=== PATIENT | male | born 1940 | race American Indian/Alaskan Native ===

== ENCOUNTER 2018-01-30 10:31 | Emergency (ER) | payer MEDICARE, OTHER ==
[~2018-01-30] VITALS: Ht 170.2 cm; Wt 71.7 kg
--- OUTSIDE RECORDS SUMMARY | ~2018-01-30 | XMS | Clinical Summary ---
Demographics + + + | Address | [address] | | | [place] [address] | + + + | Home Phone | | + + + | Preferred Language | Unknown | + + + | Marital Status | | + + + | Episcopal Affiliation | NRP | + + + [...] Phone | + + +---------+ + | LITO PRITCHRAD | ECON | Unknown | | + + +---------+ + | Delmis Pritchard | ECON | Unknown | | + + +---------+ + Care Team Providers + +------+ + | Care Procurement Technician Name | Role | Phone | + +------+ + | Christa Fairbanks MD | PP | | + +------+ + Source Comments SHERITA is fully live on both EpicCare Ambulatory and EpicCare InPatient.[facility] Allergies + + + + + + | Active Allergy | Reactions | Severity | Noted | Comments | | | | | Date | | + + + + + + | Levofloxacin | Unknown | | 11/20/20 | | | | | | 15 | | + + + + + + Current Medications + + +---------+---------+------+------+-------+ | Prescription | Sig. | Disp. | Refills | Star | End | Statu | | | | | | t | Date | s | | | | | | Date | | | + + +---------+---------+------+------+-------+ | Cholecalciferol, | Take 2,000 Units by | | | | | Activ | | Vitamin D3, 2,000 | mouth once daily. | | | | | e | | unit oral tablet | | | | | | | + + +---------+---------+------+------+-------+ | simvastatin 20 mg | Take 20 mg by mouth | | | | | Activ | | oral tablet | once daily in the | | | | | e | | | evening. | | | | | | + + +---------+---------+------+------+-------+ | metoprolol | Take 25 mg by mouth | | | | | Activ | | succinate 25 mg oral | once daily. | | | | | e | | tablet extended | | | | | | | | release 24 hr | | | | | | | + + +---------+---------+------+------+-------+ | lisinopril 10 mg | Take 10 mg by mouth | | | | | Activ | | oral tablet | once daily. | | | | | e | + + +---------+---------+------+------+-------+ | ferrous sulfate | Take 325 mg by mouth | | | | | Activ | | 325 mg (65 mg iron) | two times daily. | | | | | e | | oral tablet | | | | | | | + + +---------+---------+------+------+-------+ | ascorbic acid 500 | Take 500 mg by mouth | | | | | Activ | | mg oral tablet | once daily. Take | | | | | e | | | with ferrous sulfate | | | | | | + + +---------+---------+------+------+-------+ | levothyroxine 50 | Take 50 mcg by mouth | | | | | Activ | | mcg oral tablet | once daily. | | | | | e | + + +---------+---------+------+------+-------+ | insulin glargine | Inject 20 Units [...] | | | | | + + +---------+---------+------+------+-------+ | insulin lispro 100 | Aggressive sliding | 10 mL | 0 | 11 | | Activ | | unit/mL | scale. See attached | | | 2/20 | | e | | subcutaneous | sheet. | | | 15 | | | | solution | | | | | | | + + +---------+---------+------+------+-------+ | oxyCODONE, | Take 1-2 tablets by [...] | | | | | + + +---------+---------+------+------+-------+ Active Problems + + + | Problem | Noted Date | + + + | Subdural hematoma (HCC) | 03/26/2015 | + + + Social [...] on file | | + + + Last Filed Vital Signs + + + + | Vital Sign | Reading | Time Taken | + + + + | Blood Pressure | 125/54 | 03/29/2015 12:03 PM PST | + + + + | Pulse | 68 | 03/29/2015 12:06 PM PST | + + + + | Temperature | 36.8 C (98.2 F) | 03/29/2015 12:06 PM PST | + + + + | Respiratory Rate | 18 | 03/29/2015 12:06 PM PST | + + + + | Oxygen Saturation | 97% | 03/29/2015 12:06 PM PST | + + + + | Inhaled Oxygen | - | - | | Concentration | | | + + + + | Weight | 71 kg (156 lb 8.4 | 03/28/2015 5:00 AM PST | | | oz) | | + + + + | Height | 177.8 cm (5' 10") | 03/27/2015 8:00 AM PST | + + + + | Body Mass Index | 22.46 | 03/28/2015 5:00 AM PST | + + + + Plan of Treatment + + + + + | Health Maintenance | Due Date | Last Done | Comments | + + + + + | Pneumococcal (Adult) | | | | | (1 of 2 - PCV13) | 4 | | | + + + + + | INFLUENZA VACCINE | | | | | (FLU SHOT) | 8 | | | + + + + + Implants + +------+--------+ +--------+--------+--------+ | Implanted | Type | Area | Manufacture | Device | Expira | Model | | | | | r | | tion | / | | | | | | Identi | Date | Serial | | | | | | fier | | / Lot | + +------+--------+ +--------+--------+--------+ | Cover [place] Hole .5mm 17mm | | Right: | Whotever | | | 421.52 | | Craniomaxillofacial Titanium | | Head | | | | 7 / / | | Low Profile Nonsterile - | | | | | | | | [id number]: Qty: 2 on | | | | | | | | 03/26/2015 by Dixie Sykes | | | | | | | | MD Janie | | | | | | | + +------+--------+ +--------+--------+--------+ | Screw Bone 4mm 1.55mm 2.55mm | | Right: | Contently [place] | | | 04.503 | | Matrixneuro | | Head | | | | .104.0 | | Craniomaxillofacial Titanium | | | | | | 1 / / | | Self Drill Nonsterile - | | | | | | | | [id number]: Qty: 4 on | | | | | | | | 03/26/2015 by Dixie Sykes | | | | | | | | M MD | | | | | | | + +------+--------+ +--------+--------+--------+ Results Not on filefrom Last 3 Months Insurance + +--------+ +--------+ + + | Payer | Benefi | Subscriber | Type | Phone | Address | | | t Plan | ID | | | | | | / | | | | | | | Group | | | | | + +--------+ +--------+ + + | MEDICARE | MEDICA | xxxxxxxxxx | Medica | [phone] | [address] | | | RE A & | | re | [phone] | [place] [address] | | | B | | | | | + +--------+ +--------+ + + | [facility] | [place] | xxxxxxxxx | Agency | | | | SERVICE | | | | | | | | HEALTH | | | | | | | | | | | | | | SERVIC | | | | | | | E | | | | | + +--------+ +--------+ + + + +--------+ +--------+ + + | Guarantor Name | Accoun | Relation to | Date | Phone | Billing Address | | | t Type | Patient | of | | | | | | | | | | + +--------+ +--------+ + + | SKYLER PRITCHARD | Person | Self [birth year] Home: | [address] | | | al/Fam | | 1940 | [phone] [place] | | | [place] | | | [phone] | + +--------+ +--------+ + +
[~2018-01-30 10:31] MED LIST: ASCORBIC ACID500 M3 PO; ASPIRIN EC81 MG PO; CALCIUM + VITA1 EAC1 PO; CALCIUM 600 +1 EAC3 PO; CLOPIDOGREL75 MG PO; GABAPENTIN100 MG PO; HUMALOG100 UNIT/1 SUB-Q; HYDROCODON-ACE1 EA10 PO; IRON160 MG PO; LANTUS SOL100 UNIT/1 SQ; LANTUS100 UNIT/1 SUB-Q; NORCO 5-325 TA1 EACH PO; NOVOLOG FL100 UNIT/1 SQ; OMEPRAZOLE20 MG PO; PROMETHAZINE HC25 M1 PO; PYRIDIUM200 MG PO; SEPTRA DS TABL1 EACH PO; SIMVASTATIN40 MG PO; SYNTHROID25 MCG PO; TRAMADOL HCL50 MG PO; VITAMIN D350000 UNIT PO; ZESTRIL5 MG PO
--- NOTE | 2018-01-30 16:49 | EKG ---
[facility] [address] [facility] [place] [address] Signed Sinus rhythm with occasional premature ventricular complexes Possible Anterior infarct , age undetermined Abnormal ECG When compared with ECG of 26-MAR-2016 00:16, premature ventricular complexes are now present Incomplete left bundle branch block is no longer present Borderline criteria for Anterior infarct are now present Confirmed by LISSETTE STORY MD ([id number]) on 01/30/2018 4:49:24 PM Electronically Signed By: LISSETTE STORY MD 01/30/18 1649 PATIENT NAME: SKYLER PRITCHARD Electrocardiogram DATE OF : 38 PHYSICIAN: LISSETTE STORY MD REPORT #: [id number] REPORT IS CONFIDENTIAL AND NOT TO BE RELEASED WITHOUT AUTHORIZATION
== END 2018-01-30 12:18 | disposition home or self-care (01) ==
LOC: ED 10:31
DX: R07.9 Chest pain, unspecified (principal); E11.9 Type 2 diabetes mellitus without complications; I25.2 Old myocardial infarction; I10 Essential (primary) hypertension; E78.5 Hyperlipidemia, unspecified; F17.200 Nicotine dependence, unspecified, uncomplicated; Z88.1 Allergy status to other antibiotic agents; Z79.4 Long term (current) use of insulin
CPT/HCPCS: 80053; 84484; 85025; 93005; 93010; 99285

== ENCOUNTER 2019-02-04 09:14 | Emergency (ER) | payer MEDICARE, OTHER ==
[~2019-02-04] VITALS: Ht 170.2 cm; Wt 71.7 kg
--- OUTSIDE RECORDS SUMMARY | ~2019-02-04 | XMS | Encounter Summary ---
Demographics + + + | Address | [address] | | | [place] [address] | + + + | Home Phone | | + + + | Preferred Language | Unknown | + + + | Marital Status | | + + + | Gnosticism Affiliation | NRP | + + + | Race | or | + + + | Ethnic Group | Not or | + + + Author + + + | Author | [facility] | + + + | Organization | [facility] | + + + | [...] Team Providers + +------+ + | Care Morgue Keeper Name | Role | Phone | + +------+ + | Christa Caldera MD | PCP | | + +------+ + Reason for Visit AUTH/CERT +--------+--------+ + + + + | [...] + + + + | 03/26/ | Anesthesia | 6A Intra Op [facility] | Vernon Dalton MD | | | 2015 | Event | [facility] | [address] | | | | | Admitting Desk | Anastacia Longo [facility] | | | | | Located on the | [place] [address] | | | | | floor [address] | [phone] | | | | | [address] | | | | | | [place], [place] | | | | | | [address] | | | +--------+ + + + + Anesthesia Record + + + + + | Procedure Name | Responsible | Anesthesia Start | Anesthesia Stop Time | | | Anesthesiologist | Time | | + + + + + | RIGHT LJ HOLE VS | Chandler Meehan MD | 03/26/152128 | 03/26/15 2335 | | CRANIOTOMY FOR | | | | | EVACUATION OF | | | | | SUBDURAL HEMATOMA | | | | | (Right ) | | | | + + + + + +----+---+ + + | Da | T | Event | Comment | | te | i | | | | | m | | | | | e | | | +----+---+ + + | 11 | 2 | Pt. Check | Prior to anesthesia start, pt. Identified, examined, chart | | /1 | 1 | | reviewed, PARQ held, anesthetic plan made or approved by | | 9/ | 1 | | attending anesthesiologist. NPO status confirmed as appropriate | | 20 | 8 | | for procedure Preoperative evaluation: unchanged | | 15 | | | | +----+---+ + + | | 2 | Eq Check | Anesthesia machine checked Equipment verified | | | 1 | | | | | 2 | | | | | 5 | | | +----+---+ + + | | 2 | An Start | | | | 1 | | | | | 2 | | | | | 9 | | | +----+---+ + + | | 2 | ICU to OR | signout received from ICU team, patient transported to OR with | | | 1 | | continous monitoring, intubated and ventilated | | | 3 | | | | | 2 | | | +----+---+ + + | | 2 | An Start | | | | 1 | Data | | | | 3 | | | | | 7 | | | +----+---+ + + | | 2 | Vitals | Monitors applied Vital signs checked Patient ready for anesthesia | | | 1 | Checked | | | | 3 | | | | | 9 | | | +----+---+ + + | | 2 | Std. Airway | | | | 1 | Mgt. | | | | 4 | | | | | 7 | | | +----+---+ + + | | 2 | Art Line | | | | 1 | | | | | 4 | | | | | 9 | | | +----+---+ + + | | 2 | Ready | | | | 1 | | | | | 5 | | | | | 3 | | | +----+---+ + + | | 2 | Abx | | | | 1 | Administere | | | | 5 | d | | | | 4 | | | +----+---+ + + | | 2 | Timeout | | | | 2 | | | | | 1 | | | | | 8 | | | +----+---+ + + | | 2 | Incision | | | | 2 | | | | | 1 | | | | | 9 | | | +----+---+ + + | | 2 | Surgery end | | | | 3 | | | | | 0 | | | | | 7 | | | +----+---+ + + | | 2 | OR to | patient transported to ICU with continuos monitoring, intubated | | | 3 | ICU/Handoff | and ventilated, signout given to ICU team | | | 1 | | | | | 4 | | | +----+---+ + + | | 2 | an stop | | | | 3 | data | | | | 2 | | | | | 2 | | | +----+---+ + + | | 2 | Anesthesia | | | | 3 | End | | | | 3 | | | | | 5 | | | +----+---+ + + +------+ | Meds | +------+ + + + | Name | Total | + + + | niCARdipine (CARDENE) IV infusion | 2.88 mg | | (ICU, Omnicell) | | + + + | insulin regular in NaCl 0.9% IV | 28 Units | | infusion 250 units/250 mL (1 | | | unit/mL) | | + + + | fentaNYL | 200 mcg | + + + | propofol | 120 mg | + + + | lidocaine 2% | 80 mg | + + + | rocuronium | 80 mg | + + + | PHENYLEPHrine | 300 mcg | + + + | ePHEDrine | 15 mg | + + + | ceFAZolin | 2,000 mg | + + + | insulin regular | 4 Units | + + + | ondansetron | 4 mg | + + + | propofol INF | 87,904 mcg | + + + | NS | 1,000 mL | + + + + + | Name | + + | O2 FR Avance (Total Liters) | + + | Insp Sevo | + + | Et Sevo | + + | Insp Iso | + + | Et Iso | + + | O2 Flow Rate (Total Liters) | + + + + | No blood administrations on file. | + + +--------+ + + + | Type | Details | Placement | Removal | +--------+ + + + | Periph | 03/26/15; Other hospital; Left; | 03/26/15 0000 by | 03/29/151513 by Ismael | | eral | Anterior; Forearm; 20 g; | Stephanie Faria RN | Kendy Barraza RN | | IV | Positive; 03/29/15; 1513; | | | | | Discharge | | | +--------+ + + + | Periph | 03/26/15; 2051; Right; 20 g; | 03/26/152051 by | 03/29/151514 by Ismael | | eral | Positive; 03/29/15; 1514; | Stephanie Faria RN | Kendy Barraza RN | | IV | Discharge | | | +--------+ + + + | Wound | 03/26/15; 2099; Yes; Right; | 03/26/152099 by | 03/29/151514 by Ismael | | | elbow; Abrasion; 03/29/15; 1514 | Stephanie Faria RN | Kendy Barraza RN | +--------+ + + + | Wound | 03/26/15; 2100; Yes; Left; elbow; | 03/26/15 2100 by | 03/29/15 151 by Ismael | | | Abrasion; 03/29/15; 1514 | Stephanie Faria RN | Kendy Barraza RN | +--------+ + + + | Arteri | 03/26/15; 2144; Placed in OR; | 03/26/152144 by | 03/27/15 1600 by | | al | Standard; Right; Radial; | Stephanie Faria RN | Florence Gonzalez RN | | Line | 03/27/15; 1600 | | | +--------+ + + + | Urethr | 03/26/15; 2199; Aurora Leon | 03/26/152199 by | 03/28/15 1300 by Ismael | | nikita | BROOKE; Jose; 16 Fr.; 10 mL; | Delmis Correa RN | Kendy Barraza RN | | Yarelis | 03/28/15; 1300; Per protocol | | | | er | | | | +--------+ + + + | Drain | 03/26/15; 2245; Denise Neville MD; | 03/26/152245 by | 03/28/15944 by | | | Other (Comment) (ALTAF dunn ); | Delmis Correa RN | Jenn Mejias RN | | | Right; head; 03/28/15 (by ); | | | | | 0945 | | | +--------+ + + + documented in this encounter Social History + +-------+ +--------+------+ | Tobacco [...] in this encounter Administered Medications + +--------+ + +------+------+ | Medication Order | MAR | Action | Dose | Rate | Site | | | Action | Date | | | | + +--------+ + +------+------+ | ceFAZolin (ANCEF) injection | Given | 03/26/20 | 2,000 mg | | | | intravenous, INTRAPROCEDURE PRN, | | 15 9:54 | | | | | Starting Mala 03/26/15 at 2154, | | PM PST | | | | | Until Mala 03/26/15 at 2322 | | | | | | + +--------+ + +------+------+ +---+---+ | | | +---+---+ + +-------+ +-------+---+---+ | ePHEDrine injection | Given | 03/26/20 | 10 mg | | | | intravenous, INTRAPROCEDURE PRN, | | 15 10:35 | | | | | Starting Mala 03/26/15 at 2150, | | PM PST | | | | | Until Mala 03/26/15 at 2322 | | | | | | + +-------+ +-------+---+---+ +-------+ +------+---+---+ | Given | 03/26/20 | 5 mg | | | | | 15 9:50 | | | | | | PM PST | | | | +-------+ +------+---+---+ +---+---+ | | | +---+---+ + +-------+ +--------+---+---+ | fentaNYL citrate (PF) | Given | 03/26/20 | 50 mcg | | | | (SUBLIMAZE) injection | | 15 11:14 | | | | | INTRAPROCEDURE PRN, Starting Mala | | PM PST | | | | | 03/26/15 at 2143, Until Mala | | | | | | | 03/26/15 at 2322, sedation | | | | | | + +-------+ +--------+---+---+ +-------+ +--------+---+---+ | Given | 03/26/20 | 50 mcg | | | | | 15 10:43 | | | | | | PM PST | | | | +-------+ +--------+---+---+ | Given | 03/26/20 | 50 mcg | | | | | 15 10:07 | | | | | | PM PST | | | | +-------+ +--------+---+---+ +---+---+ | | | +---+---+ + +-------+ +---------+---+---+ | insulin regular bolus from | Given | 03/26/20 | 4 Units | | | | continuous infusion | | 15 10:21 | | | | | INTRAPROCEDURE PRN, Starting Mala | | PM PST | | | | | 03/26/15 at 2221, Until Mala | | | | | | | 03/26/15 at 2322 | | | | | | + [...] | | | | | | Starting Mala 03/26/15 at 2145, | | | | [...] | | +---+---+ + +-------+ +-------+---+---+ | lidocaine PF (XYLOCAINE MPF) 20 | Given | 03/26/20 | 80 mg | | | | mg/mL (2 %) injection | | 15 9:42 | | | | | INTRAPROCEDURE PRN, Starting Mala | | PM PST | | | | | 03/26/15 at 2142, Until Mala | | | | | | | 03/26/15 at 2322 | | | | | | + +-------+ +-------+---+---+ +---+---+ | | | +---+---+ + + + +---+---+---+ | NaCl 0.9 % solution | given by | 03/26/20 | | | | | INTRAPROCEDURE CONTINUOUS PRN, | | 15 11:32 | | | | | Starting Mala 03/26/15 at 2140, | anesthes | PM PST | | | | | Until Mala 03/26/15 at 2322 | iology | | | | | + + + +---+---+---+ + + +---+---+---+ | given by anesthesiology | 03/26/20 | | | | | | 15 10:30 | | | | | | PM PST | | | | + + +---+---+---+ | given by anesthesiology | 03/26/20 | | | | | | 15 10:23 | | | | | | PM PST | | | | + + +---+---+---+ +---+---+ | | | +---+---+ + + [...] | | + + + + +---+ +---+---+ | | | +---+---+ + +-------+ +------+---+---+ | ondansetron (ZOFRAN) injection | Given | 03/26/20 | 4 mg | | | | INTRAPROCEDURE PRN, Starting Mala | | 15 10:59 | | | | | 03/26/15 at 2259, Until Mala | | PM PST | | | | | 03/26/15 at 2322 | | | | | | + +-------+ +------+---+---+ +---+---+ | | | +---+---+ + +-------+ +---------+---+---+ | PHENYLEPHrine 100 mcg/mL IV | Given | 03/26/20 | 200 mcg | | | | syringe INTRAPROCEDURE PRN, | | 15 9:50 | | | | | Starting Mala 03/26/15 at 2148, | | PM PST | | | | | Until Mala 03/26/15 at 2322 | | | | | | + +-------+ +---------+---+---+ +-------+ +---------+---+---+ | Given | 03/26/20 | 100 mcg | | | | | 15 9:48 | | | | | | PM PST | | | | +-------+ +---------+---+---+ +---+---+ | | | +---+---+ + + + + +--------+---+ | propofol (DIPRIVAN) injection | Rate/Dos | 03/26/20 | 50 | 19.68 | | | INTRAPROCEDURE CONTINUOUS PRN, | e Change | 15 11:09 | mcg/kg/m | mL/hr | | | Starting Mala 03/26/15 at 2308, | | PM PST | in | | | | Until Mala 03/26/15 at 2322 | | | | | | + + + + +--------+---+ +---------+ + +--------+---+ | New Bag | 03/26/20 | 40 | 15.74 | | | | 15 11:08 | mcg/kg/m | mL/hr | | | | PM PST | in | | | +---------+ + +--------+---+ +---+---+ | | | +---+---+ + +-------+ +-------+---+---+ | propofol INTRAPROCEDURE PRN, | Given | 03/26/20 | 20 mg | | | | Starting Mala 03/26/15 at 2143, | | 15 11:01 | | | | | Until Mala 03/26/15 at 2322 | | PM PST | | | | + +-------+ +-------+---+---+ +-------+ +--------+---+---+ | Given | 03/26/20 | 100 mg | | | | | 15 9:43 | | | | | | PM PST | | | | +-------+ +--------+---+---+ +---+---+ | | | +---+---+ + +-------+ +-------+---+---+ | rocuronium (ZEMURON) injection | Given | 03/26/20 | 80 mg | | | | INTRAPROCEDURE PRN, Starting Mala | | 15 9:43 | | | | | 03/26/15 at 2143, Until Mala | | PM PST | | | | | 03/26/15 at 2322, Neuromuscular | | | | | | | block | | | | | | + +-------+ +-------+---+---+ +---+---+ | | | +---+---+ documented in this encounter"
--- OUTSIDE RECORDS SUMMARY | ~2019-02-04 | XMS | Encounter Summary ---
Demographics + + + | Address | [address] | | | [place] [address] | + + + | Home Phone | | + + + | Preferred Language | Unknown | + + + | Marital Status | | + + + | Gnosticist Affiliation | NRP | + + + | Race | or | + + + | Ethnic Group | Not or | + + + Author + + + | Author | [facility] | + + + | Organization | [...] Team Providers + +------+ + | Care Ball Shagger Name | Role | Phone | + [...] 03/26/ | Surgery | 6A Intra Op [facility] | Dixie Sykes, | RIGHT LJ HOLE VS | | 2014 | | [facility] | [address] | CRANIOTOMY FOR | | | | Admitting Desk | [place], [place] | EVACUATION OF | | | | Located on the | [address] | SUBDURAL HEMATOMA | | | | floor [address] [facility] | [phone] | | | | | [facility] | | | | | | [place], [place] | | | | | | [address] | | | +--------+---------+ + + + [...] Sykes MD PCP: Eli Baker MD Service: [facility] Neurosurgery Diagnoses Principal Final Diagnosis: 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 Additional Diagnoses: Type 1 DM Procedures Right-sided lj holes for evacuation of subdural hematoma. Brief Hospital Course Derick Franco is a 74-year-old male who was brought in transfer to [facility] for acute on chronic panhemispheric right-sided [...] right side. He was then brought to [facility] for higher level of care an [...] 3:14 PM Discharging Attending: Dixie Sykes MD [facility] [address] [place] [address] documented in this en counter Discharge Instructions [...] your senior or day center, you r hoahaoism community, or any other community in which [...] service which conn ects the people of [place] and [facility] with the community resources they need. 2 [employer] Home Instead ([phone]) This is a [employer] which can provide in home assistance at a cost to the family. [place] Project [place] OPI is a program which helps seniors 60 and over continue to live independently and safely living in their own home. OPI provides individualized personal care, housekeeping, and case management support. http://www.[place].gov/dhs/spwpd/pages/ltc/inhome.aspx#opi [place] Independent Living Resources: [place] Statement Of Independent Living Resources: Promote the philosophy of Independent L iving by creating opportunities, encouraging choices, advancing equal access, and furthering the level of independence for all people with disabilities. [phone] Meals on Wheels (www.mealsonwheelspeople.org) Meals on Wheels are hot, nutritious lunches that are delivered Monday through Monday betwee n 11 a.m. and 1 p.m. to homebound elderly age 60 and older. Seniors must live in [facility] in [place] or [facility] in [place] to be eligible to receive meal s. Call to request meals at [phone] in [facility] and toll free in [facility] at . Most of the [facility] in [place] have a Meals on Wheels Program, and information on local [facility] tg-ts-gbnxeu services can be obtained through local Area Agency on Aging Offices. [place] Vocational Rehabilitation Service (OVRS) ( ) http://www.[place].gov/DHS /vr/Pages/index.aspx [place] Area Agency on Aging http://www.[place].gov/dhs/spwpd/pages/offices.aspx There are 17 Area Agencies on Aging across [place] that administer and support community-bas ed care services. AAAs advocate for older adults living in their area, develop community-based long-term care services to meet the needs of those adults and administer funds to implement services. Most services coordinated by AAAs are provided through community service providers at the local level. This section contains program information designed for staff members of [place]'s AAAs . Aging and Disability Resource Connection of [place] https://adrcoforegon.org/mbwbkt-uobzwnn-uhe-independent-living.php [facility] is a resource directory for [place] families, caregivers and consumers seekin g information about long-term supports and services. Here you will find quick and easy acces s to resources in your community. If you cannot find the information you are looking for or wish to talk to someone in person, please call us toll free at [phone]-[facility] ([phone]) [place] Caregiver Support Line http://www.caregiver.[place].gov/ Toll free : Also check with your private health insurance organization, as respite care may also be inc luded in the coverage. Support Groups for Families Living with Aphasia Individuals and families affected by aphasia face unique challenges. Support specifically d esigned for these people is limited. Three groups have formed in the [place], [place] area t hat provide both the individual experiencing aphasia and family members the opportunity to d evelop a sense of community with others impacted by aphasia. These groups are organized and run by participants. Faculty and students from [facility] s Department of S peech and [...] everyone. There are several groups in the [facility] area for individuals and families living wit h aphasia: [facility] Continuous Improvement Group When: Each Monday 11:00 12:00 Where: [facility] [address] [place] [address]. Contact: Aidan Alaniz Yareli Norm [email or web address] [facility] Speak EZ group When: Odd numbered Saturdays (i.e. May 12) 10:00 12:00 Where: Aris castillo [facility] [address] Contact: Mark Yanez [phone] [facility] Aphasia Group When: & Monday of each month 10:00 12:00 Where: [facility] Room varies watch for directional signs Contact: Kenya Cano [phone] [email or web address] The [employer] A community music group for stroke survivors. Stroke survivors, spouses, partners, and care givers are invited to join for an hour of playing instruments and singing. Every Monday, 11:30-12:30 at the [facility], [address] [place] [address]. Info rmation contact: Jen Banks, , Brain Injury Snook of [place] http://www.biaoregon.org/ National Stroke Association http://www.stroke.org/ .STROKES (035.1839) National Center on Caregiving/ Family Caregiver Snook www.caregiver.org Established in 2000 as a program of Family Caregiver Snook, the National Center on Careg iving (NCC) [...] their doctors about any personal medical concerns. [facility] Crisis Line Information: [facility] Access Crisis Number (24 hours) documented in [...] relationship with his PCP and his diabetic game show host whom he sees regularly. The patient and [...] relationship with his PCP and his diabetic game show host whom he sees regularl y. The patient [...] 1:38 PM PST NSICU Neuroscience ICU Attending Furniture Mechanic Note Derick Franco is a 74 y.o. [...] the rest of his medications since his pyqgombi-ff-ysv Dione is the one who manges all his medications. He was brought to [facility] in [facility], [place] by EMS. On arrival his BP was 176/107 which was treated with labetalol. CT scan reviled a large acute on chroni c RIGHT subdural hematoma with right midline shift PMHx significant for DM, HTN, CAD s/p ME (on ASA and Plavix), TIA 24 Hour Events: ding well Neuro exam: non focal, AA and Ox4 Current problems include: right SDH acute on chronic, MLS, st/p lj hole evacuation , pneumocephalus postop,received platelets transfusion preop due to chronic antiplatelet t herapy ASA and Plavix (post ME), mild leucocytosis - reactive, normocytic anemia baseline [...] of this patient Promise Valdez MD [facility] DEPARTMENT: [id number] ICU NEURO Place of Service:- Inpatient Date of Service: 03/28/15 CSN: [id number] Suggested Modifier: GC - Resident Involved Suggested CPT: TO CODER P M Ely Hernández MD - 03/28/2015 12:39 PM PST [facility] Neuroscience ICU Progress Note Team Pager: [phone] Attendin Patient name: Derick Franco Author: Ely Oquendo MD Date of Service: 03/28/2015 Intensive Care Attending: Promise Valdez MD Attending Provider: Dixie Sykes MD ICU day # 3 POD # 2 s/p right lj holes for evacuation of subdural hematoma ID: Derick Franco is a 74 y.o. male with PMHx significant for DM, HTN, CAD s/p ME (on ASA an d Plavix), TIA, presenting [...] all his medications. He was brought to [facility] in [facility], [place] by EMS. On arrival his BP was [...] PMHx significant for DM, HTN, CAD s/p ME (on ASA and Plavix), TIA, presen ting [...] transfer Cardiovascular # HTN # CAD # ME -sBP goal < 140mmHg -home metoprolol and [...] assessment and plan. Ely Oquendo MD [facility] DEPARTMENT: [id number] ICU NEURO Place of Service:- Inpatient Date of Service: 03/28/2015 CSN: [id number] Suggested Modifier: None Salty Kulkarni MD - [...] weeks of dex 2BID Contact neurosurgery resident risk reduction counselor with questions at [place]ager [phone] [place] [address] PGY-4 Neurosurgery Promise Jaime MD - 03/27/2015 9:53 AM PST NSICU Neuroscience ICU Attending Furniture Mechanic Note Derick Franco is a 74 y.o. [...] the rest of his medications since his holuqtgf-dv-uoc Dione is the one who manges all his medications. He was brought to [facility] in [place], [place] by EMS. On arrival his BP was 176/107 which was treated with labetalol. CT scan reviled a large acute on chroni c RIGHT subdural hematoma with right midline shift PMHx significant for DM, HTN, CAD s/p ME (on ASA and Plavix), TIA Notable labs: [...] antiplatelet t herapy ASA and Plavix (post ME), mild leucocytosis - reactive, normocytic anemia baseline [...] this patient who is cri tically ill Pormise Valdez MD [facility] DEPARTMENT: [id number] ICU NEURO Place of Service:- Inpatient Date of Service: 03/27/15 CSN: [id number] Suggested Modifier: GC - Resident Involved Suggested CPT: TO CODER P [facility] Luis Song MD - 03/27/2015 8:29 AM PST Date: 03/27/2015 Author: Luis Villafana MD Admitting Physician: Dixie Sykse MD HPI/Interval Update: S/p R lj holes [...] 7.43 PCO2 38 PO2 553* HCO3 25.3 [id number] 100.9* Assesment: Derick Franco is a 74 [...] total Luis Villafana MD Neurosurgery Resident Pager #[phone] Chet Alberto ACNP - 03/27/2015 5:29 AM [...] PMHx significant for DM, HTN, CAD s/p ME (on ASA an d Plavix), TIA, presenting [...] rest of his medications since his anyi pwtqr-mm-szk Dione is the one who manges all his medications. He was brought to [facility] in [place], [place] by EMS. On arrival his BP [...] PMHx significant for DM, HTN, CAD s/p ME (on ASA and Plavix), TIA, presen ting [...] transfer Cardiovascular # HTN # CAD # ME -sBP goal < 140mmHg -nicardipine gtt to [...] [place] pharmacy records [place] med rec confirmed, will restart [...] is exclusive of procedures. CHAPO Dhillon [facility] DEPARTMENT: [id number] ICU NEURO Place of Service:- Inpatient Date of Service: 03/27/2015 CSN: [id number] Suggested Modifier: None Suggested CPT: TO INTEGRATED CAMPAIGN MANAGER Recent Labs 03/26/15203203/26/15221103/27/15 0326 NA 141 143 [...] tablet 40 mg 40 mg oral QPM [facility] - 03/27/2015 12:43 AM [facility] NEUROSURGERY POST OPERATIVE CHECK Author: Luis Villafana [...] bed Luis Villafana MD Neurosurgery Resident Pager #[phone] documented in this en counter Plan of [...] | | Attending Surgeon: Dixie Sykes MD Hoistman(s): Dave Song | | MD Jamin Preoperative [...] | | was brought in transfer to [facility] for acute on chronic panhemispheric right-sided [...] right side. He was then brought to [facility] for | | higher level of [...] Bur holes were then created using a director of speech pathology drill bit on the high-speed | | [...] patient was carefully [facility] He was left intubated. | | He [...] 03/26/2015 23:51:35DT: 03/27/2015 07:45:19Job #: | | [id number] was present for the critical portions of the procedure as described in | | the note for this encounter.Oneil Layne MDOHSU [id number] [facility] | | [id number], [place] [id number] | | | |I was present for the critical portions of the procedure as described in the note for this encounter. | | | |Dixie Sykes MD | | | |Dixie Sykes MD | |[facility] | |[address] | |[id number] | |[place] [address] | |[phone] | + + CAPILLARY BLOOD GLUCOSE (NO [...] + + + | [facility] | [address] | [place], [place] | | | MATTHEW POINT OF CARE | [address] | [address] | | | TESTS | | | [...] [facility] | [address] | [place], [place] | | | MATTHEW POINT OF CARE | [address] | [address] | | | TESTS | | | [...] | Specimen | + + | Blood | + + + + + + + | Performing | Address | City/State/Zipcode | Phone Number | | Organization | | | | + + + + + | [facility] | [address] | [place] [address] | | | SERVICES, BEULAH | SHADIA SCHWARTZ | | | + + + + + MAGNESIUM, PLASMA (03/29/2015 5:53 AM PST) + +-------+ + + + | Component | Value | Ref Range | Performed | Pathologist | | | | | At | Signature | + +-------+ + + + | MAGNESIUM,P | 2.1 | 1.8 - 2.5 mg/dL | [facility] | | | [facility] | | | LABORATORY | | | | | | SERVICES, | | | | | | CORE | | + +-------+ + + + + + | Specimen | + + | Blood | + + + + + + + | Performing | Address | City/State/Zipcode | Phone Number | | Organization | | | | + + + + + | [facility] | [address] | [place] [address] | | | SERVICES, CORE | SHADIA [...] | | | LABORATORY | | | SOLOMON ISLANDER | | | SERVICES, | | | [...] | Specimen | + + | Blood | + + + + + | Narrative | Performed At | + + + | GFR is estimated using the MDRD equation recommended by the | [facility] | | National Kidney Disease Education Program. Estimated GFR | LABORATORY | | Interpretive Information: <60 mL/min/1.73 sq | SERVICES, CORE | | m Chronic Kidney Disease <15 mL/min/1.73 | | | sq m Kidney Failure Estimated GFR greater | | | that 60 mL/min/1.73 sq m is of limited clinical value. The MDRD | | | equation is not valid in the following situations: - Patients under | | | 18 years of age - Severe malnutrition or obesity - Vegetarian diet | | | - Rapidly changing kidney function | | + + + + + + + + | Performing | Address | City/State/Zipcode | Phone Number | | Organization | | | | + + + + + | [facility] | [address] | [place] [address] | | | SERVICES, CORE | SHADIA [...] (H) | 60 - 99 mg/dL | [facility] - | | | GLUCOSE, | [...] [facility] | [address] | [place], [place] | | | LORRAINE CASTRO OF CARE | [address] | [address] | | | TESTS | | | [...] [facility] | [address] | [place], [place] | | | HILL, POINT OF CARE | [address] | [address] | | | TESTS | | | [...] [facility] | [address] | [place], [place] | | | LORRAINE CASTRO OF VICTOR MANUEL | [address] | [address] | | | TESTS | | | [...] ST[facility] | [address] | [place], [place] | | | MATTHEW POINT OF CARE | [address] | [address] | | | TESTS | | | [...] [facility] | [address] | [place], [place] | | | LORRAINE CASTRO OF CARE | [address] | [address] | | | TESTS | | | [...] [facility] | [address] | [place], [place] | | | LORRAINE CASTRO OF CARE | [address] | [address] | | | TESTS | | | [...] + | [facility] | [address] | [place], [place] | | | MATTHEW POINT OF CARE | [address] | [address] | | | TESTS | | | [...] MAR[facility] | [address] | [place], [place] | | | LORRAINE CASTRO OF CARE | [facility] | [address] | | | TESTS | | | [...] + | [facility] | [address] | [place], [place] | | | MATTHEW POINT OF CARE | [address] | [address] | | | TESTS | | | [...] ST[facility] | [address] | [place], [place] | | | MATTHEW POINT OF CARE | [address] | [address] | | | TESTS | | | [...] MARQUAM | [address] | [place], [place] | | | LORRAINE CASTRO OF CARE | [address] | [address] | | | TESTS | | | [...] (H) | 60 - 99 mg/dL | [facility] - | | | GLUCOSE, | | [...] + | [facility] | [address] | [place], [place] | | | MATTHEW POINT OF CARE | [address] | [address] | | | TESTS | | | [...] ST[facility] | [address] | [place], [place] | | | MATTHEW POINT OF CARE | [address] | [address] | | | TESTS | | | [...] [facility] | [address] | [place], [place] | | | MATTHEW POINT OF CARE | [address] | [address] | | | TESTS | | | [...] (H) | 60 - 99 mg/dL | [facility] | | | GLUCOSE, | | [...] + | [facility] | [address] | [place], [place] | | | LORRAINE CASTRO OF CARE | [facility] | [address] | | | TESTS | | | [...] ST[facility] | [address] | [place], [place] | | | MATTHEW POINT OF CARE | [address] | [address] | | | TESTS | | | [...] MAR[facility] | [address] | [place], [place] | | | MATTHEW POINT OF CARE | [address] | [address] | | | TESTS | | | [...] (H) | 60 - 99 mg/dL | [facility] - | | | GLUCOSE, | | [...] + | [facility] | [address] | [place], [place] | | | LORRAINE CASTRO OF VICTOR MANUEL | [facility] | [address] | | | TESTS | | | [...] ST[facility] | [address] | [place], [place] | | | MATTHEW POINT OF CARE | [address] | [address] | | | TESTS | | | [...] | Specimen | + + | Blood | + + + + + + + | Performing | Address | City/State/Zipcode | Phone Number | | Organization | | | | + + + + + | [facility] | [address] | [place] [address] | | | CODI, BEULAH | [address] | | | + [...] | Specimen | + + | Blood | + + + + + + + | Performing | Address | City/State/Zipcode | Phone Number | | Organization | | | | + + + + + | [facility] | [address] | [place] [address] | | | SERVICES, CORE | SHADIA [...] | | | LABORATORY | | | SOLOMON ISLANDER | | | SERVICES, | | | [...] | Specimen | + + | Blood | + + + + + | Narrative | Performed At | + + + | GFR is estimated using the MDRD equation recommended by the | [facility] | | National Kidney Disease Education Program. Estimated GFR | LABORATORY | | Interpretive Information: <60 mL/min/1.73 sq | SERVICES, CORE | | m Chronic Kidney Disease <15 mL/min/1.73 | | | sq m Kidney Failure Estimated GFR greater | | | that 60 mL/min/1.73 sq m is of limited clinical value. The MDRD | | | equation is not valid in the following situations: - Patients under | | | 18 years of age - Severe malnutrition or obesity - Vegetarian diet | | | - Rapidly changing kidney function | | + + + + + + + + | Performing | Address | City/State/Zipcode | Phone Number | | Organization | | | | + + + + + | [facility] | [address] | [place] [address] | | | BEULAH KINCAID | SHADIA [...] (H) | 60 - 99 mg/dL | [facility] - | | | GLUCOSE, | [...] [facility] | [address] | [place], [place] | | | MATTHEW POINT OF CARE | [address] | [address] | | | TESTS | | | [...] [facility] | [address] | [place], [place] | | | LORRAINE CASTRO OF VICTOR MANUEL | [facility] | [address] | | | TESTS | | | | + + + + + CAPILLARY BLOOD GLUCOSE (NO CHG) POC (03/27/2015 10:02 PM PST) + +---------+ [...] + | [facility] | [address] | [place] | | | LORRAINE CASTRO OF CARE | [facility] | [address] | | | TESTS | | | [...] (H) | 60 - 99 mg/dL | [facility] - | | | GLUCOSE, | [...] [facility] | [address] | [place] | | | MATTHEW POINT OF CARE | [address] | [address] | | | TESTS | | | [...] ST[facility] | [address] | [place], [place] | | | LORRAINE CASTRO OF VICTOR MANUEL | [facility] | [address] | | | TESTS | | | [...] - [facility] | [address] | [place] | | | LORRAINE CASTRO OF CARE | [facility] | [address] | | | TESTS | | | [...] (H) | 60 - 99 mg/dL | [facility] - | | | GLUCOSE, | [...] [facility] | [address] | [place] | | | MATTHEW POINT OF CARE | [address] | [address] | | | TESTS | | | [...] [facility] | [address] | [place], [place] | | | LORRAINE CASTRO OF VICTOR MANUEL | [facility] | [address] | | | TESTS | | | [...] [place] | [address] | [place] | | | LORRAINE CASTRO OF CARE | [facility] | [address] | | | TESTS | | | [...] (H) | 60 - 99 mg/dL | [facility] - | | | GLUCOSE, | [...] [place] | [address] | [place] | | | MATTHEW POINT OF CARE | [address] | [address] | | | TESTS | | | [...] [facility] | [address] | [place], [place] | | | LORRAINE CASTRO OF VICTOR MANUEL | [facility] | [address] | | | TESTS | | | | + + + + + CAPILLARY BLOOD GLUCOSE (NO CHG)THI (03/27/2015 9:57 AM PST) + +---------+ + [...] [facility] | [address] | [place] | | | LORRAINE CASTRO OF CARE | [address] | [address] | | | TESTS | | | [...] (H) | 60 - 99 mg/dL | [facility] - | | | GLUCOSE, | [...] [place] | [address] | [place] | | | MAT[facility]W POINT [facility] | [address] | [address] | | | TESTS | | | [...] [facility] | [address] | [place], [place] | | | LORRAINE CASTRO OF VICTOR MANUEL | [facility] | [address] | | | TESTS | | | | + + + + + CAPILLARY BLOOD GLUCOSE (NO CHG) POC (03/27/2015 6:04 AM PST) + +---------+ [...] [place] | [address] | [place] | | | LORRAINE CASTRO OF CARE | [address] | [address] | | | TESTS | | | [...] (H) | 60 - 99 mg/dL | [facility] - | | | GLUCOSE, | [...] OM[facility] | [address] | [place] | | | LORRAINE CASTRO OF VICTOR MANUEL | [address] | [address] | | | TESTS | | | [...] [facility] | [address] | [place], [place] | | | LORRAINE CASTRO OF VICTOR MANUEL | [facility] | [address] | | | TESTS | | | [...] | Specimen | + + | Blood | + + + + + + + | Performing | Address | City/State/Zipcode | Phone Number | | Organization | | | | + + + + + | [facility] | [address] | [place] [address] | | | SERVICES, CORE | PARK [...] | Specimen | + + | Blood | + + + + + + + | Performing | Address | City/State/Zipcode | Phone Number | | Organization | | | | + + + + + | [facility] | [address] | [place] [address] | | | SERVICES, CORE | SHADIA [...] | | | LABORATORY | | | SOLOMON ISLANDER | | | SERVICES, | | | [...] | Specimen | + + | Blood | + + + + + | Narrative | Performed At | + + + | GFR is estimated using the MDRD equation recommended by the | [facility] | | National Kidney Disease Education Program. Estimated GFR | LABORATORY | | Interpretive Information: <60 mL/min/1.73 sq | SERVICES, CORE | | m Chronic Kidney Disease <15 mL/min/1.73 | | | sq m Kidney Failure Estimated GFR greater | | | that 60 mL/min/1.73 sq m is of limited clinical value. The MDRD | | | equation is not valid in the following situations: - Patients under | | | 18 years of age - Severe malnutrition or obesity - Vegetarian diet | | | - Rapidly changing kidney function | | + + + + + + + + | Performing | Address | City/State/Zipcode | Phone Number | | Organization | | | | + + + + + | [facility] | [address] | [place] [address] | | | BEULAH KINCAID | SHADIA [...] 74 | 60 - 99 mg/dL | [facility] - | | | GLUCOSE, | [...] ABDOULAYE | [address] | [place], [place] | | | MATTHEW POINT OF CARE | [address] | [address] | | | TESTS | | | [...] ABDOULAYE | [address] | [place] | | | LORRAINE CASTRO OF VICTOR MANUEL | [facility] | [address] | | | TESTS | | | | + + + + + CULTURE, URINE [facility] (03/27/2015 12:51 AM PST) + + + [...] | Specimen | + + | Urine | + + + + + + + | Performing | Address | City/State/Zipcode | Phone Number | | Organization | | | | + + + + + | [facility] | [address] | [place] [address] | | | SERVICES, CORE | PARK [...] | Specimen | + + | Urine | + + + + + + + | Performing | Address | City/State/Zipcode | Phone Number | | Organization | | | | + + + + + | [facility] | [address] | [place] [address] | | | SERVICES, CORE | PARK [...] | Specimen | + + | Urine | + + + + + + + | Performing | Address | City/State/Zipcode | Phone Number | | Organization | | | | + + + + + | [facility] | [address] | [place] [address] | | | SERVICES, CORE | PARK [...] | Specimen | + + | Urine | + + + + + | [...] [facility] | [address] | [place] [address] | | | BEULAH KINCAID | SHADIA [...] + + | [facility] | [address] | [place], [place] | | | [facility] | [address] | [address] | | | TESTS | | | [...] SHARRI | | | | | | BRIXEY 03/27/2015 9:09 | | | | | | AM Preliminary / | | | | | | SHARRI BRIXEY | | | | | | 03/27/2015 [...] ABDOULAYE | [address] | [place], [place] | | | [facility] VICTOR MANUEL | [facility] | [address] | | | TESTS | | | | + + + + + ABG-THI BUENROSTRO (03/26/2015 10:12 PM PST) + + + [...] ABDOULAYE | [address] | [place], [place] | | | L[facility]RA[facility] OF VICTOR MANUEL | [address] | [address] | | | TESTS | | | [...] + + + + + | [facility] | [address] | [place], [place] | | | [facility] | [facility] | [address] | | | TESTS | | | [...] + + + + + + | QTCB | 438 | ms | [facility] [...] DEPT OF | [address] | [place], [place] | | | CARDIOLOGY | [facility] | [address] | | + + + + + [...] | Specimen | + + | Blood | + + + + + + + | Performing | Address | City/State/Zipcode | Phone Number | | Organization | | | | + + + + + | [facility] | [address] | [place] [address] | | | CODI, BEULAH | SHADIA [...] [facility] | [address] | [place] [address] | | | SERVICES, | [address] [...] | + + + + + | [facility] | [address] | [place] [address] | | | SERVICES, | [address] [...] | Specimen | + + | Blood | + + + + + | Narrative | Performed At | + + + | INR Therapeutic ranges for full anticoagulation: INR for | [facility] | | Venous Thromboembolism (2.0 - 3.0) INR INR | LABORATORY | | for most patients with mech. valves (2.5 - 3.5) INR | SERVICES, CORE | + + + + + + + + | Performing | Address | City/State/Zipcode | Phone Number | | Organization | | | | + + + + + | [facility] | [address] | [place] [address] | | | SERVICES, CORE | PARK [...] | Specimen | + + | Blood | + + + + + + + | Performing | Address | City/State/Zipcode | Phone Number | | Organization | | | | + + + + + | [facility] | [address] | [place] [address] | | | SERVICES, CORE | SHADIA [...] | Specimen | + + | Blood | + + + + + | Narrative | Performed At | + + + | APTT Therapeutic | [facility] | | Range: (75 - 120) sec | LABORATORY | | Heparin levels of 0.35 - 0.7 U/mL | SERVICES, CORE | + + + + + + + + | Performing | Address | City/State/Zipcode | Phone Number | | Organization | | | | + + + + + | [facility] | [address] | [place] [address] | | | SERVICES, CORE | [address] | | | + + + + + MAGNESIUM, PLASMA (03/26/2015 8:33 PM PST) + +-------+ + + + | Component | Value | Ref Range | Performed | Pathologist | | | | | At | Signature | + +-------+ + + + | MAGNESIUM,P | 2.0 | 1.8 - 2.5 mg/dL | [facility] | | | [facility] | | | LABORATORY | | | | | | SERVICES, | | | | | | CORE | | + +-------+ + + + + + | Specimen | + + | Blood | + + + + + + + | Performing | Address | City/State/Zipcode | Phone Number | | Organization | | | | + + + + + | [facility] | [address] | [place] [address] | | | CODI, BEULAH | SH[facility]IA [...] | | | LABORATORY | | | [facility] | | | SERVICES, | | | [...] | Specimen | + + | Blood | + + + + + | Narrative | Performed At | + + + | GFR is estimated using the MDRD equation recommended by the | [facility] | | National Kidney Disease Education Program. Estimated GFR | LABORATORY | | Interpretive Information: <60 mL/min/1.73 sq | SERVICES, CORE | | m Chronic Kidney Disease <15 mL/min/1.73 | | | sq m Kidney Failure Estimated GFR greater | | | that 60 mL/min/1.73 sq m is of limited clinical value. The MDRD | | | equation is not valid in the following situations: - Patients under | | | 18 years of age - Severe malnutrition or obesity - Vegetarian diet | | | - Rapidly changing kidney function | | + + + + + + + + | Performing | Address | City/State/Zipcode | Phone Number | | Organization | | | | + + + + + | [facility] | [address] | [place] [address] | | | SERVICES, CORE | SHADIA [...] + + + + | PRODUCT | [id number] | | [facility] | | | UNIT [...] + + + + | EXPIRATION | [id number] | | [facility] | | | DATE [...] + + + + | BLOOD | [id number] | | [facility] | | | PRODUCT [...] | + + + + + | [facility] | [address] | [place] [address] | | | PATHOLOGY | [address] [...] + + + + | PRODUCT | [id number] | | [facility] | | | UNIT [...] + + + + | EXPIRATION | [id number] | | [facility] | | | DATE [...] + + + + | BLOOD | [id number] | | [facility] | | | PRODUCT [...] | + + + + + | [facility] | [address] | [place] [address] | | | PATHOLOGY | [address] [...]
--- OUTSIDE RECORDS SUMMARY | ~2019-02-04 | XMS | Encounter Summary ---
Demographics + + + | Address | [address] | | | [place] [address] | + + + | Home Phone | | + + + | Preferred Language | Unknown | + + + | Marital Status | | + + + | Orthodoxy Affiliation | NRP | + + + | Race | or | + + + | Ethnic Group | Not or | + + + Author + + + | Author | [facility] | + + + | Organization | [facility] | + + + | Address | [...] Team Providers + +------+ + | Care Track Supervisor Name | Role | Phone | + [...] | | | | | Procedures | [place], [place] | | | | | | [place] | [address] | | | | | | CONTRAST | Phone: | | | | | | | [phone] | | | | | | | Fax: | | | | | | | [phone] | | +--------+--------+ + + + + Diagnostic Testing (Routine) +--------+--------+ + + + [...] | | | | | Procedures | [place], [place] | | | | | | [place] | [address] | | | | | | CONTRAST | Phone: | | | | | | | [phone] | | | | | | | Fax: | | | | | | | [phone] | | +--------+--------+ + + + + Reason for Visit Diagnostic Testing (Routine) +--------+--------+ + + + + | Status | Reason | Specialty | Diagnoses / | Referred By | Referred To | | | | | Procedures | Contact | Contact | +--------+--------+ + + + + | Closed | | Radiology | Diagnoses | Emanuel, | | | | | | Subdural | Josselyn Case, | | | | | | hematoma | PA [address] | | | | | | (HCC) | Ricardo Rocha | | | | | | Procedures | [place], [place] | | | | | | [place] | [address] | | | | | | CONTRAST | Phone: | | | | | | | [phone] | | | | | | | Fax: | | | | | | | [phone] | | +--------+--------+ + + + + Encounter Details +--------+ + + + + | Date | Type | Department | Care Team | Description | +--------+ + + + + | 04/23/ | Hospital | Radiology/Imaging | | | | 2014 | Encounter | Lab at [facility] [address] | | | | | | Ricardo Rocha Mailcode: | | | | | | [facility] | | | | | | [facility], | | | | | | [place] [address], [facility] | | | | | | Floor [place], [place] | | | | | | [address] | | | | | | [phone] | | | +--------+ + + + [...] subdural | | | | | | khskrorc40/19/2015 | | | | | | COMPARISON: [...] | | | | | | abnormality. Noeviden | | | | | | ce of new hemorrhage, | | | | | | mass, or acute | | | | | | territorial | | | | | | infarction. Theventri | | | | | | cles are normal in size | | | | | | and morphology. There is | | | | | | | | | | | | scatteredhypoattenuation [...] Final/Electronically | | | | | | vahe / BECKA | | | | | | TROY 04/23/2015 12:54 | | | | | | PM | | | | + + [...]
--- OUTSIDE RECORDS SUMMARY | ~2019-02-04 | XMS | Encounter Summary ---
Demographics + + + | Address | [address] | | | [place] [address] | + + + | Home Phone | | + + + | Preferred Language | Unknown | + + + | Marital Status | | + + + | Congregation Affiliation | NRP | + + + | Race | or | + + + | Ethnic Group | Not or | + + + Author + + + | Author | [facility] | + + + | Organization | [facility] | + + + | [...] Team Providers + +------+ + | Care Veterinary Manager Name | Role | Phone | + [...] HOLE VS | | 2014 | | [facility] | [address] | CRANIOTOMY FOR | | | | Admitting Desk | [place], [place] | EVACUATION OF | | | | Located on the | [address] | SUBDURAL HEMATOMA | | | | floor [address] [facility] [facility] | [phone] | | | | | [facility] | | | | | | [place], [place] | | | | | | [address] | | | +--------+---------+ + + + [...] Sykes MD PCP: Eli Baker MD Service: [facility] Neurosurgery Diagnoses Principal Final Diagnosis: 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 Additional Diagnoses: Type 1 DM Procedures Right-sided lj holes for evacuation of subdural hematoma. Brief Hospital Course Derick Franco is a 74-year-old male who was brought in transfer to [facility] for acute on chronic panhemispheric right-sided [...] right side. He was then brought to [facility] for higher level of care an [...] 3:14 PM Discharging Attending: Dixie Sykes MD [facility] [address] [place] [address] documented in this en counter Discharge Instructions [...] your senior or day center, you r christian community, or any other community in which [...] service which conn ects the people of [place] and [facility] with the community resources they need. [employer] Home Instead ([phone]) This is a [employer] which can provide in home assistance at a cost to the family. [place] Project [place]or[place] OPI is a program which helps seniors 60 and over continue to live independently and safely living in their own home. OPI provides individualized personal care, housekeeping, and case management support. http://www.[place].gov/dhs/spwpd/pages/ltc/inhome.aspx#opi [place] Independent Living Resources: [place] Statement Of Independent Living Resources: Promote the philosophy of Independent L iving by creating opportunities, encouraging choices, advancing equal access, and furthering the level of independence for all people with disabilities. [phone] Meals on Wheels (www.mealsonwheelspeople.org) Meals on Wheels are hot, nutritious lunches that are delivered Monday through Monday betwee n 11 a.m. and 1 p.m. to homebound elderly age 60 and older. Seniors must live in [facility] in [place] or [facility] in [place] to be eligible to receive meal s. Call to request meals at [phone] in [facility] and toll free in [facility] at . Most of the nationwide children's hospital in [place] have a Meals on Wheels Program, and information on local [facility] eh-lz-dtetnk services can be obtained through local Area Agency on Aging Offices. [place] Vocational Rehabilitation Service (OVRS) ( ) http://www.[place].gov/DHS /vr/Pages/index.aspx [place] Area Agency on Aging http://www.[place].gov/dhs/spwpd/pages/offices.aspx There are 17 Area Agencies on Aging across [place] that administer and support community-bas ed care services. AAAs advocate for older adults living in their area, develop community-based long-term care services to meet the needs of those adults and administer funds to implement services. Most services coordinated by AAAs are provided through community service providers at the local level. This section contains program information designed for staff members of [place]'s AAAs . Aging and Disability Resource Connection of [place] https://adrcoforegon.org/ijbjem-otkopba-adq-independent-living.php [facility] is a resource directory for [place] families, caregivers and consumers seekin g information about long-term supports and services. Here you will find quick and easy acces s to resources in your community. If you cannot find the information you are looking for or wish to talk to someone in person, please call us toll free at [facility] ([phone]) [place] Caregiver Support Line http://www.caregiver.[place].gov/ Toll free : Also check with your private health insurance organization, as respite care may also be inc luded in the coverage. Support Groups for Families Living with Aphasia Individuals and families affected by aphasia face unique challenges. Support specifically d esigned for these people is limited. Three groups have formed in the [place], [place] area t hat provide both the individual experiencing aphasia and family members the opportunity to d evelop a sense of community with others impacted by aphasia. These groups are organized and run by participants. Faculty and students from [facility] s Department of S peech and [...] everyone. There are several groups in the [facility] area for individuals and families living wit h aphasia: [facility] Continuous Improvement Group When: Each Monday 11:00 12:00 Where: [facility] [address] [place] [address]. Contact: Aidan Alaniz Yareli Norm [email or web address] [facility] Speak EZ group When: Odd numbered Saturdays (i.e. May 12) 10:00 12:00 Where: Aris castillo [facility] [address] Contact: Mark Yanez [phone] [facility] Aphasia Group When: & Monday of each month 10:00 12:00 Where: [facility] Room varies watch for directional signs Contact: Kenya Cano [phone] [email or web address] [employer] A community music group for stroke survivors. Stroke survivors, spouses, partners, and care givers are invited to join for an hour of playing instruments and singing. Every Monday, 11:30-12:30 at the [facility], [address] [place] [address]. Info rmation contact: Jen Banks, , [email or web address] Brain Injury [place] of [place] http://www.biaoregon.org/ National Stroke Association http://www.stroke.org/ .STROKES (430.4885) National Center on Caregiving/ Family Caregiver [place] www.caregiver.org Established in 2000 as a program of Family Caregiver [place], the National Center on Careg iving (NCC) [...] their doctors about any personal medical concerns. [facility] Crisis Line Information: [facility] Access Crisis Number (24 hours) documented in [...] relationship with his PCP and his diabetic roofing technician whom he sees regularly. The patient and [...] relationship with his PCP and his diabetic roofing technician whom he sees regularl y. The patient [...] 1:38 PM PST NSICU Neuroscience ICU Attending Laborer Adjustable Steel Joist Note Derick Franco is a 74 y.o. [...] the rest of his medications since his dnafqtmo-py-pao Dione is the one who manges all his medications. He was brought to [facility] in [facility], [place] by EMS. On arrival his BP was 176/107 which was treated with labetalol. CT scan reviled a large acute on chroni c RIGHT subdural hematoma with right midline shift PMHx significant for DM, HTN, CAD s/p SD (on ASA and Plavix), TIA 24 Hour Events: ding well Neuro exam: non focal, AA and Ox4 Current problems include: right SDH acute on chronic, MLS, st/p lj hole evacuation , pneumocephalus postop,received platelets transfusion preop due to chronic antiplatelet t herapy ASA and Plavix (post SD), mild leucocytosis - reactive, normocytic anemia baseline an d periop BL, hyperchloremia Plan: hadley status, bronchial hygiene, SBP<160 mmHg, adat., OOB ambulate. Relevant Risks: This patient is currently at risk for the following: cerebral edema, sei zure and subdural hematoma; arrhythmia; edema, ICU delirium and UTI. I spent 22 minutes actively involved in the care and management of this patient Promise Valdez MD [facility] DEPARTMENT: [id number] ICU NEURO Place of Service:- Inpatient Date of Service: 03/28/15 CSN: [id number] Suggested Modifier: GC - Resident Involved Suggested CPT: TO CODER P M Ely Hernández MD - 03/28/2015 12:39 PM PST [facility] Neuroscience ICU Progress Note Team Pager: [phone] Attendin Patient name: Derick Franco Author: Ely Oquendo MD Date of Service: 03/28/2015 Intensive Care Attending: Promise Valdez MD Attending Provider: Dixie Sykes MD ICU day # 3 POD # 2 s/p right lj holes for evacuation of subdural hematoma ID: Derick Franco is a 74 y.o. male with PMHx significant for DM, HTN, CAD s/p SD (on ASA an d Plavix), TIA, presenting [...] all his medications. He was brought to [facility] in [facility], [place] by EMS. On arrival his BP was [...] PMHx significant for DM, HTN, CAD s/p SD (on ASA and Plavix), TIA, presen ting [...] transfer Cardiovascular # HTN # CAD # SD -sBP goal < 140mmHg -home metoprolol and [...] above assessment and plan. Ely Oquendo MD [facility] DEPARTMENT: [id number] ICU NEURO Place of Service:- Inpatient Date of Service: 03/28/2015 CSN: [id number] Suggested Modifier: None Salty Kulkarni MD - [...] weeks of dex 2BID Contact neurosurgery resident wall covering contractor with questions at pager [phone] [place] [address] PGY-4 Neurosurgery Promise Jaime MD - 03/27/2015 9:53 AM PST NSICU Neuroscience ICU Attending Laborer Adjustable Steel Joist Note Derick Franco is a 74 y.o. [...] the rest of his medications since his hyrxeejc-jm-vej Dione is the one who manges all his medications. He was brought to [facility] in [place], [place] by EMS. On arrival his BP was 176/107 which was treated with labetalol. CT scan reviled a large acute on chroni c RIGHT subdural hematoma with right midline shift PMHx significant for DM, HTN, CAD s/p SD (on ASA and Plavix), TIA Notable labs: [...] antiplatelet t herapy ASA and Plavix (post SD), mild leucocytosis - reactive, normocytic anemia baseline [...] is cri tically ill Promise Valdez MD [facility] DEPARTMENT: [id number] ICU NEURO Place of Service:- Inpatient Date of Service: 03/27/15 CSN: [id number] Suggested Modifier: GC - Resident Involved Suggested CPT: TO CODER P M [facility] Luis Song MD - 03/27/2015 8:29 [...] 7.43 PCO2 38 PO2 553* HCO3 25.3 [id number] 100.9* Assesment: Derick Franco is a 74 [...] total Luis Villafana MD Neurosurgery Resident Pager #[phone] Chet Alberto ACNP - 03/27/2015 5:29 AM [...] PMHx significant for DM, HTN, CAD s/p SD (on ASA an d Plavix), TIA, presenting [...] rest of his medications since his anyi pomda-tt-qrm Dione is the one who manges all his medications. He was brought to [facility] in [place], [place] by EMS. On arrival his BP [...] PMHx significant for DM, HTN, CAD s/p SD (on ASA and Plavix), TIA, presen ting [...] transfer Cardiovascular # HTN # CAD # SD -sBP goal < 140mmHg -nicardipine gtt to [...] up pharmacy records and PCP records [place] - med rec confirmed, will restart [...] time is exclusive of procedures. CHAPO Dhillon [facility] DEPARTMENT: [id number] ICU NEURO Place of Service:- Inpatient Date of Service: 03/27/2015 CSN: [id number] Suggested Modifier: None Suggested CPT: TO PROCESSING ARCHIVIST Recent Labs 03/26/15203203/26/15221103/27/15 0326 NA 141 143 [...] tablet 40 mg 40 mg oral QPM [facility] MD - 03/27/2015 12:43 AM [facility] NEUROSURGERY POST OPERATIVE CHECK Author: Luis Villafana [...] bed Luis Villafana MD Neurosurgery Resident Pager #[phone] documented in this en counter Plan of [...] | | Attending Surgeon: Dixie Sykes MD Fruit Packer(s): Dave Song | | MD Jamin Preoperative [...] | | was brought in transfer to [facility] for acute on chronic panhemispheric right-sided [...] right side. He was then brought to [facility] for | | higher level of [...] Bur holes were then created using a control integration engineer drill bit on the high-speed | | [...] patient was carefully transferred [facility]. He was left intubated. | | He [...] 03/26/2015 23:51:35DT: 03/27/2015 07:45:19Job #: | | [id number] was present for the critical portions of the procedure as described in | | the note for this encounter.Oneil Layne MDOHSU [id number] [facility] | | [id number], [place] [id number] | | | |I was present for the critical portions of the procedure as described in the note for this encounter. | | | |Dixie Sykes MD | | | |Dixie Sykes MD | |[facility] | |[address] | |[id number] | |[place] [address] | |[phone] | + + CAPILLARY BLOOD GLUCOSE (NO [...] + + + | [facility] | [address] | [place], [place] | | | MATTHEW POINT OF CARE | [address] | [address] | | | TESTS | | | [...] [facility] | [address] | [place], [place] | | | MATTHEW POINT OF CARE | [address] | [address] | | | TESTS | | | [...] | + + + + + | [facility] | [address] | [place] [address] | | | SERVICES, BEULAH | SHADIA [...] [facility] | [address] | [place] [address] | | | SERVICES, CORE | SHADIA [...] | | | LABORATORY | | | [place] | | | SERVICES, | | | [...] | + + + + + | [facility] | [address] | [place] [address] | | | SERVICES, CORE | SHADIA [...] (H) | 60 - 99 mg/dL | [facility] - | | | GLUCOSE, | [...] [facility] | [address] | [place], [place] | | | LORRAINE CASTRO OF CARE | [address] | [address] | | | TESTS | | | [...] [facility] | [address] | [place], [place] | | | HILL, POINT OF CARE | [address] | [address] | | | TESTS | | | [...] [facility] | [address] | [place], [place] | | | LORRAINE CASTRO OF VICTOR MANUEL | [address] | [address] | | | TESTS | | | [...] [facility] | [address] | [place], [place] | | | MATTHEW POINT OF CARE | [address] | [address] | | | TESTS | | | [...] MARQU[facility] | [address] | [place], [place] | | | LORRAINE CASTRO OF CARE | [address] | [address] | | | TESTS | | | [...] MARQUAM | [address] | [place], [place] | | | LORRAINE CASTRO OF CARE | [address] | [address] | | | TESTS | | | [...] ST[place] | [address] | [place], [place] | | | MATTHEW POINT OF CARE | [address] | [address] | | | TESTS | | | [...] MARQUAM | [address] | [place], [place] | | | LORRAINE CASTRO OF CARE | [facility] | [address] | | | TESTS | | | [...] MARQUAM | [address] | [place], [place] | | | MATTHEW POINT OF CARE | [address] | [address] | | | TESTS | | | [...] ST[place] | [address] | [place], [place] | | | MATTHEW POINT OF CARE | [address] | [address] | | | TESTS | | | [...] MARQUAM | [address] | [place], [place] | | | LORRAINE CASTRO OF CARE | [address] | [address] | | | TESTS | | | [...] (H) | 60 - 99 mg/dL | [facility] - | | | GLUCOSE, | | [...] MARQUAM | [address] | [place], [place] | | | MATTHEW POINT OF CARE | [address] | [address] | | | TESTS | | | [...] ST[place] | [address] | [place], [place] | | | MATTHEW POINT OF CARE | [address] | [address] | | | TESTS | | | [...] MARQUAM | [address] | [place], [place] | | | MATTHEW POINT OF CARE | [address] | [address] | | | TESTS | | | [...] (H) | 60 - 99 mg/dL | [facility] | | | GLUCOSE, | | [...] MAR[facility] | [address] | [place], [place] | | | LORRAINE CASTRO OF CARE | [facility] | [address] | | | TESTS | | | [...] [facility] | [address] | [place], [place] | | | MATTHEW POINT OF CARE | [address] | [address] | | | TESTS | | | [...] MARQUAM | [address] | [place], [place] | | | MATTHEW POINT OF CARE | [address] | [address] | | | TESTS | | | [...] (H) | 60 - 99 mg/dL | [facility] - | | | GLUCOSE, | | [...] - [facility] | [address] | [place], [place] | | | LORRAINE CASTRO OF VICTOR MANUEL | [facility] | [address] | | | TESTS | | | [...] [facility] | [address] | [place], [place] | | | MATTHEW POINT OF CARE | [address] | [address] | | | TESTS | | | [...] [facility] | [address] | [place] [address] | | | CODI, BEULAH | [address]ARK [...] | + + + + + | [facility] | [address] | [place] [address] | | | SERVICES, CORE | SHADIA [...] | | | LABORATORY | | | [place] | | | SERVICES, | | | [...] the MDRD equation recommended by the | [facility] | | National Kidney Disease Education Program. [...] | + + + + + | [facility] | [address] | [place] [address] | | | BEULAH KINCAID | SHADIA [...] (H) | 60 - 99 mg/dL | [facility] - | | | GLUCOSE, | [...] [facility] | [address] | [place], [place] | | | MATTHEW POINT OF CARE | [address] | [address] | | | TESTS | | | [...] ST[facility] | [address] | [place], [place] | | | LORRAINE CASTRO OF VICTOR MANUEL | [facility] | [address] | | | TESTS | | | [...] - [facility] | [address] | [place], [place] | | | LORRAINE CASTRO OF CARE | [facility] | [address] | | | TESTS | | | [...] (H) | 60 - 99 mg/dL | [facility] - | | | GLUCOSE, | [...] [facility] | [address] | [place], [place] | | | MATTHEW POINT OF CARE | [address] | [address] | | | TESTS | | | [...] [facility] | [address] | [place], [place] | | | LORRAINE CASTRO OF VICTOR MANUEL | [facility] | [address] | | | TESTS | | | [...] - [facility] | [address] | [place], [place] | | | LORRAINE CASTRO OF CARE | [facility] | [address] | | | TESTS | | | [...] (H) | 60 - 99 mg/dL | [facility] - | | | GLUCOSE, | [...] [facility] | [address] | [place], [place] | | | MATTHEW POINT OF CARE | [address] | [address] | | | TESTS | | | [...] | | POC | | | LORRAINE ACSTRO | | | | | | OF [...] ST[facility] | [address] | [place], [place] | | | LORRAINE CASTRO OF VICTOR MANUEL | [facility] | [address] | | | TESTS | | | [...] MARQUAM | [address] | [place], [place] | | | LORRAINE CASTRO OF CARE | [facility] | [address] | | | TESTS | | | [...] (H) | 60 - 99 mg/dL | [facility] - | | | GLUCOSE, | [...] [facility] | [address] | [place], [place] | | | MATTHEW POINT OF CARE | [address] | [address] | | | TESTS | | | [...] [facility] | [address] | [place], [place] | | | LORRAINE CASTRO OF VICTOR MANUEL | [facility] | [address] | | | TESTS | | | [...] MARQUAM | [address] | [place], [place] | | | LORRAINE CASTRO OF CARE | [address] | [address] | | | TESTS | | | [...] (H) | 60 - 99 mg/dL | [facility] - | | | GLUCOSE, | [...] [facility] | [address] | [place], [place] | | | MATTHEW POINT OF [facility] | [address] | [address] | | | TESTS | | | [...] [facility] | [address] | [place], [place] | | | LORRAINE CASTRO OF VICTOR MANUEL | [facility] | [address] | | | TESTS | | | [...] MARQUAM | [address] | [place], [place] | | | LORRAINE CASTRO OF CARE | [address] | [address] | | | TESTS | | | [...] (H) | 60 - 99 mg/dL | [facility] - | | | GLUCOSE, | [...] OM[facility] | [address] | [place], [place] | | | LORRAINE CASTRO OF VICTOR MANUEL | [address] | [address] | | | TESTS | | | [...] [facility] | [address] | [place], [place] | | | LORRAINE CASTRO OF VICTOR MANUEL | [facility] | [address] | | | TESTS | | | [...] | + + + + + | [facility] | [address] | [place] [address] | | | SERVICES, CORE | PARK [...] | + + + + + | [facility] | [address] | [place] [address] | | | SERVICES, CORE | SHADIA [...] | | | LABORATORY | | | [place]ER | | | SERVICES, | | | [...] | + + + + + | [facility] | [address] | [place] [address] | | | BEULAH KINCAID | SHADIA [...] 74 | 60 - 99 mg/dL | [facility] - | | | GLUCOSE, | [...] ABDOULAYE | [address] | [place], [place] | | | MATTHEW POINT OF CARE | [address] | [address] | | | TESTS | | | [...] ABDOULAYE | [address] | [place], [place] | | | LORRAINE CASTRO OF VICTOR MANUEL | [facility] | [address] | | | TESTS | | | | + + + + + CULTURE, URINE [facility] (03/27/2015 12:51 AM PST) + + [...] [facility] | [address] | [place] [address] | | | SERVICES, CORE | PARK [...] [facility] | [address] | [place] [address] | | | SERVICES, CORE | PARK [...] [facility] | [address] | [place] [address] | | | SERVICES, CORE | PARK [...] [facility] | [address] | [place] [address] | | | BEULAH KINCAID | SHADIA [...] [facility] | [address] | [place], [place] | | | MATTHEW POINT OF [facility] | [address] | [address] | | | TESTS | | | [...] ABDOULAYE | [address] | [place], [place] | | | LORRAINE CASTRO OF VICTOR MANUEL | [facility] | [address] | | | TESTS | | | [...] ABDOULAYE | [address] | [place], [place] | | | LORRAINE CASTRO OF VICTOR MANUEL | [address] | [address] | | | TESTS | | | [...] [facility] | [address] | [place], [place] | | | LORRAINE CASTRO OF [facility] | [facility] | [address] | | | TESTS | | | [...] DEPT OF | [address] | [place], [place] | | | CARDIOLOGY | [facility] | [address] | | + + + + + [...] [facility] | [address] | [place] [address] | | | CODI, BEULAH | SHADIA [...] [facility] | [address] | [place] [address] | | | SERVICES, | [address] [...] | + + + + + | [facility] | [address] | [place] [address] | | | SERVICES, | [address] [...] [facility] | [address] | [place] [address] | | | SERVICES, CORE | PARK [...] | + + + + + | [facility] | [address] | [place] [address] | | | SERVICES, CORE | SHADIA [...] | + + + + + | [facility] | [address] | [place] [address] | | | SERVICES, CORE | SHADIA [...] [facility] | [address] | [place] [address] | | | CODI, BEULAH | SHADIA [...] | | | LABORATORY | | | [place]ER | | | SERVICES, | | | [...] | + + + + + | [facility]ON | [address] | [place] [address] | | | SERVICES, CORE | SHADIA [...] + + + + | PRODUCT | [id number] | | [facility] | | | UNIT [...] + + + + | EXPIRATION | [id number] | | [facility] | | | DATE [...] + + + + | BLOOD | [id number] | | [facility] | | | PRODUCT [...] | + + + + + | [facility] | [address] | [place] [address] | | | PATHOLOGY | [address] [...] + + + + | PRODUCT | [id number] | | [facility] | | | UNIT [...] + + + + | EXPIRATION | [id number] | | [facility] | | | DATE [...] + + + + | BLOOD | [id number] | | [facility] | | | PRODUCT [...] | + + + + + | [facility] | [address] | [place] [address] | | | PATHOLOGY | [address] [...]
--- OUTSIDE RECORDS SUMMARY | ~2019-02-04 | XMS | Encounter Summary ---
Demographics + + + | Address | [address] | | | [place] [address] | + + + | Home Phone | | + + + | Preferred Language | Unknown | + + + | Marital Status | | + + + | Jewish Affiliation | NRP | + + + | Race | or | + + + | Ethnic Group | Not or | + + + Author + + + | Author | [facility] [employer] [facility] | + + + | Organization | [facility] | + + + | [...] Team Providers + +------+ + | Care Mortgage Advisor Name | Role | Phone | + [...] | | | | | Procedures | [place], [place] | | | | | | [place] | [address] | | | | | | CONTRAST | Phone: | | | | | | | [phone] | | | | | | | Fax: | | | | | | | [phone] | | +--------+--------+ + + + + [...] | | | | | Procedures | [place], [place] | | | | | | [place] | [address] | | | | | | CONTRAST | Phone: | | | | | | | [phone] | | | | | | | Fax: | | | | | | | [phone] | | +--------+--------+ + + + + [...] | | | | | Procedures | [place], [place] | | | | | | [place] | [address] | | | | | | CONTRAST | Phone: | | | | | | | [phone] | | | | | | | Fax: | | | | | | | [phone] | | +--------+--------+ + + + + Encounter Details +--------+ + + + + | Date | Type | Department | Care Team | Description | +--------+ + + + + | 04/23/ | Hospital | Radiology/Imaging | | | | 2014 | Encounter | Lab at [facility] [address] | | | | | | Ricardo Rocha Mailcode: | | | | | | [facility] | | | | | | [facility], | | | | | | [place] [address], [facility] | | | | | | Floor [place], [place] | | | | | | [address] | | | | | | [phone] | | | +--------+ + + + [...] subdural | | | | | | /19/2015 | | | | | | COMPARISON: [...]
--- OUTSIDE RECORDS SUMMARY | ~2019-02-04 | XMS | Clinical Summary ---
Demographics + + + | Address | [address] | | | [place] [address] | + + + | Home Phone | | + + + | Preferred Language | Unknown | + + + | Marital Status | | + + + | Mandaeism Affiliation | NRP | + + + [...] Team Providers + +------+ + | Care Purifying Plant Operator Name | Role | Phone | + +------+ + | Christa Caldera MD | PCP | | + +------+ + Source Comments SHERITA is fully live on both EpicCare Ambulatory and EpicCare InPatient.[facility] Allergies + + + + + + [...] Hole .5mm 17mm | | Right: | MovieSet | | | 421.52 | | Craniomaxillofacial Titanium | | Head | | | | 7 / / | | Low Profile Nonsterile - | | | | | | | | [id number]: Qty: 2 on | | | | | | | | 03/26/2015 by Dixie Sykes | | | | | | | | MD Janie at [facility] | | | | | | | | LOC | | | | | | | + +------+--------+ +--------+--------+--------+ | Screw Bone 4mm 1.55mm 2.55mm | | Right: | [employer] [place] | | | 04.503 | | Matrixneuro | | Head | | | | .104.0 | | Craniomaxillofacial Titanium | | | | | | 1 / / | | Self Drill Nonsterile - | | | | | | | | [id number]: Qty: 4 on | | | | | | | | 03/26/2015 by Dixie Sykes | | | | | | | | MD Janie at [facility] | | | | | [...] | [employer] | xxxxxxxxxx | 11/06/19 | [phone] | [address] | [employer] | | | RE A & | | 14-Pre | 1 | [phone] | [address] | | | [address] | | sent | | [place] | | | | | | | | [address] | | + +--------+ +--------+ + +--------+ | [facility] | | [phone] | 03/26/ | [...] | | al/Fam | | 1940 | [phone] | [address]OP [place] | | | nikole | | | 8 (Home) | [address] | + +--------+ +--------+ + + Advance [...]
--- OUTSIDE RECORDS SUMMARY | ~2019-02-04 | XMS | Encounter Summary ---
Demographics + + + | Address | [address] | | | [place] [address] | + + + | Home Phone [...] + + + | Author | [facility] [employer] [facility] | + + + | Organization [...] Team Providers + +------+ + | Care Coil Repair Technician Name | Role | Phone | [...] | Castellanos, | Test Results | | 2014 | | [facility] [address] | [place] | | | | | Josefina Mailcode: CH8N | [address] | | | | | [facility] | [place], [place] | | | | | and Natali, | [address] | | | | | [facility] | [phone] | | | | | [place], [place] | | | | | | [address] | | | | | | [phone] | | | +--------+ + + + [...]
--- OUTSIDE RECORDS SUMMARY | ~2019-02-04 | XMS | Encounter Summary ---
Demographics + + + | Address | [address] | | | [place] [address] | + + + | Home Phone [...] + + | Author | [facility] [employer] [facility] | + + + | Organization | [facility] | + + + | [...] Team Providers + +------+ + | Care Advanced Practice Nurse Psychotherapist Name | Role | Phone | + [...] Request (s/p | | 2014 | | [facility] [address] | [address] | admission 03/26/15 - | | | | Ave Mailcode: CH8N | [facility] [place] | 03/29/15: | | | | [place] for [facility] | [address] | Right-sided anurag | | | | and Healing, | [phone] | holes for evacuation | | | | | | of subdural | | | | Floor [place], [place] | | hematoma. (03/26/15) | | | | [address] | | ) | | | | [phone] | | | +--------+ + + + [...]
--- OUTSIDE RECORDS SUMMARY | ~2019-02-04 | XMS | Encounter Summary ---
Demographics + + + | Address | [address] | | | [place] [address] | + + + | Home Phone [...] [facility] [employer] [facility] | + + + | Organization | [facility] | + + + | Address | [...] Team Providers + +------+ + | Care Esthetician Spa Name | Role | Phone | + [...] | | | 2015 | Event | [facility] | [address] | | | | | Admitting Desk | [facility] | | | | | Located on the | [place] [address] | | | | | floor [address] | [phone] | | | | | [address] | | | | | | [place], [place] | | | | | | [address] | | | +--------+ + + + [...]
--- OUTSIDE RECORDS SUMMARY | ~2019-02-04 | XMS | Encounter Summary ---
Demographics + + + | Address | [address] | | | [place] [address] | + + + | Home Phone [...] + + | Author | [facility] [employer] [facility] | + + + [...] Team Providers + +------+ + | Care Hearing Healthcare Practitioner Name | Role | Phone | + [...] | | | | | hematoma | [address] | | | | | | ([facility]) | [address] | | | | | | Procedures | [place], [place] | | | | | | [place] | [address] | | | | | | CONTRAST | Phone: | | | | | | | [phone] | | | | | | | Fax: | | | | | | | [phone] | | +--------+--------+ + + + + Encounter Details +--------+ + + + + | Date | Type | Department | Care Team | Description | +--------+ + + + + | 03/30/ | Picker Tender Helper | Neurosurgery at | [place], | Subdural hematoma | | 2014 | | [facility] [address] | [place] | ([place]) (Primary Dx) | | | | Ave Mailcode: CH8N | [address] | | | | | [facility] | [place], [place] | | | | | and Healing, | [address] | | | | | | [phone] | | | | | Floor [place], [place] | | | | | | [address] | | | | | | [phone] | | | +--------+ + + + [...] subdural | | | | | | [id number]/2015 | | | | | | COMPARISON: [...] | | | | signed / BECKA | | | | | [...]
--- OUTSIDE RECORDS SUMMARY | ~2019-02-04 | XMS | Encounter Summary ---
Demographics + + + | Address | [address] | | | [place] [address] | + + + | Home Phone | | + + + | Preferred Language | Unknown | + + + | Marital Status | | + + + | Zoroastrianism Affiliation | NRP | + + + | Race | or | + + + | Ethnic Group | Not or | + + + Author + + + | Author | [facility] | + + + | Organization | [facility] | + + + | Address [...] Team Providers + +------+ + | Care Beveller Operator Name | Role | Phone | [...] Request (s/p | | 2014 | | [facility] [address] | [address] | admission 03/26/15 - | | | | Ave Mailcode: CH8N | [facility] [place] | 03/29/15: | | | | [place] for [facility] | [address] | Right-sided anurag | | | | and Healing, | [phone] | holes for evacuation | | | | | | of subdural | | | | Floor [place], [place] | | hematoma. (03/26/15) | | | | [address] | | ) | | | | [phone] | | | +--------+ + + + [...]
--- OUTSIDE RECORDS SUMMARY | ~2019-02-04 | XMS | Encounter Summary ---
Demographics + + + | Address | [address] | | | [place] [address] | + + + | Home Phone | | + + + | Preferred Language | Unknown | + + + | Marital Status | | + + + | Alevism Affiliation | NRP | + + + | Race | or | + + + | Ethnic Group | Not or | + + + Author + + + | Author | [facility] | + + + | Organization | [facility] | + + + | Address | [...] Team Providers + +------+ + | Care Flame Gouger Name | Role | Phone | + [...] + + | 03/26/ | Hospital | [facility] [address] [address] | Dixie Sykes, | | | 2014 - | Encounter | CAMPUS | [address] | | | | | [id number] MONISHA | [place], [place] | | | 03/29/ | | [place], | [address] | | | 2015 | | [place] [address] | [phone] | | | | | [phone] | | | +--------+ + + + [...] Sykes MD PCP: Eli Baker MD Service: [facility] Neurosurgery Diagnoses Principal Final Diagnosis: 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 Additional Diagnoses: Type 1 DM Procedures Right-sided lj holes for evacuation of subdural hematoma. Brief Hospital Course Derick Franco is a 74-year-old male who was brought in transfer to [facility] for acute on chronic [...] right side. He was then brought to [facility] for higher level of [...] 3:14 PM Discharging Attending: Dixie Sykes MD [address] [place] [address] documented in this en counter Discharge Instructions Instructions Desean Jayce - 03/27/2015Formatting of this note might be [...] your senior or day center, you r restorationist community, or any other community in which [...] service which conn ects the people of [place] and [facility][Note 2] with the community resources they need. 2 [employer] Home Instead ([phone]) This is a [employer] which can provide in home assistance at a cost to the family. [place] Project [place] OPI is a program which helps seniors 60 and over continue to live independently and safely living in their own home. OPI provides individualized personal care, housekeeping, and case management support. http://www.[place].gov/dhs/spwpd/pages/ltc/inhome.aspx#opi [place] Independent Living Resources: [place] Statement Of Independent Living Resources: Promote the philosophy of Independent L iving by creating opportunities, encouraging choices, advancing equal access, and furthering the level of independence for all people with disabilities. [phone] Meals on Wheels (www.mealsonwheelspeople.org) Meals on Wheels are hot, nutritious lunches that are delivered Monday through Monday betwee n 11 a.m. and 1 p.m. to homebound elderly age 60 and older. Seniors must live in [facility] in [place] or [facility] in [place] to be eligible to receive meal s. Call to request meals at [phone] in [facility] and [facility] and toll free in [facility] at . Most of the [facility] in [place] have a Meals on Wheels Program, and information on local [facility] nb-oi-mfpbwl services can be obtained through local Area Agency on Aging Offices. [place] Vocational Rehabilitation Service (OVRS) ( ) http://www.[place].gov/DHS /vr/Pages/index.aspx [place] Area Agency on Aging http://www.[place].gov/dhs/spwpd/pages/offices.aspx There are 17 Area Agencies on Aging across [place] that administer and support community-bas ed care services. AAAs advocate for older adults living in their area, develop community-based long-term care services to meet the needs of those adults and administer funds to implement services. Most services coordinated by AAAs are provided through community service providers at the local level. This section contains program information designed for staff members of [place]'s AAAs . Aging and Disability Resource Connection of [place] https://adrcoforegon.org/eqtsns-dslciut-ezo-independent-living.php [facility] is a resource directory for [place] families, caregivers and consumers seekin g information about long-term supports and services. Here you will find quick and easy acces s to resources in your community. If you cannot find the information you are looking for or wish to talk to someone in person, please call us toll free at 3-052[facility] ([phone]) [place] Caregiver Support Line http://www.caregiver.va.gov/ Toll free : Also check with your private health insurance organization, as respite care may also be inc luded in the coverage. Support Groups for Families Living with Aphasia Individuals and families affected by aphasia face unique challenges. Support specifically d esigned for these people is limited. Three groups have formed in the [place], [place] area t hat provide both the individual experiencing aphasia and family members the opportunity to d evelop a sense of community with others impacted by aphasia. These groups are organized and run by participants. Faculty and students from [facility] s Department of S peech and Hearing [...] everyone. There are several groups in the [facility] for individuals and families living wit h aphasia: [facility] [place] Continuous Improvement Group When: Each Monday 11:00 12:00 Where: [facility] [address] [place] [address]. Contact: Aidan Alaniz Yareli [facility] Speak EZ group When: Odd numbered Saturdays (i.e. May 12) 10:00 12:00 Where: Aris castillo [place] [facility] [address] Contact: Mark Yanez [phone] [facility] Aphasia Group When: & Monday of each month 10:00 12:00 Where: [facility] Room varies watch for directional signs Contact: Kenya Cano [phone] [email or web address] [employer] A community music group for stroke survivors. Stroke survivors, spouses, partners, and care givers are invited to join for an hour of playing instruments and singing. Every Monday, 11:30-12:30 at the [facility], [address] [place] [address]. Info rmation contact: Jen Banks, , [email or web address] Brain Injury North Hero of [place] http://www.biaoregon.org/ National Stroke Association http://www.stroke.org/ .800.STROKES (787.6537) National Center on Caregiving/ Family Caregiver North Hero www.caregiver.org Established in 2000 as a program of Family Caregiver North Hero, the National Center on Careg iving (NCC) works to advance the development of high-quality, cost-effective policies and pr ograms for caregivers in every state in the country. Uniting research, public policy and ser vices, the [facility] serves as a central source of information [...] their doctors about any personal medical concerns. [facility] Crisis Line Information: [facility] Health Access Crisis Number (24 hours) [...] relationship with his PCP and his diabetic monitor car operator whom he sees regularly. The patient and [...] relationship with his PCP and his diabetic monitor car operator whom he sees regularl y. The patient [...] Promise Jaime MD - 1:38 PM PST ICU Neuroscience ICU Attending Senior Software Engineering Manager Note Derick Franco is a 74 [...] the rest of his medications since his ltjfkmcw-kr-fdh Dione is the one who manges all his medications. He was brought to [facility] in [facility], [place] by EMS. On arrival his BP was [...] Promise Valdez MD [facility] DEPARTMENT: [id number] ICU NEURO Place of Service:- Inpatient Date of Service: 03/28/15 CSN: [id number] Suggested Modifier: GC - Resident Involved Suggested CPT: TO CODER P Ely Madsen MD - 03/28/2015 12:39 PM PST [facility] Neuroscience ICU Progress Note Team Pager: [phone] Attendin Patient name: Derick Franco Author: Ely [...] medications. He was brought to [facility] in [facility], [place] by EMS. On arrival his BP was 176/107 which was treated with labe talol. CT scan revealed a large acute on chronic RIGHT subdural hematoma with right midline shift' - note adapted from Dr. Sahu H&P note dated 03/26/15. 24 HOUR EVENTS: -low [...] Ely Oquendo MD [facility] DEPARTMENT: [id number] ICU NEURO Place of Service:- Inpatient Date of Service: 03/28/2015 CSN: [id number] Suggested Modifier: None tSalty sunshine MD - 03/28/2015 9:14 AM PST NEUROSURGERY [...] weeks of dex 2BID Contact neurosurgery resident manager mission with questions at [place]ager [phone] [place] [id number] PGY-4 Neurosurgery Promise Jaime MD - 03/27/2015 9:53 AM PST NSICU Neuroscience ICU Attending Senior Software Engineering Manager Note Derick Franco is a 74 [...] the rest of his medications since his axkebyom-iz-rag Dione is the one who manges all his medications. He was brought to [facility] in [place], [place] by EMS. On arrival his BP [...] Promise Valdez MD [facility] DEPARTMENT: [id number] ICU NEURO Place of Service:- Inpatient Date of Service: 03/27/15 CSN: [id number] Suggested Modifier: GC - Resident Involved Suggested CPT: TO CODER P [facility], Luis Song MD - 03/27/2015 8:29 [...] 7.43 PCO2 38 PO2 553* HCO3 25.3 [id number] 100.9* Assesment: Derick Franco is a 74 [...] total Luis Villafana MD Neurosurgery Resident Pager #[phone] Chet Alberto ACNP - 03/27/2015 5:29 AM [...] rest of his medications since his anyi vanbl-qa-kfc Dione is the one who manges all his medications. He was brought to [facility] in [place], [place] by EMS. On arrival his BP [...] [place], will restart [...] procedures. CHAPO Dhillon [facility] DEPARTMENT: [id number] ICU NEURO Place of Service:- Inpatient Date of Service: 03/27/2015 CSN: [id number] Suggested Modifier: None Suggested CPT: TO PIPE RACKER Recent Labs 03/26/15203203/26/15221103/27/15 0326 NA 141 143 [...] tablet 40 mg 40 mg oral QPM [facility] - 03/27/2015 12:43 AM [facility] NEUROSURGERY POST OPERATIVE CHECK Author: [...] bed Luis Villafana MD Neurosurgery Resident Pager #[phone] documented in this en counter Plan of [...] | | Attending Surgeon: Dixie Sykes MD Plate Stacker Hand(s): Dave Song | | MD Jamin Preoperative [...] | | was brought in transfer to [facility] for acute on chronic [...] right side. He was then brought to [facility] for | | higher [...] Bur holes were then created using a plastic design applier drill bit on the high-speed | | [...] patient was carefully transferred [facility]. He was left intubated. | | [...] 03/26/2015 23:51:35DT: 03/27/2015 07:45:19Job #: | | [id number] was present for the critical portions of the procedure as described in | | the note for this encounter.Oneil Layne [facility] [id number] [facility] | | [id number], [place] [id number] | | | |I was present for the critical portions of the procedure as described in the note for this encounter. | | | |Dixie Sykes MD | | | |Dixie Sykes MD | |[facility] | |[address] | |[id number] | |[place] [address] | |[phone] | + + CAPILLARY BLOOD GLUCOSE (NO [...] ST[facility] | [address] | [place], [place] | | | LORRAINE CASTRO OF CARE | [address] | [address] | | | TESTS | | | [...] MARRHONDAAM | [address] | [place] | | | LORRAINE CASTRO OF CARE | [address] | [address] | | | TESTS | | | [...] | + + + + + | [facility] | [address] | [place] [address] | | | SERVICES, CORE | SHADIA [...] [facility] | [address] | [place] [address] | | | SERVICES, CORE | PARK [...] | | | LABORATORY | | | LIBYAN | | | SERVICES, | | | [...] | + + + + + | [facility] | [address] | [place] [address] | | | SERVICES, CORE | SHADIA [...] (H) | 60 - 99 mg/dL | [facility] - | | | [...] ST[facility]FORD | [address] | [place], [place] | | | LORRAINE CASTRO OF VICTOR MANUEL | [address] | [address] | | | TESTS | | | [...] MARQUAM | [address] | [place], [place] | | | LORRAINE CASTRO OF CARE | [address] | [address] | | | TESTS | | | [...] OMIDAM | [address] | [place], [place] | | | MATTHEW POINT OF CARE | [address] | [address] | | | TESTS | | | [...] STANFORD | [address] | [place], [place] | | | LORRAINE CASTRO OF VICTOR MANUEL | [address] | [address] | | | TESTS | | | [...] MARQUAM | [address] | [place], [place] | | | LORRAINE CASTRO OF CARE | [address] | [address] | | | TESTS | | | [...] ABDOULAYE | [address] | [place], [place] | | | LORRAINE CASTRO OF CARE | [address] | [address] | | | TESTS | | | [...] STANFORD | [address] | [place], [place] | | | LORRAINE CASTRO OF VICTOR MANUEL | [address] | [address] | | | TESTS | | | [...] MARQUAM | [address] | [place], [place] | | | LORRAINE CASTRO OF CARE | [address] | [address] | | | TESTS | | | [...] - ABDOULAYE | [address] | [place], [place] | | | LORRAINE CASTRO OF CARE | [address] | [address] | | | TESTS | | | [...] (H) | 60 - 99 mg/dL | [facility] - | | | GLUCOSE, | | [...] STANFORD | [address] | [place], [place] | | | LORRAINE CASTRO OF VICTOR MANUEL | [address] | [address] | | | TESTS | | | [...] MARQUAM | [address] | [place], [place] | | | MATTHEW POINT OF CARE | [address] | [address] | | | TESTS | | | [...] ABDOULAYE | [address] | [place], [place] | | | LORRAINE CASTRO OF CARE | [address] | [address] | | | TESTS | | | [...] (H) | 60 - 99 mg/dL | [facility] - | | | [...] STANFORD | [address] | [place], [place] | | | LORRAINE CASTRO OF VICTOR MANUEL | [address] | [address] | | | TESTS | | | [...] MARQUAM | [address] | [place], [place] | | | MATTHEW POINT OF CARE | [address] | [address] | | | TESTS | | | [...] OMIDAM | [address] | [place], [place] | | | LORRAINE CASTRO OF CARE | [address] | [address] | | | TESTS | | | [...] STANFORD | [address] | [place], [place] | | | LORRAINE CASTRO OF VICTOR MANUEL | [address] | [address] | | | TESTS | | | [...] MARQUAM | [address] | [place], [place] | | | MATTHEW POINT OF CARE | [address] | [address] | | | TESTS | | | [...] ABDOULAYE | [address] | [place], [place] | | | LORRAINE CASTRO OF CARE | [address] | [address] | | | TESTS | | | [...] (H) | 60 - 99 mg/dL | [facility] - | | | [...] STANFORD | [address] | [place], [place] | | | LORRAINE CASTRO OF VICTOR MANUEL | [address] | [address] | | | TESTS | | | [...] | + + + + + | [facility] | [address] | [place] [address] | | | SERVICES, CORE | PARK [...] 2.5 mg/dL | [facility] | | | LASMA | | | [...] | + + + + + | [facility] | [address] | [place] [address] | | | SERVICES, CORE | SHADIA [...] | | | LABORATORY | | | LIBYAN | | | SERVICES, | | | [...] the MDRD equation recommended by the | [facility] | | National Kidney [...] | + + + + + | [facility] | [address] | [place] [address] | | | SERVICES, CORE | PARK [...] - MARQUAM | [address] | [place], [place] | | | MATTHEW POINT OF CARE | [address] | [address] | | | TESTS | | | [...] + + + | SHERITA [facility] | [address] | [place], [place] | | | MATTHEW POINT OF CARE | [address] | [address] | | | TESTS | | | [...] MARQUAM | [address] | [place], [place] | | | LORRAINE CASTRO OF CARE | [address] | [address] | | | TESTS | | | [...] - MARQUAM | [address] | [place], [place] | | | MATTHEW POINT OF CARE | [address] | [address] | | | TESTS | | | [...] + + + + + | SHERITA STANFROD | [address] | [place], [place] | | | MATTHEW POINT OF CARE | [address] | [address] | | | TESTS | | | [...] MARQUAM | [address] | [place], [place] | | | LORRAINE CASTRO OF CARE | [facility] | [address] | | | TESTS | | | [...] MARQUAM | [address] | [place], [place] | | | MATTHEW POINT OF CARE | [address] | [address] | | | TESTS | | | [...] STANFORD | [address] | [place], [place] | | | MATTHEW POINT OF CARE | [address] | [address] | | | TESTS | | | [...] MARQUAM | [address] | [place], [place] | | | MATTHEW POINT OF CARE | [address] | [address] | | | TESTS | | | [...] | | | POC | | | [facility] | | | | | | OF [...] MARQUAM | [address] | [place], [place] | | | MATTHEW POINT OF CARE | [address] | [address] | | | TESTS | | | [...] STANFORD | [address] | [place], [place] | | | MATTHEW POINT OF CARE | [address] | [address] | | | TESTS | | | [...] MARQUAM | [address] | [place], [place] | | | MATTHEW POINT OF CARE | [address] | [address] | | | TESTS | | | [...] MARQUAM | [address] | [place], [place] | | | LORRAINE CASTRO OF CARE | [facility] | [address] | | | TESTS | | | [...] STANFORD | [address] | [place], [place] | | | MATTHEW POINT OF CARE | [address] | [address] | | | TESTS | | | [...] MARQUAM | [address] | [place], [place] | | | MATTHEW POINT OF CARE | [address] | [address] | | | TESTS | | | [...] - MARQUAM | [address] | [place], [place] | | | MATTHEW POINT OF CARE | [facility] | [address] | | | TESTS | | | [...] + + + | SHERITA [facility] | [address] | [place], [place] | | | MATTHEW POINT OF CARE | [address] | [address] | | | TESTS | | | [...] + | [facility] | [address] | [place] [address] | | | SERVICES, CORE | PARK [...] | + + + + + | [facility] | [address] | [place] [address] | | | SERVICES, CORE | SHADIA [...] | | | LABORATORY | | | LIBYAN | | | SERVICES, | | | [...] | + + + + + | [facility] | [address] | [place] [address] | | | CODI, BEULAH | SHADIA [...] 74 | 60 - 99 mg/dL | [facility] - | | | [...] MARQUAM | [address] | [place], [place] | | | LORRAINE CASTRO OF VICTOR MANUEL | [address] | [address] | | | TESTS | | | [...] STANFORD | [address] | [place], [place] | | | LORRAINE CASTRO OF CARE | [address] | [address] | | | TESTS | | | | + + + + + CULTURE, URINE SHERITA (03/27/2015 12:51 AM PST) + + + [...] [facility] | [address] | [place] [address] | | | SERVICES, CORE | SHADIA [...] [facility] | [address] | [place] [address] | | | SERVICES, CORE | SHADIA [...] [facility] | [address] | [place] [address] | | | SERVICES, CORE | PARK [...] Screen Positive, specimen sent for culture. | [facility] | | | LABORATORY | | | BEULAH KINCAID | + + + + + + + + | Performing | Address | City/State/Zipcode | Phone Number | | Organization | | | | + + + + + | [facility] | [address] [facility] | [place] [address] | | | BEULAH KINCAID | SHADIA [...] + + | SHERITA [facility] | [address] | [place], [place] | | | [facility] | [address] | [address] | | | TESTS | | | [...] / | | | | | | SHARRIFLORENTINO MAHER | | | | | | [...] STANFORD | [address] | [place], [place] | | | LORRAINE CASTRO OF CARE | [address] | [address] | | | TESTS | | | | + + + + + ROBINA-THI BUENROSTRO (03/26/2015 10:12 PM PST) + + [...] | | | POC | | | MATTHEW, POINT | | | | | | [...] MARQUAM | | | | | | MATTHEW, POINT | | | | | | [...] ST[place]FORD | [address] | [place], [place] | | | LORRAINE CASTRO OF VICTOR MANUEL | [address] | [address] | | | TESTS | | | [...] MARQUAM | [address] | [place], [place] | | | [facility] | [facility] | [address] | | | TESTS | | | [...] DEPT OF | [address] | [place], [place] | | | CARDIOLOGY | [address] | [address] | | + + + + + [...] | + + + + + | [facility] | [address] | [place] [address] | | | SERVICES, CORE | SHADIA [...] [facility] | [address] | [place] [address] | | | SERVICES, | [address] [...] [facility] | [address] | [place] [address] | | | SERVICES, | [address] [...] [facility] | [address] | [place] [address] | | | SERVICES, CORE | PARK [...] | + + + + + | [employer] | [address] | [place] [address] | | | SERVICES, CORE | SHADIA [...] | + + + + + | [facility] | [address] | [place] [address] | | | SERVICES, CORE | [address] | | | + + + + + MAGNESIUM, PLASMA (03/26/2015 8:33 PM PST) + +-------+ + + + | Component | Value | Ref Range | Performed | Pathologist | | | | | At | Signature | + +-------+ + + + | MAGNESIUM,P | 2.0 | 1.8 - 2.5 mg/dL | [facility] | | | LASMA | | | [...] | + + + + + | [facility] | [address] [facility] [address] [address] | [place] [address] | | | SERVICES, CORE | PARK [...] | | | LABORATORY | | | LIBYAN | | | SERVICES, | | | [...] | + + + + + | [facility] | [address] | [place] [address] | | | SERVICES, CORE | SHADIA [...] + + + + | PRODUCT | [id number] | | [facility] | | | UNIT [...] + + + + | EXPIRATION | [id number] | | [facility] | | | DATE [...] + + + + | BLOOD | [id number] | | [facility] | | | PRODUCT [...] | + + + + + | [facility] | [address] | [place] [address] | | | PATHOLOGY | [address] [...] + + + + | PRODUCT | [id number] | | [facility] | | | UNIT [...] + + + + | EXPIRATION | [id number] | | [facility] | | | DATE [...] + + + + | BLOOD | [id number] | | [facility] | | | PRODUCT [...] | + + + + + | [facility] | [address] | [place] [address] | | | PATHOLOGY | [address] [...] | | | | | dose on 03/28/15 at 2200, | | | | | [...] | | mcg, oral, DAILY, First dose on | | 15 6:39 | | | | | Mon03/27/15 at 1000, Until | | AM PST | | | | | Discontinued | [...] | | | | | dose on Mon03/27/15 at 1000, | | AM PST | [...] | | | | | CONTINUOUS, Starting [facility] 03/26/15 | | PM PST | | [...] + + + +---+ | Restarted | 03/27/ | 5 mg/hr | 25 mL/hr | [...] 10:13 | | | | | Starting Mon03/27/15 at 0430, | | AM PST | | | | | Until Mon03/29/15 at 2232, | | | | | [...] +-------+ +-------+---+---+ +-------+ +-------+---+---+ | Given | 03/27/20 | 40 mg | | | | | 15 9:55 | | | | | | PM PST | | | | +-------+ +-------+---+---+ +---+---+ | | | +---+---+ documented in this encounter
--- OUTSIDE RECORDS SUMMARY | ~2019-02-04 | XMS | Encounter Summary ---
Demographics + + + | Address | [address] | | | [place] [address] | + + + | Home Phone | | + + + | Preferred Language | Unknown | + + + | Marital Status | | + + + | Yarsani Affiliation | NRP | + + + | Race | or | + + + | Ethnic Group | Not or | + + + Author + + + | Author | [facility] | + + + | Organization | [facility] | + + + | [...] Team Providers + +------+ + | Care Chemical Applicator Name | Role | Phone | + [...] | | | | | | (FORMERLY [facility]) | [address] | | | | | | Procedures | [place], [place] | | | | | | [place] | [address] | | | | | | CONTRAST | Phone: | | | | | | | [phone] | | | | | | | Fax: | | | | | | | [phone] | | +--------+--------+ + + + + Encounter Details +--------+ + + + + | Date | Type | Department | Care Team | Description | +--------+ + + + + | 03/30/ | Automobile Assembly Supervisor | Neurosurgery at | [place], | Subdural hematoma | | 2014 | | [facility] [address] | [place] | ([place]) (Primary Dx) | | | | Ave Mailcode: CH8N | [address] | | | | | [facility] | [place], [place] | | | | | and Healing, | [address] | | | | | | [phone] | | | | | Floor [place], [place] | | | | | | [address] | | | | | | [phone] | | | +--------+ + + + [...] subdural | | | | | | ludwaash28/19/2015 | | | | | | COMPARISON: [...] | | + +---------+ + + | [facility] DEPARTMENT OF | | | | | RADIOLOGY | | | | + +---------+ + + documented in this encounter Visit Diagnoses + + | Diagnosis | + + | Subdural hematoma (HCC) - Primary Subdural hemorrhage | + + documented in this encounter"
--- OUTSIDE RECORDS SUMMARY | ~2019-02-04 | XMS | Clinical Summary ---
Demographics + + + | Address | [address] | | | [place] [address] | + + + | Home Phone | | + + + | Preferred Language | Unknown | + + + | Marital Status | | + + + | Jainism Affiliation | NRP | + + + [...] Team Providers + +------+ + | Care Print Line Feeder Name | Role | Phone | + +------+ + | Christa Caldera MD | PCP | | + +------+ + Source Comments SHERITA is fully live on both EpicCare Ambulatory and EpicCare InPatient.[facility] Allergies + + + + + [...] Hole .5mm 17mm | | Right: | [employer] | | | 421.52 | | Craniomaxillofacial Titanium | | Head | | | | 7 / / | | Low Profile Nonsterile - | | | | | | | | [id number]: Qty: 2 on | | | | | | | | 03/26/2015 by Dixie Sykes | | | | | | | | MD Janie at [facility] REV | | | | | | | | LOC | | | | | | | + +------+--------+ +--------+--------+--------+ | Screw Bone 4mm 1.55mm 2.55mm | | Right: | [employer] | | | 04.503 | | [employer] | | Head | | | | .104.0 | | Craniomaxillofacial Titanium | | | | | | 1 / / | | Self Drill Nonsterile - | | | | | | | | [id number]: Qty: 4 on | | | | | | | | 03/26/2015 by Dixie Sykes | | | | | | | | MD Janie at [facility] REV | | | | | | [...] | MED[employer] | xxxxxxxxxx | 11/06/19 | [phone] | [address] | Medica | | | RE A & | | 14-Pre | [address] | [phone] | [address] | | | [address] | | sent | | [place] | | | | | | | | [phone] | | + +--------+ +--------+ + +--------+ | [facility] | | [phone] | 03/26/ | | [...] | | al/Fam | | 1940 | [phone] | [address] [place] | | | [place] | | | [address] (Home) | [phone] | + +--------+ +--------+ + + Advance [...]
--- OUTSIDE RECORDS SUMMARY | ~2019-02-04 | XMS | Encounter Summary ---
Demographics + + + | Address | [address] | | | [place] [address] | + + + | Home Phone | | + + + | Preferred Language | Unknown | + + + | Marital Status | | + + + | Gnosticist Affiliation | NRP | + + + | Race | or | + + + | Ethnic Group | Not or | + + + Author + + + | Author | [facility] | + + + | Organization | [facility] | + + + | Address [...] Team Providers + +------+ + | Care Fpga Engineer Name | Role | Phone | [...] + + | 03/26/ | Hospital | [facility] [address] | Dixie Sykes, | | | 2014 - | Encounter | CAMPUS | [address] | | | | | [id number]/[id number] MONISHA | [place], [place] | | | 03/29/ | | [place], | [address] | | | 2015 | | [place] [address] | [phone] | | | | | [phone] | | | +--------+ + + + [...] Sykes MD PCP: Eli Baker MD Service: [facility] Neurosurgery Diagnoses Principal Final Diagnosis: 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 Additional Diagnoses: Type 1 DM Procedures Right-sided lj holes for evacuation of subdural hematoma. Brief Hospital Course Derick Franco is a 74-year-old male who was brought in transfer to [facility] for acute on chronic panhemispheric right-sided [...] right side. He was then brought to [facility] for higher level of care an [...] PM Discharging Attending: Dixie Sykes MD [address] [place] [address] documented in this en counter Discharge Instructions [...] your senior or day center, you r anglican community, or any other community in which [...] service which conn ects the people of [place] and [facility] with the community resources they need. 2 Intoo Home Instead ([phone]) This is a [employer] which can provide in home assistance at a cost to the family. [place] Project Wythe OPI is a program which helps seniors 60 and over continue to live independently and safely living in their own home. OPI provides individualized personal care, housekeeping, and case management support. http://www.[place].gov/dhs/spwpd/pages/ltc/inhome.aspx#opi [place] Independent Living Resources: [place] Statement Of Independent Living Resources: Promote the philosophy of Independent L iving by creating opportunities, encouraging choices, advancing equal access, and furthering the level of independence for all people with disabilities. [phone] Meals on Wheels (www.mealsonwheelspeople.org) Meals on Wheels are hot, nutritious lunches that are delivered Monday through Monday betwee n 11 a.m. and 1 p.m. to homebound elderly age 60 and older. Seniors must live in [facility] in [place] or [facility] in [place] to be eligible to receive meal s. Call to request meals at [phone] in [facility] and [facility] and toll free in [facility] at . Most of the [facility] in [place] have a Meals on Wheels Program, and information on local [facility] ql-za-abchql services can be obtained through local Area Agency on Aging Offices. [place] Vocational Rehabilitation Service (OVRS) ( ) http://www.[place].gov/DHS /vr/Pages/index.aspx [place] Area Agency on Aging http://www.[place].gov/dhs/spwpd/pages/offices.aspx There are 17 Area Agencies on Aging across [place] that administer and support community-bas ed care services. AAAs advocate for older adults living in their area, develop community-based long-term care services to meet the needs of those adults and administer funds to implement services. Most services coordinated by AAAs are provided through community service providers at the local level. This section contains program information designed for staff members of [place]'s AAAs . Aging and Disability Resource Connection of [place] https://adrcoforegon.org/fzsfes-okbjswb-gbz-independent-living.php [facility] is a resource directory for [place] families, caregivers and consumers seekin g information about long-term supports and services. Here you will find quick and easy acces s to resources in your community. If you cannot find the information you are looking for or wish to talk to someone in person, please call us toll free at 8[facility] ([phone]) [place] Caregiver Support Line http://www.caregiver.va.gov/ Toll free : Also check with your private health insurance organization, as respite care may also be inc luded in the coverage. Support Groups for Families Living with Aphasia Individuals and families affected by aphasia face unique challenges. Support specifically d esigned for these people is limited. Three groups have formed in the [place], [place] area t hat provide both the [...] everyone. There are several groups in the [facility] for individuals and families living wit h aphasia: [place] Continuous Improvement Group When: Each Monday 11:00 12:00 Where: [facility] [address] [place] [address]. Contact: Aidan Alaniz Yareli [facility] Speak EZ group When: Odd numbered Saturdays (i.e. May 12) 10:00 12:00 Where: Aris castillo [facility] [address] Contact: Mark Yanez [phone] [facility] Aphasia Group When: & Monday of each month 10:00 12:00 Where: [facility] Room varies watch for directional signs Contact: Kenya Cano [phone] [email or web address] The [employer] A community music group for stroke survivors. Stroke survivors, spouses, partners, and care givers are invited to join for an hour of playing instruments and singing. Every Monday, 11:30-12:30 at the [facility], [address] [place] [address]. Info rmation contact: Jen Banks, , [email or web address] Brain Injury Celestine of [place] http://www.biaoregon.org/ National Stroke Association http://www.stroke.org/ .800.STROKES (787.6537) National Center on Caregiving/ Family Caregiver Celestine www.caregiver.org Established in 2000 as a program of Family Caregiver Celestine, the National Center on Careg iving (NCC) works to advance the development of high-quality, cost-effective policies and pr ograms for caregivers in every state in the country. Uniting research, public policy and ser vices, the [facility] serves as a central source of [...] their doctors about any personal medical concerns. [facility] Crisis Line Information: [facility] Access Crisis Number (24 hours) documented [...] relationship with his PCP and his diabetic potato inspector whom he sees regularly. The patient and [...] relationship with his PCP and his diabetic potato inspector whom he sees regularl y. The patient [...] 1:38 PM PST ICU Neuroscience ICU Attending Relocation Counselor Note Derick Franco is a 74 y.o. [...] the rest of his medications since his evkyfhjn-tv-fsx Dione is the one who manges all his medications. He was brought to [facility] in [facility], [place] by EMS. On arrival his BP was 176/107 which was treated with labetalol. CT scan reviled a large acute on chroni c RIGHT subdural hematoma with right midline shift PMHx significant for DM, HTN, CAD s/p IN (on ASA and Plavix), TIA 24 Hour Events: ding well Neuro exam: non focal, AA and Ox4 Current problems include: right SDH acute on chronic, MLS, st/p lj hole evacuation , pneumocephalus postop,received platelets transfusion preop due to chronic antiplatelet t herapy ASA and Plavix (post IN), mild leucocytosis - reactive, normocytic anemia baseline [...] Promise Valdez MD [facility] DEPARTMENT: [id number] ICU NEURO Place of Service:- Inpatient Date of Service: 03/28/15 CSN: [id number] Suggested Modifier: GC - Resident Involved Suggested CPT: TO CODER P Ely Madsen MD - 03/28/2015 12:39 PM PST [facility] Neuroscience ICU Progress Note Team Pager: [phone] Attendin Patient name: Derick Franco Author: Ely Oquendo MD Date of Service: 03/28/2015 Intensive Care Attending: Promise Valdez MD Attending Provider: Dixie Sykes MD ICU day # 3 POD # 2 s/p right lj holes for evacuation of subdural hematoma ID: Derick Franco is a 74 y.o. male with PMHx significant for DM, HTN, CAD s/p IN (on ASA an d Plavix), TIA, presenting [...] all his medications. He was brought to [facility] in [facility], [place] by EMS. On arrival his BP was [...] PMHx significant for DM, HTN, CAD s/p IN (on ASA and Plavix), TIA, presen ting [...] transfer Cardiovascular # HTN # CAD # IN -sBP goal < 140mmHg -home metoprolol and [...] Ely Oquendo MD [facility] DEPARTMENT: [id number] ICU NEURO Place of Service:- Inpatient Date of Service: 03/28/2015 CSN: [id number] Suggested Modifier: None tSalty sunshine MD - [...] weeks of dex 2BID Contact neurosurgery resident credit control clerk with questions [place]ager [phone] [place] [address] PGY-4 Neurosurgery Promise Jaime MD - 03/27/2015 9:53 AM PST NSICU Neuroscience ICU Attending Relocation Counselor Note Derick Franco is a 74 y.o. [...] the rest of his medications since his aokoodms-ps-iqy Dione is the one who manges all his medications. He was brought to [facility] in [place], [place] by EMS. On arrival his BP was 176/107 which was treated with labetalol. CT scan reviled a large acute on chroni c RIGHT subdural hematoma with right midline shift PMHx significant for DM, HTN, CAD s/p IN (on ASA and Plavix), TIA Notable labs: [...] antiplatelet t herapy ASA and Plavix (post IN), mild leucocytosis - reactive, normocytic anemia baseline [...] Promise Valdez MD [facility] DEPARTMENT: [id number] ICU NEURO Place of Service:- Inpatient Date of Service: 03/27/15 CSN: [id number] Suggested Modifier: GC - Resident Involved Suggested CPT: TO CODER P [facility] Luis Song MD - 03/27/2015 8:29 AM [...] 7.43 PCO2 38 PO2 553* HCO3 25.3 [id number] 100.9* Assesment: Derick Franco is a 74 [...] total Luis Villafana MD Neurosurgery Resident Pager #[phone] Chet Alberto ACNP - 03/27/2015 5:29 AM [...] PMHx significant for DM, HTN, CAD s/p IN (on ASA an d Plavix), TIA, presenting with acute on chronic RIGHT SDH. 'He reports that he fell either today or yesterday (says he is losing track of time). He franoc s been falling at home but can't [...] rest of his medications since his anyi adhcd-ms-nnp Dione is the one who manges all his medications. He was brought to [facility] in [place], [place] by EMS. On arrival his BP [...] PMHx significant for DM, HTN, CAD s/p IN (on ASA and Plavix), TIA, presen ting [...] transfer Cardiovascular # HTN # CAD # IN -sBP goal < 140mmHg -nicardipine gtt to [...] up pharmacy records and [place] - med rec confirmed, will restart [...] procedures. CHAPO Dhillon [facility] DEPARTMENT: [id number] ICU NEURO Place of Service:- Inpatient Date of Service: 03/27/2015 CSN: [id number] Suggested Modifier: None Suggested CPT: TO BUS WASHER Recent Labs 03/26/15203203/26/15221103/27/15 0326 NA 141 143 [...] HospitalLuis munoz MD - 03/27/2015 12:43 AM [facility] POST OPERATIVE CHECK Author: Luis Villafana [...] bed Luis Villafana MD Neurosurgery Resident Pager #[phone] documented in this en counter Plan of [...] of Service: 03/26/2015 | | Attending Surgeon: Dixei Sykes MD Tire Fabricator(s): Dave Song | | MD Jamin Preoperative [...] | | was brought in transfer to [facility] for acute on chronic panhemispheric right-sided [...] right side. He was then brought to [facility] for | | higher level of [...] Bur holes were then created using a requirements manager drill bit on the high-speed | | [...] patient was [facility] He was left intubated. | | [...] 03/26/2015 23:51:35DT: 03/27/2015 07:45:19Job #: | | [id number] was present for the critical portions of the procedure as described in | | the note for this encounter.Oneil Layne MD[facility] [id number] [facility] | | [id number], [place] [id number] | | | |I was present for the critical portions of the procedure as described in the note for this encounter. | | | |Dixie Sykes MD | | | |Dixie Sykes MD | |[facility] | |[address] | |[id number]/[id number] | |[place] [address] | |[phone] | + + CAPILLARY BLOOD GLUCOSE (NO [...] [place] | [address] | [place], [place] | | | LORRAINE CASTRO OF CARE | [address] | [address] | | | TESTS | | | [...] MARRHONDAAM | [address] | [place] | | | LORRAINE CASTRO OF CARE | [address] | [address] | | | TESTS | | | [...] | + + + + + | [facility] | [address] | [place] [address] | | | SERVICES, CORE | SHADIA [...] [facility] | [address] | [place] [address] | | | SERVICES, CORE | PARK [...] | | | LABORATORY | | | [place] | | | SERVICES, | | | [...] | + + + + + | [facility] | [address] | [place] [address] | | | SERVICES, CORE | SHADIA [...] (H) | 60 - 99 mg/dL | [facility] - | | | GLUCOSE, | [...] [place] | [address] | [place], [place] | | | LORRAINE CASTRO OF VICTOR MANUEL | [address] | [address] | | | TESTS | | | [...] MARQUAM | [address] | [place], [place] | | | LORRAINE CASTRO OF CARE | [address] | [address] | | | TESTS | | | [...] OMIDAM | [address] | [place], [place] | | | MATTHEW POINT OF CARE | [address] | [address] | | | TESTS | | | [...] [place] | [address] | [place], [place] | | | LORRAINE CASTRO OF [place] | [address] | [address] | | | TESTS | | | [...] MARQUAM | [address] | [place], [place] | | | LORRAINE CASTRO OF CARE | [address] | [address] | | | TESTS | | | [...] ABDOULAYE | [address] | [place], [place] | | | LORRAINE CASTRO OF CARE | [address] | [address] | | | TESTS | | | [...] [place] | [address] | [place], [place] | | | LORRAINE CASTRO OF VICTOR [place]UEL | [address] | [address] | | | TESTS | | | [...] MARQUAM | [address] | [place], [place] | | | LORRAINE CASTRO OF CARE | [address] | [address] | | | TESTS | | | [...] - ABDOULAYE | [address] | [place], [place] | | | LORRAINE CASTRO OF CARE | [address] | [address] | | | TESTS | | | [...] [place] | [address] | [place], [place] | | | LORRAINE CASTRO OF [place] | [address] | [address] | | | TESTS | | | [...] MARQUAM | [address] | [place], [place] | | | MATTHEW POINT OF CARE | [address] | [address] | | | TESTS | | | [...] ABDOULAYE | [address] | [place], [place] | | | LORRAINE CASTRO OF CARE | [address] | [address] | | | TESTS | | | [...] (H) | 60 - 99 mg/dL | [facility] - | | | GLUCOSE, | [...] [place] | [address] | [place], [place] | | | LORRAINE CASTRO OF VICTOR MANUEL | [address] | [address] | | | TESTS | | | [...] MARQUAM | [address] | [place], [place] | | | MATTHEW POINT OF CARE | [address] | [address] | | | TESTS | | | [...] OMIDAM | [address] | [place], [place] | | | LORRAINE CASTRO OF CARE | [address] | [address] | | | TESTS | | | [...] ST[place] | [address] | [place], [place] | | | LORRAINE CASTRO OF VICTOR MANUEL | [address] | [address] | | | TESTS | | | [...] MARQUAM | [address] | [place], [place] | | | MATTHEW POINT OF CARE | [address] | [address] | | | TESTS | | | [...] ABDOULAYE | [address] | [place], [place] | | | LORRAINE CASTRO OF CARE | [address] | [address] | | | TESTS | | | [...] (H) | 60 - 99 mg/dL | [facility] - | | | GLUCOSE, | [...] ST[place]ORD | [address] | [place], [place] | | | LORRAINE CASTRO OF VICTOR MANUEL | [address] | [address] | | | TESTS | | | [...] | + + + + + | [facility] | [address] | [place] [address] | | | SERVICES, CORE | PARK [...] | + + + + + | [facility] | [address] | [place] [address] | | | SERVICES, CORE | SHADIA [...] | | | LABORATORY | | | [place] | | | SERVICES, | | | [...] the MDRD equation recommended by the | [facility] | | National Kidney Disease Education [...] | + + + + + | [facility] | [address] | [place] [address] | | | SERVICES, CORE | PARK [...] | | | POC | | | LORRANIE CASTRO | | | | | | [...] - MARQUAM | [address] | [place], [place] | | | MATTHEW POINT OF CARE | [address] | [address] | | | TESTS | | | [...] + + + | SHERITA [facility] | [address] | [place], [place] | | | MATTHEW POINT OF CARE | [address] | [address] | | | TESTS | | | [...] MARQUAM | [address] | [place], [place] | | | LORRAINE CASTRO OF CARE | [address] | [address] | | | TESTS | | | [...] - MARQUAM | [address] | [place], [place] | | | MATTHEW POINT OF CARE | [address] | [address] | | | TESTS | | | [...] + + + | SHERITA [facility] | [address] | [place], [place] | | | MATTHEW POINT OF CARE | [address] | [address] | | | TESTS | | | [...] MARQUAM | [address] | [place], [place] | | | LORRAINE CASTRO OF CARE | [facility] | [address] | | | TESTS | | | [...] MARQUAM | [address] | [place], [place] | | | MATTHEW POINT OF CARE | [address] | [address] | | | TESTS | | | [...] ST[place] | [address] | [place], [place] | | | MATTHEW POINT OF CARE | [address] | [address] | | | TESTS | | | [...] MARQUAM | [address] | [place], [place] | | | MATTHEW POINT OF CARE | [address] | [address] | | | TESTS | | | [...] MARQUAM | [address] | [place], [place] | | | MATTHEW POINT OF CARE | [address] | [address] | | | TESTS | | | [...] [place] | [address] | [place], [place] | | | MATTHEW POINT OF CARE | [address] | [address] | | | TESTS | | | [...] | | | POC | | | LORRIANE CASTRO | | | | | | [...] MARQUAM | [address] | [place], [place] | | | MATTHEW POINT OF CARE | [address] | [address] | | | TESTS | | | [...] MARQUAM | [address] | [place], [place] | | | LORRAINE CASTRO OF CARE | [facility] | [address] | | | TESTS | | | [...] [place] | [address] | [place], [place] | | | MATTHEW POINT OF CARE | [address] | [address] | | | TESTS | | | [...] MARQUAM | [address] | [place], [place] | | | MATTHEW POINT OF CARE | [address] | [address] | | | TESTS | | | [...] - MARQUAM | [address] | [place], [place] | | | MATTHEW POINT OF CARE | [facility] | [address] | | | TESTS | | | [...] + + + | SHERITA [facility] | [address] | [place], [place] | | | MATTHEW POINT OF CARE | [address] | [address] | | | TESTS | | | [...] [facility] | [address] | [place] [address] | | | SERVICES, CORE | PARK [...] | + + + + + | [facility] | [address] | [place] [address] | | | SERVICES, CORE | SHADIA [...] | | | LABORATORY | | | [place] | | | SERVICES, | | | [...] | + + + + + | [facility] | [address] | [place] [address] | | | CODI, BEULAH | SHADIA [...] 74 | 60 - 99 mg/dL | [facility] - | | | GLUCOSE, | [...] MAR[place] | [address] | [place], [place] | | | LORRAINE CASTRO OF VICTOR MANUEL | [address] | [address] | | | TESTS | | | [...] [place] | [address] | [place], [place] | | | LORRAINE CASTRO OF CARE | [address] | [address] | | | TESTS | | | [...] [facility] | [address] | [place] [address] | | | SERVICES, CORE | SHADIA [...] [facility] | [address] | [place] [address] | | | SERVICES, CORE | SHADIA [...] [facility] | [address] | [place] [address] | | | SERVICES, CORE | PARK [...] Screen Positive, specimen sent for culture. | [facility] | | | LABORATORY | | | BEULAH KINCAID | + + + + + + + + | Performing | Address | City/State/Zipcode | Phone Number | | Organization | | | | + + + + + | [facility] | [address] [facility] | [place] [address] | | | BEULAH KINCAID | SHADIA [...] SHERITA [facility] | [address] | [place], [place] | | | [facility] | [address] | [address] | | | TESTS | | | [...] [place] | [address] | [place], [place] | | | LORRAINE CASTRO OF CARE | [address] | [address] | | | TESTS | | | [...] [place] | [address] | [place], [place] | | | LORRAINE CASTRO OF VICTOR MANUEL | [address] | [address] | | | TESTS | | | [...] MARQUAM | [address] | [place], [place] | | | [facility] | [facility] | [address] | | | TESTS | | | [...] DEPT OF | [address] | [place], [place] | | | CARDIOLOGY | [address] | [address] | | + + + + + [...] | + + + + + | [facility] | [address] | [place] [address] | | | SERVICES, CORE | SHADIA [...] [facility] | [address] | [place] [address] | | | SERVICES, | [address] [...] [facility] | [address] | [place] [address] | | | SERVICES, | [address] [...] [facility] | [address] | [place] [address] | | | SERVICES, CORE | PARK [...] | + + + + + | [facility] | [address] | [place] [address] | | | SERVICES, CORE | SHADIA [...] | + + + + + | [facility] | [address] | [place] [address] | | | SERVICES, CORE | [address] | | | + + + + + MAGNESIUM, PLASMA (03/26/2015 8:33 PM PST) + +-------+ + + + | Component | Value | Ref Range | Performed | Pathologist | | | | | At | Signature | + +-------+ + + + | MAGNESIUM,P | 2.0 | 1.8 - 2.5 mg/dL | [facility] | | | LASMA | | [...] | + + + + + | [facility] | [address] [facility] [facility] | [place] [address] | | | SERVICES, CORE | PARK [...] | | | LABORATORY | | | [place] | | | SERVICES, | | | [...] | + + + + + | [facility] | [address] | [place] [address] | | | SERVICES, CORE | SHADIA [...] + + + + | PRODUCT | [id number] | | [facility] | | | UNIT [...] + + + + | EXPIRATION | [id number] | | [facility] | | | DATE [...] + + + + | BLOOD | [id number] | | [facility] | | | PRODUCT [...] | + + + + + | [facility] | [address] | [place] [address] | | | PATHOLOGY | [address] [...] + + + + | PRODUCT | [id number] | | [facility] | | | UNIT [...] + + + + | EXPIRATION | [id number] | | [facility] | | | DATE [...] + + + + | BLOOD | [id number] | | [facility] | | | PRODUCT [...] | + + + + + | [facility] | [address] | [place] [address] | | | PATHOLOGY | [address] [...] | | | | | CONTINUOUS, Starting [facility] 03/26/15 | | PM PST | [...]
--- OUTSIDE RECORDS SUMMARY | ~2019-02-04 | XMS | Encounter Summary ---
Demographics + + + | Address | [address] | | | [place] [address] | + + + | Home Phone | | + + + | Preferred Language | Unknown | + + + | Marital Status | | + + + | Worship Affiliation | NRP | + + + | Race | or | + + + | Ethnic Group | Not or | + + + Author + + + | Author | [facility] | + + + | Organization | [facility] | + + + | Address | [...] Team Providers + +------+ + | Care Cotton Buyer Name | Role | Phone | + [...] Test Results | | 2014 | | [facility] [address] | ARYA Kevin | | | | | Josefina Mailcode: [id number] | [address] | | | | | [facility] | [place], [place] | | | | | and [place], | [address] | | | | | [facility] | [phone] | | | | | [place], [place] | | | | | | [address] | | | | | | [phone] | | | +--------+ + + + [...]
[2019-02-04] MEDS ORDERED: ASPIR-LOW81 MG PO (09:33)
[2019-02-04] MEDS ORDERED: B-121000 MC2 PO (09:34)
[2019-02-04] MEDS ORDERED: TIROSINT50 MCG PO (09:34)
[2019-02-04] MEDS ORDERED: CRESTOR10 MG PO (09:34)
[2019-02-04] MEDS ORDERED: FORTAMET500 MG PO (09:35)
== END 2019-02-04 10:45 | disposition home or self-care (01) ==
LOC: ED 09:14
DX: E11.649 Type 2 diabetes mellitus with hypoglycemia without coma (principal); I25.2 Old myocardial infarction; Z86.73 Personal history of transient ischemic attack (TIA), and cerebral infarction without residual deficits; I25.10 Atherosclerotic heart disease of native coronary artery without angina pectoris; I10 Essential (primary) hypertension; E78.5 Hyperlipidemia, unspecified; Z88.1 Allergy status to other antibiotic agents; Z79.899 Other long term (current) drug therapy; Z79.4 Long term (current) use of insulin; Z79.82 Long term (current) use of aspirin
CPT/HCPCS: 99283

== ENCOUNTER 2019-11-21 12:55 | Emergency (ER) | payer MEDICARE, OTHER ==
[~2019-11-21] VITALS: Ht 170.2 cm; Wt 58.1 kg
--- OUTSIDE RECORDS SUMMARY | ~2019-11-21 | XMS | Encounter Summary ---
Demographics + + + | Address | [address] | | | [place] [address] | + + + | Home Phone | | + + + | Preferred Language | Unknown | + + + | Marital Status | | + + + | Alevism Affiliation | NRP | + + + | Race | or | + + + | Ethnic Group | Not or | + + + Author + + + | Author | [facility] | + + + | Organization | [facility] | + + + | Address | Unknown | + + + | Phone | Unavailable | + + + Support + + +---------+ + | Name | Relationship | Address | Phone | + + +---------+ + | Dione Franco | ECON | Unknown | | + + +---------+ + | Delmis Joan | ECON | Unknown | | + + +---------+ + Care Team Providers + +------+ + | Care Wringer Operator Name | Role | Phone | + +------+ + | Christa Caldera MD | PCP | | + +------+ + Reason for Referral Diagnostic Testing (Routine) +--------+--------+ + + + + | Status | Reason | Specialty | Diagnoses / | Referred By | Referred To | | | | | Procedures | Contact | Contact | +--------+--------+ + + + + | Closed | | Radiology | Diagnoses | Castellanos, | | | | | | Subdural | Josselyn E, | | | | | | hematoma | [place] [address] | | | | | | (HCC) | [address] | | | | | | Procedures | [place], [place] | | | | | | [place] | [address] | | | | | | CONTRAST | Phone: | | | | | | | [phone] | | | | | | | Fax: | | | | | | | [phone] | | +--------+--------+ + + + + Reason for Visit Diagnostic Testing (Routine) +--------+--------+ + + + + | Status | Reason | Specialty | Diagnoses / | Referred By | Referred To | | | | | Procedures | Contact | Contact | +--------+--------+ + + + + | Closed | | Radiology | Diagnoses | Castellanos, | | | | | | Subdural | Josselyn E, | | | | | | hematoma | [place] [address] | | | | | | (HCC) | [address] | | | | | | Procedures | [place], [place] | | | | | | [place] | [address] | | | | | | CONTRAST | Phone: | | | | | | | [phone] | | | | | | | Fax: | | | | | | | [phone] | | +--------+--------+ + + + + Encounter Details +--------+ + + + + | Date | Type | Department | Care Team | Description | +--------+ + + + + | 04/23/ | Hospital | Radiology/Imaging | | | | 2014 | Encounter | Lab at [facility] [address] | | | | | | [address] [facility] | | | | [facility], | | | | | | [address] | | | | | | [place], [place] | | | | | | [address] | | | | | | [phone] | | | +--------+ + + + + Social History + +-------+ +--------+------+ | Tobacco Use | Types | Packs/Day | Years | Date | | | | | Used | | + +-------+ +--------+------+ | Never Assessed | | | | | + +-------+ +--------+------+ + + + | Sex Assigned at | Date Recorded | | | | + + + | Not on file | | + + + + + + + | Job Start Date | Occupation | Industry | + + + + | Not on file | Not on file | Not on file | + + + + + + + + | Travel History | Travel Start | Travel End | + + + + + + | No recent travel history available. | + + documented as of this encounter Medications at Time of Discharge + + + +---------+ + + | Medication | Sig | Dispensed | Refills | Start | End Date | | | | | | Date | | + + + +---------+ + + | ascorbic acid 500 | Take 500 mg by mouth | | 0 | | | | mg oral tablet | once daily. Take | | | | | | | with ferrous sulfate | | | | | + + + +---------+ + + | Cholecalciferol, | Take 2,000 Units by | | 0 | | | | Vitamin D3, 2,000 | mouth once daily. | | | | | | unit oral tablet | | | | | | + + + +---------+ + + | ferrous sulfate | Take 325 mg by mouth | | 0 | | | | 325 mg (65 mg iron) | two times daily. | | | | | | oral tablet | | | | | | + + + +---------+ + + | insulin glargine | Inject 20 Units | 10 mL | 0 | 03/29/20 | | | 100 unit/mL | under the skin | | | 15 | | | subcutaneous | (SUBC) once daily at | | | | | | solution | bedtime. 20 units | | | | | | | under the skin at | | | | | | | bedtime (higher dose | | | | | | | than normal given | | | | | | | that is on | | | | | | | steroids) -- see | | | | | | | Primary care doctor | | | | | | | as soon as possible | | | | | | | to adjust regimen to | | | | | | | optimize blood | | | | | | | sugar control. DO | | | | | | | NOT TAKE if blood | | | | | | | sugars < 100. | | | | | + + + +---------+ + + | insulin lispro 100 | Aggressive sliding | 10 mL | 0 | 03/29/20 | | | unit/mL | scale. See attached | | | 15 | | | subcutaneous | sheet. | | | | | | solution | | | | | | + + + +---------+ + + | levothyroxine 50 | Take 50 mcg by mouth | | 0 | | | | mcg oral tablet | once daily. | | | | | + + + +---------+ + + | lisinopril 10 mg | Take 10 mg by mouth | | 0 | | | | oral tablet | once daily. | | | | | + + + +---------+ + + | metoprolol | Take 25 mg by mouth | | 0 | | | | succinate 25 mg oral | once daily. | | | | | | tablet extended | | | | | | | release 24 hr | | | | | | + + + +---------+ + + | oxyCODONE, | Take 1-2 tablets by | 40 | 0 | 11/30/20 | | | immediate release, 5 | mouth every six | tablet | | 15 | | | mg oral tablet | hours as needed for | | | | | | | moderate pain or | | | | | | | severe pain. | | | | | + + + +---------+ + + | simvastatin 20 mg | Take 20 mg by mouth | | 0 | | | | oral tablet | once daily in the | | | | | | | evening. | | | | | + + + +---------+ + + documented as of this encounter Plan of Treatment Not on filedocumented as of this encounter Procedures + +--------+ + + + | Procedure Name | Priori | Date/Time | Associated Diagnosis | Comments | | | ty | | | | + +--------+ + + + | CT HEAD WO CONTRAST | Routin | 04/23/2015 | Subdural hematoma | Results for this | | | e | 10:26 AM | (HCC) | procedure are in the | | | | PST | | results section. | + +--------+ + + + documented in this encounter Results CT HEAD WO CONTRAST (04/23/2015 10:26 AM PST) + + + + + + | Component | Value | Ref Range | Performed | Pathologist | | | | | At | Signature | + + + + + + | CT HEAD WO | EXAM: CT head without | | | | | CONTRAST | contrast HISTORY: s/p | | | | | | Right-sided bur holes | | | | | | for evacuation of | | | | | | subdural | | | | | | ymjiymrk08/19/2015 | | | | | | COMPARISON: The CT on | | | | | | 03/27/15 TECHNIQUE: CT | | | | | | of the head without | | | | | | contrast. 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 | | | | | | There is residual | | | | | | approximately 11 | | | | | | mmthickness isodense | | | | | | subdural collection | | | | | | similar to prior | | | | | | examination. Themidline | | | | | | shift has been resolved. | | | | | | No acute intracranial | | | | | | abnormality. | | | | | | Noevidence of new | | | | | | hemorrhage, mass, or | | | | | | acute territorial | | | | | | infarction. | | | | | | Theventricles are | | | | | | normal in size and | | | | | | morphology. There is | | | | | | scatteredhypoattenuation | | | | | | within the | | | | | | periventricular and | | | | | | subcortical white | | | | | | matter,nonspecific, | | | | | | suggestive of chronic | | | | | | small vessel ischemic | | | | | | changes. Again | | | | | | notedsmall left parietal | | | | | | encephalomalacia. Soft | | | | | | tissues: | | | | | | UnremarkableSkull and | | | | | | skull base: Frontal anurag | | | | | | hole defect No | | | | | | fractures or | | | | | | destructivelesions. | | | | | | Mastoids and middle ears | | | | | | are | | | | | | unremarkable.Face/orbits | | | | | | : Visualized portions | | | | | | are | | | | | | unremarkable.Paranasal | | | | | | sinuses: Visualized | | | | | | portions are | | | | | | unremarkable. | | | | | | IMPRESSION: Interval | | | | | | expected evolution of | | | | | | postoperative changes | | | | | | with residual stable | | | | | | rightconvexity subdural | | | | | | collection along the | | | | | | right convexity | | | | | | measuring up to 11 mmin | | | | | | largest thickness. No | | | | | | midline shift or | | | | | | hydrocephalus. Attending | | | | | | Radiologists: BECKA | | | | | | JADE SIMMONSuthor: BECKA | | | | | | MD TROY I personally | | | | | | reviewed the images and, | | | | | | if necessary, edited | | | | | | the report. I agreewith | | | | | | the report as now | | | | | | presented. | | | | | | Final/Electronically | | | | | | signed / BECKA SIMMONS | | | | | | 04/23/2015 12:54 PM | | | | + + + + + + + + | Specimen | + + | | + + + +---------+ + + | Performing | Address | City/State/Zipcode | Phone Number | | Organization | | | | + +---------+ + + | [facility] | | | | [facility] | | | | + +---------+ + + documented in this encounter Visit Diagnoses + + | Diagnosis | + + | Subdural hematoma (HCC) Subdural hemorrhage | + + documented in this encounter"
--- OUTSIDE RECORDS SUMMARY | ~2019-11-21 | XMS | Clinical Summary ---
Demographics + + + | Address | [address] | | | [place] [address] | + + + | Home Phone | | + + + | Preferred Language | Unknown | + + + | Marital Status | | + + + | Anabaptism Affiliation | NRP | + + + | Race | or | + + + | Ethnic Group | Not or | + + + Author + + + | Author | [facility] | + + + | Organization | [facility] | + + + | Address | Unknown | + + + | Phone | Unavailable | + + + Support + + +---------+ + | Name | Relationship | Address | Phone | + + +---------+ + | Dione Franco | ECON | Unknown | | + + +---------+ + | Delmis Franco | ECON | Unknown | | + + +---------+ + Care Team Providers + +------+ + | Care Hand Coremaker Name | Role | Phone | + +------+ + | Christa Caldera MD | PCP | | + +------+ + Source Comments SHERITA is fully live on both EpicCare Ambulatory and EpicCare InPatient.[facility] Allergies + + + + + + | Active Allergy | Reactions | Severity | Noted | Comments | | | | | Date | | + + + + + + | Levofloxacin | Unknown | | 20 | | | | | | 15 | | + + + + + + Medications + + + +---------+------+------+-------+ | Medication | Sig | Dispensed | Refills | Star | End | Statu | | | | | | t | Date | s | | | | | | Date | | | + + + +---------+------+------+-------+ | Cholecalciferol, | Take 2,000 Units by | | 0 | | | Activ | | Vitamin D3, 2,000 | mouth once daily. | | | | | e | | unit oral tablet | | | | | | | + + + +---------+------+------+-------+ | simvastatin 20 mg | Take 20 mg by mouth | | 0 | | | Activ | | oral tablet | once daily in the | | | | | e | | | evening. | | | | | | + + + +---------+------+------+-------+ | metoprolol | Take 25 mg by mouth | | 0 | | | Activ | | succinate 25 mg oral | once daily. | | | | | e | | tablet extended | | | | | | | | release 24 hr | | | | | | | + + + +---------+------+------+-------+ | lisinopril 10 mg | Take 10 mg by mouth | | 0 | | | Activ | | oral tablet | once daily. | | | | | e | + + + +---------+------+------+-------+ | ferrous sulfate | Take 325 mg by mouth | | 0 | | | Activ | | 325 mg (65 mg iron) | two times daily. | | | | | e | | oral tablet | | | | | | | + + + +---------+------+------+-------+ | ascorbic acid 500 | Take 500 mg by mouth | | 0 | | | Activ | | mg oral tablet | once daily. Take | | | | | e | | | with ferrous sulfate | | | | | | + + + +---------+------+------+-------+ | levothyroxine 50 | Take 50 mcg by mouth | | 0 | | | Activ | | mcg oral tablet | once daily. | | | | | e | + + + +---------+------+------+-------+ | insulin glargine | Inject 20 Units | 10 mL | 0 | 11/2 | | Activ | | 100 unit/mL | under the skin | | | 2/20 | | e | | subcutaneous | (SUBC) once daily at | | | 15 | | | | solution | bedtime. 20 units | | | | | | | | under the skin at | | | | | | | | bedtime (higher dose | | | | | | | | than normal given | | | | | | | | that is on | | | | | | | | steroids) -- see | | | | | | | | Primary care doctor | | | | | | | | as soon as possible | | | | | | | | to adjust regimen to | | | | | | | | optimize blood | | | | | | | | sugar control. DO | | | | | | | | NOT TAKE if blood | | | | | | | | sugars < 100. | | | | | | + + + +---------+------+------+-------+ | insulin lispro 100 | Aggressive sliding | 10 mL | 0 | 11 | | Activ | | unit/mL | scale. See attached | | | 2/20 | | e | | subcutaneous | sheet. | | | 15 | | | | solution | | | | | | | + + + +---------+------+------+-------+ | oxyCODONE, | Take 1-2 tablets by | 40 | 0 | 03/10 | | Activ | | immediate release, 5 | mouth every six | tablet | | 0/20 | | e | | mg oral tablet | hours as needed for | | | 15 | | | | | moderate pain or | | | | | | | | severe pain. | | | | | | + + + +---------+------+------+-------+ Active Problems + + + | Problem | Noted Date | + + + | Subdural hematoma | 03/26/2015 | + + + Social History + +-------+ [...] recent travel history available. | + + Last Filed Vital Signs + + + + + | Vital Sign | Reading | Time Taken | Comments | + + + + + | Blood Pressure | 125/54 | 03/29/2015 12:03 PM | | | | | PST | | + + + + + | Pulse | 68 | 03/29/2015 12:06 PM | | | | | PST | | + + + + + | Temperature | 36.8 C (98.2 F) | 03/29/2015 12:06 PM | | | | | PST | | + + + + + | Respiratory Rate | 18 | 03/29/2015 12:06 PM | | | | | PST | | + + + + + | Oxygen Saturation | 97% | 03/29/2015 12:06 PM | | | | | PST | | + + + + + | Inhaled Oxygen | - | - | | | Concentration | | | | + + + + + | Weight | 71 kg (156 lb 8.4 | 03/28/2015 5:00 AM | | | | oz) | PST | | + + + + + | Height | 177.8 cm (5' 10") | 03/27/2015 8:00 AM | | | | | PST | | + + + + + | Body Mass Index | 22.46 | 03/27/2015 8:00 AM | | | | | PST | | + + + + + Plan of Treatment + + + + + | Health Maintenance | Due Date | Last Done | Comments | + + + + + | Pneumococcal | | | | | vaccination (1 of 2 | 4 | | | | - PCV13) | | | | + + + + + | Influenza (Flu) | | | | | vaccination (#1) | 9 | | | + + + + + Implants + +------+--------+ +--------+--------+--------+ | Implanted | Type | Area | Manufacture | Device | Shelf | Model | | | | | r | | Expira | / | | | | | | Identi | tion | Serial | | | | | | fier | Date | / Lot | + +------+--------+ +--------+--------+--------+ | Cover Francisco Hole .5mm 17mm | | Right: | [employer]antal | | | 421.52 | | Craniomaxillofacial Titanium | | Head | | | | 7 / / | | Low Profile Nonsterile - | | | | | | | | [id number]: Qty: 2 on | | | | | | | | 03/26/2015 by Dixie Sykes | | | | | | | | MD Janie at [facility] | | | | | | | | LOC | | | | | | | + +------+--------+ +--------+--------+--------+ | Screw Bone 4mm 1.55mm 2.55mm | | Right: | [employer] | | | 04.503 | | Matrixneuro | | Head | | | | .104.0 | | Craniomaxillofacial Titanium | | | | | | 1 / / | | Self Drill Nonsterile - | | | | | | | | [id number]: Qty: 4 on | | | | | | | | 03/26/2015 by Dixie Sykes | | | | | | | | MD Janie at [facility] | | | | | | | | LOC | | | | | | | + +------+--------+ +--------+--------+--------+ Results Not on filefrom Last 3 Months Insurance + +--------+ +--------+ + +--------+ | Payer | Benefi | Subscriber | Effect | Phone | Address | Type | | | t Plan | ID | thompson | | | | | | / | | Dates | | | | | | Group | | | | | | + +--------+ +--------+ + +--------+ | MEDICARE | MEDICA | xxxxxxxxxx | 11/06/19 | [phone] | [address] | Med[address] | | | RE A & | | 14-Pre | [phone] | | | [address] | | sent | | [place] | | | | | | | | [id number] | | + +--------+ +--------+ + +--------+ | [facility] | | [phone] | 03/26/ | | | Agency | | SERVICE | | | 2015-P | | | | | | HEALTH | | resent | | | | | | | | | | | | | | SERVIC | | | | | | | | E | | | | | | + +--------+ +--------+ + +--------+ + +--------+ +--------+ + + | Guarantor Name | Accoun | Relation to | Date | Phone | Billing Address | | | t Type | Patient | of | | | | | | | | | | + +--------+ +--------+ + + | Derick Franco | Person | Self [birth year] [address] | | | al/Fam | | 1940 | [phone] | [place] | | | [place] | | | [address] (Home) | [address] | + +--------+ +--------+ + + Advance Directives + + + + + | Code Status | Date | Date | Comments | | | Activated | Inactivated | | + + + + + | Full Code | 03/27/2015 | 03/29/2015 | | | | 2:09 AM | 10:33 PM | | + + + + +
--- OUTSIDE RECORDS SUMMARY | ~2019-11-21 | XMS | Encounter Summary ---
Demographics + + + | Address | [address] | | | [place] [address] | + + + | Home Phone | | + + + | Preferred Language | Unknown | + + + | Marital Status | | + + + | Scientologist Affiliation | NRP | + + + | Race | or | + + + | Ethnic Group | Not or | + + + Author + + + | Author | [facility] | + + + | Organization | [facility] | + + + | Address [...] Team Providers + +------+ + | Care Corporate Pilot Name | Role | Phone | + [...] +--------+--------+ + + + + Encounter Details +--------+---------+ + + + | Date | Type | Department | Care Team | Description | +--------+---------+ + + + | 03/26/ | Surgery | 6A Intra Op 3[address] | Dixie Sykes, | RIGHT LJ HOLE VS | | 2014 | | [address] | [address] | CRANIOTOMY FOR | | | | [address] [facility] | [place], [place] | EVACUATION OF | | | | Hospital Admitting | [address] | SUBDURAL HEMATOMA | | | | Desk Located on the | [phone] | | | | | 9th floor | | | | | | [place], [place] | | | | | | [address] | | | +--------+---------+ + + + Social History + +-------+ [...] PM PST NEUROSURGERY DISCHARGE SUMMARY: Patient: Derick Franco Admission Date: 03/26/2015 Discharge Date: 03/29/2015 Attending Physician: Dixie Sykes MD PCP: Eli Baker MD Service: [facility] Neurosurgery Diagnoses Principal Final Diagnosis: 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 Additional Diagnoses: Type 1 DM Procedures Right-sided lj holes for evacuation of subdural hematoma. Brief Hospital Course Derick Franco is a 74-year-old male who was brought in transfer to [facility] for acute on chronic panhemispheric right-sided subdural [...] right side. He was then brought to [facility] for higher level of care an d [...] health management, and they assure us that t mahsa will take him to see his PCP [...] 3:14 PM Discharging Attending: Dixie Sykes MD [facility] [address] [place] [address] documented in this en counter Discharge Instructions [...] of dollars in the national healthcare cost. (ARCH National Respite Network's factsheet on cost benefits [...] your senior or day center, you r congregation community, or any other community in which [...] service which conn ects the people of [place] and [facility] with the community resources they need. 2 [employer] Home Instead ([phone]) This is a [employer] which can provide in home assistance at a cost to the family. [place] Project [employer]ud[employer] OPI is a program which helps seniors 60 and over continue to live independently and safely living in their own home. OPI provides individualized personal care, housekeeping, and case management support. http://www.[place].gov/dhs/spwpd/pages/ltc/inhome.aspx#opi [place] Independent Living Resources: [place] Statement Of Independent Living Resources: Promote the philosophy of Independent L iving by creating opportunities, encouraging choices, advancing equal access, and furthering the level of independence for all people with disabilities. [phone] Meals on Wheels (www.mealsonwheelspeople.org) Meals on Wheels are hot, nutritious lunches that are delivered Monday through Monday betwee n 11 a.m. and 1 p.m. to homebound elderly age 60 and older. Seniors must live in Formerly named [facility] in [place] or [facility] in [place] to be eligible to receive meal s. Call to request meals at [phone] in [facility] and toll free in [facility] at . Most of the [facility] in [place] have a Meals on Wheels Program, and information on local [facility] ei-ra-imezsb services can be obtained through local Area Agency on Aging Offices. [place] Vocational Rehabilitation Service (OVRS) ( ) http://www.[place].gov/DHS /vr/Pages/index.aspx [place] Area Agency on Aging http://www.[place].gov/dhs/spwpd/pages/offices.aspx There are 17 Area Agencies on Aging across [place] that administer and support community-bas ed care services. AAAs advocate for older adults living in their area, develop community-based long-term care services to meet the needs of those adults and administer funds to implement services. Most services coordinated by AAAs are provided through community service providers at the local level. This section contains program information designed for staff members of [place]'s AAAs . Aging and Disability Resource Connection of [place] https://adrcoforegon.org/eanjho-xgspsjq-zqi-independent-living.php [facility] is a resource directory for [place] families, caregivers and consumers seekin g information about long-term supports and services. Here you will find quick and easy acces s to resources in your community. If you cannot find the information you are looking for or wish to talk to someone in person, please call us toll free at 4-912-[facility] ([phone]) [place] Caregiver Support Line http://www.caregiver.[place].gov/ Toll free : Also check with your private health insurance organization, as respite care may also be inc luded in the coverage. Support Groups for Families Living with Aphasia Individuals and families affected by aphasia face unique challenges. Support specifically d esigned for these people is limited. Three groups have formed in the [place], [place] area t hat provide both the individual experiencing aphasia and family members the opportunity to d evelop a sense of community with others impacted by aphasia. These groups are organized and run by participants. Faculty and students from [facility] s Department of S peech and [...] everyone. There are several groups in the [facility] area for individuals and families living wit h aphasia: [facility] Continuous Improvement Group When: Each Monday 11:00 12:00 Where: [facility] [address] [place] [address]. Contact: Aidan Alaniz Yareli Norm [email or web address] [facility] Speak EZ group When: Odd numbered Saturdays (i.e. May 12) 10:00 12:00 Where: Aris castillo [facility] [address] Contact: Mark Yanez [phone] [facility] Aphasia Group When: & Monday of each month 10:00 12:00 Where: [facility] Room varies watch for directional signs Contact: Kenya Cano [phone] [email or web address] The [employer] A community music group for stroke survivors. Stroke survivors, spouses, partners, and care givers are invited to join for an hour of playing instruments and singing. Every Monday, 11:30-12:30 at the [facility], [address] [place] [address]. Info rmation contact: Jen Banks, , [email or web address] Brain Injury Cub Run of [place] http://www.biaoregon.org/ National Stroke Association http://www.stroke.org/ .STROKES (446.2669) National Center on Caregiving/ Family Caregiver Cub Run www.caregiver.org Established in 2000 as a program of Family Caregiver Cub Run, the National Center on Careg iving (NCC) works to advance the development of high-quality, cost-effective policies and pr ograms for caregivers in every state in the country. Uniting research, public policy and ser vices, the NCC serves as a central source of information on caregiving and long-term care is sues for policy makers, service providers, media, funders and family caregivers throughout t he country. services include: Caregiver Information & Assistance: [...] their doctors about any personal medical concerns. 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 The patient and [...] LUE: 5/5 HG/B/T RLE: 5/5 HF/KE/DF/PF LLE 5/5 HF/KE/DF/PF Incision c/d/i. No surrounding erythema, swelling [...] / Renal: 24-hour I/O goal: euvolemic; No mosley catheter. Electrolytes wnl. ID/HO: AF WBC 11 down from 13 yesterday Endocrine: CBGs wnl overnight, however elevated today to 150-160 and once to over 200. yest radhaay, stopped endotool, switched to subQ insulin -- [...] relationship with his PCP and his diabetic mortgage processing clerk whom he sees regularl y. The patient [...] 1:38 PM PST NSICU Neuroscience ICU Attending Embedded Software Manager Note Derick Franco is a 74 y.o. [...] the rest of his medications since his tuqfvtyc-wr-hxy Dione is the one who manges all his medications. He was brought to in [facility] by EMS. On arrival his BP was 176/107 which was treated with labetalol. CT scan reviled a large acute on chroni c RIGHT subdural hematoma with right midline shift PMHx significant for DM, HTN, CAD s/p MS (on ASA and Plavix), TIA 24 Hour Events: ding well Neuro exam: non focal, AA and Ox4 Current problems include: right SDH acute on chronic, MLS, st/p lj hole evacuation , pneumocephalus postop,received platelets transfusion preop due to chronic antiplatelet t herapy ASA and Plavix (post MS), mild leucocytosis - reactive, normocytic anemia baseline an d periop BL, hyperchloremia Plan: hadley status, bronchial hygiene, SBP<160 mmHg, adat., OOB ambulate. Relevant Risks: This patient is currently at risk for the following: cerebral edema, sei zure and subdural hematoma; arrhythmia; edema, ICU delirium and UTI. I spent 22 minutes actively involved in the care and management of this patient Promise Valdez MD [facility] DEPARTMENT: [id number] ICU NEURO Place of Service:- Inpatient Date of Service: 03/28/15 CSN: [id number] Suggested Modifier: GC - Resident Involved Suggested CPT: TO CODER P M Ely Hernández MD - 03/28/2015 12:39 PM PST [facility] Neuroscience ICU Progress Note Team Pager: [phone] Attendin Patient name: Derick Franco Author: Ely Oquendo MD Date of Service: 03/28/2015 Intensive Care Attending: Promise Valdez MD Attending Provider: Dixie Sykes MD ICU day # 3 POD # 2 s/p right lj holes for evacuation of subdural hematoma ID: Derick Franco is a 74 y.o. male with PMHx significant for DM, HTN, CAD s/p MS (on ASA an d Plavix), TIA, presenting [...] all his medications. He was brought to in [facility] by EMS. On arrival his BP was [...] of breathing GI: Abdomen, soft / Renal: Mosley catheter: Yes HEME/ID: TM: Temp (24hrs), Av.9 [...] PMHx significant for DM, HTN, CAD s/p MS (on ASA and Plavix), TIA, presen ting [...] transfer Cardiovascular # HTN # CAD # MS -sBP goal < 140mmHg -home metoprolol and [...] daily RFS Renal # no acute issue -mosley: remove today -I/O goal euvolemia, MIVF if [...] Other -family updated PRN -L/T/D: PIV x2, mosley -disposition: stable for hadley transfer F: diabetic [...] above assessment and plan. Ely Oquendo MD [facility] DEPARTMENT: [id number] ICU NEURO Place of Service:- Inpatient Date of Service: 03/28/2015 CSN: [id number] Suggested Modifier: None Salty Kulkarni MD - [...] weeks of dex 2BID Contact neurosurgery resident communications superintendent with questions at pager [phone] [place] [id number] PGY-4 Neurosurgery Promise Jaime MD - 03/27/2015 9:53 AM PST NSICU Neuroscience ICU Attending Embedded Software Manager Note Derick Franco is a 74 y.o. [...] the rest of his medications since his fzzrcfez-rz-suj Dione is the one who manges all his medications. He was brought to in [place], [place] by EMS. On arrival his BP was 176/107 which was treated with labetalol. CT scan reviled a large acute on chroni c RIGHT subdural hematoma with right midline shift PMHx significant for DM, HTN, CAD s/p MS (on ASA and Plavix), TIA Notable labs: [...] antiplatelet t herapy ASA and Plavix (post MS), mild leucocytosis - reactive, normocytic anemia baseline [...] is cri tically ill Promise Valdez MD [facility] DEPARTMENT: [id number] ICU NEURO Place of Service:- Inpatient Date of Service: 03/27/15 CSN: [id number] Suggested Modifier: GC - Resident Involved Suggested CPT: TO CODER P [facility] Luis Song MD - 03/27/2015 8:29 AM PST Date: 03/27/2015 Author: Luis Villafana MD Admitting Physician: Dixie Sykes MD HPI/Interval [...] 7.43 PCO2 38 PO2 553* HCO3 25.3 A3YETVOC 100.9* Assesment: Derick Franco is a 74 [...] hadley - remain flat 24hr total Luis Villafana MD Neurosurgery Resident Pager #[phone] Chet Alberto ACNP - 03/27/2015 5:29 AM PST 7NSICU [...] PMHx significant for DM, HTN, CAD s/p MS (on ASA an d Plavix), TIA, presenting [...] and he has had increasing confusion since. Satish bradshaw reported at the time of his more recent fall he had a headache and neck pain that has now resolved. He has also had nausea and vomiting but cant remember the time course. He does end orse taking ASA and plavix but is unable to recall the rest of his medications since his anyi triub-tv-kzg Dione is the one who manges all his medications. He was brought to [facility] in [place], [place] by EMS. On arrival his BP was 176/107 which was treated with lab etalol. CT scan revealed a large acute on chronic RIGHT subdural hematoma with right midline shift' - note adapted from Dr. Sahu H&P note dated 03/26/15. 24 Hour Events: - [...] active BS present in all quadrants : Mosley catheter: Yes; urine yellow Input/Output Summary: Intake/Output [...] PMHx significant for DM, HTN, CAD s/p MS (on ASA and Plavix), TIA, presen ting [...] transfer Cardiovascular # HTN # CAD # MS -sBP goal < 140mmHg -nicardipine gtt to [...] daily RFS Renal # low UOP overnight -mosley: in situ from [place], no need for [...] [place] pharmacy [place] med rec confirmed, will restart levothyroxine. MS/Skin # at risk for skin breakdown and muscle deconditioning -routine decubitus ulcer prevention -mobilize as tolerated Other -family updated PRN -L/T/D: PIV x2, subgaleal drain, mosley -disposition: ICU F: diabetic diet A: APAP, [...] time is exclusive of procedures. CHAPO Dhillon [facility] DEPARTMENT: [id number] ICU NEURO Place of Service:- Inpatient Date of Service: 03/27/2015 CSN: [id number] Suggested Modifier: None Suggested CPT: TO PRESCRIPTION BENEFIT SPECIALIST Recent Labs 03/26/15203203/26/15221103/27/15 0326 NA 141 143 146* K 4.0 3.0* 3.3* CL 107 107 109* BICARB 26 -- 29 BUN 18 -- 23* CR 0.81 -- 0.96 CA 7.9* -- 7.5* MG 2.0 -- 2.2 PO4 -- -- 2.1* Recent Labs 03/26/15203203/26/15221103/27/15 0326 WBC 10.48 -- 12.54* HB 10.5* -- [...] tablet 40 mg 40 mg oral QPM [facility] - 03/27/2015 12:43 AM [facility] NEUROSURGERY POST OPERATIVE CHECK Author: Luis Villafana MD Date: 03/27/2015 Attending Physician: Dixie Sykes [...] hours - SCDs while in bed Luis Villafana MD Neurosurgery Resident Pager #[phone] documented in this en counter Plan of Treatment Not on filedocumented as [...] | | Attending Surgeon: Dixie Sykes MD Surgical Attendant(s): Dave Song | | MD Jamin Preoperative [...] | | was brought in transfer to [facility] for acute on chronic panhemispheric right-sided | [...] right side. He was then brought to [facility] for | | higher level of care [...] Bur holes were then created using a fish bin tender drill bit on the high-speed | | [...] [facility]. | | He was taken directly to the to the intensive care unit in stable condition. At the end | | of the case, all instrument, sponge, and needle counts were correct in 2 iterations. | | Dr. Sykes was present for the critical portions of the case.Oneil Cedeño M | | REED Sykes/PHOENIXD: 03/26/2015 23:51:35DT: 03/27/2015 07:45:19Job #: | | [id number] was present for the critical portions of the procedure as described in | | the note for this encounter.Oneil Layne MDOHSU [id number] [facility] | | [id number], [place] [id number] | | | |I was present for the critical portions of the procedure as described in the note for this encounter. | | | |Dixie Sykes MD | | | |Dixie Sykes MD | |[facility] | |[address] [facility] [address] | |[id number] | |[place] [address] | |[phone] | + + CAPILLARY BLOOD GLUCOSE (NO [...] + + + | [facility] | [address] | [place], [place] | | | MATTHEW POINT OF CARE | [address] | [address] | | | TESTS | | | [...] | [facility] | [address] | [place], [place] | | | MATTHEW POINT OF CARE | [address] | [address] | | | TESTS | | | [...] | + + + + + | [facility] | [address] | [place] [address] | | | BEULAH KINCAID | [address] | | | + + + + + MAGNESIUM, PLASMA (03/29/2015 5:53 AM PST) + +-------+ + + + | Component | Value | Ref Range | Performed | Pathologist | | | | | At | Signature | + +-------+ + + + | MAGNESIUM,P | 2.1 | 1.8 - 2.5 mg/dL | [facility] [...] | + + + + + | [facility] | [address] | [place] [address] | | | SERVICES, CORE | PARK [...] | | | LABORATORY | | | RWANDAN | | | SERVICES, | | | [...] | + + + + + | [facility] | [address] | [place] [address] | | | SERVICES, CORE | SHADIA [...] | [facility] | [address] | [place], [place] | | | LORRAINE CASTRO OF CARE | [address] | [address] | | | TESTS | | | [...] | [facility] | [address] | [place] | | | MAT[facility]W POINT OF CARE | [address] | [address] | | | TESTS | | | [...] + | [facility] | [address] | [place], [place] | | | LORRAINE CASTRO OF CARE | [address] | [address] | | | TESTS | | | [...] | [facility] | [address] | [place], [place] | | | LORRAINE CASTRO OF CARE | [address] | [address] | | | TESTS | | | [...] | [facility] | [address] | [place] | | | MAT[facility]W POINT OF CARE | [address] | [address] | | | TESTS | | | [...] + | [facility] | [address] | [place] | | | MATTHEW POINT OF CARE | [address] | [address] | | | TESTS | | | [...] | [facility] | [address] | [place], [place] | | | LORRAINE CASTRO OF [facility]UEL | [address] | [address] | | | TESTS | | | [...] + | [facility] | [address] | [place], [place] | | | MATTHEW POINT OF CARE | [address] | [address] | | | TESTS | | | [...] + + + | [facility] | [address] | [place] | | | [facility] | [address] | [address] | | | TESTS | | | [...] | [facility] | [address] | [place], [place] | | | LORRAINE CASTRO OF VI[facility] MANUEL | [address] | [address] | | | TESTS | | | [...] + | [facility] | [address] | [place], [place] | | | MATTHEW POINT OF CARE | [address] | [address] | | | TESTS | | | [...] + | [facility] | [address] | [place] | | | [facility] | [address] | [address] | | | TESTS | | | [...] | [facility] | [address] | [place], [place] | | | LORRAINE CASTRO OF CARE | [address] | [address] | | | TESTS | | | [...] + | [facility] | [address] | [place], [place] | | | MATTHEW POINT OF CARE | [address] | [address] | | | TESTS | | | [...] (H) | 60 - 99 mg/dL | [facility] - | | | GLUCOSE, | | [...] + | [facility] | [address] | [place] | | | LORRAINE CASTRO OF [facility] | [address] | [address] | | | TESTS | | | [...] | [facility] | [address] | [place], [place] | | | LORRAINE CASTRO OF CARE | [address] | [address] | | | TESTS | | | [...] | [facility] | [address] | [place], [place] | | | MATTHEW POINT OF CARE | [address] | [address] | | | TESTS | | | [...] + | [facility] | [address] | [place] | | | L[facility]RAINE CASTRO OF [facility] | [address] | [address] | | | TESTS | | | [...] | [facility] | [address] | [place], [place] | | | LORRANIE CASTRO OF CARE | [address] | [address] | | | TESTS | | | [...] | + + + + + | [facility] | [address] | [place] [address] | | | SERVICES, CORE | [address] | | | + + + + + MAGNESIUM, PLASMA (03/28/2015 12:07 AM PST) + +-------+ + + + | Component | Value | Ref Range | Performed | Pathologist | | | | | At | Signature | + +-------+ + + + | MAGNESIUM,P | 2.1 | 1.8 - 2.5 mg/dL | [facility] [...] [facility] | [address] | [place] [address] | | | SERVICES, CORE | PARK [...] | | | LABORATORY | | | RWANDAN | | | SERVICES, | | | [...] | + + + + + | [facility] | [address] | [place] [address] | | | SERVICES, CORE | SHADIA [...] + | [facility] | [address] | [place], [place] | | | LORRAINE CASTRO OF VI[facility] MANUEL | [facility] | [phone] | | | TESTS | | | [...] | [facility] | [address] | [place], [place] | | | LORRAINE CASTRO OF CARE | [facility] | [address] | | | TESTS | | | [...] (H) | 60 - 99 mg/dL | [facility] - | | | GLUCOSE, | | [...] + | [facility] | [address] | [place] | | | MATTHEW POINT OF CARE | [address] | [address] | | | TESTS | | | [...] + | [facility] | [address] | [place], [place] | | | LORRAINE CASTRO OF VICTOR MANUEL | [facility] | [phone] | | | TESTS | | | [...] | [facility] | [address] | [place], [place] | | | LORRAINE CASTRO OF VI[facility] MANUEL | [facility] | [phone] | | | TESTS | | | [...] (H) | 60 - 99 mg/dL | [facility] - | | | GLUCOSE, | | [...] + | [facility] | [address] | [place] | | | LORRAINE CASTRO OF CARE | [address] | [address] | | | TESTS | | | [...] | + + + + + | [facility] | [address] | [place], [place] | | | LORRAINE CASTRO OF VICTOR MANUEL | [facility] | [phone] | | | TESTS | | | [...] | [facility] | [address] | [place], [place] | | | LORRAINE CASTRO OF VICTOR MANUEL | [facility] | [phone] | | | TESTS | | | [...] (H) | 60 - 99 mg/dL | [facility] - | | | GLUCOSE, | | [...] | + + + + + | [facility] | [address] | [place] | | | MATTHEW POINT OF CARE | [address] | [address] | | | TESTS | | | [...] | + + + + + | [facility] | [address] | [place], [place] | | | LORRAINE CASTRO OF VICTOR MANUEL | [address] | [address] | | | TESTS | | | [...] | [facility] | [address] | [place], [place] | | | LORRAINE CASTRO OF VICTOR MANUEL | [facility] | [phone] | | | TESTS | | | [...] (H) | 60 - 99 mg/dL | [facility] - | | | GLUCOSE, | | [...] + | [facility] | [address] | [place] | | | MATTHEW POINT OF CARE | [address] | [address] | | | TESTS | | | [...] | [facility] | [address] | [place], [place] | | | L[facility]RAINE CASTRO OF [facility] | [address] | [address] | | | TESTS | | | [...] | [facility] | [address] | [place], [place] | | | QUINTON CASTRO | [facility] | [phone] | | | TESTS | | | [...] (H) | 60 - 99 mg/dL | [facility] - | | | GLUCOSE, | | [...] + | [facility] | [address] | [place], [place] | | | MATTHEW POINT OF CARE | [address] | [address] | | | TESTS | | | [...] + + | Performing | Address | City/State/[facility] | Phone Number | | Organization | | | | + + + + + | [facility] | [address] | [place], [place] | | | L[facility]RAINE CASTRO OF [facility] | [address] | [address] | | | TESTS | | | [...] | [facility] | [address] | [place] | | | MATTHEW POINT OF CARE | [facility] [facility] | [address] | | | TESTS | | | [...] [facility] | [address] | [place] [address] | | | SERVICES, CORE | PARK [...] [facility] | [address] | [place] [address] | | | SERVICES, CORE | PARK [...] | | | LABORATORY | | | RWANDAN | | | SERVICES, | | | [...] | + + + + + | [facility] | [address] | [place] [address] | | | SERVICES, CORE | SHADIA [...] 74 | 60 - 99 mg/dL | [facility] [...] | [facility] | [address] | [place], [place] | | | MATTHEW POINT OF CARE | [facility] | [address] | | | TESTS | | | [...] + | [facility] | [address] | [place], [place] | | | MATTHEW POINT OF CARE | [address] | [address] | | | TESTS | | | | + + + + + CULTURE, URINE [facility] (03/27/2015 12:51 AM PST) + + + [...] | + + + + + | [facility] | [address] | [place] [address] | | | CODI, BEULAH | [address] | | | + + + + + UA DIPSTICK ONLY (03/27/2015 12:51 AM PST) + + [...] | + + + + + | [employer] | [address] | [place] [address] | | | SERVICES, CORE | SHADIA [...] +---------+ + + + | SQUAMOUS | Few (A) | None /hpf | [facility] | [...] | + +---------+ + + + | NON-SQUAMOU | Few (A) | None /hpf | [facility] | [...] [facility] | [address] | [place] [address] | | | SERVICES, CORE | SHADIA [...] | | | LABORATORY | | | BEULAH KINCAID | + + + + + + + + | Performing | Address | City/State/Zipcode | Phone Number | | Organization | | | | + + + + + | [facility] | [address] | [place] [address] | | | SERVICES, BEULAH | [address] | | | [...] | [facility] | [address] | [place], [place] | | | LORRAINE CASTRO OF CARE | [facility] | [address] | | | TESTS | | | [...] | | | | | | SHARRI MAHER | | | | | | 03/27/2015 9:01 AM | | | | + + + + + + + + | Specimen | + + | | + + + +---------+ + + | Performing | Address | City/State/Zipcode | Phone Number | | Organization | | | | + +---------+ + + | [facility] | | | | | [...] CAPILLARY BLOOD GLUCOSE (NO CHG), POC (03/26/2015 11:41 PM PST) + +---------+ [...] + | [facility] | [address] | [place], [place] | | | LORRAINE CASTRO OF CARE | [address] | [address] | | | TESTS | | | | + + + + + ABEstrella-LORI ABL POC (03/26/2015 10:12 PM PST) + + [...] + | [facility] | [address] | [place], [place] | | | LORRAINE CASTRO OF VICTOR MANUEL | [address] | [address] | | | TESTS | | | [...] | [facility] | [address] | [place], [place] | | | MATTHEW POINT OF CARE | [address] | [address] | | | TESTS | | | [...] + + + + + + | IRMA[facility]KAMARI | 438 | ms | [facility] [...] + + + + + | [facility] | [address] | [place], [place] | | | CARDIOLOGY | [address] | [address] | | + + + + + [...] | + + + + + | [employer] | [address] | [place] [address] | | | SERVICES, CORE | SHADIA [...] [facility] | [address] | [place] [address] | | | SERVICES, | [address] [...] [facility] | [address] | [place] [address] | | | SERVICES, | [address] [...] mech. valves (2.5 - 3.5) INR | SERVICES, CORE | + + + + + + + + | Performing | Address | City/State/Zipcode | Phone Number | | Organization | | | | + + + + + | [facility] | [address] | [place] [address] | | | SERVICES, CORE | PARK [...] | + + + + + | [facility] | [address] | [place] [address] | | | SERVICES, CORE | SHADIA [...] 24.2 (L) | 26.0 - 36.0 | [facility] | | | | | seconds | [...] 0.7 U/mL | LABORATORY | | | SERVICES, CORE | + + + + + + + + | Performing | Address | City/State/Zipcode | Phone Number | | Organization | | | | + + + + + | [facility] | [address] | [place] [address] | | | SERVICES, CORE | SHADIA [...] [facility] | [address] | [place] [address] | | | SERVICES, CORE | PARK [...] | | | LABORATORY | | | RWANDAN | | | SERVICES, | | | [...] | + + + + + | [facility] | [address] | [place] [address] | | | BEULAH KINCAID | SHADIA [...] + + + + | PRODUCT | [id number] | | [facility] | | | UNIT [...] + + + + | EXPIRATION | [id number] | | [facility] | | | DATE [...] + + + + | BLOOD | [id number] | | [facility] | | | PRODUCT [...] | + + + + + | [facility] | [address] | [place] [address] | | | PATHOLOGY | [address] [...] + + + + | PRODUCT | [id number] | | [facility] | | | UNIT [...] + + + + | EXPIRATION | [id number] | | [facility] | | | DATE [...] + + + + | BLOOD | [id number] | | [facility] | | | PRODUCT [...] | + + + + + | [facility] | [address] | [place] [address] | | | PATHOLOGY | [address] | | | + + + + + ORDERS OTHER (03/26/2015 12:00 AM PST) + + + | Narrative | Performed At | + + + | | | + + + documented in this encounter Visit Diagnoses Not on filedocumented in this encounter Administered Medications + +--------+ +------+------+ + | Medication Order | MAR | Action | Dose | Rate | Site | | | Action | Date | | | | + +--------+ +------+------+ + | bacitracin 50,000 Units, | Given | 03/26/20 | | | Surgical | | ringers (TIS-U-BAILEY) 1,000 mL | | 15 10:32 | | | Site | | INTRAPROCEDURE PRN, Starting Mala | | PM PST | | | | | 03/26/15 at 2230, Until Mala | | | | | | | 03/26/15 at 2321 | | | | | | + +--------+ +------+------+ + +-------+ +---+---+ + | Given | 03/26/20 | | | Surgical | | | 15 10:30 | | | Site | | | PM PST | | | | +-------+ +---+---+ + +---+---+ | | | +---+---+ + +-------+ +---------+---+ + | bacitracin ointment | Given | 03/26/20 | 1 strip | | Surgical | | INTRAPROCEDURE PRN, Starting Mala | | 15 10:43 | | | Site | | 03/26/15 at 2243, Until Mala | | PM PST | | | | | 03/26/15 at 2321 | | | | | | + +-------+ +---------+---+ + +---+---+ | | | +---+---+ + +-------+ +------+---+ + | bupivacaine-EPINEPHrine | Given | 03/26/20 | 7 mL | | Surgical | | (MARCAINE-EPINEPHRINE) 0.5 | | 15 10:15 | | | Site | | %-1:200,000 injection | | PM PST | | | | | INTRAPROCEDURE PRN, Starting Mala | | | | | | | 03/26/15 at 2215, Until Mala | | | | | | | 03/26/15 at 2321 | | | | | | + +-------+ +------+---+ + +---+---+ | | | +---+---+ + +-------+ +---------+---+ + | thrombin 5000 unit topical | Given | 03/26/20 | 10,000 | | Surgical | | solution INTRAPROCEDURE PRN, | | 15 10:41 | Units | | Site | | Starting Mala 03/26/15 at 2241, | | PM PST | | | | | Until Mala 03/26/15 at 2321 | | | | | | + +-------+ +---------+---+ + +---+---+ | | | +---+---+ documented in this encounter
--- OUTSIDE RECORDS SUMMARY | ~2019-11-21 | XMS | Encounter Summary ---
Demographics + + + | Address | [address] | | | [place] [address] | + + + | Home Phone | | + + + | Preferred Language | Unknown | + + + | Marital Status | | + + + | Restorationist Affiliation | NRP | + + + | Race | or | + + + | Ethnic Group | Not or | + + + Author + + + | Author | [facility] | + + + | Organization | [facility] | + + + | [...] Team Providers + +------+ + | Care Acid Plant Helper Name | Role | Phone | + +------+ + | Christa Caldera MD | PCP | | + +------+ + Reason for Visit + + + | Reason | Comments | + + + | Refill Request | s/p admission 11/19/15 - 03/29/15: Right-sided anurag holes for | | | evacuation of subdural hematoma. (03/26/15) | + + + Encounter Details +--------+ + + + + | Date | Type | Department | Care Team | Description | +--------+ + + + + | 03/31/ | Telephone | Neurosurgery at | Dixie Sykes, | Refill Request (s/p | | 2014 | | [facility] [address] | MD [address] | admission 03/26/15 - | | | | Ave Center for | [place] | 03/29/15: | | | | [facility], | [address] | Right-sided anurag | | | | Building | [phone] | holes for evacuation | | | | floor [facility] [place] | | of subdural | | | | [address] | | hematoma. (03/26/15) | | | | [phone] | | ) | +--------+ + + + + Social [...] Not on filedocumented as of this encounter Visit Diagnoses Not on filedocumented in this encounter"
--- OUTSIDE RECORDS SUMMARY | ~2019-11-21 | XMS | Encounter Summary ---
Demographics + + + | Address | [address] | | | [place] [address] | + + + | Home Phone | | + + + | Preferred Language | Unknown | + + + | Marital Status | | + + + | Christianity Affiliation | NRP | + + + | Race | or | + + + | Ethnic Group | Not or | + + + Author + + + | Author | [facility] [employer] [facility] | + + + | Organization | [facility] | + + + | [...] Team Providers + +------+ + | Care Fatback Trimmer Name | Role | Phone | + [...] | | | | | ([facility]) | [address] | | | | | | Procedures | [place], [place] | | | | | | [place] | [address] | | | | | | CONTRAST | Phone: | | | | | | | [phone] | | | | | | | Fax: | | | | | | | [phone] | | +--------+--------+ + + + + Encounter Details +--------+ + + + + | Date | Type | Department | Care Team | Description | +--------+ + + + + | 03/30/ | Spanish Lecturer | Neurosurgery at | Emanuel, | Subdural hematoma | | 2014 | | [facility] [address] | [place] | ([place]) (Primary Dx) | | | | Ave [facility] for | [address] | | | | | Health and Healing, | [place], [place] | | | | | Building | [address] | | | | | floor [facility] [place] | [phone] | | | | | [address] | | | | | | [phone] | | | +--------+ + + + [...] subdural | | | | | | rzwmhxle19/19/2015 | | | | | | COMPARISON: [...] | | + +---------+ + + | [facility] DEPARTMENT OF | | | | | RADIOLOGY | | | | + +---------+ + + documented in this encounter Visit Diagnoses + + | Diagnosis | + + | Subdural hematoma (HCC) - Primary Subdural hemorrhage | + + documented in this encounter"
--- OUTSIDE RECORDS SUMMARY | ~2019-11-21 | XMS | Clinical Summary ---
Demographics + + + | Address | [address] | | | [place] [address] | + + + | Home Phone | | + + + | Preferred Language | Unknown | + + + | Marital Status | | + + + | Synagogue Affiliation | NRP | + + + [...] Team Providers + +------+ + | Care Wood Gluer Name | Role | Phone | + +------+ + | Christa Caldera MD | PCP | | + +------+ + Source Comments [facility] is fully live on both EpicCare Ambulatory and EpicCare InPatient.[facility] Allergies + + + + + [...] Hole .5mm 17mm | | Right: | Noitavonne | | | 421.52 | | Craniomaxillofacial Titanium | | Head | | | | 7 / / | | Low Profile Nonsterile - | | | | | | | | [id number]: Qty: 2 on | | | | | | | | 03/26/2015 by Dixie Sykes | | | | | | | | MD Janie at [facility] | | | | | | | | LOC | | | | | | | + +------+--------+ +--------+--------+--------+ | Screw Bone 4mm 1.55mm 2.55mm | | Right: | [employer] [place] | | | 04.503 | | [employer]neuro | | Head | | | | .104.0 | | Craniomaxillofacial Titanium | | | | | | 1 / / | | Self Drill Nonsterile - | | | | | | | | [id number]: Qty: 4 on | | | | | | | | 03/26/2015 by Dixie Sykes | | | | | | | | MD Janie at [facility] | | | | | [...] | [facility] | xxxxxxxxxx | 11/06/19 | [phone] | [address] | [facility] | | | RE A & | | 14-Pre | 1 | [address] | [address] | | | [address] | | sent | | [place] | | | | | | | | [address] | | + +--------+ +--------+ + +--------+ | [facility] | | xxxxxxxxx | 03/26/ | [...] | | al/Fam | | 1940 | [phone] | [address] [place] | | | [place] | | | [address] (Home) | [address] | + +--------+ +--------+ + + Advance [...]
--- OUTSIDE RECORDS SUMMARY | ~2019-11-21 | XMS | Encounter Summary ---
Demographics + + + | Address | [address] | | | [place] [address] | + + + | Home Phone | | + + + | Preferred Language | Unknown | + + + | Marital Status | | + + + | Yazidism Affiliation | NRP | + + + | Race | or | + + + | Ethnic Group | Not or | + + + Author + + + | Author | [facility] | + + + | Organization | [facility] | + + + | Address | Unknown | + + + | Phone | Unavailable | + + + Support + + +---------+ + | Name | Relationship | Address | Phone | + + +---------+ + | Dione Franco | ECON | Unknown | | + + +---------+ + | Delmis Berkowitzlouisa | ECON | Unknown | | + + +---------+ + Care Team Providers + +------+ + | Care Card Grinder Name | Role | Phone | + +------+ + | Christa Caldera MD | PCP | | + +------+ + Reason for Visit + + + | Reason | Comments | + + + | Test Results | | + + + Encounter Details +--------+ + + + + | Date | Type | Department | Care Team | Description | +--------+ + + + + | 04/24/ | Telephone | Neurosurgery at | Castellanos, | Test Results | | 2015 | | [facility] [address] | [place] | | | | | [facility] | [address] | | | | | Health and Healing, | [place], [place] | | | | | [facility] | [address] | | | | | floor [place], [place] | [phone] | | | | | [address] | | | | | | [phone] | | | +--------+ + + + [...]
--- OUTSIDE RECORDS SUMMARY | ~2019-11-21 | XMS | Encounter Summary ---
Demographics + + + | Address | [address] | | | [place] [address] | + + + | Home Phone | | + + + | Preferred Language | Unknown | + + + | Marital Status | | + + + | Hindu Affiliation | NRP | + + + | Race | or | + + + | Ethnic Group | Not or | + + + Author + + + | Author | [facility] [employer] [facility] | + + + | Organization | [facility] | + + + | Address [...] Team Providers + +------+ + | Care Chainstitch Seat Joiner Name | Role | Phone | + [...] Anesthesia | [address] | Chandler Meehan, | | | 2014 | Event | [address] | [address] | | | | | [place] [facility] | [address] | | | | | Hospital Admitting | [place], [place] | | | | | Desk Located on the | [address] | | | | | 9th floor | [phone] | | | | | [facility] [place] | | | | | | [address] | Vernon Dalton MD | | | | | | [address] | | | | | | [place], | | | | | | [place] [address] | | | | | | [phone] | | | | | | | | +--------+ + + + + Anesthesia Record + + + + + | Procedure Name | Responsible | Anesthesia Start | Anesthesia Stop Time | | | Anesthesiologist | Time | | + + + + + | RIGHT LJ HOLE VS | Chandler Meehan MD | 03/26/152128 | 03/26/15 1682 | | CRANIOTOMY FOR | | | [...] | | | Until Mala 03/26/15 at 2 | iology | | | | | [...] + + + +---+ | Restarted | 20 | 5 mg/hr | 25 mL/hr | [...]
--- OUTSIDE RECORDS SUMMARY | ~2019-11-21 | XMS | Encounter Summary ---
Demographics + + + | Address | [address] | | | [place] [address] | + + + | Home Phone | | + + + | Preferred Language | Unknown | + + + | Marital Status | | + + + | Bahai Affiliation | NRP | + + + | Race | or | + + + | Ethnic Group | Not or | + + + Author + + + | Author | [facility] [employer] [facility] | + + + | [...] Team Providers + +------+ + | Care Manager Corporate Marketing Name | Role | Phone | + [...] 2014 | | [address] Drew Galaviz | [address] | CRANIOTOMY FOR | | | | Rd [facility] | [place], [place] | EVACUATION OF | | | | Hospital Admitting | [address] | SUBDURAL HEMATOMA | | | | Desk Located on the | [phone] | | | | | 9th floor | | | | | | [place], [place] | | | | | | [address] | | | +--------+---------+ + + + [...] Sykes MD PCP: Eli Baker MD Service: [facility] Neurosurgery Diagnoses Principal Final Diagnosis: 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 Additional Diagnoses: Type 1 DM Procedures Right-sided lj holes for evacuation of subdural hematoma. Brief Hospital Course Derick Franco is a 74-year-old male who was brought in transfer to [facility] for acute on chronic panhemispheric right-sided subdural [...] right side. He was then brought to [facility] for higher level of care an d [...] 3:14 PM Discharging Attending: Dixie Sykes MD [facility] [address] [place] [address] documented in this en counter Discharge Instructions [...] your senior or day center, you r jain community, or any other community in which [...] service which conn ects the people of [place] and [facility] with the community resources they need. 2 Tomveyi [place] Home Instead ([phone]) This is a [employer] which can provide in home assistance at a cost to the family. [place] Project [place] OPI is a program which helps seniors 60 and over continue to live independently and safely living in their own home. OPI provides individualized personal care, housekeeping, and case management support. http://www.[place].gov/dhs/spwpd/pages/ltc/inhome.aspx#opi [place] Independent Living Resources: [place] Statement Of Independent Living Resources: Promote the philosophy of Independent L iving by creating opportunities, encouraging choices, advancing equal access, and furthering the level of independence for all people with disabilities. [phone] Meals on Wheels (www.mealsonwheelspeople.org) Meals on Wheels are hot, nutritious lunches that are delivered Monday through Monday betwee n 11 a.m. and 1 p.m. to homebound elderly age 60 and older. Seniors must live in [facility] in [place] or [facility] in [place] to be eligible to receive meal s. Call to request meals at [phone] in [facility] and toll free in [facility] at . Most of the nationwide children's hospital in [place] have a Meals on Wheels Program, and information on local [facility] vx-yp-duzifp services can be obtained through local Area Agency on Aging Offices. [place] Vocational Rehabilitation Service (OVRS) ( ) http://www.[place].gov/DHS /vr/Pages/index.aspx [place] Area Agency on Aging http://www.[place].gov/dhs/spwpd/pages/offices.aspx There are 17 Area Agencies on Aging across [place] that administer and support community-bas ed care services. AAAs advocate for older adults living in their area, develop community-based long-term care services to meet the needs of those adults and administer funds to implement services. Most services coordinated by AAAs are provided through community service providers at the local level. This section contains program information designed for staff members of [place]'s AAAs . Aging and Disability Resource Connection of [place] https://adrcoforegon.org/npsgou-hrezvet-fja-independent-living.php [facility] is a resource directory for [place] families, caregivers and consumers seekin g information about long-term supports and services. Here you will find quick and easy acces s to resources in your community. If you cannot find the information you are looking for or wish to talk to someone in person, please call us toll free at 6[facility] ([phone]) [place] Caregiver Support Line http://www.caregiver.[place].gov/ Toll free : Also check with your private health insurance organization, as respite care may also be inc luded in the coverage. Support Groups for Families Living with Aphasia Individuals and families affected by aphasia face unique challenges. Support specifically d esigned for these people is limited. Three groups have formed in the [place], [place] area t hat provide both the individual experiencing aphasia and family members the opportunity to d evelop a sense of community with others impacted by aphasia. These groups are organized and run by participants. Faculty and students from [facility] s Department of S peech and [...] everyone. There are several groups in the [facility] area for individuals and families living wit h aphasia: [facility] Continuous Improvement Group When: Each Monday 11:00 12:00 Where: [facility] [address] [place] [address]. Contact: Aidan Alaniz Yareli Norm [facility] Speak EZ group When: Odd numbered Saturdays (i.e. May 12) 10:00 12:00 Where: Aris castillo [facility] [address] Contact: Mark Yanez [phone] [facility] Aphasia Group When: & Monday of each month 10:00 12:00 Where: [facility] Room varies watch for directional signs Contact: Kenya Cano [phone] [email or web address] The [employer] A community music group for stroke survivors. Stroke survivors, spouses, partners, and care givers are invited to join for an hour of playing instruments and singing. Every Monday, 11:30-12:30 at the [facility], [address] [place] [address]. Info rmation contact: Jen Banks, , [email or web address] Brain Injury [place] of [place] http://www.biaoregon.org/ National Stroke Association http://www.stroke.org/ .STROKES (023.1643) National Center on Caregiving/ Family Caregiver [place] www.caregiver.org Established in 2000 as a program of Family Caregiver [place], the National Center on Careg iving (NCC) [...] their doctors about any personal medical concerns. [facility] Crisis Line Information: [facility] Access Crisis Number (24 hours) documented [...] relationship with his PCP and his diabetic carton stamper whom he sees regularly. The patient and [...] relationship with his PCP and his diabetic carton stamper whom he sees regularl y. The patient [...] 1:38 PM PST NSICU Neuroscience ICU Attending Historic Sites Registrar Note Derick Franco is a 74 y.o. [...] the rest of his medications since his dotpemwc-op-fnv Dione is the one who manges all his medications. He was brought to [facility] in [facility], [place] by EMS. On arrival his BP was 176/107 which was treated with labetalol. CT scan reviled a large acute on chroni c RIGHT subdural hematoma with right midline shift PMHx significant for DM, HTN, CAD s/p CA (on ASA and Plavix), TIA 24 Hour Events: ding well Neuro exam: non focal, AA and Ox4 Current problems include: right SDH acute on chronic, MLS, st/p lj hole evacuation , pneumocephalus postop,received platelets transfusion preop due to chronic antiplatelet t herapy ASA and Plavix (post CA), mild leucocytosis - reactive, normocytic anemia baseline an d periop BL, hyperchloremia Plan: hadley status, bronchial hygiene, SBP<160 mmHg, adat., OOB ambulate. Relevant Risks: This patient is currently at risk for the following: cerebral edema, sei zure and subdural hematoma; arrhythmia; edema, ICU delirium and UTI. I spent 22 minutes actively involved in the care and management of this patient Promise Valdez MD [facility] DEPARTMENT: [id number] ICU NEURO Place of Service:- Inpatient Date of Service: 03/28/15 CSN: [id number] Suggested Modifier: GC - Resident Involved Suggested CPT: TO CODER P M Ely Hernández MD - 03/28/2015 12:39 PM PST [facility] Neuroscience ICU Progress Note Team Pager: [phone] Attendin Patient name: Derick Franco Author: Ely Oquendo MD Date of Service: 03/28/2015 Intensive Care Attending: Promise Valdez MD Attending Provider: Dixie Sykes MD ICU day # 3 POD # 2 s/p right lj holes for evacuation of subdural hematoma ID: Derick Franco is a 74 y.o. male with PMHx significant for DM, HTN, CAD s/p CA (on ASA an d Plavix), TIA, presenting [...] was brought to [facility] in [facility], [place] by EMS. On arrival his BP was [...] PMHx significant for DM, HTN, CAD s/p CA (on ASA and Plavix), TIA, presen ting [...] transfer Cardiovascular # HTN # CAD # CA -sBP goal < 140mmHg -home metoprolol and [...] above assessment and plan. Ely Oquendo MD [facility] DEPARTMENT: [id number] ICU NEURO Place of Service:- Inpatient Date of Service: 03/28/2015 CSN: [id number] Suggested Modifier: None Salty Kulkarni MD - 03/28/2015 9:14 AM PST NEUROSURGERY PROGRESS NOTE Author: aSlty Alexander MD Attending Physician: Dixie Sykes MD [...] weeks of dex 2BID Contact neurosurgery resident operation research analyst with questions at pager [phone] [place] [address] PGY-4 Neurosurgery Promise Jaime MD - 03/27/2015 9:53 AM PST NSICU Neuroscience ICU Attending Historic Sites Registrar Note Derick Franco is a 74 y.o. [...] the rest of his medications since his luxskpwe-qs-owg Dione is the one who manges all his medications. He was brought to [facility] in [place], [place] by EMS. On arrival his BP was 176/107 which was treated with labetalol. CT scan reviled a large acute on chroni c RIGHT subdural hematoma with right midline shift PMHx significant for DM, HTN, CAD s/p CA (on ASA and Plavix), TIA Notable labs: [...] antiplatelet t herapy ASA and Plavix (post CA), mild leucocytosis - reactive, normocytic anemia baseline [...] is cri tically ill Promise Valdez MD [facility] DEPARTMENT: [id number] ICU NEURO Place of Service:- Inpatient Date of Service: 03/27/15 CSN: [id number] Suggested Modifier: GC - Resident Involved Suggested CPT: TO CODER P M [facility] Song MD - 03/27/2015 [...] 7.43 PCO2 38 PO2 553* HCO3 25.3 [id number] 100.9* Assesment: Derick Franco is a 74 [...] total Luis Villafana MD Neurosurgery Resident Pager #[phone] Chet Alberto ACNP - 03/27/2015 5:29 AM [...] PMHx significant for DM, HTN, CAD s/p CA (on ASA an d Plavix), TIA, presenting [...] rest of his medications since his anyi ukvvw-wf-nbe Dione is the one who manges all his medications. He was brought to [facility] in [place], [place] by EMS. On arrival his BP [...] PMHx significant for DM, HTN, CAD s/p CA (on ASA and Plavix), TIA, presen ting [...] transfer Cardiovascular # HTN # CAD # CA -sBP goal < 140mmHg -nicardipine gtt to [...] up pharmacy records and [place] med rec confirmed, will restart [...] time is exclusive of procedures. CHAPO Dhillon [facility] DEPARTMENT: [id number] ICU NEURO Place of Service:- Inpatient Date of Service: 03/27/2015 CSN: [id number] Suggested Modifier: None Suggested CPT: TO CORN POPPER Recent Labs 03/26/15203203/26/15221103/27/15 0326 NA 141 143 [...] tablet 40 mg 40 mg oral QPM [facility] - 03/27/2015 12:43 AM [facility] NEUROSURGERY POST OPERATIVE CHECK Author: Luis [...] bed Luis Villafana MD Neurosurgery Resident Pager #[phone] documented in this en counter Plan of [...] | | Attending Surgeon: Dixie Sykes MD Electric Dolly Operator(s): Dave Song | | MD Jamin Preoperative [...] | | was brought in transfer to [facility] for acute on chronic panhemispheric right-sided | [...] right side. He was then brought to [facility] for | | higher level of care [...] Bur holes were then created using a criminal intelligence analyst drill bit on the high-speed | | [...] patient was carefully transferred back [facility] the [facility]. He was left intubated. | | He was taken directly to the to the intensive care unit in stable condition. At the end | | of the case, all instrument, sponge, and needle counts were correct in 2 iterations. | | Dr. Sykes was present for the critical portions of the case.Oneil Cedeño M | | REED Sykes/PHEONIXD: 03/26/2015 23:51:35DT: 03/27/2015 07:45:19Job #: | | [id number] was present for the critical portions of the procedure as described in | | the note for this encounter.Oneil Layne MDOHSU [id number] [facility] | | [id number], [place] [id number] | | | |I was present for the critical portions of the procedure as described in the note for this encounter. | | | |Dixie Sykes MD | | | |Dixie Sykes MD | |[facility] | |[address] [facility] [facility] [address] | |[id number] | |[place] [address] | |[phone] | + + CAPILLARY BLOOD GLUCOSE (NO [...] + + + | SH[facility] | [address] | [place], [place] | | | MATTHEW POINT OF CARE | [address] | [address] | | | TESTS | | | [...] MARQU[facility] | [address] | [place], [place] | | | MAT[facility]W POINT OF CARE | [address] | [address] | | | TESTS | | | [...] | + + + + + | [facility] | [address] | [place] [address] | | | BEULAH KINCAID | SHADIA [...] | + + + + + | [facility] | [address] | [place] [address] | | | SERVICES, CORE | PARK [...] | | | LABORATORY | | | SAMOAN | | | SERVICES, | | | [...] | + + + + + | [facility] | [address] | [place] [address] | | | SERVICES, CORE | SHADIA [...] [facility] | [address] | [place], [place] | | | LORRAINE CASTRO OF CARE | [address] | [address] | | | TESTS | | | [...] MARQUAM | [address] | [place], [place] | | | MATTHEW POINT OF CARE | [address] | [address] | | | TESTS | | | [...] ST[facility]ORD | [address] | [place], [place] | | | LORRAINE CASTRO OF CARE | [address] | [address] | | | TESTS | | | [...] MARQUAM | [address] | [place], [place] | | | LORRAINE CASTRO OF CARE | [address] | [address] | | | TESTS | | | [...] MARQUAM | [address] | [place], [place] | | | MATTHEW POINT OF CARE | [address] | [address] | | | TESTS | | | [...] STANFORD | [address] | [place], [place] | | | MATTHEW POINT OF CARE | [address] | [address] | | | TESTS | | | [...] MARQUAM | [address] | [place], [place] | | | LORRAINE CASTRO OF [facility] | [address] | [address] | | | TESTS | | | [...] - MARQU[facility] | [address] | [place], [place] | | | MATTHEW POINT OF CARE | [address] | [address] | | | TESTS | | | [...] + + + | [facility] | [address] | [place], [place] | | | MATTHEW [facility] | [address] | [address] | | | TESTS | | | [...] MARQUAM | [address] | [place], [place] | | | LORRAINE CASTRO OF [facility] | [address] | [address] | | | TESTS | | | [...] - MARQUAM | [address] | [place], [place] | | | MATTHEW POINT OF CARE | [address] | [address] | | | TESTS | | | [...] STANFORD | [address] | [place], [place] | | | MAT[facility]W [facility] | [address] | [address] | | | TESTS | | | [...] MARQUAM | [address] | [place], [place] | | | LORRAINE CASTRO OF CARE | [address] | [address] | | | TESTS | | | [...] - MARQUAM | [address] | [place], [place] | | | MATTHEW POINT OF CARE | [address] | [address] | | | TESTS | | | [...] (H) | 60 - 99 mg/dL | [facility] - | | | GLUCOSE, | | [...] STANFORD | [address] | [place], [place] | | | L[facility]O [facility] | [address] | [address] | | | TESTS | | | [...] MARQUAM | [address] | [place], [place] | | | LORRAINE CASTRO OF CARE | [address] | [address] | | | TESTS | | | [...] MARQUAM | [address] | [place], [place] | | | MATTHEW POINT OF CARE | [address] | [address] | | | TESTS | | | [...] STANFORD | [address] | [place], [place] | | | [facility] | [address] | [address] | | | TESTS | | | [...] MARQUAM | [address] | [place], [place] | | | LORRAINE CASTRO OF CARE | [address] | [address] | | | TESTS | | | [...] | + + + + + | [facility] | [address] | [place] [address] | | | SERVICES, CORE | SHADIA [...] [facility] | [address] | [place] [address] | | | SERVICES, CORE | PARK [...] | | | LABORATORY | | | SAMOAN | | | SERVICES, | | | [...] | + + + + + | [facility] | [address] | [place] [address] | | | SERVICES, CORE | SHADIA [...] STANFORD | [address] | [place], [place] | | | LORRAINE CASTRO OF VI[facility] MANUEL | [facility] | [address] | | | TESTS | | | [...] OMIDAM | [address] | [place], [place] | | | LORRAINE CASTRO OF CARE | [facility] | [address] | | | TESTS | | | [...] (H) | 60 - 99 mg/dL | [facility] - | | | GLUCOSE, | | [...] STANFORD | [address] | [place], [place] | | | MATTHEW POINT OF CARE | [address] | [address] | | | TESTS | | | [...] STANFORD | [address] | [place], [place] | | | LORRAINE CASTRO OF [facility] MAN[facility]EL | [facility] | [address] | | | TESTS | | | [...] OMIDAM | [address] | [place], [place] | | | LORRAINE CASTRO OF VI[facility] MANUEL | [facility] | [address] | | | TESTS | | | [...] (H) | 60 - 99 mg/dL | [facility] - | | | GLUCOSE, | | [...] STANFORD | [address] | [place], [place] | | | LORRAINE CASTRO OF CARE | [address] | [address] | | | TESTS | | | [...] ABDOULAYE | [address] | [place], [place] | | | LORRAINE CASTRO OF VI[facility]EL | [facility] | [address] | | | TESTS | | | [...] OMIDAM | [address] | [place], [place] | | | LORRAINE CASRTO OF VICTOR MANUEL | [facility] | [address] | | | TESTS | | | [...] (H) | 60 - 99 mg/dL | [facility] - | | | GLUCOSE, | | [...] STANFORD | [address] | [place], [place] | | | MATTHEW POINT OF CARE | [address] | [address] | | | TESTS | | | [...] ABDOULAYE | [address] | [place], [place] | | | LORRAINE CASTRO OF [facility] | [address] | [address] | | | TESTS | | | [...] OMIDAM | [address] | [place], [place] | | | LORRAINE CASTRO OF VICTOR MANUEL | [facility] | [address] | | | TESTS | | | [...] (H) | 60 - 99 mg/dL | [facility] - | | | GLUCOSE, | | [...] STANFORD | [address] | [place], [place] | | | MATTHEW POINT OF CARE | [address] | [address] | | | TESTS | | | [...] ABDOULAYE | [address] | [place], [place] | | | [facility] | [address] | [address] | | | TESTS | | | [...] OMIDAM | [address] | [place], [place] | | | QUINTON CASTRO | [facility] | [address] | | | TESTS | | | [...] (H) | 60 - 99 mg/dL | [facility] - | | | GLUCOSE, | | [...] STANFORD | [address] | [place], [place] | | | MATTHEW POINT OF CARE | [address] | [address] | | | TESTS | | | [...] + + | Performing | Address | City/State[facility] | Phone Number | | Organization | | | | + + + + + | [facility] | [address] | [place], [place] | | | [facility]O [facility] | [address] | [address] | | | TESTS | | | [...] OMIDAM | [address] | [place], [place] | | | MATTHEW POINT OF CARE | [facility] | [address] | | | TESTS | | | [...] [facility] | [address] | [place] [address] | | | SERVICES, CORE | PARK [...] [facility] | [address] | [place] [address] | | | SERVICES, CORE | PARK [...] | | | LABORATORY | | | SAMOAN | | | SERVICES, | | | [...] | + + + + + | [facility] | [address] | [place] [address] | | | SERVICES, CORE | SHADIA [...] MARQUAM | [address] | [place], [place] | | | MATTHEW POINT OF CARE | [facility] | [address] | | | TESTS | | | [...] - ABDOULAYE | [address] | [place], [place] | | | MATTHEW POINT OF CARE | [address] | [address] | | | TESTS | | | [...] | + + + + + | [facility] | [address] | [place] [address] | | | CODI, BEULAH | SHADIA [...] | + + + + + | [facility] | [address] | [place] [address] | | | SERVICES, CORE | SHADIA [...] + | [facility] | [address] | [place] [address] | | | SERVICES, CORE | SHADIA [...] | + + + + + | [facility] | [address] | [place] [address] | | | SERVICES, BEULAH | SHADIA [...] MARQUAM | [address] | [place], [place] | | | LORRAINE CASTRO OF CARE | [facility] | [address] | | | TESTS | | | [...] | | + +---------+ + + | [facility] DEPARTMENT OF | | | | | [...] STANFORD | [address] | [place], [place] | | | LORRAINE CASTRO OF CARE | [address] | [address] | | | TESTS | | | [...] STANFORD | [address] | [place], [place] | | | LORRAINE CASTRO OF [facility]EL | [address] | [address] | | | TESTS | | | [...] MARQUAM | [address] | [place], [place] | | | MATTHEW POINT OF CARE | [address] | [address] | | | TESTS | | | [...] [facility] | [address] | [place], [place] | | | CARDIOLOGY | [address] | [address] | | + + + + + [...] | + + + + + | [facility] | [address] | [place] [address] | | | SERVICES, CORE | SHADIA [...] [facility] | [address] | [place] [address] | | | SERVICES, | [address] [...] [facility] | [address] | [place] [address] | | | SERVICES, | [address] [...] [facility] | [address] | [place] [address] | | | SERVICES, CORE | PARK [...] | + + + + + | [facility] | [address] | [place] [address] | | | SERVICES, CORE | SHADIA [...] | + + + + + | [facility] | [address] | [place] [address] | | | SERVICES, CORE | SHADIA [...] [facility] | [address] | [place] [address] | | | SERVICES, CORE | PARK [...] | | | LABORATORY | | | SAMOAN | | | SERVICES, | | | [...] | + + + + + | [facility] | [address] | [place] [address] | | | BEULAH KINCAID | SHADIA [...] + + + + | PRODUCT | [id number] | | [facility] | | | UNIT [...] + + + + | EXPIRATION | [id number] | | [facility] | | | DATE [...] + + + + | BLOOD | [id number] | | [facility] | | | PRODUCT [...] | + + + + + | [facility] DEPARTMENT OF | [address] | [place] [address] | | | PATHOLOGY | [address] [...] + + + + | PRODUCT | [id number] | | [facility] | | | UNIT [...] + + + + | EXPIRATION | [id number] | | [facility] | | | DATE [...] + + + + | BLOOD | [id number] | | [facility] | | | PRODUCT [...] | + + + + + | [facility] | [address] | [place] [address] | | | PATHOLOGY | [address] [...]
--- OUTSIDE RECORDS SUMMARY | ~2019-11-21 | XMS | Encounter Summary ---
Demographics + + + | Address | [address] | | | [place] [address] | + + + | Home Phone | | + + + | Preferred Language | Unknown | + + + | Marital Status | | + + + | Hindu Affiliation | NRP | + + + | Race | or | + + + | Ethnic Group | Not or | + + + Author + + + | Author | On License Of [facility] [employer] [facility] | + + + | Organization | [facility] | + + + [...] Team Providers + +------+ + | Care Nanny Caregiver Name | Role | Phone | + [...] + + | 03/26/ | Hospital | [facility] [address] | Dixie Sykes, | | | 2015 - | Encounter | [place] | [address] | | | | | [id number] [facility] | [place], [place] | | | 03/29/ | | HOSPITAL [place], | [address] | | | 2015 | | [place] [address] | [phone] | | | | | [phone] | | | +--------+ + + + [...] Sykes MD PCP: Eli Baker MD Service: [facility] Neurosurgery Diagnoses Principal Final Diagnosis: 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 Additional Diagnoses: Type 1 DM Procedures Right-sided lj holes for evacuation of subdural hematoma. Brief Hospital Course Derick Franco is a 74-year-old male who was brought in transfer to [facility] for acute on chronic panhemispheric [...] right side. He was then brought to [facility] for higher level of care [...] 3:14 PM Discharging Attending: Dixie Sykes MD [address] [place] [address] documented in this en counter Discharge Instructions Instructions EulaliagregoryJayce - 03/27/2015Formatting of this note might be [...] your senior or day center, you r episcopalian community, or any other community in which you are a member to ask for support. Remember to be specific in your request i.e I could really use 2 hours every week on sday morning for someone to stay with my [...] service which conn ects the people of [place] and [facility] with the community resources they need. 2 [employer] Home Instead ([phone]) This is a [employer] which can provide in home assistance at a cost to the family. [place] Project [place] OPI is a program which helps seniors 60 and over continue to live independently and safely living in their own home. OPI provides individualized personal care, housekeeping, and case management support. http://www.[place].gov/dhs/spwpd/pages/ltc/inhome.aspx#opi [place] Independent Living Resources: [place] Statement Of Independent Living Resources: Promote the philosophy of Independent L iving by creating opportunities, encouraging choices, advancing equal access, and furthering the level of independence for all people with disabilities. [phone] Meals on Wheels (www.mealsonwheelspeople.org) Meals on Wheels are hot, nutritious lunches that are delivered Monday through Monday betwee n 11 a.m. and 1 p.m. to homebound elderly age 60 and older. Seniors must live in [facility] in [place] or [facility] in [place] to be eligible to receive meal s. Call to request meals at [phone] in [facility] and toll free in [facility] at . Most of the [facility] in [place] have a Meals on Wheels Program, and information on local [facility] iz-bz-gkqhdz services can be obtained through local Area Agency on Aging Offices. [place] Vocational Rehabilitation Service (OVRS) ( ) http://www.[place].gov/DHS /vr/Pages/index.aspx [place] Area Agency on Aging http://www.[place].gov/dhs/spwpd/pages/offices.aspx There are 17 Area Agencies on Aging across [place] that administer and support community-bas ed care services. AAAs advocate for older adults living in their area, develop community-based long-term care services to meet the needs of those adults and administer funds to implement services. Most services coordinated by AAAs are provided through community service providers at the local level. This section contains program information designed for staff members of [place]'s AAAs . Aging and Disability Resource Connection of [place] https://adrcoforegon.org/uhdbgo-ljesxzp-dgp-independent-living.php [facility] is a resource directory for [place] families, caregivers and consumers seekin g information about long-term supports and services. Here you will find quick and easy acces s to resources in your community. If you cannot find the information you are looking for or wish to talk to someone in person, please call us toll free at 1-724-[facility] ([phone]) [place] Caregiver Support Line http://www.caregiver.va.gov/ Toll free : Also check with your private health insurance organization, as respite care may also be inc luded in the coverage. Support Groups for Families Living with Aphasia Individuals and families affected by aphasia face unique challenges. Support specifically d esigned for these people is limited. Three groups have formed in the [place], [place] area t hat provide both the individual experiencing aphasia and family members the opportunity to d evelop a sense of community with others impacted by aphasia. These groups are organized and run by participants. Faculty and students from [facility] s Department of S peech and [...] everyone. There are several groups in the [facility] for individuals and families living wit h aphasia: [facility] Continuous Improvement Group When: Each Monday 11:00 12:00 Where: [facility] [address] [place] [address]. Contact: Aidan Alaniz Yareli [facility] Speak EZ group When: Odd numbered Saturdays (i.e. May 12) 10:00 12:00 Where: Aris castillo [facility] [address] Contact: Mark Yanez [phone] [facility] Aphasia Group When: & Monday of each month 10:00 12:00 Where: [facility] Room varies watch for directional signs Contact: Kenya Cano [phone] [email or web address] The [employer] A community music group for stroke survivors. Stroke survivors, spouses, partners, and care givers are invited to join for an hour of playing instruments and singing. Every Monday, 11:30-12:30 at the [facility], [address] [place] [address]. Info rmation contact: Jen Banks, , [email or web address] Brain Injury Sulligent of [place] http://www.biaoregon.org/ National Stroke Association http://www.stroke.org/ .800.STROKES (787.6537) National Center on Caregiving/ Family Caregiver Sulligent www.caregiver.org Established in 2000 as a program of Family Caregiver Sulligent, the National Center on Careg iving (NCC) works to advance the development of high-quality, cost-effective policies and pr ograms for caregivers in every state in the country. Uniting research, public policy and ser vices, the [facility] serves as a central source [...] their doctors about any personal medical concerns. [facility] Crisis Line Information: 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 The patient [...] 1:38 PM PST ICU Neuroscience ICU Attending Hospice Fellow Note Derick Franco is a 74 y.o. [...] the rest of his medications since his leiedmmh-pd-gkw Dione is the one who manges all his medications. He was brought to [facility] in [facility], [place] by EMS. On arrival his BP was 176/107 which was treated with labetalol. CT scan reviled a large acute on chroni c RIGHT subdural hematoma with right midline shift PMHx significant for DM, HTN, CAD s/p MN (on ASA and Plavix), TIA 24 Hour Events: ding well Neuro exam: non focal, AA and Ox4 Current problems include: right SDH acute on chronic, MLS, st/p lj hole evacuation , pneumocephalus postop,received platelets transfusion preop due to chronic antiplatelet t herapy ASA and Plavix (post MN), mild leucocytosis - reactive, normocytic anemia baseline an d periop BL, hyperchloremia Plan: hadley status, bronchial hygiene, SBP<160 mmHg, adat., OOB ambulate. Relevant Risks: This patient is currently at risk for the following: cerebral edema, sei zure and subdural hematoma; arrhythmia; edema, ICU delirium and UTI. I spent 22 minutes actively involved in the care and management of this patient Promise Valdez MD [facility] DEPARTMENT: [id number] ICU NEURO Place of Service:- Inpatient Date of Service: 03/28/15 CSN: [id number] Suggested Modifier: GC - Resident Involved Suggested CPT: TO CODER P Ely Madsen MD - 03/28/2015 12:39 PM PST [facility] Neuroscience ICU Progress Note Team Pager: [phone] Attendin Patient name: Derick Franco Author: Ely Oquendo MD Date of Service: 03/28/2015 Intensive Care Attending: Promise Valdez MD Attending Provider: Dixie Sykes MD ICU day # 3 POD # 2 s/p right lj holes for evacuation of subdural hematoma ID: Derick Franco is a 74 y.o. male with PMHx significant for DM, HTN, CAD s/p MN (on ASA an d Plavix), TIA, presenting [...] all his medications. He was brought to [facility] in [facility], [place] by EMS. On arrival his BP was [...] PMHx significant for DM, HTN, CAD s/p MN (on ASA and Plavix), TIA, presen ting [...] transfer Cardiovascular # HTN # CAD # MN -sBP goal < 140mmHg -home metoprolol and [...] above assessment and plan. Ely Oquendo MD [facility] DEPARTMENT: [id number] ICU NEURO Place of Service:- Inpatient Date of Service: 03/28/2015 CSN: [id number] Suggested Modifier: None tSalty sunshine MD - [...] weeks of dex 2BID Contact neurosurgery resident physician interventional cardiologist with questions at [place]ager [phone] [place] [address] PGY-4 Neurosurgery Promise Jaime MD - 03/27/2015 9:53 AM PST NSICU Neuroscience ICU Attending Hospice Fellow Note Derick Franco is a 74 y.o. [...] the rest of his medications since his zhpzzoyg-dg-uev Dione is the one who manges all his medications. He was brought to [facility] in [place], [place] by EMS. On arrival his BP was 176/107 which was treated with labetalol. CT scan reviled a large acute on chroni c RIGHT subdural hematoma with right midline shift PMHx significant for DM, HTN, CAD s/p MN (on ASA and Plavix), TIA Notable labs: [...] antiplatelet t herapy ASA and Plavix (post MN), mild leucocytosis - reactive, normocytic anemia baseline [...] is cri tically ill Promise Valdez MD [facility] DEPARTMENT: [id number] ICU NEURO Place of Service:- Inpatient Date of Service: 03/27/15 CSN: [id number] Suggested Modifier: GC - Resident Involved Suggested CPT: TO CODER P [facility], Luis Sogn MD - 03/27/2015 8:29 AM PST Date: [...] 7.43 PCO2 38 PO2 553* HCO3 25.3 [id number] 100.9* Assesment: Derick Franco is a 74 [...] total Luis Villafana MD Neurosurgery Resident Pager #[phone] Chet Alberto ACNP - 03/27/2015 5:29 AM [...] PMHx significant for DM, HTN, CAD s/p MN (on ASA an d Plavix), TIA, presenting [...] rest of his medications since his anyi zadyj-go-epw Dione is the one who manges all his medications. He was brought to [facility] in [place], [place] by EMS. On arrival his BP [...] PMHx significant for DM, HTN, CAD s/p MN (on ASA and Plavix), TIA, presen ting [...] transfer Cardiovascular # HTN # CAD # MN -sBP goal < 140mmHg -nicardipine gtt to [...] up pharmacy records and PCP records from [place], [place] - med rec confirmed, will restart [...] time is exclusive of procedures. CHAPO Dhillon [facility] DEPARTMENT: [id number] ICU NEURO Place of Service:- Inpatient Date of Service: 03/27/2015 CSN: [id number] Suggested Modifier: None Suggested CPT: TO PRODUCT APPLICATIONS ENGINEER Recent Labs 03/26/15203203/26/15221103/27/15 0326 NA 141 143 [...] tablet 40 mg 40 mg oral [facility] - 03/27/2015 12:43 AM [facility] NEUROSURGERY POST OPERATIVE CHECK Author: Luis Villafana [...] 24 hours - SCDs while in bed Lusi Villafana MD Neurosurgery Resident Pager #[phone] documented in this en counter Plan of [...] | | Attending Surgeon: Dixie Sykes MD Cryogenics Engineer(s): Dave Song | | MD Jamin Preoperative [...] | | was brought in transfer to [facility] for acute on chronic panhemispheric [...] right side. He was then brought to [facility] for | | higher level [...] Bur holes were then created using a call out clerk drill bit on the high-speed | | [...] patient [facility] He was left intubated. | | [...] 03/26/2015 23:51:35DT: 03/27/2015 07:45:19Job #: | | [id number] was present for the critical portions of the procedure as described in | | the note for this encounter.Oneil Layne [facility] [id number] [facility] | | [id number], [place] [id number] | | | |I was present for the critical portions of the procedure as described in the note for this encounter. | | | |Dixie Sykes MD | | | |Dixie Sykes MD | |[facility] | |[address] | |[id number] | |[place] [address] | |[phone] | + + CAPILLARY BLOOD GLUCOSE (NO [...] [facility] | [address] | [place], [place] | | | LORRAINE CASTRO OF CARE | [address] | [address] | | | TESTS | | | [...] MARR[place]DA[facility] | [address] | [place] | | | MATTHEW POINT OF CARE | [address] | [address] | | | TESTS | | | [...] | + + + + + | [facility] | [address] | [place] [address] | | | SERVICES, CORE | SHADIA [...] [facility] | [address] | [place] [address] | | | SERVICES, BEULAH | SHADIA [...] | | | LABORATORY | | | SAO TOMEAN | | | SERVICES, | | | [...] | + + + + + | [facility] | [address] | [place] [address] | | | SERVICES, CORE | SHADIA [...] A[facility] | [address] | [place], [place] | | | LORRAINE CASTRO OF VICTOR MANUEL | [address] | [address] | | | TESTS | | | [...] | [facility] | [address] | [place], [place] | | | LORRAINE CASTRO OF VICTOR MANUEL | [facility] | [address] | | | TESTS | | | [...] (H) | 60 - 99 mg/dL | [facility] - | | | GLUCOSE, [...] [facility] | [address] | [place], [place] | | | MATTHEW POINT OF CARE | [address] | [address] | | | TESTS | | | [...] ABDOULAYE | [address] | [place], [place] | | | LORRAINE CASTRO OF CARE | [address] | [address] | | | TESTS | | | [...] | [facility] | [address] | [place], [place] | | | LORRAINE CASTRO OF VICTOR MANUEL | [facility] | [address] | | | TESTS | | | [...] (H) | 60 - 99 mg/dL | [facility] - | | | GLUCOSE, [...] [facility] | [address] | [place], [place] | | | MATTHEW POINT OF CARE | [address] | [address] | | | TESTS | | | [...] + + | Performing | Address | City/State/Unm Cancer Centercode | Phone Number | | Organization | | | | + + + + + | [facility] | [address] | [place], [place] | | | L[facility]RAINE CASTRO OF [facility] | [address] | [address] | | | TESTS | | | [...] OM[facility] | [address] | [place], [place] | | | LORRAINE CASTRO OF VICTOR MANUEL | [facility] | [address] | | | TESTS | | | [...] (H) | 60 - 99 mg/dL | [facility] - | | | GLUCOSE, [...] [facility] | [address] | [place], [place] | | | MATTHEW POINT OF CARE | [address] | [address] | | | TESTS | | | [...] [facility] | [address] | [place], [place] | | | LORRAINE CASTRO OF VICTOR MANUEL | [address] | [address] | | | TESTS | | | [...] OMIDAM | [address] | [place], [place] | | | LORRAINE CASTRO OF VICTOR MANUEL | [facility] | [address] | | | TESTS | | | [...] (H) | 60 - 99 mg/dL | [facility] - | | | GLUCOSE, [...] [facility] | [address] | [place], [place] | | | MATTHEW POINT OF CARE | [address] | [address] | | | TESTS | | | [...] ABDOULAYE | [address] | [place], [place] | | | LORRAINE CASTRO OF VICTOR MANUEL | [address] | [address] | | | TESTS | | | [...] OMIDAM | [address] | [place], [place] | | | LORRAINE CASTRO OF VICTOR MANUEL | [facility] | [address] | | | TESTS | | | [...] (H) | 60 - 99 mg/dL | [facility] - | | | GLUCOSE, | | | [facility] | | | POC | | | LORRAINE CASRTO | | | | | | OF [...] [facility] | [address] | [place], [place] | | | MATTHEW POINT OF CARE | [address] | [address] | | | TESTS | | | [...] [facility] | [address] | [place], [place] | | | LORRAINE CASTRO OF VICTOR MANUEL | [address] | [address] | | | TESTS | | | [...] ABDOULAYE | [address] | [place], [place] | | | LORRAINE CASTRO OF VICTOR MANUEL | [facility] | [address] | | | TESTS | | | [...] (H) | 60 - 99 mg/dL | [facility] - | | | GLUCOSE, [...] [facility] | [address] | [place], [place] | | | MATTHEW POINT OF CARE | [address] | [address] | | | TESTS | | | [...] ABDOULAYE | [address] | [place], [place] | | | LORRAINE CASTRO OF VICTOR MANUEL | [address] | [address] | | | TESTS | | | [...] | + + + + + | [facility] | [address] | [place] [address] | | | SERVICES, CORE | SHADIA [...] [facility] | [address] | [place] [address] | | | BEULAH KINCAID | SHADIA [...] | | | LABORATORY | | | SAO TOMEAN | | | SERVICES, | | | [...] | + + + + + | [facility] | [address] | [place] [address] | | | SERVICES, CORE | SHADIA [...] (H) | 60 - 99 mg/dL | [facility] - | | | GLUCOSE, [...] [facility] | [address] | [place], [place] | | | MATTHEW POINT OF CARE | [address] | [address] | | | TESTS | | | [...] [place] | [address] | [place], [place] | | | LORRAINE CASTRO OF CARE | [address] | [address] | | | TESTS | | | [...] [place] | [address] | [place], [place] | | | LORRAINE CASTRO OF VICTOR MANUEL | [facility] | [address] | | | TESTS | | | [...] [facility] | [address] | [place], [place] | | | MATTHEW POINT OF CARE | [address] | [address] | | | TESTS | | | [...] [facility] | [address] | [place], [place] | | | HILL, POINT OF CARE | [address] | [address] | | | TESTS | | | [...] [place] | [address] | [place], [place] | | | LORRAINE CASTRO OF VICTOR MANUEL | [facility] | [address] | | | TESTS | | | [...] [facility] | [address] | [place], [place] | | | MATTHEW POINT OF CARE | [address] | [address] | | | TESTS | | | [...] [place] | [address] | [place], [place] | | | HILL, POINT OF CARE | [facility] | [address] | | | TESTS | | | [...] [place] | [address] | [place], [place] | | | LORRAINE CASTRO OF VICTOR MANUEL | [facility] | [address] | | | TESTS | | | [...] [facility] | [address] | [place], [place] | | | MATTHEW POINT OF CARE | [address] | [address] | | | TESTS | | | [...] [place] | [address] | [place], [place] | | | LORRAINE CASTRO OF CARE | [facility] | [address] | | | TESTS | | | [...] [place] | [address] | [place], [place] | | | LORRAINE CASTRO OF VICTOR MANUEL | [facility] | [address] | | | TESTS | | | [...] [facility] | [address] | [place], [place] | | | MATTHEW POINT OF CARE | [address] | [address] | | | TESTS | | | [...] [place] | [address] | [place], [place] | | | ROYCE CASTRO [facility] | [facility] | [address] | | | TESTS | | | [...] [place] | [address] | [place], [place] | | | LORRAINE CASTRO OF VICTOR MANUEL | [facility] | [address] | | | TESTS | | | [...] [facility] | [address] | [place], [place] | | | MATTHEW POINT OF CARE | [address] | [address] | | | TESTS | | | [...] [place] | [address] | [place], [place] | | | HILL, POINT OF CARE | [address] | [address] | | | TESTS | | | [...] [facility] | [address] | [place] [address] | | | BEULAH KINCAID | SHADIA [...] | + + + + + | [facility] | [address] | [place] [address] | | | SERVICES, CORE | [address]ARK [...] | | | LABORATORY | | | SAO TOMEAN | | | SERVICES, | | | [...] | + + + + + | [facility] | [address] | [place] [address] | | | SERVICES, CORE | SHADIA [...] [place] | [address] | [place], [place] | | | LORRAINE CASTRO OF CARE | [address] | [address] | | | TESTS | | | [...] ABDOULAYE | [address] | [place], [place] | | | WACO MANITOU OF [facility] | [address] | [address] | | | TESTS | | | [...] | + + + + + | [facility] | [address] | [place] [address] | | | SERVICES, CORE | SHADIA [...] | + + + + + | [facility] | [address] | [place] [address] | | | SERVICES, CORE | PARK [...] +---------+ + + + | NON-SQUAMDONALD | Few (A) | None /hpf | [...] + + + + + | [facility] | [address] | [place] [address] | | | SERVICES, CORE | PARK [...] | + + + + + | [facility] | [address] | [place] [address] | | | SERVICES, BEULAH | SHADIA [...] + + | [facility] | [address] | [place], [place] | | | LORRAINE CASTRO OF CARE | [address] | [address] | | | TESTS | | | [...] [facility] | [address] | [place], [place] | | | LORRAINE CASTRO OF CARE | [address] | [address] | | | TESTS | | | [...] [facility] | [address] | [place], [place] | | | LORRAINE CASTRO OF [facility] | [address] | [address] | | | TESTS | | | [...] [facility] | [address] | [place], [place] | | | LORRAINE CASTRO OF VICTOR MANUEL | [facility] | [address] | | | TESTS | | | [...] + + + + + + | [facility] | 438 | ms | [facility] [...] + + + + + | [facility] | [address] [facility] | [place], [place] | | | CARDIOLOGY | [address] | [address] | | + + + + + [...] | + + + + + | [facility] | [address] | [place] [address] | | | SERVICES, CORE | PARK [...] | + + + + + | [facility] | [address] | [place] [address] | | | SERVICES, | [address] [...] | + + + + + | [facility] | [address] | [place] [address] | | | SERVICES, | [address] [...] | + + + + + | [facility] | [address] | [place] [address] | | | SERVICES, CORE | PARK [...] | + + + + + | [facility] | [address] | [place] [address] | | | SERVICES, BEULAH | SHADIA [...] | + + + + + | [facility] | [address] | [place] [address] | | | SERVICES, CORE | SHADIA [...] 2.5 mg/dL | [facility] | | | [place] | | | [...] [facility] | [address] | [place] [address] | | | BEULAH KINCAID | [address] | | | + + + [...] | | | LABORATORY | | | SAO TOMEAN | | | SERVICES, | | | [...] | + + + + + | [facility] | [address] | [place] [address] | | | CODI, BEULAH | SHADIA [...] + + + + | PRODUCT | [id number] | | [facility] | | | UNIT [...] + + + + | EXPIRATION | [id number] | | [facility] | | | DATE [...] + + + + | BLOOD | [id number] | | [facility] | | | PRODUCT [...] | + + + + + | [facility] | [address] | [place] [address] | | | PATHOLOGY | [address] [...] + + + + | PRODUCT | [id number] | | [facility] | | | UNIT [...] + + + + | EXPIRATION | [id number] | | [facility] | | | DATE [...] + + + + | BLOOD | [id number] | | [facility] | | | PRODUCT [...] | + + + + + | [facility] | [address] [facility] | [place] [address] | | | PATHOLOGY | [address] [...] +---+---+ | Bolus from Same Bag | 11/19/20 | 14 Units | | | | [...] | | | | | | Starting [facility] 03/26/15 at 2145, | | | [...] | | | (after last modification) on Mon | | AM PST | | | [...] | | TWICE DAILY, First dose on Mon | | PM PST | | | [...] | | | | | CONTINUOUS, Starting [facility] 03/26/15 | | PM PST | [...] | | | | | 03/26/15 at 2044, Last dose on | | | | [...]
--- OUTSIDE RECORDS SUMMARY | ~2019-11-21 | XMS | Encounter Summary ---
Demographics + + + | Address | [address] | | | [place] [address] | + + + | Home Phone | | + + + | Preferred Language | Unknown | + + + | Marital Status | | + + + | Nondenominational Affiliation | NRP | + + + | Race | or | + + + | Ethnic Group | Not or | + + + Author + + + | Author | [facility] [email or web address] [facility] | + + + [...] Team Providers + +------+ + | Care Balancer Scale Name | Role | Phone | + [...] + + | 03/26/ | Hospital | [facility] [address] | Dixie Sykes, | | | 2015 - | Encounter | [place] | [address] | | | | | [id number] [facility] | [place], [place] | | | 03/29/ | | HOSPITAL [place], | [address] | | | 2015 | | [place] [address] | [phone] | | | | | [phone] | | | +--------+ + + + [...] Sykes MD PCP: Eli Baker MD Service: [facility] Neurosurgery Diagnoses Principal Final Diagnosis: 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 Additional Diagnoses: Type 1 DM Procedures Right-sided lj holes for evacuation of subdural hematoma. Brief Hospital Course Derick Franco is a 74-year-old male who was brought in transfer to [facility] for acute on chronic [...] right side. He was then brought to [facility] for higher level of [...] 3:14 PM Discharging Attending: Dixie Sykes MD [address] [place] [address] documented in this en counter Discharge Instructions [...] your senior or day center, you r temple community, or any other community in which [...] service which conn ects the people of [place] and [facility] with the community resources they need. 2 Optics 1 Home Instead ([phone]) This is a Zuki which can provide in home assistance at a cost to the family. [place] Project Starke OPI is a program which helps seniors 60 and over continue to live independently and safely living in their own home. OPI provides individualized personal care, housekeeping, and case management support. http://www.[place].gov/dhs/spwpd/pages/ltc/inhome.aspx#opi [place] Independent Living Resources: [place] Statement Of Independent Living Resources: Promote the philosophy of Independent L iving by creating opportunities, encouraging choices, advancing equal access, and furthering the level of independence for all people with disabilities. [phone] Meals on Wheels (www.mealsonwheelspeople.org) Meals on Wheels are hot, nutritious lunches that are delivered Monday through Monday betwee n 11 a.m. and 1 p.m. to homebound elderly age 60 and older. Seniors must live in [facility] in [place] or [facility] in [place] to be eligible to receive meal s. Call to request meals at [phone] in [facility] and [facility] and toll free in [facility] at . Most of the [facility] in [place] have a Meals on Wheels Program, and information on local [facility] wb-md-sqnmwq services can be obtained through local Area Agency on Aging Offices. [place] Vocational Rehabilitation Service (OVRS) ( ) http://www.[place].gov/DHS /vr/Pages/index.aspx [place] Area Agency on Aging http://www.[place].gov/dhs/spwpd/pages/offices.aspx There are 17 Area Agencies on Aging across [place] that administer and support community-bas ed care services. AAAs advocate for older adults living in their area, develop community-based long-term care services to meet the needs of those adults and administer funds to implement services. Most services coordinated by AAAs are provided through community service providers at the local level. This section contains program information designed for staff members of [place]'s AAAs . Aging and Disability Resource Connection of [place] https://adrcoforegon.org/unfzod-iewisak-qtk-independent-living.php [facility] is a resource directory for [place] families, caregivers and consumers seekin g information about long-term supports and services. Here you will find quick and easy acces s to resources in your community. If you cannot find the information you are looking for or wish to talk to someone in person, please call us toll free at [phone] ([phone]) [place] Caregiver Support Line http://www.caregiver.va.gov/ Toll free : Also check with your private health insurance organization, as respite care may also be inc luded in the coverage. Support Groups for Families Living with Aphasia Individuals and families affected by aphasia face unique challenges. Support specifically d esigned for these people is limited. Three groups have formed in the [place], [place] area t hat provide both the individual experiencing aphasia and family members the opportunity to d evelop a sense of community with others impacted by aphasia. These groups are organized and run by participants. Faculty and students from [facility] s Department of S peech and [...] everyone. There are several groups in the [facility] for individuals and families living wit h aphasia: [facility] Continuous Improvement Group When: Each Monday 11:00 12:00 Where: [facility] [address] [place] [address]. Contact: Aidan Alaniz [email or web address] [facility] Speak EZ group When: Odd numbered Saturdays (i.e. May 12) 10:00 12:00 Where: Aris castillo [facility] [address] Contact: Mark Yanez [phone] [facility] Aphasia Group When: & Monday of each month 10:00 12:00 Where: [facility] Room varies watch for directional signs Contact: Kenya Cano [phone] [email or web address] The [employer] A community music group for stroke survivors. Stroke survivors, spouses, partners, and care givers are invited to join for an hour of playing instruments and singing. Every Monday, 11:30-12:30 at the [facility], [address] [place] [address]. Info rmation contact: Jen Banks, , Brain Injury Gonzales of [place] http://www.biaoregon.org/ National Stroke Association http://www.stroke.org/ .800.STROKES (787.6537) National Center on Caregiving/ Family Caregiver [place] www.caregiver.org Established in 2000 as a program of Family Caregiver Gonzales, the National Center on Careg iving (NCC) works to advance the development of high-quality, cost-effective policies and pr ograms for caregivers in every state in the country. Uniting research, public policy and ser vices, the [facility] serves as a central source of [...] about any personal medical concerns. [facility] Crisis Line Information: [facility] Health Access Crisis Number (24 [...] relationship with his PCP and his diabetic asian studies professor whom he sees regularly. The patient and [...] relationship with his PCP and his diabetic asian studies professor whom he sees regularl y. The patient [...] 1:38 PM PST ICU Neuroscience ICU Attending Rail Crew Member Note Derick Franco is a 74 y.o. [...] the rest of his medications since his nvkvxedd-at-qfg Dione is the one who manges all his medications. He was brought to [facility] in [facility], [place] by EMS. On arrival his BP was 176/107 which was treated with labetalol. CT scan reviled a large acute on chroni c RIGHT subdural hematoma with right midline shift PMHx significant for DM, HTN, CAD s/p VT (on ASA and Plavix), TIA 24 Hour Events: ding well Neuro exam: non focal, AA and Ox4 Current problems include: right SDH acute on chronic, MLS, st/p lj hole evacuation , pneumocephalus postop,received platelets transfusion preop due to chronic antiplatelet t herapy ASA and Plavix (post VT), mild leucocytosis - reactive, normocytic anemia baseline an d periop BL, hyperchloremia Plan: hadley status, bronchial hygiene, SBP<160 mmHg, adat., OOB ambulate. Relevant Risks: This patient is currently at risk for the following: cerebral edema, sei zure and subdural hematoma; arrhythmia; edema, ICU delirium and UTI. I spent 22 minutes actively involved in the care and management of this patient Promise Valdez MD [facility] DEPARTMENT: [id number] ICU NEURO Place of Service:- Inpatient Date of Service: 03/28/15 CSN: [id number] Suggested Modifier: GC - Resident Involved Suggested CPT: TO CODER P Ely Madsen MD - 03/28/2015 12:39 PM PST [facility] Neuroscience ICU Progress Note Team Pager: [phone] Attendin Patient name: Derick Franco Author: Ely Oquendo MD Date of Service: 03/28/2015 Intensive Care Attending: Promise Valdez MD Attending Provider: Dixie Sykes MD ICU day # 3 POD # 2 s/p right lj holes for evacuation of subdural hematoma ID: Derick Franco is a 74 y.o. male with PMHx significant for DM, HTN, CAD s/p VT (on ASA an d Plavix), TIA, presenting [...] all his medications. He was brought to [facility] in [facility] [place] by EMS. On arrival his BP was [...] PMHx significant for DM, HTN, CAD s/p VT (on ASA and Plavix), TIA, presen ting [...] transfer Cardiovascular # HTN # CAD # VT -sBP goal < 140mmHg -home metoprolol and [...] above assessment and plan. Ely Oquendo MD [facility] DEPARTMENT: [id number] ICU NEURO Place of Service:- Inpatient Date of Service: 03/28/2015 CSN: [id number] Suggested Modifier: None tSalty sunshine MD - [...] weeks of dex 2BID Contact neurosurgery resident conveyor loader with questions at [place]ager [phone] [place] [id number] PGY-4 Neurosurgery Promise Jaime MD - 03/27/2015 9:53 AM PST NSICU Neuroscience ICU Attending Rail Crew Member Note Derick Franco is a 74 y.o. [...] the rest of his medications since his wssgjycm-aj-mcl Dione is the one who manges all his medications. He was brought to [facility] in [place], [place] by EMS. On arrival his BP was 176/107 which was treated with labetalol. CT scan reviled a large acute on chroni c RIGHT subdural hematoma with right midline shift PMHx significant for DM, HTN, CAD s/p VT (on ASA and Plavix), TIA Notable labs: [...] antiplatelet t herapy ASA and Plavix (post VT), mild leucocytosis - reactive, normocytic anemia baseline [...] is cri tically ill Promise Valdez MD [facility] DEPARTMENT: [id number] ICU NEURO Place of Service:- Inpatient Date of Service: 03/27/15 CSN: [id number] Suggested Modifier: GC - Resident Involved Suggested CPT: TO CODER P [facility] Luis Song MD - 03/27/2015 8:29 [...] 7.43 PCO2 38 PO2 553* HCO3 25.3 O8TTHEXP 100.9* Assesment: Derick Franco is a 74 [...] total Luis Villafana MD Neurosurgery Resident Pager #[phone] Chet Alberto ACNP - 03/27/2015 5:29 AM [...] PMHx significant for DM, HTN, CAD s/p VT (on ASA an d Plavix), TIA, presenting [...] rest of his medications since his anyi mwjbd-ne-oiz Dione is the one who manges all his medications. He was brought to [facility] in [place], [place] by EMS. On arrival his BP [...] PMHx significant for DM, HTN, CAD s/p VT (on ASA and Plavix), TIA, presen ting [...] transfer Cardiovascular # HTN # CAD # VT -sBP goal < 140mmHg -nicardipine gtt to [...] up pharmacy records and PCP records from [place], [place] - med rec confirmed, will restart [...] time is exclusive of procedures. CHAPO Dhillon [facility] DEPARTMENT: [id number] ICU NEURO Place of Service:- Inpatient Date of Service: 03/27/2015 CSN: [id number] Suggested Modifier: None Suggested CPT: TO KIDS ACTIVITIES COACH Recent Labs 03/26/15203203/26/15221103/27/15 0326 NA 141 143 [...] tablet 40 mg 40 mg oral [facility] - 03/27/2015 12:43 AM [facility] NEUROSURGERY POST OPERATIVE CHECK Author: Luis [...] bed Luis Villafana MD Neurosurgery Resident Pager #[phone] documented in this en counter Plan of [...] | | Attending Surgeon: Dixie Sykes MD Vice President Of Communications(s): Dave Song | | MD Jamin Preoperative [...] | | was brought in transfer to [facility] for acute on chronic [...] right side. He was then brought to [facility] for | | higher [...] Bur holes were then created using a metal tile setter drill bit on the high-speed | | [...] patient was carefully transferred [facility]. He was left intubated. | | He was taken directly to the to the intensive care unit in stable condition. At the end | | of the case, all instrument, sponge, and needle counts were correct in 2 iterations. | | Dr. Sykes was present for the critical portions of the case.Oneil Cedeño | | REED Syeks/MODLDD: 03/26/2015 23:51:35DT: 03/27/2015 07:45:19Job #: | | [id number] was present for the critical portions of the procedure as described in | | the note for this encounter.Oneil Layne [facility] [id number] [facility] | | [id number], [place] [id number] | | | |I was present for the critical portions of the procedure as described in the note for this encounter. | | | |Dixie Sykes MD | | | |Dixie Sykes MD | |[facility] | |[address] | |[id number] | |[place] [address] | |[phone] | + + CAPILLARY BLOOD GLUCOSE (NO [...] [facility] | [address] | [place], [place] | | | LORRAINE CASTRO OF CARE | [address] | [address] | | | TESTS | | | [...] MARRHONDAAM | [address] | [place] | | | MATTHEW POINT OF CARE | [address] | [address] | | | TESTS | | | [...] | + + + + + | [facility] | [address] | [place] [address] | | | SERVICES, CORE | SHADIA [...] [facility] | [address] | [place] [address] | | | SERVICES, BEULAH | SHADIA [...] | | | LABORATORY | | | [place] | | | SERVICES, | | | [...] | + + + + + | [facility] | [address] | [place] [address] | | | SERVICES, CORE | SHADIA [...] ABDOULAYE | [address] | [place], [place] | | | LORRAINE CASTRO OF [facility] | [address] | [address] | | | TESTS | | | [...] ABDOULAYE | [address] | [place], [place] | | | LORRAINE CASTRO OF VI[facility]UEL | [facility] | [address] | | | TESTS | | | [...] (H) | 60 - 99 mg/dL | [facility] - | | | [...] [facility] | [address] | [place], [place] | | | MAT[facility]W POINT OF CARE | [address] | [address] | | | TESTS | | | [...] ABDOULAYE | [address] | [place], [place] | | | LORRAINE CASTRO OF CARE | [address] | [address] | | | TESTS | | | [...] ABDOULAYE | [address] | [place], [place] | | | L[facility]RAINE CASTRO OF [facility] | [facility] | [address] | | | TESTS | | | [...] (H) | 60 - 99 mg/dL | [facility] - | | | [...] [facility] | [address] | [place], [place] | | | MATTHEW POINT OF CARE | [address] | [address] | | | TESTS | | | [...] + + | Performing | Address | City/State[facility] | Phone Number | | Organization | | | | + + + + + | [facility] | [address] | [place], [place] | | | L[facility]RAINE CASTRO OF [facility] | [address] | [address] | | | TESTS | | | [...] OMIDAM | [address] | [place], [place] | | | LORRAINE CASTRO OF [facility] | [facility] | [address] | | | TESTS | | | [...] (H) | 60 - 99 mg/dL | [facility] - | | | [...] [place] | [address] | [place], [place] | | | MAT[facility]W POINT OF CARE | [address] | [address] | | | TESTS | | | [...] ST[facility] | [address] | [place], [place] | | | L[facility] CASTRO OF [facility] | [address] | [address] | | | TESTS | | | [...] OMIDAM | [address] | [place], [place] | | | LORRAINE CASTRO OF [facility]EL | [facility] | [address] | | | TESTS | | | [...] (H) | 60 - 99 mg/dL | [facility] - | | | [...] ST[place] | [address] | [place], [place] | | | MAT[facility]W POINT OF CARE | [address] | [address] | | | TESTS | | | [...] ABDOULAYE | [address] | [place], [place] | | | L[facility]RAINE CASTRO OF [facility] | [address] | [address] | | | TESTS | | | [...] OMIDAM | [address] | [place], [place] | | | LORRAINE CASTRO OF [facility]EL | [facility] | [address] | | | TESTS | | | [...] (H) | 60 - 99 mg/dL | [facility] - | | | [...] ST[place] | [address] | [place], [place] | | | MAT[facility]W POINT OF CARE | [address] | [address] | | | TESTS | | | [...] ST[place] | [address] | [place], [place] | | | LORRAINE CASTRO OF [facility] | [address] | [address] | | | TESTS | | | [...] ABDOULAYE | [address] | [place], [place] | | | LORRAINE CASTRO OF [facility]UEL | [facility] | [address] | | | TESTS | | | [...] (H) | 60 - 99 mg/dL | [facility] - | | | [...] STANFORD | [address] | [place], [place] | | | MATTHEW POINT OF CARE | [address] | [address] | | | TESTS | | | [...] ABDOULAYE | [address] | [place], [place] | | | LORRAINE CASTRO OF [facility] | [address] | [address] | | | TESTS | | | [...] | + + + + + | [facility] | [address] [facility] | [place] [address] | | | SERVICES, CORE | SHADIA [...] [facility] | [address] | [place] [address] | | | BEULAH KINCAID | SHADIA [...] | | | LABORATORY | | | [place]ORE[place] | | | SERVICES, | | | [...] | + + + + + | [facility] | [address] | [place] [address] | | | SERVICES, CORE | SHADIA [...] (H) | 60 - 99 mg/dL | [facility] - | | | [...] ST[facility] | [address] | [place], [place] | | | MATTHEW POINT OF CARE | [address] | [address] | | | TESTS | | | [...] MARQUAM | [address] | [place], [place] | | | LORRAINE CASTRO OF CARE | [address] | [address] | | | TESTS | | | [...] [place] | [address] | [place], [place] | | | LORRAINE CASTRO OF VICTOR MANUEL | [facility] | [address] | | | TESTS | | | [...] ST[facility] | [address] | [place], [place] | | | MATTHEW POINT OF CARE | [address] | [address] | | | TESTS | | | [...] MARQUAM | [address] | [place], [place] | | | HILL, POINT OF CARE | [address] | [address] | | | TESTS | | | [...] MARQUAM | [address] | [place], [place] | | | LORRAINE CASTRO OF [facility]EL | [facility] | [address] | | | TESTS | | | [...] ST[facility] | [address] | [place], [place] | | | MATTHEW POINT OF CARE | [address] | [address] | | | TESTS | | | [...] MARQUAM | [address] | [place], [place] | | | HILL, POINT OF CARE | [facility] | [address] | | | TESTS | | | [...] MARQUAM | [address] | [place], [place] | | | LORRAINE CASTRO OF VI[facility]UEL | [facility] | [address] | | | TESTS | | | [...] ST[place] | [address] | [place], [place] | | | MATTHEW POINT OF CARE | [address] | [address] | | | TESTS | | | [...] MARQUAM | [address] | [place], [place] | | | LORRAINE CASTRO OF CARE | [facility] | [address] | | | TESTS | | | [...] MARQU[place] | [address] | [place], [place] | | | LORRAINE CASTRO OF VI[facility]UEL | [facility] | [address] | | | TESTS | | | [...] [facility] | [address] | [place], [place] | | | MATTHEW POINT OF CARE | [address] | [address] | | | TESTS | | | [...] MARQU[place] | [address] | [place], [place] | | | [facility] | [facility] | [address] | | | TESTS | | | [...] | [facility] | [address] | [place], [place] | | | LORRAINE CASTRO OF VICTOR MANUEL | [facility] | [address] | | | TESTS | | | [...] [facility] | [address] | [place], [place] | | | MATTHEW POINT OF CARE | [address] | [address] | | | TESTS | | | [...] MARQUAM | [address] | [place], [place] | | | HILL, POINT OF CARE | [address] | [address] | | | TESTS | | | [...] [facility] | [address] | [place] [address] | | | BEULAH KINCAID | SHADIA [...] [facility] | [address] | [place] [address] | | | SERVICES, CORE | PARK [...] | | | LABORATORY | | | [place]ORE[place] | | | SERVICES, | | | [...] | + + + + + | [facility] | [address] | [place] [address] | | | SERVICES, CORE | SHADIA [...] [place] | [address] | [place], [place] | | | LORRAINE CASTRO OF CARE | [address] | [address] | | | TESTS | | | [...] ABDOULAYE | [address] | [place], [place] | | | [place] [facility] | [address] | [address] | | | TESTS | | | [...] | + + + + + | [facility] | [address] | [place] [address] | | | SERVICES, CORE | SHADIA [...] | + + + + + | [facility] | [address] | [place] [address] | | | SERVICES, CORE | PARK [...] [facility]ITA NAVARRO | [address] | [place] [address] | | | SERVICES, CORE | PARK [...] | + + + + + | [facility] | [address] | [place] [address] | | | SERVICES, BEULAH | SHADIA [...] + + | [facility] | [address] | [place], [place] | | | LORRAINE CASTRO OF CARE | [address] | [address] | | | TESTS | | | [...] | | + +---------+ + + | [facility] DEPARTMENT OF | | [...] ST[facility] | [address] | [place], [place] | | | LORRAINE CASTRO OF CARE | [address] | [address] | | | TESTS | | | [...] + | [facility] | [address] | [place], [place] | | | L[facility]INE CASTRO OF [facility] | [address] | [address] | | | TESTS | | | [...] [facility] | [address] | [place], [place] | | | LORRAINE CASTRO OF VICTOR MANUEL | [facility] | [address] | | | TESTS | | | [...] + | [facility] | [address] [facility] | [place], [place] | | | CARDIOLOGY | [address] | [address] | | + + + + + [...] | + + + + + | [facility] | [address] | [place] [address] | | | SERVICES, CORE | PARK [...] | + + + + + | [facility] | [address] | [place] [address] | | | SERVICES, | [address] [...] | + + + + + | [facility] | [address] | [place] [address] | | | SERVICES, | [address] [...] | + + + + + | [facility] | [address] | [place] [address] | | | SERVICES, CORE | PARK [...] | + + + + + | [employer] | [address] [facility] | [place] [address] | | | SERVICES, BEULAH | SHADIA [...] | + + + + + | [facility] | [address] | [place] [address] | | | SERVICES, CORE | SHADIA [...] [facility] | [address] | [place] [address] | | | BEULAH KINCAID | SHADIA [...] | | | LABORATORY | | | [place]ORE[place] | | | SERVICES, | | | [...] | + + + + + | [facility] | [address] | [place] [address] | | | CODI, BEULAH | SHADIA [...] + + + + | PRODUCT | [id number] | | [facility] | | | UNIT [...] + + + + | EXPIRATION | [id number] | | [facility] | | | DATE [...] + + + + | BLOOD | [id number] | | [facility] | | | PRODUCT [...] | + + + + + | [facility] | [address] | [place] [address] | | | PATHOLOGY | [address] [...] + + + + | PRODUCT | [id number] | | [facility] | | | UNIT [...] + + + + | EXPIRATION | [id number] | | [facility] | | | DATE [...] + + + + | BLOOD | [id number] | | [facility] | | | PRODUCT [...] | + + + + + | [facility] | [address] | [place] [address] | | | PATHOLOGY | [address] [...] | | | | | | Starting [facility] 03/26/15 at 2145, | | | | [...] | | | | | CONTINUOUS, Starting [facility] 03/26/15 | | PM PST | | [...]
--- OUTSIDE RECORDS SUMMARY | ~2019-11-21 | XMS | Encounter Summary ---
Demographics + + + | Address | [address] | | | [place] [address] | + + + | Home Phone | | + + + | Preferred Language | Unknown | + + + | Marital Status | | + + + | Yarsanism Affiliation | NRP | + + + | Race | or | + + + | Ethnic Group | Not or | + + + Author + + + | Author | [facility] | + + + | Organization | [facility] | + + + | Address [...] Providers + +------+ + | Care Wood Web Weaving Machine Operator Name | Role | Phone | [...] Kevin | | | | | Josefina [facility] | [address] | | | | | Health and Healing, | [place], [place] | | | | | [facility] | [address] | | | | | floor [place], [place] | [phone] | | | | | [address] | | | | | | [phone] | | | +--------+ + + + [...]
--- OUTSIDE RECORDS SUMMARY | ~2019-11-21 | XMS | Encounter Summary ---
Demographics + + + | Address | [address] | | | [place] [address] | + + + | Home Phone | | + + + | Preferred Language | Unknown | + + + | Marital Status | | + + + | Samaritan Affiliation | NRP | + + + | Race | or | + + + | Ethnic Group | Not or | + + + Author + + + | Author | [facility] | + + + | Organization | [facility] | + + + | Address [...] Team Providers + +------+ + | Care Sawdust Drier Name | Role | Phone | + [...] Russell | | | | | [facility] | [address] | | | | | Hospital Admitting | [place], [place] | | | | | Desk Located on the | [address] | | | | | 9th floor | [phone] | | | | | [facility] [place] | | | | | | [address] | Vernon Dalton MD | | | | | | [address] | | | | | | [place], | | | | | | [place] [address] | | | | | | [phone] | | | | | | | | +--------+ + + + + Anesthesia Record + + + + + | Procedure Name | Responsible | Anesthesia Start | Anesthesia Stop Time | | | Anesthesiologist | Time | | + + + + + | RIGHT LJ HOLE VS | Chandler Meehan MD | 03/26/152128 | 03/26/15 0970 | | CRANIOTOMY FOR | | | [...]
--- OUTSIDE RECORDS SUMMARY | ~2019-11-21 | XMS | Encounter Summary ---
Demographics + + + | Address | [address] | | | [place] [address] | + + + | Home Phone | | + + + | Preferred Language | Unknown | + + + | Marital Status | | + + + | Jewish Affiliation | NRP | + + + | Race | or | + + + | Ethnic Group | Not or | + + + Author + + + | Author | [facility] | + + + | [...] Team Providers + +------+ + | Care Multimedia Instructional Designer Name | Role | Phone | + [...] | | | | | | ([facility]ERLY [facility]) | [address] | | | | | | Procedures | [place], [place] | | | | | | [place] | [address] | | | | | | CONTRAST | Phone: | | | | | | | [phone] | | | | | | | Fax: | | | | | | | [phone] | | +--------+--------+ + + + + Encounter Details +--------+ + + + + | Date | Type | Department | Care Team | Description | +--------+ + + + + | 03/30/ | [facility] | Neurosurgery at | [place], | Subdural hematoma | | 2014 | | [facility] [address] | ARYA Kevin | ([place]) (Primary Dx) | | | | [facility] | [address] | | | | | Health and Healing, | [place], [place] | | | | | Building | [address] | | | | | floor [facility] [place] | [phone] | | | | | [address] | | | | | | [phone] | | | +--------+ + + + [...] | | + +---------+ + + | [facility] DEPARTMENT OF | | | | | RADIOLOGY | | | | + +---------+ + + documented in this encounter Visit Diagnoses + + | Diagnosis | + + | Subdural hematoma (HCC) - Primary Subdural hemorrhage | + + documented in this encounter"
--- OUTSIDE RECORDS SUMMARY | ~2019-11-21 | XMS | Encounter Summary ---
Demographics + + + | Address | [address] | | | [place] [address] | + + + | Home Phone [...] + | Author | [facility] [employer] [facility] | + + + | Organization [...] Team Providers + +------+ + | Care Sample Maker Original Name | Role | Phone | + [...] | | | [facility] | [place], [place] | 03/29/15: | | | | Health and Healing, | [address] | Right-sided anurag | | | | Building | [phone] | holes for evacuation | | | | floor [facility] [place] | | of subdural | | | | [address] | | hematoma. (03/26/15) | | | | [phone] | | ) | +--------+ + + [...]
--- OUTSIDE RECORDS SUMMARY | ~2019-11-21 | XMS | Encounter Summary ---
Demographics + + + | Address | [address] | | | [place] [address] | + + + | Home Phone | | + + + | Preferred Language | Unknown | + + + | Marital Status | | + + + | Anabaptist Affiliation | NRP | + + + | Race | or | + + + | Ethnic Group | Not or | + + + Author + + + | Author | [facility] | + + + | Organization | [facility] | + + + | Address [...] Team Providers + +------+ + | Care Range Technician Name | Role | Phone | [...] | | | | | Procedures | [place], [place] | | | | | | [place] | [address] | | | | | | CONTRAST | Phone: | | | | | | | [phone] | | | | | | | Fax: | | | | | | | [phone] | | +--------+--------+ + + + + [...] | | | | | Procedures | [place], [place] | | | | | | [place] | [address] | | | | | | CONTRAST | Phone: | | | | | | | [phone] | | | | | | | Fax: | | | | | | | [phone] | | +--------+--------+ + + + + Encounter Details +--------+ + + + + | Date | Type | Department | Care Team | Description | +--------+ + + + + | 04/23/ | Hospital | Radiology/Imaging | | | | 2014 | Encounter | Lab at [facility] [address] | | | | | | [address] [facility] | | | | | | Health and Healing, | | | | | | [address] | | | | | | [place], [place] | | | | | | [address] | | | | | | [phone] | | | +--------+ + + + [...] subdural | | | | | | [id number] | | | | | | COMPARISON: [...]
[~2019-11-21 12:55] MED LIST changes: +ASPIR-LOW81 MG PO; +B-121000 MC2 PO; +CRESTOR10 MG PO; +FORTAMET500 MG PO; +KEFLEX500 MG PO; +TIROSINT50 MCG PO
--- OUTSIDE RECORDS SUMMARY | 2019-11-21 12:58 | XMS ---
PreManage Notification: SKYLER PRITCHARD [employer] Operator Events No recent Security Events currently on file CRITERIA MET - [facility] - 2 Visits in 30 Days CARE PROVIDERS There are no care providers on record at this time. [place] has no Care Guidelines for this patient. [place] VISIT COUNT (12 MO.) [address] [facility] TOTAL 3 NOTE: Visits indicate total known visits. ED/C VISIT TRACKING (12 MO.) 11/21/2019 12:55 [facility] [place] TYPE: Emergency COMPLAINT: - RESPIRATORY ILLNESS 11/18/2019 11:50 [facility] [place] TYPE: Emergency COMPLAINT: - WEAKNESS 02/04/2019 09:15 [facility] [place] TYPE: Emergency COMPLAINT: - BLOOD SUGAR PROBLEM DIAGNOSES: - long term (current) use of insulin - Old myocardial infarction - Essential (primary) hypertension - Type 2 diabetes mellitus with hypoglycemia without coma - Atherosclerotic heart disease of [place] coronary artery witho - Personal history of transient ischemic attack (TIA), and cere - Hyperlipidemia, unspecified - Allergy status to other antibiotic agents status - Other bed bug exterminator (current) drug therapy - half-way (current) use of aspirin INPATIENT VISIT TRACKING (12 MO.) No inpatient visits to display in this time frame [email or web address]
== END 2019-11-21 16:28 | disposition home or self-care (01) ==
LOC: ED 12:55
DX: U07.1 COVID-19 (principal); J12.89 Other viral pneumonia; I25.2 Old myocardial infarction; E11.9 Type 2 diabetes mellitus without complications; I10 Essential (primary) hypertension; E78.5 Hyperlipidemia, unspecified; Z88.8 Allergy status to other drugs, medicaments and biological substances; Z79.899 Other long term (current) drug therapy
CPT/HCPCS: 71045; 99285-25

== ENCOUNTER 2020-01-30 10:52 | Emergency (ER) | payer MEDICARE, OTHER ==
[~2020-01-30] VITALS: Ht 170.2 cm; Wt 50.4 kg
--- OUTSIDE RECORDS SUMMARY | ~2020-01-30 | XMS | Encounter Summary ---
Demographics + + + | Address | [address] | | | [place] [address] | + + + | Home Phone | | + + + | Preferred Language | Unknown | + + + | Marital Status | | + + + | Holiness Affiliation | NRP | + + + | Race | or | + + + | Ethnic Group | Not or | + + + Author + + + | Author | [facility] | + + + | Organization | [facility] | + + + | Address | [...] Team Providers + +------+ + | Care Licensed Mortgage Loan Officer Name | Role | Phone | + +------+ + | Christa Caldera MD | PCP | | + +------+ + Reason for Visit +--------+ + | Reason | Comments | +--------+ + | Other | Acute on chronic SDH | +--------+ + AUTH/CERT +--------+--------+ + + + + | Status | Reason | Specialty | Diagnoses / | Referred By | Referred To | | | | | Procedures | Contact | Contact | +--------+--------+ + + + + | | | | | | | +--------+--------+ + + + + Encounter Details +--------+ + + + + | Date | Type | Department | Care Team | Description | +--------+ + + + + | 03/26/ | Hospital | [facility] [address] | Dixie Sykes, | | | 2015 - | Encounter | [place] | [address] | | | | | [id number] [facility] | [place], [place] | | | 03/29/ | | [facility] [place], | [address] | | | 2015 | | [place] [address] | [phone] | | | | | [phone] | | | +--------+ + + + [...] on file | | + + + documented as of this encounter Last Filed Vital Signs + + + [...] | | + + + + + documented in this encounter Discharge Summaries Clifton Marshall MD - 03/29/2015 3:14 PM PST NEUROSURGERY DISCHARGE SUMMARY: Patient: Derick Fracno Admission Date: 03/26/2015 Discharge Date: 03/29/2015 Attending Physician: Dixie Sykes MD PCP: Eli Baker MD Service: [facility] Neurosurgery Diagnoses Principal Final Diagnosis: 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 Additional Diagnoses: Type 1 DM Procedures Right-sided lj holes for evacuation of subdural hematoma. Brief Hospital Course Derick Franco is a 74-year-old male who was brought in transfer to [facility] for acute on chronic panhemispheric right-sided subdural hematoma. Per report from his family, he suffered a grou nd level fall on March 07 and another fall about 2 weeks ago while he was elk hunting. O bobby the past few days he has been having difficulty ambulating and has been complaining of h eadaches. He was taken to the outside hospital, where head CT demonstrated a panhemispheric subdural hematoma on the right side. He was then brought to [facility] for higher level of care an d evacuation of the subdural hematoma. He was admitted 03/26/2015 for the procedure(s) described above. The inpatient stay relate d to this procedure(s) took an uncomplicated perioperative course and the patient was follow ed closely by the attending providers, resident providers, and medical/nursing staff. Post o peratively, the patient was admitted to the hospital for convalescent care. Pain control wa s managed with medication. The patient made appropriate gains toward activity and functiona l goals while an inpatient. While on the hospital floor, the patient tolerated oral intake s ufficient to maintain nutrition and hydration. The surgical wound remained clean, dry, and i ntact without signs concerning for infection. The patient is a diabetic who has a very good relationship with his PCP and his diabetic nu tritionist whom he sees regularly. At home he takes glargine 9u qHS without mealtime insulin . While in hospital, the patient's has had increased insulin requirement, likely subsequent to steroids. Calculations based on his insulin drip needs resulted in a conservative estimat e of 20-30 units of long-acting insulin qHS. We elected for 20 units qHS of glargine given t hat the patient is a type 1 diabetic and we hoped to avoid hypoglycemia.The patient and his family are familiar with the use and administration of both long acting as well as short act ing insulin (includung sliding scales) as they have used them for many years. The family is very supportive and involved with the patient's health management, and they assure us that anthony bragg will take him to see his PCP tomorrow for management of his diabetes/insulin. The patien t and family have a strong desire to discharge to home today. Thus the patient was felt hema ropriate for discharge to home with family assist on 03/29/2015, and the patient and family members agree with this course of action. Diet Diabetic (Consistent Carbohydrate) Diabetic diet (Consistent Carbohydrate)- You should be careful to control your daily inta ke of carbohydrates and ensure that you are consuming the same amount of carbohydrates each day. Your health care provider will work with you to determine the appropriate amount of ca rbohydrates your body needs. Activity Avoid heavy lifting, repetitive bending and all strenuous activity until further notice. No driving while taking oral narcotics/pain medications. Follow Up Appointments: Destination: Destination: Home Condition on Discharge Good PCP:Eli Baker MD When: Please follow-up with your primary care physician as soon as possible to review new medications and recent interventions Call: Please call and ask for the Neurosurgery Resident on-call if you have any of the following: - Difficulty breathing or unusual shortness of breath - Excessive bleeding, drainage at the operative site - Fevers, chills, increased pain that is not relieved by pain medications - Persistent nausea or vomiting - Severe headaches, dizziness, or visual changes Current Discharge Medication List START taking these medications Details dexamethasone 2 mg oral tablet Take 1 tablet by mouth every twelve hours for 12 days. Qty: 24 tablet, Refills: 0 insulin lispro 100 unit/mL subcutaneous solution Aggressive sliding scale. See attached she et. Qty: 10 mL, Refills: 0 oxyCODONE, immediate release, 5 mg oral tablet Take 1-2 tablets by mouth every four hours a s needed for moderate pain or severe pain. Qty: 30 tablet, Refills: 0 CONTINUE these medications which have CHANGED or have new prescriptions Details insulin glargine 100 unit/mL subcutaneous solution Inject 20 Units under the skin (SUBC) on ce daily at bedtime. 20 units under the skin at bedtime (higher dose than normal given that is on steroids) -- see Primary care doctor as soon as possible to adjust regimen to optimize blood sugar control. DO NOT TAKE if blood sugars < 100. Qty: 10 mL, Refills: 0 CONTINUE these medications which have NOT CHANGED Details ascorbic acid 500 mg oral tablet Take 500 mg by mouth once daily. Take with ferrous sulfate Cholecalciferol, Vitamin D3, 2,000 unit oral tablet Take 2,000 Units by mouth once daily. ferrous sulfate 325 mg (65 mg iron) oral tablet Take 325 mg by mouth two times daily. levothyroxine 50 mcg oral tablet Take 50 mcg by mouth once daily. lisinopril 10 mg oral tablet Take 10 mg by mouth once daily. metoprolol succinate 25 mg oral tablet extended release 24 hr Take 25 mg by mouth once magno y. simvastatin 20 mg oral tablet Take 20 mg by mouth once daily in the evening. STOP taking these medications clopidogrel 75 mg oral tablet Comments: Reason for Stopping: Special Instructions/Tests: please see your PCP as soon as possible after discharge. Hold p lavix for at least 2 weeks. Condition On Discharge: Good Vital Signs at discharge as appropriate: BP: 125/54 mmHg (03/29/15 1203) Pulse: 68 (03/29/15 1206) Resp: 18 (1 05/29/14 1206) Weight: 71 kg (156 lb 8.4 oz) (03/28/15 0500) Discharge Patient To: Home Does patient have a planned readmission: No Discharge Summary Completed?: Yes. 03/29/2015 Discharging Provider: Clifton Marshall MD Date Completed: 03/29/2015 Time Completed: 3:14 PM Discharging Attending: Dixie Sykes MD [facility] [address] [address] [place] [address] documented in this en counter Discharge Instructions Instructions Jayce Anton - 03/27/2015Formatting of this note might be different from the or iginal. Support for Caregivers (Respite) and Independent Living Resources Respite care or short-term relief is a time for families and primary caregivers to restore and strengthen their ability to continue providing care for an adult with special needs - i. e., mental or physical disabilities, chronic illness or medical fragility, or at risk of abu se or neglect. Research has shown that there are many benefits and cost savings for everyone involved in respite care, from a micro level of improving the family stability to the macro level of saving billions of dollars in the national healthcare cost. ([facility] National Respite Network's factsheet on cost benefits of respite, updated February 2010) Sometimes families find they can draw enough support from family and friends if they are ab le to help give the primary caregiver breaks from cooking, cleaning or other caregiving acti vities at regularly scheduled times. But other times families need additional supports to he lp relieve the primary caregiver and ensure the patient has all the support they need. Your family may need to reach out to your local community centers, your senior or day center, you r yazdanism community, or any other community in which you are a member to ask for support. Remember to be specific in your request i.e I could really use 2 hours every week on morning for someone to stay with my father while I swim laps and get a break. Fortunately, many supports available to help caregivers are also available to individuals w ho reside alone so that individuals can continue to be independent safely despite deficits. Local Resources: 211 Info A website data base and live phone line (call 211) and text service which conn ects the people of [place] and [facility] with the community resources they need. 2 [employer] Home Instead ([phone]) This is a [employer] which can provide in home assistance at a cost to the family. [place] Project [place] OPI is a program which helps seniors 60 and over continue to live independently and safely living in their own home. OPI provides individualized personal care, housekeeping, and case management support. http://www.[place].gov/dhs/spwpd/pages/ltc/inhome.aspx#opi [place] Independent Living Resources: [place] Statement Of Independent Living Resources: Promote the philosophy of Independent L iving by creating opportunities, encouraging choices, advancing equal access, and furthering the level of independence for all people with disabilities. [phone] Meals on Wheels (www.mealsonwheelspeople.org) Meals on Wheels are hot, nutritious lunches that are delivered Monday through Jacky betwee n 11 a.m. and 1 p.m. to homebound elderly age 60 and older. Seniors must live in [facility] in [place] or [facility] in [place] to be eligible to receive meal s. Call to request meals at [phone] in [facility] and [facility] and toll free in [facility] at . Most of the [facility] in [place] have a Meals on Wheels Program, and information on local [facility] qq-cp-ikkbnh services can be obtained through local Area Agency on Aging Offices. [place] Vocational Rehabilitation Service (OVRS) ( ) http://www.[place].gov/DHS /vr/Pages/index.aspx [place] Area Agency on Aging http://www.[place].gov/dhs/spwpd/pages/offices.aspx There are 17 Area Agencies on Aging across [place] that administer and support community-bas ed care services. AAAs advocate for older adults living in their area, develop community-based long-term care services to meet the needs of those adults and administer funds to implement services. Most services coordinated by AAAs are provided through community service providers at the local level. This section contains program information designed for staff members of [place]'s AAAs . Aging and Disability Resource Connection of [place] https://adrcoforegon.org/qyrgtf-pxbmjvl-guk-independent-living.php [facility] is a resource directory for [place] families, caregivers and consumers seekin g information about long-term supports and services. Here you will find quick and easy acces s to resources in your community. If you cannot find the information you are looking for or wish to talk to someone in person, please call us toll free at 1-954-[facility] ([phone]) [place] Caregiver Support Line http://www.caregiver.va.gov/ Toll free : Also check with your private health insurance organization, as respite care may also be inc luded in the coverage. Support Groups for Families Living with Aphasia Individuals and families affected by aphasia face unique challenges. Support specifically d esigned for these people is limited. Three groups have formed in the [place], [place] area t hat provide both the individual experiencing aphasia and family members the opportunity to d evelop a sense of community with others impacted by aphasia. These groups are organized and run by participants. Faculty and students from [facility] s Department of S peech and Hearing Sciences work with survivors and families as they strive to improve and schultz rvive this condition. Groups are free of charge, but do ask for small contributions to be gi robin to the churches that have donated space. Regular attendance is not required, but familie s feel that attending often is beneficial to everyone. There are several groups in the [facility] area for individuals and families living wit h aphasia: [facility] When: Each Monday 11:00 12:00 Where: [facility] [address] [place] [address]. Contact: Aidan Alaniz [email or web address] [email or web address] [facility] Speak EZ group When: Odd numbered Saturdays (i.e. May 12) 10:00 12:00 Where[facility] [address] Contact: Mark Yanez [phone] [facility] Aphasia Group When: & Monday of each month 10:00 12:00 Where: [facility] Room varies watch for directional signs Contact: Kenya Cano [phone] [email or web address] The [employer] A community music group for stroke survivors. Stroke survivors, spouses, partners, and care givers are invited to join for an hour of playing instruments and singing. Every Monday, 11:30-12:30 at the [facility], [address] [place] [address]. Info rmation contact: Jen Banks, , Brain Injury [place] of [place] http://www.bia[place].org/ National Stroke Association http://www.stroke.org/ .STROKES (959.3257) National Center on Caregiving/ Family Caregiver [place] www.caregiver.org Established in 2000 as a program of Family Caregiver Stanton, the National Center on Careg iving (NCC) works to advance the development of high-quality, cost-effective policies and pr ograms for caregivers in every state in the country. Uniting research, public policy and ser vices, the [facility] serves as a central source of information on caregiving and long-term care is sues for policy makers, service providers, media, funders and family caregivers throughout t country. services include: Caregiver Information & Assistance: personalized help to butch ntify local resources and services for families, caregivers and providers nationwide, as wel l as our fact sheets and publications on a wide array of caregiving topics and health issues . Note: This fact sheet is compiled from general, publicly available medical information and should not be considered recommended treatment for any particular individual. Stroke survivo rs should consult their doctors about any personal medical concerns. [facility] Crisis Line Information: [facility] Health Access Crisis Number (24 hours) documented in this encounter Medications at Time of Discharge [...] + + + +---------+ + + | dexamethasone 2 mg | Take 1 tablet by | 24 | 0 | 03/29/20 | | | oral tablet | mouth every twelve | tablet | | 15 | 5 | | | hours for 12 days. | | | | | + + + +---------+ + + documented as of this encounter Progress Notes Clifton Marshall MD - 03/29/2015 2:31 PM PST NEUROSURGERY PROGRESS NOTE Hospital Day #: 3 Attending: Dixie Sykes MD Interval Events: - yesterday, stopped endotool, switched to subQ insulin -- at home patient is on 9 units qH S, but has had increased insulin requirement while in house, likely subsequent to steroids. Calculations based on his insulin drip needs resulted in a conservative estimate of 20-30 un its of long-acting insulin qHS. I elected for 20 units qHS of glargine given that the patien t is a type 1 diabetic and I hoped to avoid hypoglycemia, in combination with an aggressive sliding scale. The patient does not take mealtime insulin at home. The patient and his famil y are familiar with the use and administration of both long acting as well as short acting i nsulin (includung sliding scales) as they have used them for many years. The family is very supportive and involved with the patient's health management, and they assure us that they w ill take him to see his PCP tomorrow for management of his diabetes/insulin. The patient has a very good relationship with his PCP and his diabetic vp emerging media whom he sees regularly. The patient and family have a strong desire to discharge to home today. Thus he is felt to be appropriate for discharge to home with PCP follow up tomorrow. Objective: Last Vitals: BP 125/54 | Pulse 68 | Temp 36.8 C (98.2 F) | RR 18 | Ht 1.778 m (5' 10") | Wt 71 kg (156 lb 8.4 oz) | SpO2 97% | BMI 22.46 kg/(m^2) 24 Hour Vital Min/Max: Systolic (24hrs), Av mmHg, Min:116 mmHg, Max:145 mmHg Diastolic (24hrs), Av mmHg, Min:52 mmHg, Max:64 mmHg Pulse Min: 56 Max: 68 Temp Min: 36.5 C (97.7 F) Max: 36.9 C (98.4 F) Resp Min: 16 Max: 18 SpO2 Min: 97 % Max: 100 % Intake/Output Summary (Last 24 hours) at 03/29/15 1432 Last data filed at 03/29/15 1000 Gross per 24 hour Intake 975 ml Output 1000 ml Net -25 ml Physical Exam: Awake, alert, oriented to self, time, place, situation Following commands briskly PERRL EOMI Face symmetric Tongue midline Strength: No pronator drift RUE: 5/5 HG/B/T LUE: 5/5 HG/B/T RLE: 5/5 HF/KE/DF/PF LLE 09/09 HF/KE/DF/PF Incision c/d/i. No surrounding erythema, swelling or drainage. Labs: Lab Results Component Value Date/Time NA 141 03/29/2015 05:53 AM NA 143 03/26/2015 10:12 PM K 4.1 03/29/2015 05:53 AM K 3.0* 03/26/2015 10:12 PM CR 0.83 03/29/2015 05:53 AM HCT 25.3* 03/29/2015 05:53 AM HCT 30.8* 03/26/2015 10:12 PM WBC 11.73* 03/29/2015 05:53 AM PLT 299 03/29/2015 05:53 AM ] URINE CULTURE [facility] (no units) Date Value 03/27/2015 No growth (<1000 cfu/mL) after 24 hours CULT, URINE SCREEN (no units) Date Value 03/27/2015 Positive* Current Inpatient Medications Medication Dose Route Frequency bisacodyl (DULCOLAX) suppository 10 mg 10 mg rectal DAILY PRN dexamethasone (DECADRON) tablet 2 mg 2 mg oral Q12H dextrose 5%-NaCl 0.45% IV infusion 5-400 mL intravenous PRN dextrose 50 % in water IV 25 mL 25 mL intravenous PRN glucose chewable tablet 16 g 16 g oral PRN HYDROmorphone (DILAUDID) injection 0.2-1 mg 0.2-1 mg intravenous Q2H PRN insulin glargine (LANTUS) injection 20 Units 20 Units subcutaneous HS insulin lispro (HUMALOG) injection subcutaneous QID levothyroxine tablet 50 mcg 50 mcg oral DAILY lisinopril (PRINIVIL) tablet 10 mg 10 mg oral DAILY magnesium hydroxide (MILK OF MAGNESIA) suspension 30 mL 30 mL oral DAILY PRN magnesium sulfate in water IV (RTU) 2 g 2 g intravenous PRN magnesium sulfate in water IV (RTU) 4 g 4 g intravenous PRN metoprolol tartrate (LOPRESSOR) tablet 12.5 mg 12.5 mg oral BID NaCl 0.9%-KCl 20 mEq/L IV infusion intravenous CONTINUOUS ondansetron (ZOFRAN) injection 4 mg 4 mg intravenous Q8H PRN Followed by [START ON 03/30/2015] ondansetron (ZOFRAN) injection 4 mg 4 mg intravenous Q12H PRN oxyCODONE (immediate release) (ROXICODONE) tablet 5-10 mg 5-10 mg oral Q4H PRN polyethylene glycol (MIRALAX) powder 17 g 17 g oral BID PRN potassium chloride SR (K-DUR) tablet 20-40 mEq 20-40 mEq oral PRN Or potassium chloride (KAOCHLOR) liquid 20-40 mEq 20-40 mEq feeding tube PRN potassium chloride IV 10 mEq 10 mEq intravenous PRN senna-docusate (SENOKOT S) 8.6-50 mg 2 tablet 2 tablet oral BID simvastatin (ZOCOR) tablet 40 mg 40 mg oral QPM Imaging: CT HEAD WO CONTRAST (no units) Date Value Ref Range Status 03/27/2015 Final Value: EXAM: CT head without contrast HISTORY: Status post right lj holes for subdural hematoma. COMPARISON: Outside hospital CT head without contrast 03/26/15 at 15:48. TECHNIQUE: CT of the head without contrast. FINDINGS: Brain: Post-surgical changes from lj hole placement and right subdural hematoma evacuation are noted. Bilateral pneumocephalus with overlying subgaleal swelling is present. A superficial surgical drain is present. Minimal residual right subdural blood products remain. Right to left midline shift has decreased to 10 mm, from 17 mm previously. There is continued compression of the right lateral ventricle. The remaining ventricles are normal in size and morphology. No new hemorrhage, mass, or acute infarction. Skull and skull base: No fractures or destructive lesions. Mastoids and middle ears are unremarkable. Face/orbits: Visualized portions are unremarkable. Paranasal sinuses: Visualized portions are unremarkable. IMPRESSION: Int erval evacuation of right subdural hematoma with only minimal residual extra-axial fluid. Significant bilateral pneumocephalus, but overall decreased mass effect and midline shift. Attending Radiologists: KAY COSTELLO MD Author: SHARRI MAHER MD I personally reviewed the images and, if necessary, edited the report. I agree with the report as now presented. Final/Electronically signed / KAY COSTELLO 03/27/2015 9:13 AM Pending final approval / SHARRI MAHER 03/27/2015 9:09 AM Preliminary / SHARRI MAHER 03/27/2015 9:01 AM ASSESSMENT: Derick Franco is a 74 y.o. male with R SDH s/p R lj holes for evac on 03/26. Doing well. PLAN: Neurological: - Continue acute care therapies; pain control; monitor for acute neurologic changes - Dex 2mg BID x 2 weeks. HEENT: routine wound care Cardiovascular: - BP and HR stable wnl - continue home metop, simvastatin - HOLD plavix Respiratory: IS, cough/deep breathing, O2 prn. Sats wnl on RA. GI: Diet: diabetic; bowel regimen / Renal: 24-hour I/O goal: euvolemic; No garcia catheter. Electrolytes wnl. ID/HO: AF WBC 11 down from 13 yesterday Endocrine: CBGs wnl overnight, however elevated today to 150-160 and once to over 200. yest erday, stopped endotool, switched to subQ insulin -- at home patient is on 9 units glargine qHS, but has had increased insulin requirement while in house, likely subsequent to steroids . Calculations based on his insulin drip needs resulted in a conservative estimate of 20-30 units of long-acting insulin qHS. I elected for 20 units qHS of glargine given that the rosetta ent is a type 1 diabetic and I hoped to avoid hypoglycemia, in combination with an aggressiv e sliding scale. The patient does not take mealtime insulin at home. The patient and his fam nikole are familiar with the use and administration of both long acting as well as short acting insulin (includung sliding scales) as they have used them for many years. The family is bobby y supportive and involved with the patient's health management, and they assure us that they will take him to see his PCP tomorrow for management of his diabetes/insulin. The patient h as a very good relationship with his PCP and his diabetic vp emerging media whom he sees regularl y. The patient and family have a strong desire to discharge to home today. Thus he is felt t o be appropriate for discharge to home with PCP follow up tomorrow. Musculoskeletal / Skin: No active issues, Routine decubitus ulcer prevention. PT/OT DVT prophylaxis: SCDs while in bed Disposition: to home today Clifton Marshall MD Neurosurgery PGY1 Promise Jaime MD - 1:38 PM PST NSICU Neuroscience ICU Attending Waiter/Waitress Captain Note Derick Franco is a 74 y.o. male admitted 03/26/2015 8:31 PM.I have seen and evaluated Derick Franco with H/O cassandra Melton, and reviewed the chart, lab and imaging results. 74 y.o. male presenting with acute on chronic RIGHT SDH. He reports that he fell either tod ay or yesterday (says he is losing track of time). He has been falling at home but can't rem ember the time course. He fell backwards and hit his head. Per transfer center notes it was 2 weeks ago and he has had increasing confusion since. He has also had nausea and vomiting b ut cant remember the time course. He does endorse taking ASA and plavix but is unable to rec all the rest of his medications since his rpalavfp-ql-iig Dione is the one who manges all his medications. He was brought to [facility] in [facility], [place] by EMS. On arrival his BP was 176/107 which was treated with labetalol. CT scan reviled a large acute on chroni c RIGHT subdural hematoma with right midline shift PMHx significant for DM, HTN, CAD s/p CO (on ASA and Plavix), TIA 24 Hour Events: ding well Neuro exam: non focal, AA and Ox4 Current problems include: right SDH acute on chronic, MLS, st/p lj hole evacuation , pneumocephalus postop,received platelets transfusion preop due to chronic antiplatelet t herapy ASA and Plavix (post CO), mild leucocytosis - reactive, normocytic anemia baseline an d periop BL, hyperchloremia Plan: hadley status, bronchial hygiene, SBP<160 mmHg, adat., OOB ambulate. Relevant Risks: This patient is currently at risk for the following: cerebral edema, sei zure and subdural hematoma; arrhythmia; edema, ICU delirium and UTI. I spent 22 minutes actively involved in the care and management of this patient Promise Valdez MD [facility] DEPARTMENT: [id number] ICU NEURO Place of Service:- Inpatient Date of Service: 03/28/15 CSN: [id number] Suggested Modifier: GC - Resident Involved Suggested CPT: TO CODER P M Ely Hernández MD - 03/28/2015 12:39 PM PST [facility] Neuroscience ICU Progress Note Team Pager: [phone] Attendin Patient name: Derick Franco Author: Ely Oquendo MD Date of Service: 03/28/2015 Intensive Care Attending: Promise Valdez MD Attending Provider: Dixie Sykes MD ICU day # 3 POD # 2 s/p right lj holes for evacuation of subdural hematoma ID: Derick Franco is a 74 y.o. male with PMHx significant for DM, HTN, CAD s/p CO (on ASA an d Plavix), TIA, presenting with acute on chronic RIGHT SDH. He reports that he fell either today or yesterday (says he is losing track of time). He has been falling at home but can't remember the time course. He fell backwards and hit his head . Per transfer center notes it was 2 weeks ago and he has had increasing confusion since. He reported at the time of his more recent fall he had a headache and neck pain that has now r esolved. He has also had nausea and vomiting but cant remember the time course. He does endo rse taking ASA and plavix but is unable to recall the rest of his medications since his daug hter-in-law Dione is the one who manges all his medications. He was brought to [facility] in [facility], [place] by EMS. On arrival his BP was 176/107 which was treated with labe talol. CT scan revealed a large acute on chronic RIGHT subdural hematoma with right midline shift' - note adapted from Dr. Luis Alberto Covarrubias&P note dated 03/26/15. 24 HOUR EVENTS: -low output from subgaleal drain 6mL/24hrs -neuro exam stable, no acute changes -Hct drop from 27 to 24, likely hemodilutional Imaging: -No new imaging PE: Neurological: Awake, alert and oriented to person, place, time and situation, eyes open sp ontaneously, PERRLA, EOMI, sensation intact V1-V3 distribution bilaterally, face symmetric, TML, + cough, + gag, shoulder shrug strong and intact, strength: RUE: 5/5; RLE: 5/5; LUE: 5/5; LLE; 5/5, sensation intact to light touch throughout. Hard of hearing Cardiovascular: Rhythm: No murmurs, rubs or gallops, RRR Respiratory: Breath sounds: clear bilaterally, no increased work of breathing GI: Abdomen, soft / Renal: Garcia catheter: Yes HEME/ID: TM: Temp (24hrs), Av.9 C (98.5 F), Min:36.6 C (97.8 F), Max:37.2 C (99 F) Thromboprophylaxis: SCDs Head of Bead: >30 degrees Infection Control: PIV's, x2 Endocrine: Lab Results Component Value Date GLU 247* 03/28/2015 GLU 263* 03/28/2015 GLU 134* 03/28/2015 GLU 144* 03/28/2015 Glycemic Control: insulin infusion Musculoskeletal/Skin: Extremities: warm and well perfused; distal pulses intact and symmetric Skin: no rashes or significant breakdown Assessment & Plan: 74 y.o. male with PMHx significant for DM, HTN, CAD s/p CO (on ASA and Plavix), TIA, presen ting with acute on chronic RIGHT SDH. Neurological # AoC R SDH s/p lj holes # hx TIAs # post operative pneumocephalus # midline shift -serial neuro checks, q1hr while in the icu -pain control w/ APAP, oxycodone, and hydromorphone -dexamethasone 2mg BID per NSG for brain edema -pneumocephalus: kept HOB flat x24hrs with supplemental oxygen -etiology of bleed likely d/t to recent falls while on anticoagulation for his cardiac hx -subgaleal drain dc'd today -stable for transfer Cardiovascular # HTN # CAD # CO -sBP goal < 140mmHg -home metoprolol and lisinopril -home statin -currently holding home ASA and Plavix in immediate post op period Respiratory #no acute issues # at risk for atelectasis -maintain O2 > 92% -aggressive pulmonary toilet -mobilize to cardiac chair FEN/GI # consitpation -diet: ADAT to diabetic diet -GI prophylaxis not clinically indicated -NSICU bowel protocol -K and Mg SS per JUL, continue to monitor and replace electrolytes PRN w/ daily RFS Renal # no acute issue -garcia: remove today -I/O goal euvolemia, MIVF if not taking enough PO Heme/ID # leukocytosis, improving, likley reactive -afebrile; HDS; no increase in oxygen demand. Likely reactive from surgery and steroids, co ntinue to monitor. -SCDs for DVT prophylaxis -daily CBC Endocrine # DM # hypothyroidism -continue endotool until on stable diet and able to transition to SSI -levothyroxine MS/Skin # at risk for skin breakdown and muscle deconditioning -routine decubitus ulcer prevention -mobilize as tolerated Other -family updated PRN -L/T/D: PIV x2, garcia -disposition: stable for hadley transfer F: diabetic diet A: APAP, hydromorphone, and oxycodone S: none T: SCDs H: elevated 30 deg U: n/a G: endotool GOALS: SBP < 140 MAP > 65 ICP < 20 CPP > 70 Sodium Goals 135-145 Magnesium > 2 I/O goal Euvolemic: -500 to +500 Hgb > 9 Relevant Risks: This patient is currently at risk for the following: cerebral edema, dwayne ctrolyte imbalance, hydrocephalus, ICH and intracerebral hemorrhage; acute renal failure and ICU delirium. This patient has been staffed with Dr. Promise Valdez MD, attending physician, who agree s with the above assessment and plan. Ely Oquendo MD [facility] DEPARTMENT: [id number] ICU NEURO Place of Service:- Inpatient Date of Service: 03/28/2015 CSN: [id number] Suggested Modifier: None Salty Kulkarni MD - 03/28/2015 9:14 AM PST NEUROSURGERY PROGRESS NOTE Author: Salty Alexander MD Attending Physician: Dixie Sykes MD HPI/Interval Update: -- no acute events -- SG drain with 6 out Physical Exam: BP 123/46 | Pulse 81 | Temp 37.1 C (98.8 F) | RR 16 | Ht 1.778 m (5' 10") | Wt 65.6 kg (144 lb 10 oz) | SpO2 100% | BMI 20.75 kg/(m^2) BP Min: 107/52 Max: 156/67 Temp Av.5 C (97.7 F) Min: 35.8 C (96.4 F) Max: 37.1 C (98.8 F) Pulse Av.5 Min: 56 Max: 87 Resp Av.1 Min: 8 Max: 27 SpO2 Av.7 % Min: 94 % Max: 100 % Height Av.8 cm (5' 10") Min: 177.8 cm (5' 10") Max: 177.8 cm (5' 10") Weight Av.6 kg (144 lb 10 oz) Min: 65.6 kg (144 lb 10 oz) Max: 65.6 kg (144 lb 10 o z) Intake/Output Summary (Last 24 hours) at 03/27/15 1107 Last data filed at 03/27/15 1000 Gross per 24 hour Intake 3434.81 ml Output 345 ml Net 3089.81 ml Lab Results Component Value Date/Time NA 146* 03/27/2015 03:26 AM NA 143 03/26/2015 10:12 PM K 3.3* 03/27/2015 03:26 AM K 3.0* 03/26/2015 10:12 PM CR 0.96 03/27/2015 03:26 AM HCT 27.4* 03/27/2015 03:26 AM HCT 30.8* 03/26/2015 10:12 PM WBC 12.54* 03/27/2015 03:26 AM PLT 342 03/27/2015 03:26 AM ALB 2.9* 03/27/2015 03:26 AM ] CULT, URINE SCREEN (no units) Date Value 03/27/2015 Positive* Lab Results Component Value Date PH 7.43 03/26/2015 PCO2 38 03/26/2015 PO2 553* 03/26/2015 HCO3 25.3 03/26/2015 Exam: Flat Awake, alert, hard of hearing Oriented x3 PERRL, EOMI, face symmetric 5/5 strength no drift Incision c/d/i Assessment and Plan: Derick Franco is a 74 y.o. male with R SDH s/p R lj holes for evac on 03/26. Neurologically non-focal. -- transfer to hadley -- liberalize activity, ok to be upright OOB, mobilizing -- complete 2 weeks of dex 2BID Contact neurosurgery resident medical radiation tech with questions [place] pager [phone] [place] [id number] PGY-4 Neurosurgery Promise Jaime MD - 03/27/2015 9:53 AM PST NSICU Neuroscience ICU Attending Waiter/Waitress Captain Note Derick Franco is a 74 y.o. male admitted 03/26/2015 8:31 PM.I have seen and evaluated Derick Franco with ACNP Mr. Zheng, and reviewed the chart, lab and imaging results. I agree with e assessment and plan as detailed in the houseofficer note. 74 y.o. male presenting with acute on chronic RIGHT SDH. He reports that he fell either tod ay or yesterday (says he is losing track of time). He has been falling at home but can't rem ember the time course. He fell backwards and hit his head. Per transfer center notes it was 2 weeks ago and he has had increasing confusion since. He has also had nausea and vomiting b ut cant remember the time course. He does endorse taking ASA and plavix but is unable to rec all the rest of his medications since his vbmgxyig-zh-eun Dione is the one who manges all his medications. He was brought to [facility] in [place], [place] by EMS. On arrival his BP was 176/107 which was treated with labetalol. CT scan reviled a large acute on chroni c RIGHT subdural hematoma with right midline shift PMHx significant for DM, HTN, CAD s/p CO (on ASA and Plavix), TIA Notable labs: Wbc 12.3, H/H 11.8/36.1, BUN 19, Cr 0.84, glucose 324 UA- 1000 glucose 24 Hour Events: taken to the OR for SDH hematoma evacuation via lj holes, pneumocephalus postop Neuro exam: AA and Ox3-4, FCs briskly AEs, non focal Current problems include: right SDH acute on chronic, MLS, st/p lj hole evacuation , pneumocephalus postop,received platelets transfusion preop due to chronic antiplatelet t herapy ASA and Plavix (post CO), mild leucocytosis - reactive, normocytic anemia baseline a nd periop BL Plan: close neuro monitoring, hold anticoagulation, to remain flat for 24hrs, supplemental O2, bronchial hygiene, SBP<140 mmHg, obtain outside records, adat. Relevant Risks: This patient is currently at risk for the following: cerebral edema, ICH , intracerebral hemorrhage, seizure and subdural hematoma; arrhythmia; dysphagia, edema, ICU delirium and UTI. I spent 31 minutes actively involved in the care and management of this patient who is cri tically ill Promise Valdez MD [facility] DEPARTMENT: [id number] ICU NEURO Place of Service:- Inpatient Date of Service: 03/27/15 CSN: [id number] Suggested Modifier: GC - Resident Involved Suggested CPT: [facility] CODER P [facility] Song MD - 03/27/2015 8:29 AM PST Date: 03/27/2015 Author: Luis Bender MD Admitting Physician: Dixie Sykes MD HPI/Interval Update: S/p R lj holes for evac SDH Flat dex NEUROLOGICAL EXAM: AAOx self, place, time; Speech fluent, answers appropriately PERRL, EOMI Face symmetric, TML No pronator drift, no FTN dysmetria 5/5 throughout SILT Incision clean/dry/intact Objective: Last Vitals: BP 123/46 | Pulse 84 | Temp 36.5 C (97.7 F) | RR 11 | Ht 1.778 m (5' 10") | Wt 65.6 kg (144 lb 10 oz) | SpO2 100% | BMI 20.75 kg/(m^2) 24 Hour Vital Min/Max: Systolic (24hrs), Av mmHg, Min:107 mmHg, Max:156 mmHg Diastolic (24hrs), Av mmHg, Min:46 mmHg, Max:78 mmHg Pulse Min: 56 Max: 87 Temp Min: 35.8 C (96.4 F) Max: 36.9 C (98.5 F) Resp Min: 8 Max: 27 SpO2 Min: 94 % Max: 100 % Intake/Output Summary (Last 24 hours) at 03/27/15 0829 Last data filed at 03/27/15 0800 Gross per 24 hour Intake 2975.85 ml Output 185 ml Net 2790.85 ml 0 Radiology: No new Lab Results Component Value Date WBC 12.54* 03/27/2015 RBC 3.12* 03/27/2015 HB 9.3* 03/27/2015 HCT 27.4* 03/27/2015 MCV 87.8 03/27/2015 MCHC 33.9 03/27/2015 RDW 40.7 03/27/2015 PLT 342 03/27/2015 MPV 9.9 03/27/2015 NRBCPERC 0.0 03/27/2015 NRBCABS 0.00 03/27/2015 Lab Results Component Value Date NA 146 03/27/2015 K 3.3 03/27/2015 CL 109 03/27/2015 BICARB 29 03/27/2015 BUN 23 03/27/2015 CR 0.96 03/27/2015 GLU 162 03/27/2015 CA 7.5 03/27/2015 Vent: Recent Labs 03/26/15 2212 PH 7.43 PCO2 38 PO2 553* HCO3 25.3 M1DTEHPS 100.9* Assesment: Derick Franco is a 74 y.o. male with R SDH s/p R lj holes for evac on 03/26. Geraldo rologically non-focal. PLAN: - q1 neuro checks - Dressings to remain in place for 48 hours post op - keep dressings and incision C/D/I - Maintain adequate analgesia with goal RASS 0 - ADAT - PT/OT, Encourage mobilization - SCDs while in bed - cont dex 2Q12 - ok transfer to hadley - remain flat 24hr total Luis Bender MD Neurosurgery Resident Pager #[phone] het Zheng ACNP - 03/27/2015 5:29 AM PST 7NSICU Neuroscience ICU Progress Note Patient name: Derick Franco Author: CHAPO Dhillon Date of Service: 03/27/2015 Intensive Care Attending: MD Courtney Attending Provider: Dixie Sykes MD ICU day # 2, POD # 1 s/p right lj holes for evacuation of subdural hematoma. HPI: Derick Franco is a 74 y.o. male with PMHx significant for DM, HTN, CAD s/p CO (on ASA an d Plavix), TIA, presenting with acute on chronic RIGHT SDH. 'He reports that he fell either today or yesterday (says he is losing track of time). He franco s been falling at home but can't remember the time course. He fell backwards and hit his hea d. Per transfer center notes it was 2 weeks ago and he has had increasing confusion since. H augustine reported at the time of his more recent fall he had a headache and neck pain that has now resolved. He has also had nausea and vomiting but cant remember the time course. He does end orse taking ASA and plavix but is unable to recall the rest of his medications since his anyi krfhj-mq-uif Dione is the one who manges all his medications. He was brought to [facility] in [place], [place] by EMS. On arrival his BP was 176/107 which was treated with lab etalol. CT scan revealed a large acute on chronic RIGHT subdural hematoma with right midline shift' - note adapted from Dr. Luis Alberto Pérez note dated 03/26/15. 24 Hour Events: - admitted - to OR for lj holes and evacuation of SDH - 500cc NS bolus for low UOP - extubated post op w/o complication - 1 unit plt given pre op, 1 unit plt and prbc given intraop Images: PE: Last 24 hour min/max Temp: 36.5 C (97.7 F) Temp Min: 35.8 C (96.4 F) Max: 36.9 C (98.5 F) Pulse: 81 Pulse Min: 56 Max: 81 Resp: 24 Resp Min: 8 Max: 27 BP: 123/46 mmHg BP Min: 107/52 Max: 156/67 SpO2: 100 % SpO2 Min: 98 % Max: 100 % Body mass index is 20.75 kg/(m^2). Neurological: Awake, alert, and oriented x4; PERRL; EOMi; V1-V3 symmetric; VFF; hearing intact to voice; face symmetric; tongue midline; +cough/gag/corneals; DOSS > AG 5/5, sensation intact in all e xtremities. No pronator drift, FTN intact; no tremors or clonus noted on my exam. Cardiovascular: NSR, normal s1/s2, no m/r/g, pulses 2+ in all ext Respiratory: BS symmetric, CTA in all miranda, moving air well, no wheezes, rales or rhonch i Resp Av.4 Min: 8 Max: 27 SpO2 Av.8 % Min: 98 % Max: 100 % GI: Abd soft NT/ND, normal active BS present in all quadrants : Garcia catheter: Yes; urine yellow Input/Output Summary: Intake/Output Summary (Last 24 hours) at 03/27/15 0529 Last data filed at 03/27/15 0500 Gross per 24 hour Intake 2532.64 ml Output 145 ml Net 2387.64 ml HEME/ID: TM: Temp (24hrs), Av.3 C (97.4 F), Min:35.8 C (96.4 F), Max:36.9 C ( 98.5 F) Musculoskeletal/Skin: extremities warm, well perfused, no edema, cyanosis or clubbing; sk in without rashes or significant breakdown Problem List: Patient Active Problem List Diagnosis Subdural hematoma (HCC) Assessment & Plan: 74 y.o. male with PMHx significant for DM, HTN, CAD s/p CO (on ASA and Plavix), TIA, presen ting with acute on chronic RIGHT SDH. Neurological # AoC R SDH s/p lj holes # hx TIAs # post operative pneumocephalus # midline shift -serial neuro checks, q1hr -pain control w/ APAP, oxycodone, and hydromorphone -dexamethasone 2mg BID per NSG for brain edema -- change IV to PO -pneumocephalus: keep HOB flat x24hrs and supplemental oxygen -etiology of bleed likely d/t to recent falls while on anticoagulation for his cardiac hx -subgaleal drain in situ to gravity, follow output -stable for transfer Cardiovascular # HTN # CAD # CO -sBP goal < 140mmHg -nicardipine gtt to achieve goal, wean as tolerated -restart home metoprolol and lisinopril --once off nicardipine for > 2 hours, remove arteri al line -home statin -currently holding home ASA and Plavix in immediate post op period Respiratory # at risk for atelectasis -maintain O2 > 92% -aggressive pulmonary toilet -mobilize to cardiac chair FEN/GI # consitpation -diet: ADAT to diabetic diet -GI prophylaxis not clinically indicated -NSICU bowel protocol -- add milk of mag -K and Mg SS per JUL, continue to monitor and replace electrolytes PRN w/ daily RFS Renal # low UOP overnight -garcia: in situ from OR, no need for strict I/Os, will remove today following flat precauti ons -500cc NS bolus given overnight for low UOP -I/O goal euvolemia, currently positive 2.3L Heme/ID # leukocytosis -white count 12K; afebrile; HDS; no increase in oxygen demand. Likely reactive from surgery , continue to monitor. -SCDs for DVT prophylaxis -periop cefazolin per NSG, last dose today at 2200 -daily CBC Endocrine # DM # hypothyroidism -continue endotool until on stable diet and able to transition to SSI -questionable hx of hypothyroidism, will follow up pharmacy records and [place] [facility] rec confirmed, will restart levothyroxine. MS/Skin # at risk for skin breakdown and muscle deconditioning -routine decubitus ulcer prevention -mobilize as tolerated Other -family updated PRN -L/T/D: PIV x2, subgaleal drain, garcia -disposition: ICU F: diabetic diet A: APAP, hydromorphone, and oxycodone S: none T: SCDs H: flat until 2300 U: n/a G: endotool GOALS: SBP < 140 MAP > 65 ICP < 20 CPP > 70 Sodium Goals 135-145 Magnesium > 2 I/O goal Euvolemic: -500 to +500 Hgb > 9 Relevant Risks: This patient is currently at risk for the following: cerebral edema, dwayne ctrolyte imbalance, hydrocephalus, intracerebral hemorrhage, ischemic stroke and seizure; ar rhythmia and myocardial infarction; DVT/Pulmonary embolism, dysphagia, edema, ICU delirium, respiratory compromise, skin deconditioning including pressure ulcer and UTI. This patient has been staffed with Dr. Valdez, attending physician, who agrees with the above assessment and plan. This patient is critically ill. I have personally and independently examined this pt and sp ent in excess of 36 minutes discontinuously taking care of this patient. This care includes but is not limited to direct patient care, communication with family, nursing staff, and con sultants. This time is exclusive of procedures. CHAPO Dhillon [facility] DEPARTMENT: [id number] ICU NEURO Place of Service:- Inpatient Date of Service: 03/27/2015 CSN: [id number] Suggested Modifier: None Suggested CPT: TO PLACER MINER Recent Labs 03/26/15203203/26/15221103/27/156 NA 141 143 146* K 4.0 3.0* 3.3* CL 107 107 109* BICARB 26 -- 29 BUN 18 -- 23* CR 0.81 -- 0.96 CA 7.9* -- 7.5* MG 2.0 -- 2.2 PO4 -- -- 2.1* Recent Labs 03/26/15203203/26/15221103/27/156 WBC 10.48 -- 12.54* HB 10.5* -- 9.3* HCT 30.8* 30.8* 27.4* PLT 248 -- 342 Current Medications: Current Inpatient Medications Medication Dose Route Frequency bisacodyl (DULCOLAX) suppository 10 mg 10 mg rectal DAILY PRN ceFAZolin (ANCEF) 2 g in NaCl 0.9 % IV 2 g intravenous Q8H chlorhexidine (PERIDEX) mouthwash 15 mL 15 mL oral Q6H dexamethasone (DECADRON) injection 2 mg 2 mg intravenous Q12H dextrose 5%-NaCl 0.45% IV infusion 5-400 mL intravenous PRN dextrose 50 % in water IV 15-150 mL 15-150 mL intravenous PRN glucose chewable tablet 4-40 g 4-40 g oral PRN HYDROmorphone (DILAUDID) injection 0.2-1 mg 0.2-1 mg intravenous Q2H PRN insulin regular bolus from continuous infusion 1-50 Units 1-50 Units intravenous NE EDED (BOLUS) insulin regular in NaCl 0.9% IV infusion 250 units/250 mL (1 unit/mL) 0.1-50 Units/hr intravenous CONTINUOUS magnesium sulfate in water IV (RTU) 2 g 2 g intravenous PRN magnesium sulfate in water IV (RTU) 4 g 4 g intravenous PRN NaCl 0.9%-KCl 20 mEq/L IV infusion intravenous CONTINUOUS niCARdipine (CARDENE) IV infusion (ICU, [facility]) 0.5-15 mg/hr intravenous CONTINUOUS ondansetron (ZOFRAN) injection 4 mg 4 mg intravenous Q8H Followed by [START ON 03/28/2015] ondansetron (ZOFRAN) injection 4 mg 4 mg intravenous Q8H PRN Followed by [START ON 03/30/2015] ondansetron (ZOFRAN) injection 4 mg 4 mg intravenous Q12H PRN polyethylene glycol (MIRALAX) powder 17 g 17 g oral DAILY polyethylene glycol (MIRALAX) powder 34 g 34 g oral TID PRN potassium chloride SR (K-DUR) tablet 20-40 mEq 20-40 mEq oral PRN Or potassium chloride (KAOCHLOR) liquid 20-40 mEq 20-40 mEq feeding tube PRN potassium chloride IV 10 mEq 10 mEq intravenous PRN senna-docusate (SENOKOT S) 8.6-50 mg 2 tablet 2 tablet oral BID simvastatin (ZOCOR) tablet 40 mg 40 mg oral QPM [facility] - 03/27/2015 12:[address] [facility] NEUROSURGERY POST OPERATIVE CHECK Author: Luis Bender MD Date: 03/27/2015 Attending Physician: Dixie Sykes MD PROCEDURE: R lj holes for evac SDH S: Doing well, pain controlled, extubated without issue VITAL SIGNS: BP 123/46 | Pulse 56 | Temp 35.8 C (96.4 F) | RR 16 | Ht 1.778 m (5' 10") | Wt 65.6 kg (144 lb 10 oz) | SpO2 100% | BMI 20.75 kg/(m^2) PHYSICAL EXAM FINDINGS: AOx3 with prompting, confused on location PERRL, EOMI, FS grossly, TML 5/5 strength Bilateral UEs & LEs, sensation intact in all extremities, gait not examined Incision covered with dressing - C/D/I. Flat. No fluid collection. No fluctuance. No drai nage/CSF leak noted Drain in place POST OPERATIVE IMAGING: A/P: Neurologically stable. Continue care: - Neuro checks q 1 hour - Keep incision and dressings C/D/I. - Maintain adequate analgesia with goal RASS 0 - SBP 100-160 - ADAT - Utilize bowel regimen for goal 1 BM per 24 hours - SCDs while in bed Luis Bender MD Neurosurgery Resident Pager #[phone] documented in this en counter H&P Notes Carol Casiano MD - 03/26/2015 9:27 PM PSTNSICU ATTENDING Author: Carol Casiano MD Date of Service: 03/26/2015 I saw and evaluated the patient at the bedside with the housekeeping assistant and agree with the as sessment and plan as documented. I have reviewed all relevant meds, labs and radiology data. Briefly, this is a 75 y.o. man with a history of DM, HTN, CAD on aspirin and plavix, who franco d a ground level fall 2 weeks ago, initial workup was negative, but has had increasing falls over the last two weeks and confusion. Imaging showed a large R acute on chronic SDH with 1 .4cm of R to L midline shift. He was taken promptly to the OR for evacuation of the SDH. Johanna isidro was uncomplicated, dark blood was irrigated and a drain was left in the subgaleal space . He was extubated and transferred back to the ICU. PE: Neuro: A&O x2. Language clear and fluent. PERRL. EOMI. Visual miranda full. Face symmetric. Hearing intact. TUP midline. Strength symmetric, 5/5. No sensory loss. No cerebellar signs. A/P: 75 y.o. man history of CAD, on aspirin and plavix, with recent falls, found to have a large R acute on chronic SDH, now s/p evacuation. Patients Hospital Problem List: Active Hospital Problems 1) Subdural hematoma (HCC) 1. Neuro: SDH. Subgaleal drain in place, monitor output. CT of head after procedure showed pneumocephalus - will keep head of bed flat for the next 24 hours. Monitor wound for infecti on. Frequent neuro checks. Discuss with neurosurgery about steroids plan. - Pain control with prn oxycodone and acetaminophen. 2. CV: HTN, CAD MAP>65 mmHg, SBP< 160 mmHg. On nicardipine, restart home meds. Hold aspirin and plavix for now. On telemetry. 3. Pulm: Extubated. Mobilize. Pulmonary hygiene. Encourage IS 4. Renal: Normal renal function. Replete electrolytes as needed 5. GI//Endo: Current diet: Regular diet. Advance diet as tolerated - Continue sliding scale insulin with goal BG<200 6. Heme - Monitor H&H. Given platelets periop. 7. ID: Afebrile, perioperative antibiotics. 8. Proph: DVT proph with SCDs. 9. Lines: IV. No garcia. This patient is in the neuro ICU and is being treated for central nervous system failure. h e is at high risk for the following: intracerebral hemorrhage, reperfusion injury, seizure a nd subdural hematoma; arrhythmia; central line associated blood stream infection, ICU deliri um, skin deconditioning including pressure ulcer and UTI and requires frequent monitoring. Carol Casiano MD I spent 33 minutes in direct care and management of this patient who is critically ill with over 50% spent at the patient s beside, reviewing data, discussing the patient s care w ith other medical staff, charting, and discussion with treatment decision maker. Lisa Ross MD - 1 05/26/2014 8:12 PM PST NEUROCRITICAL CARE ADMISSION NOTE Author: Lisa Sahu MD Date of Admission: 03/26/15 ICU Attending: Carol Casiano MD Admit Service: Neurosurgery HPI: Derick Franco is a 74 y.o. male with PMHx significant for DM, HTN, CAD s/p CO (on ASA a nd Plavix), TIA, presenting with acute on chronic RIGHT SDH. He reports that he fell either today or yesterday (says he is losing track of time). He has been falling at home but can't remember the time course. He fell backwards and hit his head . Per transfer center notes it was 2 weeks ago and he has had increasing confusion since. He reported at the time of his more recent fall he had a headache and neck pain that has now r esolved. He has also had nausea and vomiting but cant remember the time course. He does endo rse taking ASA and plavix but is unable to recall the rest of his medications since his daug hter-in-law Dione is the one who manges all his medications. He was brought to [facility] in [place], [place] by EMS. On arrival his BP was 176/107 which was treated with labe talol. CT scan reviled a large acute on chronic RIGHT subdural hematoma with right midline s hift Notable labs: Wbc 12.3, H/H 11.8/36.1, BUN 19, Cr 0.84, glucose 324 UA- 1000 glucose In transit he received 20mg labetalol x2 for elevated SBP On arrival he was started on a nicardipine drip. He was taken to the OR for lj holes for evacuation of his SDH. He was given 1U plt during and after procedure. EBL 15mL, 1L IVF He w as sedated with stephane and arrived to NSICU intubated. He was extubated successfully a few hour s later. He does not remember his PCP name but states that he is seen at the [facility] in [place], [place] IMAGING: CT head OSH PMH: CO TIA DM ? Thyroid disease Past Surgical History: History reviewed. No pertinent past surgical history. Home Meds: Old list from 2012 has not been verified - ASA 81mg - plavix 75mg - simvastatin 40mg - omeprazole 20mg - promethazine 25mg TID - ferrous sulfate 325 2 tabs daily - levothyroxine 25mg - lisinopril 5mg - Glargine 100U ? - Aspart 100U ? - gabapentin 100mg QHS - Tramadol 50mg 1-2 tabs BID - Bactrim 1 tab daily Allergies: NKDA Social History: History Social History Marital Status: Spouse Name: N/A Number of Children: N/A Years of Education: N/A Occupational History Not on file. Social History Main Topics Smoking status: Not on file Smokeless tobacco: Not on file Alcohol Use: Not on file Drug Use: Not on file Sexual Activity: Not on file Other Topics Concern Not on file Social History Narrative No narrative on file Family History: [place] Review of Systems: A complete review of systems was performed and is negative except as per HPI. PE: BP 123/46 | Pulse 79 | Temp 36.1 C (97 F) | RR 10 | Ht 1.778 m (5' 10") | Wt 65.6 kg (1 44 lb 10 oz) | SpO2 100% | BMI 20.75 kg/(m^2) Constitutional: WD/WN, NAD Admission Weight: 0 Neurological: Mental status: Alert & oriented to self, time and situation but not location, confusion reg arding timeline of events Cranial Nerves: 3mm Equal, round and reactive to light. EOMI.; Faces symmetrical.; V1-V3 in tact bilaterally. Tongue protrudes midline. Shoulder shrug intact Motor: RUE 5/5 RLE 5/5 LUE 5/5 LLE 5/5 Sensory: Intact to LT No drift in UE or LE EVD: No Last0 0 24 Hour No Data RecordedNo Data Recorded HEENT: - NCAT Cardiovascular: - RRR Respiratory: - respirations even GI: - abd soft, NT/ND, normal active BS present /Renal: Garcia: no Musculoskeletal: - ext warm, well perfused, no edema, cyanosis, or clubbing Skin: - No rashes or significant breakdown; Lines/Tubes/Drains: - PIV Problem List Patient Active Problem List Diagnosis Subdural hematoma (HCC) Assessment and Plan: Derick Franco is a 74 y.o. male with PMHx significant for DM, HTN, CAD s/p CO (on ASA and Pl avix), TIA, presenting with acute on chronic RIGHT SDH. Neurological: # Acute on chronic RIGHT SDH # s/p lj holes and evacuation of SDH -Admit to NSICU -Neurochecks q1h, follow clinical exam -post-op CT head with pneumocephalus- HOB falt -drain to gravity -Na goal 135-145 -Pain control with APAP, Oxycodone and IV hydromorphone HEENT: No active issues. Cardiovascular: # CAD s/p CO # HTN - Goal SBP < 140 - Blood pressure management with nicardipine, will try to wean to prn labetalol and hydrala zine only - Continue to monitor on telemetry - Holding home lisinopril until dosing verified (records requested from PCP clinic) - holding home ASA and plavix in the setting of SDH - cont home simvastatin 40mg - EKG on admission Respiratory: # At risk for atelectasis # intubated for procedure- now extubated Chest x-ray not indicated - IS 10x per hr - maintain marga >95% GI/Nutrition: # At risk for constipation/ileus # At risk for NV - Diet: NPO, will start diet pending swallow study - NSICU bowel protocol - MIVF: Normal saline w/ 20 mEq K+ - PRN Zofran - GI Prophylaxis: not clinically indicated / Renal: # At risk for urinary retention # At risk for electrolyte deficiencies - Garcia: placed pre-op, plan to remove as able - UTI workup if admitted with Garcia present - Daily renal function sets - Sodium goal: 135-145 - Replete electrolye deficiencies as needed ID/HO: # At risk for DVT/PE # At risk for infection -SCDs for DVT prophy; chemo prophy contraindicated due to Bleeding risk -Daily CBC -Antibiotics: edith-op cefazolin - Chowdary culture for fever >/ 38.3 Endocrine: # At risk for hyperglycemia, stress related # DM- insulin dependent -placed on endotool for elevated CBG Musculoskeletal / Skin: # At risk for skin breakdown - Routine decubitus ulcer prevention per Emerson scale - PT/OT as indicated Routine ICU Care: Lines/Tubes/Drains: PIV, wound drain, Feeding: NPO Analgesia: APAP, Oxycodone and IV hydromorphone Sedation: not indicated Thromboprophylaxis: SCDs Head of bed: Flat Ulcer prophylaxis: not clinically indicated Glycemic control: Insulin infusion Advanced Care Plan or Advanced Directive: I don't know Does Patient have Surrogate Decision Maker: I don't know --If no, has next of kin been identified: Yes --Name and contact information of next of kin: : Gladis Franco/ [phone] [id number] Dione [phone] Disposition: NSICU Code: Full This patient has been staffed with Dr. Carol Casiano, attending physician, who agrees with the above assessment and plan. Lisa Sahu MD [facility] DEPARTMENT: [id number] ICU NEURO Place of Service:- Inpatient Date of Service: 03/26/2015 [facility]: [id number] Lab Results Component Value Date WBC 10.48 03/26/2015 HB 10.5 03/26/2015 HCT 30.8 03/26/2015 PLT 248 03/26/2015 MCV 88.8 03/26/2015 RDW 40.5 03/26/2015 Chemistries Last 96 Hours (or 3 results): CBC with diff last 96 hours (or 3 results) Invalid input(s): BANDPCT No results found for this basename: tbili,ap,tp,dirbili,alb,ast,alt Invalid input(s): INR No results found for: CULTURE Current Medications: Current Inpatient Medications Medication Dose Route Frequency bisacodyl (DULCOLAX) suppository 10 mg 10 mg rectal DAILY PRN ceFAZolin (ANCEF) 2 g in NaCl 0.9 % IV 2 g intravenous Q8H chlorhexidine (PERIDEX) mouthwash 15 mL 15 mL oral Q6H dexamethasone (DECADRON) injection 2 mg 2 mg intravenous Q12H dextrose 5%-NaCl 0.45% IV infusion 5-400 mL intravenous PRN dextrose 50 % in water IV 15-150 mL 15-150 mL intravenous PRN glucose chewable tablet 4-40 g 4-40 g oral PRN HYDROmorphone (DILAUDID) injection 0.2-1 mg 0.2-1 mg intravenous Q2H PRN insulin regular bolus from continuous infusion 1-50 Units 1-50 Units intravenous NE EDED (BOLUS) insulin regular in NaCl 0.9% IV infusion 250 units/250 mL (1 unit/mL) 0.1-50 Units/hr intravenous CONTINUOUS magnesium sulfate in water IV (RTU) 2 g 2 g intravenous PRN magnesium sulfate in water IV (RTU) 4 g 4 g intravenous PRN NaCl 0.9%-KCl 20 mEq/L IV infusion intravenous CONTINUOUS niCARdipine (CARDENE) IV infusion (ICU, Omnicell) 0.5-15 mg/hr intravenous CONTINUOUS ondansetron (ZOFRAN) injection 4 mg 4 mg intravenous Q8H Followed by ondansetron (ZOFRAN) injection 4 mg 4 mg intravenous Q8H PRN Followed by [START ON 03/29/2015] ondansetron (ZOFRAN) injection 4 mg 4 mg intravenous Q12H PRN polyethylene glycol (MIRALAX) powder 17 g 17 g oral DAILY polyethylene glycol (MIRALAX) powder 34 g 34 g oral TID PRN potassium chloride SR (K-DUR) tablet 20-40 mEq 20-40 mEq oral PRN Or potassium chloride (KAOCHLOR) liquid 20-40 mEq 20-40 mEq feeding tube PRN propofol (DIPRIVAN) injection 0.5-50 mcg/kg/min intravenous CONTINUOUS senna-docusate (SENOKOT S) 8.6-50 mg 2 tablet 2 tablet oral BID simvastatin (ZOCOR) tablet 40 mg 40 mg oral QPM IMAGING: No results found for: CTHEAD No results found for: MRICSPINE, MRINECK, MRILSPINE, MRITSPINE, MRISPINE, MRIBRAIN No results found for: [facility]R [facility] Song MD - 03/26/2015 6:24 PM PST NEUROSURGERY ADMISSION HISTORY & PHYSICAL Author: Luis Bender MD Date: 03/26/2015 Attending Physician: Dixie Sykes MD PCP: Eli Baker MD HPI: 74yo M with pmh of HTN, DM, CO, on ASA and plavix had a GLF two weeks ago with negative fin dings in the ED, fell again today with increasing confusion since the first fall, found to h ave a large right acute on chronic SDH with 1.4cm of MLS. He fell initially after [place] [employer] g when putting his gun away, he stepped in a rut and fell backward. Since he has had a few m ore falls and per report has been having increasing confusion. He reports some nausea but ca nnot recall exactly when the last time he vomited was. He says his daughter manages his medi cation and helps him normally. CT c-spine reads from OSH show no misalignment or acute fractures, only degenerative change s and possible foraminal narrowing. He denies franco currently, no n/v today. Can remember having some soup, possibly this morning, but is not sure about the events of today. Allergies: levofloxacin PMHx: TIA '09 DM OA CAD No past medical history on file. Surgical Hx: L knee surgery Tumor rxn from bladder History reviewed. No pertinent past surgical history. Medications: plavix simvasstatin Omeprazole Lisinopril Levothyroxine Insulin Aspirin Gabapentin Tramadol No prescriptions prior to admission Social Hx: History Social History Marital Status: Spouse Name: N/A Number of Children: N/A Years of Education: N/A Occupational History Not on file. Social History Main Topics Smoking status: Not on file Smokeless tobacco: Not on file Alcohol Use: Not on file Drug Use: Not on file Sexual Activity: Not on file Other Topics Concern Not on file Social History Narrative No narrative on file Family Hx: n/a PHYSICAL EXAM: There were no vitals taken for this visit. General Appearance: NAD, Cooperative Neurologic: A&O to name, date and situation, but not location; following commands, answering appropriat carrie PERRL, EOMI, Conjugate gaze, no nystagmus, no ptosis Sensation in tact in V1-V3 distributions bilaterally; Face motor grossly intact; eyes close fully Hearing intact to rub Shrugs shoulders bilaterally Tongue midline No pronator drift 5/5 strength bilateral UE & LE, sensation intact in all extremities, gait not examined IMAGING: LABS: No results found for: WBC, HB, HCT, PLT, MCV, RDW No results found for: NA, K, CL, BICARB, BUN, CR, GLU, CA, ANIONGAP, ANIONALBCOR No results found for: INRPT No results found for: APTT, FIBRINOGEN ASSESSMENT/PLAN: 74yo M with x2 GLF in last 2 weeks with increasing confusion since first fall found to have large Right acute on chronic SDH with 1.4cm MLS. Neurologically non-focal exam, some minor confusion. - Pt has been directly admitted to the NSICU - Admit Labs: CBC, Chem Panel, Coags, Type & Screen - q1 hour neuro checks - Imaging: none - Na goal: normal - BP goal: normal - Keep NPO - Maintain adequate analgesia with goal RASS 0 - SCDs while in bed -consent/daphne -to OR for evacuation of SDH lj hole v. crani This case has been discussed with Dr. Sykes, attending neurological surgeon on-call, who i s in agreement with the assessment and plan as defined. Luis Bender MD Neurological Surgery, #[id number] Patient Risk Modifiers - Including but not limited to. Age: 74 y.o. male DNR: No Order Transfer status/urgency : From Outside Hospital :Transfer Priority: Now (emergent) (03/26/15 5353) From [facility] ER : Paliative/end of Life Care :No First GCS and if Mechanically Ventilated/Intubated: Last GCS and if Mechanically Ventilated/Intubation: Comatose State: If GCS<9 Then Yes No Data Recorded Cerebral Thrombus and/or Stroke: No Current Current Pupilary Response: Received Ventriculostomy/Ventricular Catheter: No Last ICP if Ventricular Catheter Placed: Malnutrition: No Surgical Interventions :03/26/2015 1. Subdural hematoma (HCC) Procedure(s): CRANIOTOMY VS LJ HOLE FOR SUBDURAL HEMATOMA Primary: Dixie Sykes MD No past medical history on file. Procedures: CRANIOTOMY VS LJ HOLE FOR SUBDURAL HEMATOMA Coagulopathy: Yes on ASA/Plavix Weight loss prior to admission: No Patient Active Problem List Diagnosis Date Noted Subdural hematoma (HCC) 03/26/2015 Hypotension/Shock (septic/cardiogenic/other):No Lung Cancer:No CHF: No Metabolic Disorder: No Malignancy: No Cerebral Edema/Compression Herniation of Brain: Yes &p documented in this en counter Procedure Notes Dixie Sykes MD - 03/27/2015 7:45 AM PSTAssociated Order(s): OPERATION RECORDDate of S yosi: 03/26/2015 Attending Surgeon: Dixie Sykes MD Dewer(s): Dave Neville MD Preoperative Diagnosis: 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 Postoperative Diagnosis: 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 Procedure Performed: Right-sided bur holes for evacuation of subdural hematoma. Estimated Blood Loss: 25 mL. Specimens: None. Complications: None. Drains: A ventriculostomy catheter was placed in the subgaleal space. Anesthesia: General endotracheal anesthesia. Indication For Procedure: Derick Franco is a 74-year-old male who was brought in transfer to [facility] for acute on chronic panhemispheric right-sided subdural hematoma. Per report from [facility] family, he suffered a ground level fall on March 07 and another fall about 2 weeks ago while he was elk hunting. Over the past few days he has been having difficulty ambulating and has been complaining of headaches. He was taken to the outside hospital, where head CT demonstrated a panhemispheric subdural hematoma on the right side. He was then brought to [facility] for higher level of care and evacuation of the subdural hematoma. Procedure In Detail: After discussing the indications, risks, alternatives, and potential benefits with the patient's family, a signed consent form was obtained and placed in the pat shaunna's chart. He was properly identified in the [facility] intensive care unit and broug ht to the operating room. He was carefully transferred to the operating table, and general endotracheal anesthesia was induced. All pressure points were properly padded. A Agnieszka Hugg er was placed over his body to maintain core body temperature. Occlusive dressings were sneha yisel over the patient's eyes and face. We proposed 2 linear incisions on the right side slig htly superior to the superotemporal line. One incision was planned at the coronal suture an d one slightly posterior to the auditory canal. A small amount of hair along the proposed i ncisions was clipped with clippers. The patient's head was then prepped and draped in usual sterile fashion. An appropriate team pause was held, and the patient received preoperative antibiotics. The proposed incision was infiltrated with local anesthetic, which consisted of 0.5% bupivacaine with epinephrine 1:200,000. Under loupe magnification and headlight illumination, incision was made through the skin us ing a #10 blade. Dissection was carried down to the pericranium using monopolar cautery. S ubperiosteal dissection was carried out using periosteal elevators. Small self-retaining re tractors were placed at each incision to maintain it open. Bur holes were then created usin terry a manager pmo drill bit on the high-speed pneumatic drill under continuous irrigation. The remaining eggshell layer of bone was removed using curettes. Hemostasis was achieved using bipolar electrocautery and bone wax. The dura was then cauterized using bipolar electrocau corie and opened in a cruciate fashion. We started with the anterior lj hole. The dural l eaflets were cauterized, and the membranes were opened. We then repeated this with the post erior bur hole. We immediately noted a crocker of dark red fluid from the posterior bur hole. The anterior bur hole was irrigated until the fluid running out of the posterior bur hole wa s clear. Once we were satisfied with the subdural hematoma evacuation, each wound was copio usly irrigated. Hemostasis was achieved in the scalp using bipolar electrocautery. We then placed large bur hole covers over the bur holes from the [employer] cranial plating system. W e then tunneled a ventriculostomy catheter in the subgaleal space and secured this with a 2- 0 nylon suture in a Gurdeep sandal fashion. We then began our closure. The galea was closed with 3-0 Vicryl suture in an inverted interrupted fashion. The skin w as closed with 4-0 Velosorb in a running fashion. Each incision was washed and dried. We a pplied bacitracin ointment, followed by Telfa. The drapes were taken down. The patient was carefully transferred back to the [facility]. He was left intubated. He was taken di rectly to the to the intensive care unit in stable condition. At the end of the case, all i nstrument, sponge, and needle counts were correct in [address] Sykes was present f or the critical portions of the case. MD Dixie Cedeño MD JJL/MODL /[id number] I was present for the critical portions of the procedure as described in the note for this encounter. MD Dixie Layne MD [facility] 10M [address] [facility] [address]/[facility] [place] [address] iu, Dave Song MD - 11:11 PM PSTAssociated Order(s): PROCEDURE NOTEINPATIENT BRIEF OPERATIVE NOTE Procedure Date: 03/26/2015 Author: Dave Neville MD Attending Physician: Dixie Sykes MD Assistants: Dave Neville MD Prior to the beginning of the procedure the team paused to verify the patient's identity, a s well as the procedure to be performed and the correct side/site. All equipment required w as ready and available. The patient was positioned appropriately. The following meat team lead s were present during the team pause: Neurosurgery, Anesthesiology, OR nursing staff. Preoperative Diagnosis: 1. RIGHT chronic subdural hematoma Postoperative Diagnosis: SAME Procedure Performed: 1. RIGHT lj holes for evacuation of subdural hematoma Estimated Blood Loss: 25 mL Fluids: see anesthesia record Specimens: none Complications: none Drains: ventriculostomy catheter in the subgaleal space. Disposition: intubated, direct to ICU. Findings: dark blood evacuated. Irrigated until clear. Dictation: [id number] signed by Dixie Sykes MD at 04/03/2015 10:50 AM PST Associated attestation - Dixie Sykes MD - 04/03/2015 10:50 AM PSTI was present for the critical portions of the procedure as described in the note for this encounter. MD Dixie Layne MD [facility] [address]K [address] [address] [address] documented in this encounter Miscellaneous Notes Evaluation - Jamila Barraza RN - 03/29/2015 4:26 PM PSTNursing Discharge Note Discharge Date: 02/18/2013 Additional Discharge Information: Reviewed Discharge summary/instructions and prescriptions w/ pt and pt's daughter (Delmis). Both verbalized and demonstrated understanding. Questions a nswered. PIV d/c'd. Belongs in pt's possession at time of d/c. Pt d/c'd home w/ family membe r, escorted by 10K deputy sheriff building guard Nurse: JAMILA BARRAZA RNElectronically signed by Jamila Barraza RN at 03/29 4:27 PM PSTHandoff - Miguelina Hollis RN - 03/29/2015 6:45 AM PSTNursing Handoff Rep ort Primary focus of stay: Acute on chronic RIGHT SDH. He reports that he has been falling at home and fell backwards and hit his head. Per [facility] notes it was 2 weeks ago and he has had increasing confusion since. He reported at the time of his more recent fall he had a headache and neck pain that has now resolved. He has also had nausea and vomiting but cant remember the time course. He does endorse taking A SA and plavix but is unable to recall the rest of his medications since his [id number]-uw-tdt Dione is the one who manges all his medications. He was brought to [facility] in [place], [place] by EMS. On arrival his BP was 176/107 which was treated with labetalol. CT sc an reviled a large acute on chronic RIGHT subdural hematoma with right midline shift PMHx significant for DM, HTN, CAD s/p CO (on ASA and Plavix), TIA Pertinent physical findings: N: A&Ox4, doss, generalized weakness. 1 SBA with walker, gait slightly unsteady. fcx4, 5/5, perrl. Very RINCON CV: NSR, afebrile, ppx4 R: RA, lungs clear, dim in bases. GI: diabetic diet, 1 large BM : garcia d/c'd 03/28 @ 13:00. Voided x1 Low urine out (MDs aware) SKIN: bilat elbow abrasions upon admit, Incision intact Orders to follow up on: Endotool d/c'd at 0000 Last pain assessment/reassessment: End of shift- denies pain. Denied pain throughout shift Psych/social issues: Supportive family Last patient visit (i.e. Falls/Activity/Comfort/Environment/Toileting/Skin): End of shift- pt resting comfortably in bed. Call light and personal belongings w/n pt's reach. Bed in the lowest locked position. Bed alarm on. Anticipated or pending procedure: d/c today if CBGs controlled andoff - Darek Barraza RN - 03/28/2015 6:48 PM PSTNursing Handoff Report Primary focus of stay: Acute on chronic RIGHT SDH. He reports that he has been falling at home and fell backwards and hit his head. Per transf er center notes it was 2 weeks ago and he has had increasing confusion since. He reported at the time of his more recent fall he had a headache and neck pain that has now resolved. He has also had nausea and vomiting but cant remember the time course. He does endorse taking A SA and plavix but is unable to recall the rest of his medications since his ziyqtddb-un-whj Dione is the one who manges all his medications. He was brought to [facility] in [facility], [place] by EMS. On arrival his BP was 176/107 which was treated with labetalol. CT sc an reviled a large acute on chronic RIGHT subdural hematoma with right midline shift PMHx significant for DM, HTN, CAD s/p CO (on ASA and Plavix), TIA Pertinent physical findings: N: A&Ox4, doss, generalized weakness. 1 SBA with walker, gait slightly unsteady. fcx4, 5/5, perrl. Very RINCON CV: NSR, afebrile, ppx4 R: RA, lungs clear, dim in bases. GI: diabetic diet, 1 large BM : garcia catheter d/c'd @ 13:00. Low urine out (MDs aware) SKIN: bilat elbow abrasions upon admit, Incision intact Orders to follow up on: Endotool Last pain assessment/reassessment: End of shift- denies pain. Denied pain throughout shift Psych/social issues: Supportive family Last patient visit (i.e. Falls/Activity/Comfort/Environment/Toileting/Skin): End of shift- pt resting comfortably in bed. Call light and personal belongings w/n pt's reach. Bed in the lowest locked position. Bed alarm on. Family at bedside Anticipated or pending procedure: lan of Care - Mame barnard, Anastasia Agosto, PT - 03/28/2015 3:47 PM PSTFormatting of this note might be different from kiera bradshaw original. Physical Therapy Evaluation 03/28/2015 3:47 PM Admitted on 03/26/2015, hospital day 2 Patient seen on 10K Activity orders: up ad ayala; c spine cleared Brief Hospital Course: Derick Franco is a 74 y.o. male with PMHx significant for DM, HTN, C AD s/p CO (on ASA and Plavix), TIA, presenting with acute on chronic RIGHT SDH. Now s/p righ t-sided bur holes for evacuation of subdural hematoma on 03/26 Relevant Precautions: Fall; RINCON No past medical history on file. Living Environment: Patient lives alone in a single level apartment with no steps to enter. Daughter present during evaluation and reports she will be able to provide 24 hour assist a t discharge, if necessary. Bathroom Set-up: tub shower with bench Prior Level of Function: Mobility: Ambulates without assistive device; was using a cane until about 6 months ago wh en his outpatient PT told him to stop using it Falls: 4 falls in the past few months, usually tripping himself Equipment: single point cane Patient / Family Goal: To go home Communication: [place] Barriers: none Pain: minimal posterior head; no numerical value given Vital signs: no dizziness or dyspnea noted with mobility; stable per observation Cognitive Screen Level of alertness: alert and interactive Orientation: +self; +situation; others not tested Quality of responses: appropriate Command following: intact Judgment / safety awareness: Fair Physical Assessment ROM: within functional limits bilateral lower extremities Strength: MMT not formally performed; patient able to wiggle toes, ankle pumps, heel slide s and long arc quads against gravity without assistance Edema: none Neurological Function Sensation: intact to light touch bilateral lower extremities; equal bilaterally Muscle Tone: normal Gross Motor: intact Fine Motor: intact Balance: Sitting static: independent Sitting dynamic: supervision Standing static: contact guard assist with front wheeled walker +gait belt Standing dynamic: contact guard assist with front wheeled walker + gait belt, 2 loss of ba lances noted when distracted and once with turns Mobility & Transfers: Supine <> sit: minimal assist and increased time to perform task with head of bed slightly elevated Sit <> stand: minimal assist from low surface with cues for weight shift Scoot: independent Gait: Patient ambulated x 75 ft with front wheeled walker contact guard assist +gait belt. Patient exhibiting narrow base of support and path deviation, poor awareness of obstacles Outcome Measure: [facility] BASIC MOBILITY Difficulty turning over in bed 3 - A Little - Minimal/Contact Guard Assist/Supervision Difficulty sitting/standing from chair w/ arms 3 - A Little - Minimal/Contact Guard Assist/ Suervision Difficulty moving from supine to sitting on edge of bed 3 - A Little - Minimal/contact Guar d Assist/Supervision Help needed moving from /to chair/wheelchair 3 - A Little - Minimal/Contact Guard Assist/S upervision Help needed walking in hospital room 3 - A Little - Minimal/Contact Guard assist/Supervisio n Help needed climbing 3-5 steps w/railing 3 - A Little - Minimal/Contact Guard Assist/Superv ision [facility] Basic Mobility Total Score 18 Interpretation of [facility] Short Form - Basic Mobility: CMS Modifier (G-Code) Score (in points) % of Functional Impairment, Limitation, or Restriction CN 6 100% impaired, limited, restricted CM 7-9 At least 80%, but less than 100% impaired, limited, or restricted CL 10-14 At least 60%, but less than 80% impaired, limited, or restricted CK 15-19 At least 40%, but less than 60% impaired, limited, or restricted CJ 20-22 At least 20%, but less than 40% impaired, limited, or restricted CI 23 At least 1%, but less than 20% impaired, limited, or restricted CH 24 0% impaired, limited, or restricted Treatment provided this date: Education on importance of safety with mobility, gait trainin g with front wheeled walker Ended session: Patient left sitting up in chair with chair alarm activated, call light in r each and RN notified. ASSESSMENT: Patient is a 74 year old male with prior level of function modified independent without use of assistive device and recent history of falls. Patient presents here with dec reased independence with bed mobility, transfers and ambulation, decreased dynamic balance a nd safety awareness. Acute PT services indicated to address the above mentioned deficits. Discharge Recommendations: Likely home with daughter 24 hour assist and OP PT for balance t raining. May need front wheeled walker Nursing Activity Plan: Ambulate in halls with front wheeled walker and RN hands on assist + gait belt TID. Utilize alarms as necessary PLAN: Gait/transfer training, therapeutic exercise, therapeutic activity, education, neuro muscular reeducation Frequency: 5x/wk Duration: 1 week The above plan of care and goals were developed and reviewed with the patient. Anastasia Murry PT, DPT, CCS Physical Therapist Pager #[phone] valuation - Jenn Yates, [facility] - 03/28/2015 11:23 AM PST Problem: General Plan of Care (Adult) Intervention: NPEOC Critical Goals: 1. Mobilize pt as much as possible. 2. Have a BM. 3. Maintain neuro status. 4. Manage pain. Interventions: 1. Get pt out of bed if activity level changes. 2. Give bowel regimen meds. 3. Check neuro status q4hrs and inform ICU team of any changes. Interventions that worked/didn't work: 1. Pt weak but most likely able to get out of bed with standby assist. 2. Pt had a BM. 3. No neuro changes. My recommendations forward: 1. Get activity level changed and get PT to assess pt. Patient Stability:Moderately StableElectronically signed by Jenn Mejias RN at 015 11:24 AM PSTPlan of Care - Jenn Mejias RN - 03/28/2015 9:42 AM PSTProblem: Gener al Plan of Care (Adult) Intervention: NPEOC Critical Goals: 1. Mobilize pt as much as possible. 2. Have a BM. 3. Maintain neuro status. 4. Manage pain. Interventions: 1. Get pt out of bed if activity level changes. 2. Give bowel regimen meds. 3. Check neuro status q4hrs and inform ICU team of any changes. andoff - Jenn Yates RN - 03/28/2015 9:39 AM PSTNursing Handoff Report Primary focus of stay: Acute on chronic RIGHT SDH. He reports that he has been falling at home and fell backwards and hit his head. Per transf er center notes it was 2 weeks ago and he has had increasing confusion since. He reported at the time of his more recent fall he had a headache and neck pain that has now resolved. He has also had nausea and vomiting but cant remember the time course. He does endorse taking A SA and plavix but is unable to recall the rest of his medications since his cjzyusiz-er-tba Dione is the one who manges all his medications. He was brought to [facility] in [place], [place] by EMS. On arrival his BP was 176/107 which was treated with labetalol. CT sc an reviled a large acute on chronic RIGHT subdural hematoma with right midline shift PMHx significant for DM, HTN, CAD s/p CO (on ASA and Plavix), TIA Pertinent physical findings: N: A&Ox4, doss, fcx4, 5/5, perrl CV: NSR, afebrile, ppx4 R: RA, lungs clear, dim in bases. GI: BG checks, diabetic diet, 1 large BM : garcia catheter, low uo SKIN: bilat elbow abrasions upon admit, Incision intact Orders to follow up on: none Last pain assessment/reassessment: Denies Psych/social issues: Supportive family Last patient visit (i.e. Falls/Activity/Comfort/Environment/Toileting/Skin): Ongoing Anticipated or pending procedure: noneElectronically signed by Jenn Mejais, RN at 03/09 11:22 AM WENDYHandpiper - Ewa Kowalski RN - 03/27/2015 8:23 PM PSTNursing Handoff Repor t Primary focus of stay: Acute on chronic RIGHT SDH. He reports that he has been falling at home and fell backwards and hit his head. Per transf er center notes it was 2 weeks ago and he has had increasing confusion since. He reported at the time of his more recent fall he had a headache and neck pain that has now resolved. He has also had nausea and vomiting but cant remember the time course. He does endorse taking A SA and plavix but is unable to recall the rest of his medications since his cmiutlui-oj-grn Dione is the one who manges all his medications. He was brought to [facility] in [place], [place] by EMS. On arrival his BP was 176/107 which was treated with labetalol. CT sc an reviled a large acute on chronic RIGHT subdural hematoma with right midline shift PMHx significant for DM, HTN, CAD s/p CO (on ASA and Plavix), TIA Pertinent physical findings: N: A&Ox4, doss, fcx4, 5/5, perrl CV: NSR, afebrile, ppx4 R: RA, lungs clear, dim in bases. GI: Endotool, diabetic diet, passing flatus but no BM : garcia catheter, low uo SKIN: bilat elbow abrasions upon admit, Incision intact Orders to follow up on: Possible dc of subgaleal drain? Last pain assessment/reassessment: Denies Psych/social issues: Supportive family Last patient visit (i.e. Falls/Activity/Comfort/Environment/Toileting/Skin): Ongoing Anticipated or pending procedure: Transfer to floor when bed available.Electronically favian d by Ewa Kowalski RN at 03/28/2015 5:36 AM PSTEvaluation - Ewa Kowalski RN - 03/27/2015 8 :22 PM PST Problem: General Plan of Care (Adult) Intervention: NPEOC Critical Goals: - Monitor patient for neuro changes - Maintain daily ICU goals. - Prevent skin breakdown - Management of pain and maintain comfortable pain level for patient. - Keep patient comfortable - Prevent and minimize risk for patient falls Interventions: - Monitor neuro status and vital signs q1h per physician order, notify MD if changes occur. - Turn Pt q2h/ monitor skin/ keep skin dry/ minimize linen/ elevate extremities with pillow s. - Provide relaxation techniques to relieve pain/ change activity/ change position/ administ er pain medication according to MAR - Group care/reposition pt/ adjust activity/ dark environment/ quiet environment. Place pe rsonal items in reach. - Bed in low position with brakes locked, side rails x3, room near station, call light in r each, clutter free environment. Personal items in reach Interventions that worked/didn't work:All interventions effective. Neuro assessment stable, pt denies pain, safety maintained. My recommendations forward:Continue care as planned. Patient Stability:Moderately Stable lan of Care - Ewa Kowalski RN - 03/27/2015 8:22 PM PSTProblem: General Plan of Care (Adult) Intervention: NPEOC Critical Goals: - Monitor patient for neuro changes - Maintain daily ICU goals. - Prevent skin breakdown - Management of pain and maintain comfortable pain level for patient. - Keep patient comfortable - Prevent and minimize risk for patient falls Interventions: - Monitor neuro status and vital signs q1h per physician order, notify MD if changes occur. - Turn Pt q2h/ monitor skin/ keep skin dry/ minimize linen/ elevate extremities with pillow s. - Provide relaxation techniques to relieve pain/ change activity/ change position/ administ er pain medication according to MAR - Group care/reposition pt/ adjust activity/ dark environment/ quiet environment. Place pe rsonal items in reach. - Bed in low position with brakes locked, side rails x3, room near station, call light in r each, clutter free environment. Personal items in reach lan of Care - Jayce Anton - 03/27/2015 5:25 PM PSTProblem: SW Goals & Interventions Goal: Psychosocial Coping/Adjustment Social work note: Source and reason for referral: Received referral through [facility] for concerns for falls and caregiver concerns Interview participants: Met with patient and many family members, including patient's 2 adult daughters. Social history: Patient resides independently in an apartment on the [address] near [facility]. Patient and family reports that patient fell on and was later seen by an MD but th ey expressed concern that he did not get the care that he needed at that time. They all d iscussed that patient had gone elk hunting 2 weeks ago and fell again. They report that michael maza had 2 more additional falls, which precipitated his current admission to the hospital. They report that patient did not have any falls prior to but expressed concern with this new pattern of falls. They report that patient has been successful in his indepe ndence and living in his own apartment and expressed hope that he will again be able to retu rn to his own apartment. Family reports that patient has some new memory problems but repo rts that this is new and he did not have memory issues before the last month. They report that several family members reside very near patient and will be supports to him as needed. Patient and family report that they are open to alternative supportive housing or additi onal supports in the home if these become necessary to keep patient safe and independent. Plan: The plan will be for patient to be assessed by therapy services to determine any unmet need s or deficits in ADL's prior to d/c. All present expressed appropriate concern for patient and expressed hope for full recovery. SW in agreement to add independent living resources to d/c summary. Discussed that the [place] itself can be a resource while patient resides o n the [facility]. No other social work needs identified at this time. Social work refer ral completed. Please see medical and ancillary service notes for other needs and care sneha ns. Please re-refer to social work if additional social work needs are identified. Jayce Anton LCSW, pager #[phone] andoff - Florence Gonzalez RN - 03/27/2015 8:12 AM PSTNursing Handoff Report Primary focus of stay: Derick Franco is a 74 y.o. male with PMHx significant for DM, HTN, CAD s/p CO (on ASA and Plavix), TIA, presenting with acute on chronic RIGHT SDH. He reports that he fell either today or yesterday (says he is losing track of time). He has been falling at home but can't remember the time course. He fell backwards and hit his head . Per transfer center notes it was 2 weeks ago and he has had increasing confusion since. He reported at the time of his more recent fall he had a headache and neck pain that has now r esolved. He has also had nausea and vomiting but cant remember the time course. He does endo rse taking ASA and plavix but is unable to recall the rest of his medications since his daug hter-in-law Dione is the one who manges all his medications. He was brought to [facility] in [facility], [place] by EMS. On arrival his BP was 176/107 which was treated with labe talol. CT scan reviled a large acute on chronic RIGHT subdural hematoma with right midline s hift Pertinent physical findings: N: A&Ox4, doss, fcx4, 5/5, perrl CV: NSR, afebrile, ppx4, home lisonpril and metrop strarted, nicardipine stopped. R: 2L per Oxymask for pneumocephalis, lungs dim in bases. GI: Endotool, diabetic diet, passing flatus : FC, plan to d/c after flat restrictions end SKIN: bilat elbow abrasions upon admit, Incision intact Orders to follow up on: Endotool check at 1945, transfer to the floor Last pain assessment/reassessment: Denies Psych/social issues: Supportive family Last patient visit (i.e. Falls/Activity/Comfort/Environment/Toileting/Skin): Ongoing Anticipated or pending procedures: none ignificant Event - T Stephanie otto RN - 03/26/2015 9:34 PM PSTPt to [place] via [facility] x 2 and [facility]. Corey arnold MD. omm Marco Antonio arzate Nilo Rooney - 03/26/2015 7:42 PM PSTLF adv just landed at [facility], eta approx 2010Ele ctronically signed by Nilo Gerardo at 03/26/2015 7:43 PM PSTComm Nilo Wakefield - 03/26/2015 6:44 PM PSTLF adv ETA [facility] [address] then ETA to [facility] 2000 omm Jaspal Campuzano - 03/26/2015 5:[address] Sykes with [facility]. On plavix and asa. Fell 2 weeks ago, fell again toda y. Increasing confusion over the last 2 weeks per family. Large SDH with midline shift > 5mm . Pt is NPO. INR is 1. documented in this encounter Plan of Treatment Not on filedocumented as of this encounter Procedures + +--------+ + + + | Procedure Name | Priori | Date/Time | Associated Diagnosis | Comments | | | ty | | | | + +--------+ + + + | PROCEDURE NOTE | Routin | 06/11/2015 | | Results for this | | | e | 11:26 AM | | procedure are in the | | | | PST | | results section. | + +--------+ + + + | PROCEDURE NOTE | Routin | 06/11/2015 | | Results for this | | | e | 11:26 AM | | procedure are in the | | | | PST | | results section. | + +--------+ + + + | OPERATION RECORD | | 04/03/2015 | | Results for this | | | | 10:56 AM | | procedure are in the | | | | PST | | results section. | + +--------+ + + + | CAPILLARY BLOOD | Routin | 03/29/2015 | Subdural hematoma | Results for this | | GLUCOSE (NO CHG), | e | 1:02 PM | (HCC) | procedure are in the | | POC | | PST | | results section. | + +--------+ + + + | CAPILLARY BLOOD | Routin | 03/29/2015 | Subdural hematoma | Results for this | | GLUCOSE (NO CHG), | e | 9:45 AM | (HCC) | procedure are in the | | POC | | PST | | results section. | + +--------+ + + + | CBC (HEMOGRAM) ONLY | Urgent | 03/29/2015 | | Results for this | | | | 5:53 AM | | procedure are in the | | | | PST | | results section. | + +--------+ + + + | RENAL FUNCTION SET | Urgent | 03/29/2015 | | Results for this | | (NA,K,CL,CO2,BUN,CRE | | 5:53 AM | | procedure are in the | | AT,GLUC,CA,PHOS,ALB | | PST | | results section. | | ) | | | | | + +--------+ + + + | CBC ONLY | Urgent | 03/29/2015 | | Results for this | | | | 5:53 AM | | procedure are in the | | | | PST | | results section. | + +--------+ + + + | MAGNESIUM, PLASMA | Urgent | 03/29/2015 | | Results for this | | | | 5:53 AM | | procedure are in the | | | | PST | | results section. | + +--------+ + + + | CAPILLARY BLOOD | Routin | 03/29/2015 | Subdural hematoma | Results for this | | GLUCOSE (NO CHG), | e | 2:27 AM | (HCC) | procedure are in the | | POC | | PST | | results section. | + +--------+ + + + | CAPILLARY BLOOD | Routin | 03/28/2015 | Subdural hematoma | Results for this | | GLUCOSE (NO CHG), | e | 11:59 PM | (HCC) | procedure are in the | | POC | | PST | | results section. | + +--------+ + + + | CAPILLARY BLOOD | Routin | 03/28/2015 | Subdural hematoma | Results for this | | GLUCOSE (NO CHG), | e | 10:40 PM | (HCC) | procedure are in the | | POC | | PST | | results section. | + +--------+ + + + | CAPILLARY BLOOD | Routin | 03/28/2015 | Subdural hematoma | Results for this | | GLUCOSE (NO CHG), | e | 9:44 PM | (HCC) | procedure are in the | | POC | | PST | | results section. | + +--------+ + + + | CAPILLARY BLOOD | Routin | 03/28/2015 | Subdural hematoma | Results for this | | GLUCOSE (NO CHG), | e | 8:41 PM | (HCC) | procedure are in the | | POC | | PST | | results section. | + +--------+ + + + | CAPILLARY BLOOD | Routin | 03/28/2015 | Subdural hematoma | Results for this | | GLUCOSE (NO CHG), | e | 7:40 PM | (HCC) | procedure are in the | | POC | | PST | | results section. | + +--------+ + + + | CAPILLARY BLOOD | Routin | 03/28/2015 | Subdural hematoma | Results for this | | GLUCOSE (NO CHG), | e | 7:06 PM | (HCC) | procedure are in the | | POC | | PST | | results section. | + +--------+ + + + | CAPILLARY BLOOD | Routin | 03/28/2015 | Subdural hematoma | Results for this | | GLUCOSE (NO CHG), | e | 6:08 PM | (HCC) | procedure are in the | | POC | | PST | | results section. | + +--------+ + + + | CAPILLARY BLOOD | Routin | 03/28/2015 | Subdural hematoma | Results for this | | GLUCOSE (NO CHG), | e | 5:08 PM | (HCC) | procedure are in the | | POC | | PST | | results section. | + +--------+ + + + | CAPILLARY BLOOD | Routin | 03/28/2015 | Subdural hematoma | Results for this | | GLUCOSE (NO CHG), | e | 4:08 PM | (HCC) | procedure are in the | | POC | | PST | | results section. | + +--------+ + + + | CAPILLARY BLOOD | Routin | 03/28/2015 | Subdural hematoma | Results for this | | GLUCOSE (NO CHG), | e | 3:05 PM | (HCC) | procedure are in the | | POC | | PST | | results section. | + +--------+ + + + | CAPILLARY BLOOD | Routin | 03/28/2015 | Subdural hematoma | Results for this | | GLUCOSE (NO CHG), | e | 2:26 PM | (HCC) | procedure are in the | | POC | | PST | | results section. | + +--------+ + + + | CAPILLARY BLOOD | Routin | 03/28/2015 | Subdural hematoma | Results for this | | GLUCOSE (NO CHG), | e | 12:35 PM | (HCC) | procedure are in the | | POC | | PST | | results section. | + +--------+ + + + | CAPILLARY BLOOD | Routin | 03/28/2015 | Subdural hematoma | Results for this | | GLUCOSE (NO CHG), | e | 12:32 PM | (HCC) | procedure are in the | | POC | | PST | | results section. | + +--------+ + + + | CAPILLARY BLOOD | Routin | 03/28/2015 | Subdural hematoma | Results for this | | GLUCOSE (NO CHG), | e | 8:16 AM | (HCC) | procedure are in the | | POC | | PST | | results section. | + +--------+ + + + | CAPILLARY BLOOD | Routin | 03/28/2015 | Subdural hematoma | Results for this | | GLUCOSE (NO CHG), | e | 6:15 AM | (HCC) | procedure are in the | | POC | | PST | | results section. | + +--------+ + + + | CAPILLARY BLOOD | Routin | 03/28/2015 | Subdural hematoma | Results for this | | GLUCOSE (NO CHG), | e | 4:13 AM | (HCC) | procedure are in the | | POC | | PST | | results section. | + +--------+ + + + | CAPILLARY BLOOD | Routin | 03/28/2015 | Subdural hematoma | Results for this | | GLUCOSE (NO CHG), | e | 2:01 AM | (HCC) | procedure are in the | | POC | | PST | | results section. | + +--------+ + + + | CAPILLARY BLOOD | Routin | 03/28/2015 | Subdural hematoma | Results for this | | GLUCOSE (NO CHG), | e | 1:07 AM | (HCC) | procedure are in the | | POC | | PST | | results section. | + +--------+ + + + | CBC (HEMOGRAM) ONLY | Urgent | 03/28/2015 | | Results for this | | | | 12:07 AM | | procedure are in the | | | | PST | | results section. | + +--------+ + + + | RENAL FUNCTION SET | Urgent | 03/28/2015 | | Results for this | | (NA,K,CL,CO2,BUN,CRE | | 12:07 AM | | procedure are in the | | AT,GLUC,CA,PHOS,ALB | | PST | | results section. | | ) | | | | | + +--------+ + + + | CBC ONLY | Urgent | 03/28/2015 | | Results for this | | | | 12:07 AM | | procedure are in the | | | | PST | | results section. | + +--------+ + + + | MAGNESIUM, PLASMA | Urgent | 03/28/2015 | | Results for this | | | | 12:07 AM | | procedure are in the | | | | PST | | results section. | + +--------+ + + + | CAPILLARY BLOOD | Routin | 03/27/2015 | Subdural hematoma | Results for this | | GLUCOSE (NO CHG), | e | 11:59 PM | (HCC) | procedure are in the | | POC | | PST | | results section. | + +--------+ + + + | CAPILLARY BLOOD | Routin | 03/27/2015 | Subdural hematoma | Results for this | | GLUCOSE (NO CHG), | e | 11:00 PM | (HCC) | procedure are in the | | POC | | PST | | results section. | + +--------+ + + + | CAPILLARY BLOOD | Routin | 03/27/2015 | Subdural hematoma | Results for this | | GLUCOSE (NO CHG), | e | 10:02 PM | (HCC) | procedure are in the | | POC | | PST | | results section. | + +--------+ + + + | CAPILLARY BLOOD | Routin | 03/27/2015 | Subdural hematoma | Results for this | | GLUCOSE (NO CHG), | e | 8:53 PM | (HCC) | procedure are in the | | POC | | PST | | results section. | + +--------+ + + + | CAPILLARY BLOOD | Routin | 03/27/2015 | Subdural hematoma | Results for this | | GLUCOSE (NO CHG), | e | 6:45 PM | (HCC) | procedure are in the | | POC | | PST | | results section. | + +--------+ + + + | CAPILLARY BLOOD | Routin | 03/27/2015 | Subdural hematoma | Results for this | | GLUCOSE (NO CHG), | e | 5:39 PM | (HCC) | procedure are in the | | POC | | PST | | results section. | + +--------+ + + + | CAPILLARY BLOOD | Routin | 03/27/2015 | Subdural hematoma | Results for this | | GLUCOSE (NO CHG), | e | 4:32 PM | (HCC) | procedure are in the | | POC | | PST | | results section. | + +--------+ + + + | CAPILLARY BLOOD | Routin | 03/27/2015 | Subdural hematoma | Results for this | | GLUCOSE (NO CHG), | e | 3:26 PM | (HCC) | procedure are in the | | POC | | PST | | results section. | + +--------+ + + + | CAPILLARY BLOOD | Routin | 03/27/2015 | Subdural hematoma | Results for this | | GLUCOSE (NO CHG), | e | 2:21 PM | (HCC) | procedure are in the | | POC | | PST | | results section. | + +--------+ + + + | CAPILLARY BLOOD | Routin | 03/27/2015 | Subdural hematoma | Results for this | | GLUCOSE (NO CHG), | e | 1:16 PM | (HCC) | procedure are in the | | POC | | PST | | results section. | + +--------+ + + + | CAPILLARY BLOOD | Routin | 03/27/2015 | Subdural hematoma | Results for this | | GLUCOSE (NO CHG), | e | 11:11 AM | (HCC) | procedure are in the | | POC | | PST | | results section. | + +--------+ + + + | CAPILLARY BLOOD | Routin | 03/27/2015 | Subdural hematoma | Results for this | | GLUCOSE (NO CHG), | e | 9:57 AM | (HCC) | procedure are in the | | POC | | PST | | results section. | + +--------+ + + + | CAPILLARY BLOOD | Routin | 03/27/2015 | Subdural hematoma | Results for this | | GLUCOSE (NO CHG), | e | 8:33 AM | (HCC) | procedure are in the | | POC | | PST | | results section. | + +--------+ + + + | CAPILLARY BLOOD | Routin | 03/27/2015 | Subdural hematoma | Results for this | | GLUCOSE (NO CHG), | e | 7:16 AM | (HCC) | procedure are in the | | POC | | PST | | results section. | + +--------+ + + + | CAPILLARY BLOOD | Routin | 03/27/2015 | Subdural hematoma | Results for this | | GLUCOSE (NO CHG), | e | 6:04 AM | (HCC) | procedure are in the | | POC | | PST | | results section. | + +--------+ + + + | CAPILLARY BLOOD | Routin | 03/27/2015 | Subdural hematoma | Results for this | | GLUCOSE (NO CHG), | e | 4:54 AM | (HCC) | procedure are in the | | POC | | PST | | results section. | + +--------+ + + + | CAPILLARY BLOOD | Routin | 03/27/2015 | Subdural hematoma | Results for this | | GLUCOSE (NO CHG), | e | 3:39 AM | (HCC) | procedure are in the | | POC | | PST | | results section. | + +--------+ + + + | CBC (HEMOGRAM) ONLY | Urgent | 03/27/2015 | | Results for this | | | | 3:26 AM | | procedure are in the | | | | PST | | results section. | + +--------+ + + + | RENAL FUNCTION SET | Urgent | 03/27/2015 | | Results for this | | (NA,K,CL,CO2,BUN,CRE | | 3:26 AM | | procedure are in the | | AT,GLUC,CA,PHOS,ALB | | PST | | results section. | | ) | | | | | + +--------+ + + + | CBC ONLY | Urgent | 03/27/2015 | | Results for this | | | | 3:26 AM | | procedure are in the | | | | PST | | results section. | + +--------+ + + + | MAGNESIUM, PLASMA | Urgent | 03/27/2015 | | Results for this | | | | 3:26 AM | | procedure are in the | | | | PST | | results section. | + +--------+ + + + | CAPILLARY BLOOD | Routin | 03/27/2015 | Subdural hematoma | Results for this | | GLUCOSE (NO CHG), | e | 2:40 AM | (HCC) | procedure are in the | | POC | | PST | | results section. | + +--------+ + + + | TRANSFUSE PLATELET | Routin | 03/27/2015 | | | | PHERESIS, | e | 2:15 AM | | | | LEUKOREDUCED | | PST | | | + +--------+ + + + | CAPILLARY BLOOD | Routin | 03/27/2015 | Subdural hematoma | Results for this | | GLUCOSE (NO CHG), | e | 1:44 AM | (HCC) | procedure are in the | | POC | | PST | | results section. | + +--------+ + + + | CULTURE, URINE [facility] | Routin | 03/27/2015 | | Results for this | | | e | 12:51 AM | | procedure are in the | | | | PST | | results section. | + +--------+ + + + | UA, DIPSTICK ONLY | Urgent | 03/27/2015 | | Results for this | | | | 12:51 AM | | procedure are in the | | | | PST | | results section. | + +--------+ + + + | URINE, MICROSCOPIC | Urgent | 03/27/2015 | | Results for this | | EXAM | | 12:51 AM | | procedure are in the | | | | PST | | results section. | + +--------+ + + + | URINE SCREEN FOR | Urgent | 03/27/2015 | | Results for this | | CULTURE | | 12:51 AM | | procedure are in the | | | | PST | | results section. | + +--------+ + + + | CAPILLARY BLOOD | Routin | 03/27/2015 | Subdural hematoma | Results for this | | GLUCOSE (NO CHG), | e | 12:42 AM | (HCC) | procedure are in the | | POC | | PST | | results section. | + +--------+ + + + | CT HEAD WO CONTRAST | Routin | 03/27/2015 | | Results for this | | | e | 12:27 AM | | procedure are in the | | | | PST | | results section. | + +--------+ + + + | CARDIOLOGY | | 03/27/2015 | | Results for this | | | | 12:00 AM | | procedure are in the | | | | PST | | results section. | + +--------+ + + + | CARDIOLOGY | | 03/27/2015 | | Results for this | | | | 12:00 AM | | procedure are in the | | | | PST | | results section. | + +--------+ + + + | CARDIOLOGY | | 03/27/2015 | | Results for this | | | | 12:00 AM | | procedure are in the | | | | PST | | results section. | + +--------+ + + + | CARDIOLOGY | | 03/27/2015 | | Results for this | | | | 12:00 AM | | procedure are in the | | | | PST | | results section. | + +--------+ + + + | CARDIOLOGY | | 03/27/2015 | | Results for this | | | | 12:00 AM | | procedure are in the | | | | PST | | results section. | + +--------+ + + + | CAPILLARY BLOOD | Routin | 03/26/2015 | Subdural hematoma | Results for this | | GLUCOSE (NO CHG), | e | 11:41 PM | (HCC) | procedure are in the | | POC | | PST | | results section. | + +--------+ + + + | ABG-FULL ABL, POC | Routin | 03/26/2015 | Subdural hematoma | Results for this | | | e | 10:12 PM | (HCC) | procedure are in the | | | | PST | | results section. | + +--------+ + + + | CRANIOTOMY VS LJ | | 03/26/2015 | SUBDURAL HEMATOMA | | | HOLE FOR SUBDURAL | | 9:37 PM | | | | HEMATOMA | | PST | | | + +--------+ + + + +---+--------+ | | | | | Specia | | | l | | | Needs | | | ICU | | | POST | | | NSICU | | | TEAM | +---+--------+ + +--------+ + + + | CAPILLARY BLOOD | Routin | 03/26/2015 | Subdural hematoma | Results for this | | GLUCOSE (NO CHG), | e | 8:58 PM | (HCC) | procedure are in the | | POC | | PST | | results section. | + +--------+ + + + | 12 LEAD ECG | Routin | 03/26/2015 | | Results for this | | | e | 8:56 PM | | procedure are in the | | | | PST | | results section. | + +--------+ + + + | CBC (HEMOGRAM) ONLY | Urgent | 03/26/2015 | | Results for this | | | | 8:33 PM | | procedure are in the | | | | PST | | results section. | + +--------+ + + + | INR | Urgent | 03/26/2015 | | Results for this | | | | 8:33 PM | | procedure are in the | | | | PST | | results section. | + +--------+ + + + | COMPLETE METABOLIC | Urgent | 03/26/2015 | | Results for this | | SET | | 8:33 PM | | procedure are in the | | (NA,K,CL,CO2,BUN,CRE | | PST | | results section. | | AT,GLUC,CA,AST,ALT,B | | | | | | KELECHI TOTAL,ALK | | | | | | PHOS,ALB,PROT TOTAL) | | | | | + +--------+ + + + | CBC ONLY | Urgent | 03/26/2015 | | Results for this | | | | 8:33 PM | | procedure are in the | | | | PST | | results section. | + +--------+ + + + | FIBRINOGEN | Urgent | 03/26/2015 | | Results for this | | | | 8:33 PM | | procedure are in the | | | | PST | | results section. | + +--------+ + + + | APTT (ACT. PART. | Urgent | 03/26/2015 | | Results for this | | THROMBO TIME) | | 8:33 PM | | procedure are in the | | | | PST | | results section. | + +--------+ + + + | ANTIBODY SCREEN | Urgent | 03/26/2015 | | Results for this | | | | 8:33 PM | | procedure are in the | | | | PST | | results section. | + +--------+ + + + | TYPE AND SCREEN | Urgent | 03/26/2015 | | Results for this | | | | 8:33 PM | | procedure are in the | | | | PST | | results section. | + +--------+ + + + | ABO & RH TYPE | Urgent | 03/26/2015 | | Results for this | | | | 8:33 PM | | procedure are in the | | | | PST | | results section. | + +--------+ + + + | MAGNESIUM, PLASMA | Urgent | 03/26/2015 | | Results for this | | | | 8:33 PM | | procedure are in the | | | | PST | | results section. | + +--------+ + + + | PRODUCT - PLATELET | Routin | 03/26/2015 | | Results for this | | PHERESIS | e | 8:31 PM | | procedure are in the | | LEUKOREDUCED | | PST | | results section. | + +--------+ + + + | PRODUCT - PLATELET | Routin | 03/26/2015 | | Results for this | | PHERESIS | e | 8:31 PM | | procedure are in the | | LEUKOREDUCED | | PST | | results section. | + +--------+ + + + | ORDERS OTHER | | 03/26/2015 | | Results for this | | | | 12:00 AM | | procedure are in the | | | | PST | | results section. | + +--------+ + + + documented in this encounter Results PROCEDURE NOTE (06/11/2015 11:26 AM PST)PROCEDURE NOTE (06/11/2015 11:26 AM PST)OPERATION R ECORD (04/03/2015 10:56 AM PST) + + | Transcriptions | + + | Dixie Sykes MD - 03/27/2015 7:45 AM PST Date of Service: 03/26/2015 | | Attending Surgeon: Dixie Sykes MD Dewer(s): Dave Song | | MD Jamin Preoperative Diagnosis: Right hemispheric acute on chronic | | subdural hematoma.Postoperative Diagnosis: Right hemispheric acute on chronic subdural | | hematoma.Procedure Performed: Right-sided bur holes for evacuation of subdural | | hematoma.Estimated Blood Loss: 25 mL.Specimens: None.Complications: None.Drains: A | | ventriculostomy catheter was placed in the subgaleal space.Anesthesia: General | | endotracheal anesthesia.Indication For Procedure: Derick Franco is a 74-year-old male who | | was brought in transfer to [facility] for 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 Per report from his family, he suffered a ground level fall on | | March 07 and another fall about 2 weeks ago while he was elk hunting. Over the past | | few days he has been having difficulty ambulating and has been complaining of | | headaches. He was taken to the outside hospital, where head CT demonstrated a | | panhemispheric subdural hematoma on the right side. He was then brought to [facility] for | | higher level of care and evacuation of the subdural hematoma.Procedure In Detail: After | | discussing the indications, risks, alternatives, and potential benefits with the | | patient's family, a signed consent form was obtained and placed in the patient's chart. | | He was properly identified in the [facility] intensive care unit and brought to the | | operating room. He was carefully transferred to the operating table, and general | | endotracheal anesthesia was induced. All pressure points were properly padded. A Agnieszka | | Hugger was placed over his body to maintain core body temperature. Occlusive dressings | | were placed over the patient's eyes and face. We proposed 2 linear incisions on the | | right side slightly superior to the superotemporal line. One incision was planned at | | the coronal suture and one slightly posterior to the auditory canal. A small amount of | | hair along the proposed incisions was clipped with clippers. The patient's head was | | then prepped and draped in usual sterile fashion. An appropriate team pause was held, | | and the patient received preoperative antibiotics. The proposed incision was | | infiltrated with local anesthetic, which consisted of 0.5% bupivacaine with epinephrine | | 1:200,000. Under loupe magnification and headlight illumination, incision was made | | through the skin using a #10 blade. Dissection was carried down to the pericranium | | using monopolar cautery. Subperiosteal dissection was carried out using periosteal | | elevators. Small self-retaining retractors were placed at each incision to maintain it | | open. Bur holes were then created using a manager pmo drill bit on the high-speed | | pneumatic drill under continuous irrigation. The remaining eggshell layer of bone was | | removed using curettes. Hemostasis was achieved using bipolar electrocautery and bone | | wax. The dura was then cauterized using bipolar electrocautery and opened in a cruciate | | fashion. We started with the anterior lj hole. The dural leaflets were cauterized, | | and the membranes were opened. We then repeated this with the posterior bur hole. We | | immediately noted a crocker of dark red fluid from the posterior bur hole. The anterior | | bur hole was irrigated until the fluid running out of the posterior bur hole was clear. | | Once we were satisfied with the subdural hematoma evacuation, each wound was copiously | | irrigated. Hemostasis was achieved in the scalp using bipolar electrocautery. We then | | placed large bur hole covers over the bur holes from the [employer] cranial plating system. | | We then tunneled a ventriculostomy catheter in the subgaleal space and secured this | | with a 2-0 nylon suture in a Gurdeep sandal fashion. We then began our closure. The galea | | was closed with 3-0 Vicryl suture in an inverted interrupted fashion. The skin was | | closed with 4-0 Velosorb in a running fashion. Each incision was washed and dried. We | | applied bacitracin ointment, followed by Telfa. The drapes were taken down. The | | patient was carefully transferred back to the [facility]. He was left intubated. | | He was taken directly to the to the intensive care unit in stable condition. At the end | | of the case, all instrument, sponge, and needle counts were correct in 2 iterations. | | Dr. Sykes was present for the critical portions of the case.Oneil Cedeño | | REED Sykes/MODLDD: 03/26/2015 23:51:35DT: 03/27/2015 07:45:19Job #: | | [id number] was present for the critical portions of the procedure as described in | | the note for this encounter.Oneil Layne [facility] [id number] [facility] | | [id number], [place] [id number] | | | |I was present for the critical portions of the procedure as described in the note for this encounter. | | | |Dixei Sykes MD | | | |Dixie Sykes MD | |[facility] 10K | |[address] | |[id number] | |[place] [address] | |[phone] | + + CAPILLARY BLOOD GLUCOSE (NO CHG), POC (03/29/2015 1:02 PM PST) + +---------+ + + + | Component | Value | Ref Range | Performed | Pathologist | | | | | At | Signature | + +---------+ + + + | BLOOD | 285 (H) | 60 - 99 mg/dL | [facility] - | | | GLUCOSE, | | | [facility] | | | POC | | | [place] | | | | | | OF CARE | | | | | | TESTS | | + +---------+ + + + + + | Specimen | + + | | + + + + + + + | Performing | Address | City/State/Zipcode | Phone Number | | Organization | | | | + + + + + | [facility] | [address] | [place], [place] | | | [facility] | [facility] | [phone] | | | TESTS | | | | + + + + + CAPILLARY BLOOD GLUCOSE (NO CHG), POC (03/29/2015 9:45 AM PST) + +---------+ + + + | Component | Value | Ref Range | Performed | Pathologist | | | | | At | Signature | + +---------+ + + + | BLOOD | 162 (H) | 60 - 99 mg/dL | [facility] - | | | GLUCOSE, | | | [place] | | | POC | | | [facility] | | | | | | OF CARE | | | | | | TESTS | | + +---------+ + + + + + | Specimen | + + | | + + + + + + + | Performing | Address | City/State/Zipcode | Phone Number | | Organization | | | | + + + + + | [facility] | [address] | [place], [place] | | | [facility] | [address] | [address] | | | TESTS | | | | + + + + + CBC (HEMOGRAM) ONLY (03/29/2015 5:53 AM PST) + + + + + + | Component | Value | Ref Range | Performed | Pathologist | | | | | At | Signature | + + + + + + | WHITE CELL | 11.73 (H) | 4.40 - 11.00 | [facility] | | | COUNT | | K/cu mm | LABORATORY | | | | | | SERVICES, | | | | | | CORE | | + + + + + + | RED CELL | 2.78 (L) | 4.50 - 6.00 | [facility] | | | COUNT | | M/cu mm | LABORATORY | | | | | | SERVICES, | | | | | | CORE | | + + + + + + | HEMOGLOBIN | 8.5 (L) | 13.5 - 17.5 | [facility] | | | | | g/dL | LABORATORY | | | | | | SERVICES, | | | | | | CORE | | + + + + + + | HEMATOCRIT | 25.3 (L) | 41.0 - 53.0 % | [facility] | | | | | | LABORATORY | | | | | | SERVICES, | | | | | | CORE | | + + + + + + | MCV | 91.0 | 80.0 - 96.0 fL | [facility] | | | | | | LABORATORY | | | | | | SERVICES, | | | | | | CORE | | + + + + + + | MCHC | 33.6 | 33.0 - 35.5 | [facility] | | | | | g/dL | LABORATORY | | | | | | SERVICES, | | | | | | CORE | | + + + + + + | RDW SD | 42.0 | 35.1 - 46.3 fL | [facility] | | | | | | LABORATORY | | | | | | SERVICES, | | | | | | CORE | | + + + + + + | PLATELET | 299 | 150 - 400 K/cu | [facility] | | | COUNT | | mm | LABORATORY | | | | | | SERVICES, | | | | | | CORE | | + + + + + + | MPV | 10.5 | 9.7 - 12.3 fL | [facility] | | | | | | LABORATORY | | | | | | SERVICES, | | | | | | CORE | | + + + + + + | NRBC% | 0.0 | 0.0 - 0.3 % | [facility] | | | | | | LABORATORY | | | | | | SERVICES, | | | | | | CORE | | + + + + + + | NRBC# | 0.00 | 0.00 - 0.02 | [facility] | | | | | K/cu mm | LABORATORY | | | | | | SERVICES, | | | | | | CORE | | + + + + + + + + | Specimen | + + | Blood - Blood | | (substance) | + + + + + + + | Performing | Address | City/State/Zipcode | Phone Number | | Organization | | | | + + + + + | [facility] | [address] | [place] [address] | | | SERVICES, CORE | [address] | | | + + + + + MAGNESIUM, PLASMA (03/29/2015 5:53 AM PST) + +-------+ + + + | Component | Value | Ref Range | Performed | Pathologist | | | | | At | Signature | + +-------+ + + + | MAGNESIUM,P | 2.1 | 1.8 - 2.5 mg/dL | [facility] | | | L[facility] | | | LABORATORY | | | | | | SERVICES, | | | | | | CORE | | + +-------+ + + + + + | Specimen | + + | Blood - Blood | | (substance) | + + + + + + + | Performing | Address | City/State/Zipcode | Phone Number | | Organization | | | | + + + + + | [facility] | [address] | [place] [address] | | | SERVICES, CORE | [address] | | | + + + + + RENAL FUNCTION SET (NA,K,CL,CO2,BUN,CREAT,GLUC,CA,PHOS,ALB ) (03/29/2015 5:53 AM PST) + +---------+ + + + | Component | Value | Ref Range | Performed | Pathologist | | | | | At | Signature | + +---------+ + + + | GLUCOSE, | 153 (H) | 60 - 99 mg/dL | [facility] | | | PLASMA | | | LABORATORY | | | (LAB) | | | SERVICES, | | | | | | CORE | | + +---------+ + + + | BUN, PLASMA | 18 | 6 - 20 mg/dL | [facility] | | | (LAB) | | | LABORATORY | | | | | | SERVICES, | | | | | | CORE | | + +---------+ + + + | CREATININE | 0.83 | 0.70 - 1.30 | [facility] | | | PLASMA | | mg/dL | LABORATORY | | | (LAB) | | | SERVICES, | | | | | | CORE | | + +---------+ + + + | EGFR | >60 | >60 mL/min | [facility] | | | - | | | LABORATORY | | | PANAMANIAN | | | SERVICES, | | | | | | CORE | | + +---------+ + + + | EGFR NON | >60 | >60 mL/min | [facility] | | | -EN | | | LABORATORY | | | RICAN | | | SERVICES, | | | | | | CORE | | + +---------+ + + + | SODIUM, | 141 | 136 - 145 | [facility] | | | PLASMA | | mmol/L | LABORATORY | | | (LAB) | | | SERVICES, | | | | | | CORE | | + +---------+ + + + | POTASSIUM, | 4.1 | 3.4 - 5.0 | [facility] | | | PLASMA | | mmol/L | LABORATORY | | | (LAB) | | | SERVICES, | | | | | | CORE | | + +---------+ + + + | CHLORIDE, | 108 | 97 - 108 mmol/L | [facility] | | | PLASMA | | | LABORATORY | | | (LAB) | | | SERVICES, | | | | | | CORE | | + +---------+ + + + | TOTAL CO2, | 25 | 21 - 32 mmol/L | [facility] | | | PLASMA | | | LABORATORY | | | (LAB) | | | SERVICES, | | | | | | CORE | | + +---------+ + + + | CALCIUM, | 7.5 (L) | 8.6 - 10.2 | [facility] | | | PLASMA | | mg/dL | LABORATORY | | | (LAB) | | | SERVICES, | | | | | | CORE | | + +---------+ + + + | ALBUMIN, | 2.3 (L) | 3.5 - 4.7 g/dL | [facility] | | | PLASMA | | | LABORATORY | | | (LAB) | | | SERVICES, | | | | | | CORE | | + +---------+ + + + | PHOSPHORUS, | 2.9 | 2.4 - 4.7 mg/dL | [facility] | | | PLASMA | | | LABORATORY | | | (LAB) | | | SERVICES, | | | | | | CORE | | + +---------+ + + + | POTASSIUM | No Hemo | | [facility] | | | CMNT | | | LABORATORY | | | | | | SERVICES, | | | | | | CORE | | + +---------+ + + + | ANION GAP | 8 | mmol/L | [facility] | | | | | | LABORATORY | | | | | | SERVICES, | | | | | | CORE | | + +---------+ + + + | ANION | 12 (H) | 4 - 11 mmol/L | [facility] | | | GAP(ALB | | | LABORATORY | | | CORRECTED) | | | SERVICES, | | | | | | CORE | | + +---------+ + + + + + | Specimen | + + | Blood - Blood | | (substance) | + + + + + | Narrative | Performed At | + + + | GFR is estimated using the MDRD equation recommended by the | [facility] | | National Kidney Disease Education Program. Estimated GFR | LABORATORY | | Interpretive Information: <60 mL/min/1.73 sq m | [facility], CORE | | Chronic Kidney Disease <15 mL/min/1.73 sq m | | | Kidney Failure Estimated GFR greater that 60 mL/min/1.73 sq m is of | | | limited clinical value. The MDRD equation is not valid in the | | | following situations: - Patients under 18 years of age - Severe | | | malnutrition or obesity - Vegetarian diet - Rapidly changing kidney | | | function | | + + + + + + + + | Performing | Address | City/State/Zipcode | Phone Number | | Organization | | | | + + + + + | [facility] | [address] | [place] [address] | | | BEUL[facility]INCA[facility] | [address] | | | + + + + + CAPILLARY BLOOD GLUCOSE (NO CHG), POC (03/29/2015 2:27 AM PST) + +---------+ + + + | Component | Value | Ref Range | Performed | Pathologist | | | | | At | Signature | + +---------+ + + + | BLOOD | 121 (H) | 60 - 99 mg/dL | [facility] - | | | GLUCOSE, | | | [facility] | | | POC | | | [facility] | | | | | | OF CARE | | | | | | TESTS | | + +---------+ + + + + + | Specimen | + + | | + + + + + + + | Performing | Address | City/State/Zipcode | Phone Number | | Organization | | | | + + + + + | [facility] | [address] | [place], [place] | | | [facility] | [address] | [phone] | | | TESTS | | | | + + + + + CAPILLARY BLOOD GLUCOSE (NO CHG), POC (03/28/2015 11:59 PM PST) + +---------+ + + + | Component | Value | Ref Range | Performed | Pathologist | | | | | At | Signature | + +---------+ + + + | BLOOD | 115 (H) | 60 - 99 mg/dL | [facility] | | | [facility], | | | [facility] | | | POC | | | [facility] | | | | | | OF CARE | | | | | | TESTS | | + +---------+ + + + + + | Specimen | + + | | + + + + + + + | Performing | Address | City/State/Zipcode | Phone Number | | Organization | | | | + + + + + | [facility] | [address] | [place], [place] | | | [facility] | [address] | [phone] | | | TESTS | | | | + + + + + CAPILLARY BLOOD GLUCOSE (NO CHG), POC (03/28/2015 10:40 PM PST) + +---------+ + + + | Component | Value | Ref Range | Performed | Pathologist | | | | | At | Signature | + +---------+ + + + | BLOOD | 140 (H) | 60 - 99 mg/dL | [facility] - | | | GLUCOSE, | | | [facility] | | | POC | | | [facility] | | | | | | OF CARE | | | | | | TESTS | | + +---------+ + + + + + | Specimen | + + | | + + + + + + + | Performing | Address | City/State/Zipcode | Phone Number | | Organization | | | | + + + + + | [facility] | [address] | [place], [place] | | | [facility] | [address] | [phone] | | | TESTS | | | | + + + + + CAPILLARY BLOOD GLUCOSE (NO CHG), POC (03/28/2015 9:44 PM PST) + +---------+ + + + | Component | Value | Ref Range | Performed | Pathologist | | | | | At | Signature | + +---------+ + + + | BLOOD | 181 (H) | 60 - 99 mg/dL | [facility] | | | [facility], | | | [facility] | | | [facility] | | | [facility] | | | | | | [facility] | | | | | | TESTS | | + +---------+ + + + + + | Specimen | + + | | + + + + + + + | Performing | Address | City/State/Zipcode | Phone Number | | Organization | | | | + + + + + | [facility] | [address] | [place], [place] | | | [facility] | [address] | [address] | | | TESTS | | | | + + + + + CAPILLARY BLOOD GLUCOSE (NO CHG), POC (03/28/2015 8:41 PM PST) + +---------+ + + + | Component | Value | Ref Range | Performed | Pathologist | | | | | At | Signature | + +---------+ + + + | BLOOD | 204 (H) | 60 - 99 mg/dL | [facility] | | [facility] | | | [facility] | | | [facility] | | | [facility] | | | | | | [facility] | | | | | | TESTS | | + +---------+ + + + + + | Specimen | + + | | + + + + + + + | Performing | Address | City/State/Zipcode | Phone Number | | Organization | | | | + + + + + | [facility] | [address] | [place], [place] | | | [facility] | [address] | [address] | | | TESTS | | | | + + + + + CAPILLARY BLOOD GLUCOSE (NO CHG), POC (03/28/2015 7:40 PM PST) + +---------+ + + + | Component | Value | Ref Range | Performed | Pathologist | | | | | At | Signature | + +---------+ + + + | BLOOD | 113 (H) | 60 - 99 mg/dL | [facility] | | | [facility], | | | [facility] | | | POC | | | [facility] | | | | | | [facility] | | | | | | TESTS | | + +---------+ + + + + + | Specimen | + + | | + + + + + + + | Performing | Address | City/State/Zipcode | Phone Number | | Organization | | | | + + + + + | [facility] | [address] | [place], [place] | | | [facility] | [address] | [address] | | | TESTS | | | | + + + + + CAPILLARY BLOOD GLUCOSE (NO CHG), POC (03/28/2015 7:06 PM PST) + +-------+ + + + | Component | Value | Ref Range | Performed | Pathologist | | | | | At | Signature | + +-------+ + + + | BLOOD | 98 | 60 - 99 mg/dL | [facility] | | | GLUCOSE, | | | [facility] | | | POC | | | [facility] | | | | | | [facility] | | | | | | TESTS | | + +-------+ + + + + + | Specimen | + + | | + + + + + + + | Performing | Address | City/State/Zipcode | Phone Number | | Organization | | | | + + + + + | [facility] | [address] | [place], [place] | | | [facility] | [address] | [address] | | | TESTS | | | | + + + + + CAPILLARY BLOOD GLUCOSE (NO CHG), POC (03/28/2015 6:08 PM PST) + +---------+ + + + | Component | Value | Ref Range | Performed | Pathologist | | | | | At | Signature | + +---------+ + + + | BLOOD | 131 (H) | 60 - 99 mg/dL | [facility] | | | GLUCOSE, | | | [facility] | | | POC | | | [facility] | | | | | | [facility] | | | | | | TESTS | | + +---------+ + + + + + | Specimen | + + | | + + + + + + + | Performing | Address | City/State/Zipcode | Phone Number | | Organization | | | | + + + + + | [facility] | [address] | [place], [place] | | | [facility] | [address] | [address] | | | TESTS | | | | + + + + + CAPILLARY BLOOD GLUCOSE (NO CHG), POC (03/28/2015 5:08 PM PST) + +---------+ + + + | Component | Value | Ref Range | Performed | Pathologist | | | | | At | Signature | + +---------+ + + + | BLOOD | 235 (H) | 60 - 99 mg/dL | [facility] | | | GLUCOSE, | | | [facility] | | | POC | | | [facility] | | | | | | [facility] | | | | | | TESTS | | + +---------+ + + + + + | Specimen | + + | | + + + + + + + | Performing | Address | City/State/Zipcode | Phone Number | | Organization | | | | + + + + + | [facility] | [address] | [place], [place] | | | [facility] | [address] | [address] | | | TESTS | | | | + + + + + CAPILLARY BLOOD GLUCOSE (NO CHG), POC (03/28/2015 4:08 PM PST) + +---------+ + + + | Component | Value | Ref Range | Performed | Pathologist | | | | | At | Signature | + +---------+ + + + | BLOOD | 260 (H) | 60 - 99 mg/dL | [facility] | | | GLUCOSE, | | | [facility] | | | POC | | | [facility] | | | | | | [facility] | | | | | | TESTS | | + +---------+ + + + + + | Specimen | + + | | + + + + + + + | Performing | Address | City/State/Zipcode | Phone Number | | Organization | | | | + + + + + | [facility] | [address] | [place], [place] | | | [facility] | [address] | [address] | | | TESTS | | | | + + + + + CAPILLARY BLOOD GLUCOSE (NO CHG), POC (03/28/2015 3:05 PM PST) + +---------+ + + + | Component | Value | Ref Range | Performed | Pathologist | | | | | At | Signature | + +---------+ + + + | BLOOD | 295 (H) | 60 - 99 mg/dL | [facility] | | | GLUCOSE, | | | [facility] | | | POC | | | [facility] | | | | | | [facility] | | | | | | TESTS | | + +---------+ + + + + + | Specimen | + + | | + + + + + + + | Performing | Address | City/State/Zipcode | Phone Number | | Organization | | | | + + + + + | [facility] | [address] | [place], [place] | | | [facility] | [address] | [address] | | | TESTS | | | | + + + + + CAPILLARY BLOOD GLUCOSE (NO CHG), POC (03/28/2015 2:26 PM PST) + +---------+ + + + | Component | Value | Ref Range | Performed | Pathologist | | | | | At | Signature | + +---------+ + + + | BLOOD | 247 (H) | 60 - 99 mg/dL | [facility] | | | GLUCOSE, | | | [facility] | | | POC | | | [facility] | | | | | | [facility] | | | | | | TESTS | | + +---------+ + + + + + | Specimen | + + | | + + + + + + + | Performing | Address | City/State/Zipcode | Phone Number | | Organization | | | | + + + + + | [facility] | [address] | [place], [place] | | | [facility] | [address] | [address] | | | TESTS | | | | + + + + + CAPILLARY BLOOD GLUCOSE (NO CHG), POC (03/28/2015 12:35 PM PST) + +---------+ + + + | Component | Value | Ref Range | Performed | Pathologist | | | | | At | Signature | + +---------+ + + + | BLOOD | 247 (H) | 60 - 99 mg/dL | [facility] | | | GLUCOSE, | | | [facility] | | | POC | | | [facility] | | | | | | [facility] | | | | | | TESTS | | + +---------+ + + + + + | Specimen | + + | | + + + + + + + | Performing | Address | City/State/Zipcode | Phone Number | | Organization | | | | + + + + + | [facility] | [address] | [place], [place] | | | [facility] | [address] | [address] | | | TESTS | | | | + + + + + CAPILLARY BLOOD GLUCOSE (NO CHG), POC (03/28/2015 12:32 PM PST) + +---------+ + + + | Component | Value | Ref Range | Performed | Pathologist | | | | | At | Signature | + +---------+ + + + | BLOOD | 263 (H) | 60 - 99 mg/dL | [facility] - | | | GLUCOSE, | | | [facility] | | | POC | | | [facility] | | | | | | [facility]ARE | | | | | | TESTS | | + +---------+ + + + + + | Specimen | + + | | + + + + + + + | Performing | Address | City/State/Zipcode | Phone Number | | Organization | | | | + + + + + | [facility] | [address] | [place], [place] | | | [facility] | [address] | [address] | | | TESTS | | | | + + + + + CAPILLARY BLOOD GLUCOSE (NO CHG), POC (03/28/2015 8:16 AM PST) + +---------+ + + + | Component | Value | Ref Range | Performed | Pathologist | | | | | At | Signature | + +---------+ + + + | BLOOD | 134 (H) | 60 - 99 mg/dL | [facility] | | | GLUCOSE, | | | [facility] | | | POC | | | [facility] | | | | | | [facility]ARE | | | | | | TESTS | | + +---------+ + + + + + | Specimen | + + | | + + + + + + + | Performing | Address | City/State/Zipcode | Phone Number | | Organization | | | | + + + + + | [facility] | [address] | [place], [place] | | | [facility] | [address] | [address] | | | TESTS | | | | + + + + + CAPILLARY BLOOD GLUCOSE (NO CHG), POC (03/28/2015 6:15 AM PST) + +---------+ + + + | Component | Value | Ref Range | Performed | Pathologist | | | | | At | Signature | + +---------+ + + + | BLOOD | 144 (H) | 60 - 99 mg/dL | [facility] | | | GLUCOSE, | | | [facility] | | | POC | | | [facility] | | | | | | [facility]ARE | | | | | | TESTS | | + +---------+ + + + + + | Specimen | + + | | + + + + + + + | Performing | Address | City/State/Zipcode | Phone Number | | Organization | | | | + + + + + | [facility] | [address] | [place], [place] | | | [facility] | [address] | [address] | | | TESTS | | | | + + + + + CAPILLARY BLOOD GLUCOSE (NO CHG), POC (03/28/2015 4:13 AM PST) + +---------+ + + + | Component | Value | Ref Range | Performed | Pathologist | | | | | At | Signature | + +---------+ + + + | BLOOD | 148 (H) | 60 - 99 mg/dL | [facility] - | | | GLUCOSE, | | | [facility] | | | POC | | | [facility] | | | | | | OF CARE | | | | | | TESTS | | + +---------+ + + + + + | Specimen | + + | | + + + + + + + | Performing | Address | City/State/Zipcode | Phone Number | | Organization | | | | + + + + + | [facility] | [address] | [place], [place] | | | [facility] | [address] | [address] | | | TESTS | | | | + + + + + CAPILLARY BLOOD GLUCOSE (NO CHG), POC (03/28/2015 2:01 AM PST) + +---------+ + + + | Component | Value | Ref Range | Performed | Pathologist | | | | | At | Signature | + +---------+ + + + | BLOOD | 118 (H) | 60 - 99 mg/dL | [facility] | | | GLUCOSE, | | | [facility] | | | POC | | | [facility] | | | | | | [facility] | | | | | | TESTS | | + +---------+ + + + + + | Specimen | + + | | + + + + + + + | Performing | Address | City/State/Zipcode | Phone Number | | Organization | | | | + + + + + | [facility] | [address] | [place], [place] | | | [facility] | [address] | [address] | | | TESTS | | | | + + + + + CAPILLARY BLOOD GLUCOSE (NO CHG), POC (03/28/2015 1:07 AM PST) + +---------+ + + + | Component | Value | Ref Range | Performed | Pathologist | | | | | At | Signature | + +---------+ + + + | BLOOD | 109 (H) | 60 - 99 mg/dL | [facility] - | | | GLUCOSE, | | | [facility] | | | POC | | | [facility] | | | | | | OF [facility] | | | | | | TESTS | | + +---------+ + + + + + | Specimen | + + | | + + + + + + + | Performing | Address | City/State/Zipcode | Phone Number | | Organization | | | | + + + + + | [facility] | [address] | [place], [place] | | | [facility] | [address] | [address] | | | TESTS | | | | + + + + + CBC (HEMOGRAM) ONLY (03/28/2015 12:07 AM PST) + + + + + + | Component | Value | Ref Range | Performed | Pathologist | | | | | At | Signature | + + + + + + | WHITE CELL | 13.04 (H) | 4.40 - 11.00 | [facility] | | | COUNT | | K/cu mm | LABORATORY | | | | | | SERVICES, | | | | | | CORE | | + + + + + + | RED CELL | 2.70 (L) | 4.50 - 6.00 | [facility] | | | COUNT | | M/cu mm | LABORATORY | | | | | | SERVICES, | | | | | | CORE | | + + + + + + | HEMOGLOBIN | 8.2 (L) | 13.5 - 17.5 | [facility] | | | | | g/dL | LABORATORY | | | | | | SERVICES, | | | | | | CORE | | + + + + + + | HEMATOCRIT | 24.6 (L) | 41.0 - 53.0 % | [facility] | | | | | | LABORATORY | | | | | | SERVICES, | | | | | | CORE | | + + + + + + | MCV | 91.1 | 80.0 - 96.0 fL | [facility] | | | | | | LABORATORY | | | | | | SERVICES, | | | | | | CORE | | + + + + + + | MCHC | 33.3 | 33.0 - 35.5 | [facility] | | | | | g/dL | LABORATORY | | | | | | SERVICES, | | | | | | CORE | | + + + + + + | RDW SD | 42.5 | 35.1 - 46.3 fL | [facility] | | | | | | LABORATORY | | | | | | SERVICES, | | | | | | CORE | | + + + + + + | PLATELET | 285 | 150 - 400 K/cu | [facility] | | | COUNT | | mm | LABORATORY | | | | | | SERVICES, | | | | | | CORE | | + + + + + + | MPV | 10.2 | 9.7 - 12.3 fL | [facility] | | | | | | LABORATORY | | | | | | SERVICES, | | | | | | CORE | | + + + + + + | NRBC% | 0.0 | 0.0 - 0.3 % | [facility] | | | | | | LABORATORY | | | | | | SERVICES, | | | | | | CORE | | + + + + + + | NRBC# | 0.00 | 0.00 - 0.02 | [facility] | | | | | K/cu mm | LABORATORY | | | | | | SERVICES, | | | | | | CORE | | + + + + + + + + | Specimen | + + | Blood - Blood | | (substance) | + + + + + + + | Performing | Address | City/State/Zipcode | Phone Number | | Organization | | | | + + + + + | [facility] | [address] | [place] [address] | | | SERVICES, CORE | [address] | | | + + + + + MAGNESIUM, PLASMA (03/28/2015 12:07 AM PST) + +-------+ + + + | Component | Value | Ref Range | Performed | Pathologist | | | | | At | Signature | + +-------+ + + + | MAGNESIUM,P | 2.1 | 1.8 - 2.5 mg/dL | [facility] | | | [facility] | | | LABORATORY | | | | | | SERVICES, | | | | | | CORE | | + +-------+ + + + + + | Specimen | + + | Blood - Blood | | (substance) | + + + + + + + | Performing | Address | City/State/Zipcode | Phone Number | | Organization | | | | + + + + + | [facility] | [address] | [place] [address] | | | SERVICES, CORE | [address] | | | + + + + + RENAL FUNCTION SET (NA,K,CL,CO2,BUN,CREAT,GLUC,CA,PHOS,ALB ) (03/28/2015 12:07 AM PST) + +---------+ + + + | Component | Value | Ref Range | Performed | Pathologist | | | | | At | Signature | + +---------+ + + + | GLUCOSE, | 139 (H) | 60 - 99 mg/dL | [facility] | | | PLASMA | | | LABORATORY | | | (LAB) | | | SERVICES, | | | | | | CORE | | + +---------+ + + + | BUN, PLASMA | 21 (H) | 6 - 20 mg/dL | [facility] | | | (LAB) | | | LABORATORY | | | | | | SERVICES, | | | | | | CORE | | + +---------+ + + + | CREATININE | 1.02 | 0.70 - 1.30 | [facility] | | | PLASMA | | mg/dL | LABORATORY | | | (LAB) | | | SERVICES, | | | | | | CORE | | + +---------+ + + + | EGFR | >60 | >60 mL/min | [facility] | | | - | | | LABORATORY | | | PANAMANIAN | | | SERVICES, | | | | | | CORE | | + +---------+ + + + | EGFR NON | >60 | >60 mL/min | [facility] | | | -EN | | | LABORATORY | | | RICAN | | | SERVICES, | | | | | | CORE | | + +---------+ + + + | SODIUM, | 144 | 136 - 145 | [facility] | | | PLASMA | | mmol/L | LABORATORY | | | (LAB) | | | SERVICES, | | | | | | CORE | | + +---------+ + + + | POTASSIUM, | 3.7 | 3.4 - 5.0 | [facility] | | | PLASMA | | mmol/L | LABORATORY | | | (LAB) | | | SERVICES, | | | | | | CORE | | + +---------+ + + + | CHLORIDE, | 112 (H) | 97 - 108 mmol/L | [facility] | | | PLASMA | | | LABORATORY | | | (LAB) | | | SERVICES, | | | | | | CORE | | + +---------+ + + + | TOTAL CO2, | 25 | 21 - 32 mmol/L | [facility] | | | PLASMA | | | LABORATORY | | | (LAB) | | | SERVICES, | | | | | | CORE | | + +---------+ + + + | CALCIUM, | 7.5 (L) | 8.6 - 10.2 | [facility] | | | PLASMA | | mg/dL | LABORATORY | | | (LAB) | | | SERVICES, | | | | | | CORE | | + +---------+ + + + | ALBUMIN, | 2.4 (L) | 3.5 - 4.7 g/dL | [facility] | | | PLASMA | | | LABORATORY | | | (LAB) | | | SERVICES, | | | | | | CORE | | + +---------+ + + + | PHOSPHORUS, | 2.3 (L) | 2.4 - 4.7 mg/dL | [facility] | | | PLASMA | | | LABORATORY | | | (LAB) | | | SERVICES, | | | | | | CORE | | + +---------+ + + + | POTASSIUM | No Hemo | | [facility] | | | CMNT | | | LABORATORY | | | | | | SERVICES, | | | | | | CORE | | + +---------+ + + + | ANION GAP | 7 | mmol/L | [facility] | | | | | | LABORATORY | | | | | | SERVICES, | | | | | | CORE | | + +---------+ + + + | ANION | 11 | 4 - 11 mmol/L | [facility] | | | GAP(ALB | | | LABORATORY | | | CORRECTED) | | | SERVICES, | | | | | | CORE | | + +---------+ + + + + + | Specimen | + + | Blood - Blood | | (substance) | + + + + + | Narrative | Performed At | + + + | GFR is estimated using the MDRD equation recommended by the | [facility] | | National Kidney Disease Education Program. Estimated GFR | LABORATORY | | Interpretive Information: <60 mL/min/1.73 sq m | SERVICES, CORE | | Chronic Kidney Disease <15 mL/min/1.73 sq m | | | Kidney Failure Estimated GFR greater that 60 mL/min/1.73 sq m is of | | | limited clinical value. The MDRD equation is not valid in the | | | following situations: - Patients under 18 years of age - Severe | | | malnutrition or obesity - Vegetarian diet - Rapidly changing kidney | | | function | | + + + + + + + + | Performing | Address | City/State/Zipcode | Phone Number | | Organization | | | | + + + + + | [facility] | [address] | [place] [address] | | | CODI, BEULAH | [address] | | | + + + + + CAPILLARY BLOOD GLUCOSE (NO CHG), POC (03/27/2015 11:59 PM PST) + +---------+ + + + | Component | Value | Ref Range | Performed | Pathologist | | | | | At | Signature | + +---------+ + + + | BLOOD | 151 (H) | 60 - 99 mg/dL | [facility] | | | GLUCOSE, | | | [facility] | | | POC | | | [facility] | | | | | | OF CARE | | | | | | TESTS | | + +---------+ + + + + + | Specimen | + + | | + + + + + + + | Performing | Address | City/State/Zipcode | Phone Number | | Organization | | | | + + + + + | [facility] | [address] | [place], [place] | | | [facility] | [address] | [address] | | | TESTS | | | | + + + + + CAPILLARY BLOOD GLUCOSE (NO CHG), POC (03/27/2015 11:00 PM PST) + +---------+ + + + | Component | Value | Ref Range | Performed | Pathologist | | | | | At | Signature | + +---------+ + + + | BLOOD | 202 (H) | 60 - 99 mg/dL | [facility] - | | | GLUCOSE, | | | [facility] | | | POC | | | [facility] | | | | | | OF CARE | | | | | | TESTS | | + +---------+ + + + + + | Specimen | + + | | + + + + + + + | Performing | Address | City/State/Zipcode | Phone Number | | Organization | | | | + + + + + | [facility] | [address] | [place], [place] | | | [facility] | [address] | [address] | | | TESTS | | | | + + + + + CAPILLARY BLOOD GLUCOSE (NO CHG), POC (03/27/2015 10:02 PM PST) + +---------+ + + + | Component | Value | Ref Range | Performed | Pathologist | | | | | At | Signature | + +---------+ + + + | BLOOD | 223 (H) | 60 - 99 mg/dL | [facility] - | | | GLUCOSE, | | | [facility] | | | POC | | | [facility] | | | | | | OF CARE | | | | | | TESTS | | + +---------+ + + + + + | Specimen | + + | | + + + + + + + | Performing | Address | City/State/Zipcode | Phone Number | | Organization | | | | + + + + + | [facility] | [address] | [place], [place] | | | [facility] | [address] | [address] | | | TESTS | | | | + + + + + CAPILLARY BLOOD GLUCOSE (NO CHG), POC (03/27/2015 8:53 PM PST) + +---------+ + + + | Component | Value | Ref Range | Performed | Pathologist | | | | | At | Signature | + +---------+ + + + | BLOOD | 287 (H) | 60 - 99 mg/dL | [facility] - | | | GLUCOSE, | | | [facility] | | | POC | | | [facility] | | | | | | OF CARE | | | | | | TESTS | | + +---------+ + + + + + | Specimen | + + | | + + + + + + + | Performing | Address | City/State/Zipcode | Phone Number | | Organization | | | | + + + + + | [facility] | [address] | [place], [place] | | | [facility] | [address] | [address] | | | TESTS | | | | + + + + + CAPILLARY BLOOD GLUCOSE (NO CHG), POC (03/27/2015 6:45 PM PST) + +---------+ + + + | Component | Value | Ref Range | Performed | Pathologist | | | | | At | Signature | + +---------+ + + + | BLOOD | 144 (H) | 60 - 99 mg/dL | [facility] - | | | GLUCOSE, | | | [facility] | | | POC | | | [facility] | | | | | | OF CARE | | | | | | TESTS | | + +---------+ + + + + + | Specimen | + + | | + + + + + + + | Performing | Address | City/State/Zipcode | Phone Number | | Organization | | | | + + + + + | [facility] | [address] | [place], [place] | | | [facility] | [address] | [address] | | | TESTS | | | | + + + + + CAPILLARY BLOOD GLUCOSE (NO CHG), POC (03/27/2015 5:39 PM PST) + +---------+ + + + | Component | Value | Ref Range | Performed | Pathologist | | | | | At | Signature | + +---------+ + + + | BLOOD | 142 (H) | 60 - 99 mg/dL | [facility] - | | | GLUCOSE, | | | [facility] | | | POC | | | [facility] | | | | | | OF CARE | | | | | | TESTS | | + +---------+ + + + + + | Specimen | + + | | + + + + + + + | Performing | Address | City/State/Zipcode | Phone Number | | Organization | | | | + + + + + | [facility] | [address] | [place], [place] | | | [facility] | [address] | [address] | | | TESTS | | | | + + + + + CAPILLARY BLOOD GLUCOSE (NO CHG), POC (03/27/2015 4:32 PM PST) + +---------+ + + + | Component | Value | Ref Range | Performed | Pathologist | | | | | At | Signature | + +---------+ + + + | BLOOD | 133 (H) | 60 - 99 mg/dL | [facility] - | | | GLUCOSE, | | | [facility] | | | POC | | | [facility] | | | | | | OF CARE | | | | | | TESTS | | + +---------+ + + + + + | Specimen | + + | | + + + + + + + | Performing | Address | City/State/Zipcode | Phone Number | | Organization | | | | + + + + + | [facility] | [address] | [place], [place] | | | [facility] | [address] | [address] | | | TESTS | | | | + + + + + CAPILLARY BLOOD GLUCOSE (NO CHG), POC (03/27/2015 3:26 PM PST) + +---------+ + + + | Component | Value | Ref Range | Performed | Pathologist | | | | | At | Signature | + +---------+ + + + | BLOOD | 161 (H) | 60 - 99 mg/dL | [facility] - | | | GLUCOSE, | | | [facility] | | | POC | | | [facility] | | | | | | OF CARE | | | | | | TESTS | | + +---------+ + + + + + | Specimen | + + | | + + + + + + + | Performing | Address | City/State/Zipcode | Phone Number | | Organization | | | | + + + + + | [facility] | [address] | [place], [place] | | | [facility] | [address] | [address] | | | TESTS | | | | + + + + + CAPILLARY BLOOD GLUCOSE (NO CHG), POC (03/27/2015 2:21 PM PST) + +---------+ + + + | Component | Value | Ref Range | Performed | Pathologist | | | | | At | Signature | + +---------+ + + + | BLOOD | 238 (H) | 60 - 99 mg/dL | [facility] - | | | GLUCOSE, | | | [facility] | | | POC | | | [facility] | | | | | | OF CARE | | | | | | TESTS | | + +---------+ + + + + + | Specimen | + + | | + + + + + + + | Performing | Address | City/State/Zipcode | Phone Number | | Organization | | | | + + + + + | [facility] | [address] | [place], [place] | | | [facility] | [address] | [address] | | | TESTS | | | | + + + + + CAPILLARY BLOOD GLUCOSE (NO CHG), POC (03/27/2015 1:16 PM PST) + +---------+ + + + | Component | Value | Ref Range | Performed | Pathologist | | | | | At | Signature | + +---------+ + + + | BLOOD | 159 (H) | 60 - 99 mg/dL | [facility] | | | [facility], | | | [facility] | | | POC | | | [facility] | | | | | | [facility] | | | | | | TESTS | | + +---------+ + + + + + | Specimen | + + | | + + + + + + + | Performing | Address | City/State/Zipcode | Phone Number | | Organization | | | | + + + + + | [facility] | [address] | [place], [place] | | | [facility] | [address] | [address] | | | TESTS | | | | + + + + + CAPILLARY BLOOD GLUCOSE (NO CHG), POC (03/27/2015 11:11 AM PST) + +---------+ + + + | Component | Value | Ref Range | Performed | Pathologist | | | | | At | Signature | + +---------+ + + + | BLOOD | 144 (H) | 60 - 99 mg/dL | [facility] | | | [facility]UCO[facility], | | | [facility] | | | POC | | | [facility] | | | | | | [facility] | | | | | | TESTS | | + +---------+ + + + + + | Specimen | + + | | + + + + + + + | Performing | Address | City/State/Zipcode | Phone Number | | Organization | | | | + + + + + | [facility] | [address] | [place], [place] | | | [facility] | [address] | [address] | | | TESTS | | | | + + + + + CAPILLARY BLOOD GLUCOSE (NO CHG), POC (03/27/2015 9:57 AM PST) + +---------+ + + + | Component | Value | Ref Range | Performed | Pathologist | | | | | At | Signature | + +---------+ + + + | BLOOD | 143 (H) | 60 - 99 mg/dL | [facility] | | | [facility], | | | [facility] | | | POC | | | [facility] | | | | | | [facility] | | | | | | TESTS | | + +---------+ + + + + + | Specimen | + + | | + + + + + + + | Performing | Address | City/State/Zipcode | Phone Number | | Organization | | | | + + + + + | [facility] | [address] | [place], [place] | | | [facility] | [address] | [address] | | | TESTS | | | | + + + + + CAPILLARY BLOOD GLUCOSE (NO CHG), POC (03/27/2015 8:33 AM PST) + +---------+ + + + | Component | Value | Ref Range | Performed | Pathologist | | | | | At | Signature | + +---------+ + + + | BLOOD | 155 (H) | 60 - 99 mg/dL | [facility] - | | | GLUCOSE, | | | [facility] | | | POC | | | [facility] | | | | | | [facility] | | | | | | TESTS | | + +---------+ + + + + + | Specimen | + + | | + + + + + + + | Performing | Address | City/State/Zipcode | Phone Number | | Organization | | | | + + + + + | [facility] | [address] | [place], [place] | | | [facility] | [address] | [address] | | | TESTS | | | | + + + + + CAPILLARY BLOOD GLUCOSE (NO CHG), POC (03/27/2015 7:16 AM PST) + +---------+ + + + | Component | Value | Ref Range | Performed | Pathologist | | | | | At | Signature | + +---------+ + + + | BLOOD | 162 (H) | 60 - 99 mg/dL | [facility] - | | | GLUCOSE, | | | [facility] | | | POC | | | [facility] | | | | | | [facility] | | | | | | TESTS | | + +---------+ + + + + + | Specimen | + + | | + + + + + + + | Performing | Address | City/State/Zipcode | Phone Number | | Organization | | | | + + + + + | [facility] | [address] | [place], [place] | | | [facility] | [address] | [address] | | | TESTS | | | | + + + + + CAPILLARY BLOOD GLUCOSE (NO CHG), POC (03/27/2015 6:04 AM PST) + +---------+ + + + | Component | Value | Ref Range | Performed | Pathologist | | | | | At | Signature | + +---------+ + + + | BLOOD | 158 (H) | 60 - 99 mg/dL | [facility] | | | [facility], | | | [facility] | | | POC | | | [facility] | | | | | | [facility] | | | | | | TESTS | | + +---------+ + + + + + | Specimen | + + | | + + + + + + + | Performing | Address | City/State/Zipcode | Phone Number | | Organization | | | | + + + + + | [facility] | [address] | [place], [place] | | | [facility] | [address] | [address] | | | TESTS | | | | + + + + + CAPILLARY BLOOD GLUCOSE (NO CHG), POC (03/27/2015 4:54 AM PST) + +---------+ + + + | Component | Value | Ref Range | Performed | Pathologist | | | | | At | Signature | + +---------+ + + + | BLOOD | 147 (H) | 60 - 99 mg/dL | [facility] | | [facility] | | | [facility] | | | POC | | | [facility] | | | | | | OF CARE | | | | | | TESTS | | + +---------+ + + + + + | Specimen | + + | | + + + + + + + | Performing | Address | City/State/Zipcode | Phone Number | | Organization | | | | + + + + + | [facility] | [address] | [place], [place] | | | [facility] | [address] | [address] | | | TESTS | | | | + + + + + CAPILLARY BLOOD GLUCOSE (NO CHG), POC (03/27/2015 3:39 AM PST) + +-------+ + + + | Component | Value | Ref Range | Performed | Pathologist | | | | | At | Signature | + +-------+ + + + | BLOOD | 90 | 60 - 99 mg/dL | [facility] | | | [facility], | | | [facility] | | | POC | | | [facility] | | | | | | OF CARE | | | | | | TESTS | | + +-------+ + + + + + | Specimen | + + | | + + + + + + + | Performing | Address | City/State/Zipcode | Phone Number | | Organization | | | | + + + + + | [facility] | [address] | [place], [place] | | | [facility] | [address] | [address] | | | TESTS | | | | + + + + + CBC (HEMOGRAM) ONLY (03/27/2015 3:26 AM PST) + + + + + + | Component | Value | Ref Range | Performed | Pathologist | | | | | At | Signature | + + + + + + | WHITE CELL | 12.54 (H) | 4.40 - 11.00 | [facility] | | | COUNT | | K/cu mm | LABORATORY | | | | | | SERVICES, | | | | | | CORE | | + + + + + + | RED CELL | 3.12 (L) | 4.50 - 6.00 | [facility] | | | COUNT | | M/cu mm | LABORATORY | | | | | | SERVICES, | | | | | | CORE | | + + + + + + | HEMOGLOBIN | 9.3 (L) | 13.5 - 17.5 | [facility] | | | | | g/dL | LABORATORY | | | | | | SERVICES, | | | | | | CORE | | + + + + + + | HEMATOCRIT | 27.4 (L) | 41.0 - 53.0 % | [facility] | | | | | | LABORATORY | | | | | | SERVICES, | | | | | | CORE | | + + + + + + | MCV | 87.8 | 80.0 - 96.0 fL | [facility] | | | | | | LABORATORY | | | | | | SERVICES, | | | | | | CORE | | + + + + + + | MCHC | 33.9 | 33.0 - 35.5 | [facility] | | | | | g/dL | LABORATORY | | | | | | SERVICES, | | | | | | CORE | | + + + + + + | RDW SD | 40.7 | 35.1 - 46.3 fL | [facility] | | | | | | LABORATORY | | | | | | SERVICES, | | | | | | CORE | | + + + + + + | PLATELET | 342 | 150 - 400 K/cu | [facility] | | | COUNT | | mm | LABORATORY | | | | | | SERVICES, | | | | | | CORE | | + + + + + + | MPV | 9.9 | 9.7 - 12.3 fL | [facility] | | | | | | LABORATORY | | | | | | SERVICES, | | | | | | CORE | | + + + + + + | NRBC% | 0.0 | 0.0 - 0.3 % | [facility] | | | | | | LABORATORY | | | | | | SERVICES, | | | | | | CORE | | + + + + + + | NRBC# | 0.00 | 0.00 - 0.02 | [facility] | | | | | K/cu mm | LABORATORY | | | | | | SERVICES, | | | | | | CORE | | + + + + + + + + | Specimen | + + | Blood - Blood | | (substance) | + + + + + + + | Performing | Address | City/State/Zipcode | Phone Number | | Organization | | | | + + + + + | [facility] | [address] | [place] [address] | | | SERVICES, CORE | [address] | | | + + + + + MAGNESIUM, PLASMA (03/27/2015 3:26 AM PST) + +-------+ + + + | Component | Value | Ref Range | Performed | Pathologist | | | | | At | Signature | + +-------+ + + + | MAGNESIUM,P | 2.2 | 1.8 - 2.5 mg/dL | [facility] | | | LASMA | | | LABORATORY | | | | | | CODI, | | | | | | CORE | | + +-------+ + + + + + | Specimen | + + | Blood - Blood | | (substance) | + + + + + + + | Performing | Address | City/State/Zipcode | Phone Number | | Organization | | | | + + + + + | [facility] | [address] | [place] [address] | | | SERVICES, CORE | [address] | | | + + + + + RENAL FUNCTION SET (NA,K,CL,CO2,BUN,CREAT,GLUC,CA,PHOS,ALB ) (03/27/2015 3:26 AM PST) + +---------+ + + + | Component | Value | Ref Range | Performed | Pathologist | | | | | At | Signature | + +---------+ + + + | GLUCOSE, | 89 | 60 - 99 mg/dL | [facility] | | | PLASMA | | | LABORATORY | | | (LAB) | | | SERVICES, | | | | | | CORE | | + +---------+ + + + | BUN, PLASMA | 23 (H) | 6 - 20 mg/dL | [facility] | | | (LAB) | | | LABORATORY | | | | | | SERVICES, | | | | | | CORE | | + +---------+ + + + | CREATININE | 0.96 | 0.70 - 1.30 | [facility] | | | PLASMA | | mg/dL | LABORATORY | | | (LAB) | | | SERVICES, | | | | | | CORE | | + +---------+ + + + | EGFR | >60 | >60 mL/min | [facility] | | | - | | | LABORATORY | | | PANAMANIAN | | | SERVICES, | | | | | | CORE | | + +---------+ + + + | EGFR NON | >60 | >60 mL/min | [facility] | | | -EN | | | LABORATORY | | | RICAN | | | SERVICES, | | | | | | CORE | | + +---------+ + + + | SODIUM, | 146 (H) | 136 - 145 | [facility] | | | PLASMA | | mmol/L | LABORATORY | | | (LAB) | | | SERVICES, | | | | | | CORE | | + +---------+ + + + | POTASSIUM, | 3.3 (L) | 3.4 - 5.0 | [facility] | | | PLASMA | | mmol/L | LABORATORY | | | (LAB) | | | SERVICES, | | | | | | CORE | | + +---------+ + + + | CHLORIDE, | 109 (H) | 97 - 108 mmol/L | [facility] | | | PLASMA | | | LABORATORY | | | (LAB) | | | SERVICES, | | | | | | CORE | | + +---------+ + + + | TOTAL CO2, | 29 | 21 - 32 mmol/L | [facility] | | | PLASMA | | | LABORATORY | | | (LAB) | | | SERVICES, | | | | | | CORE | | + +---------+ + + + | CALCIUM, | 7.5 (L) | 8.6 - 10.2 | [facility] | | | PLASMA | | mg/dL | LABORATORY | | | (LAB) | | | SERVICES, | | | | | | CORE | | + +---------+ + + + | ALBUMIN, | 2.9 (L) | 3.5 - 4.7 g/dL | [facility] | | | PLASMA | | | LABORATORY | | | (LAB) | | | SERVICES, | | | | | | CORE | | + +---------+ + + + | PHOSPHORUS, | 2.1 (L) | 2.4 - 4.7 mg/dL | [facility] | | | PLASMA | | | LABORATORY | | | (LAB) | | | SERVICES, | | | | | | CORE | | + +---------+ + + + | POTASSIUM | No Hemo | | [facility] | | | CMNT | | | LABORATORY | | | | | | SERVICES, | | | | | | CORE | | + +---------+ + + + | ANION GAP | 8 | mmol/L | [facility] | | | | | | LABORATORY | | | | | | SERVICES, | | | | | | CORE | | + +---------+ + + + | ANION | 10 | 4 - 11 mmol/L | [facility] | | | GAP(ALB | | | LABORATORY | | | CORRECTED) | | | SERVICES, | | | | | | CORE | | + +---------+ + + + + + | Specimen | + + | Blood - Blood | | (substance) | + + + + + | Narrative | Performed At | + + + | GFR is estimated using the MDRD equation recommended by the | [facility] | | National Kidney Disease Education Program. Estimated GFR | LABORATORY | | Interpretive Information: <60 mL/min/1.73 sq m | SERVICES, CORE | | Chronic Kidney Disease <15 mL/min/1.73 sq m | | | Kidney Failure Estimated GFR greater that 60 mL/min/1.73 sq m is of | | | limited clinical value. The MDRD equation is not valid in the | | | following situations: - Patients under 18 years of age - Severe | | | malnutrition or obesity - Vegetarian diet - Rapidly changing kidney | | | function | | + + + + + + + + | Performing | Address | City/State/Zipcode | Phone Number | | Organization | | | | + + + + + | [facility] | [address] | [place] [address] | | | [facility] | [address] | | | + + + + + CAPILLARY BLOOD GLUCOSE (NO CHG), POC (03/27/2015 2:40 AM PST) + +-------+ + + + | Component | Value | Ref Range | Performed | Pathologist | | | | | At | Signature | + +-------+ + + + | BLOOD | 74 | 60 - 99 mg/dL | [facility] - | | | GLUCOSE, | | | [facility] | | | POC | | | [facility] | | | | | | OF CARE | | | | | | TESTS | | + +-------+ + + + + + | Specimen | + + | | + + + + + + + | Performing | Address | City/State/Zipcode | Phone Number | | Organization | | | | + + + + + | [facility] | [address] | [place], [place] | | | [facility] | [address] | [address] | | | TESTS | | | | + + + + + CAPILLARY BLOOD GLUCOSE (NO CHG), POC (03/27/2015 1:44 AM PST) + +---------+ + + + | Component | Value | Ref Range | Performed | Pathologist | | | | | At | Signature | + +---------+ + + + | BLOOD | 102 (H) | 60 - 99 mg/dL | [facility] | | | GLUCOSE, | | | [facility] | | | POC | | | [facility] | | | | | | OF CARE | | | | | | TESTS | | + +---------+ + + + + + | Specimen | + + | | + + + + + + + | Performing | Address | City/State/Zipcode | Phone Number | | Organization | | | | + + + + + | [facility] | [address] | [place], [place] | | | [facility] | [facility] | [address] | | | TESTS | | | | + + + + + CULTURE, URINE [place]EL (03/27/2015 12:51 AM PST) + + + + + + | Component | Value | Ref Range | Performed | Pathologist | | | | | At | Signature | + + + + + + | URINE | No growth (<1000 cfu/mL) | | [facility] | | | CULTURE | after 24 hours | | LABORATORY | | | [facility] | | | SERVICES, | | | | | | CORE | | + + + + + + + + | Specimen | + + | Urine - Urine | | (substance) | + + + + + + + | Performing | Address | City/State/Zipcode | Phone Number | | Organization | | | | + + + + + | [facility] | [address] | [place] [address] | | | SERVICES, CORE | [address] | | | + + + + + ARIADNA ALEGRIA ONLY (03/27/2015 12:51 AM PST) + + + + + + | Component | Value | Ref Range | Performed | Pathologist | | | | | At | Signature | + + + + + + | COLOR(UR) | Mary | | [facility] | | | | | | LABORATORY | | | | | | SERVICES, | | | | | | CORE | | + + + + + + | APPEARANCE | Sl.Cloudy | | [facility] | | | | | | LABORATORY | | | | | | SERVICES, | | | | | | CORE | | + + + + + + | GLUCOSE(UR) | 150.0 (A) | Negative, 50.0 | [facility] | | | | | mg/dL | LABORATORY | | | | | | SERVICES, | | | | | | CORE | | + + + + + + | PROTEIN(LAB | 30.0 | Negative, 30.0 | [facility] | | | ) | | mg/dL | LABORATORY | | | | | | SERVICES, | | | | | | CORE | | + + + + + + | BILIRUBIN | Negative | Negative | [facility] | | | | | | LABORATORY | | | | | | SERVICES, | | | | | | CORE | | + + + + + + | UROBILINOGE | <2.0 | <2.0 mg/dL | [facility] | | | N | | | LABORATORY | | | | | | SERVICES, | | | | | | CORE | | + + + + + + | PH(UR) | 5.0 | 5.0 - 8.0 | [facility] | | | | | | LABORATORY | | | | | | SERVICES, | | | | | | CORE | | + + + + + + | BLOOD | Negative | Negative | [facility] | | | | | | LABORATORY | | | | | | SERVICES, | | | | | | CORE | | + + + + + + | KETONES | 5.0 (A) | Negative mg/dL | [facility] | | | | | | LABORATORY | | | | | | SERVICES, | | | | | | CORE | | + + + + + + | NITRITES | Negative | Negative | [facility] | | | | | | LABORATORY | | | | | | SERVICES, | | | | | | CORE | | + + + + + + | LEUKOCYTE | Negative | Negative | [facility] | | | ESTERASE | | | LABORATORY | | | | | | SERVICES, | | | | | | CORE | | + + + + + + | SPECIFIC | 1.028 | 1.005 - 1.030 | [facility] | | | GRAVITY | | | LABORATORY | | | | | | SERVICES, | | | | | | CORE | | + + + + + + + + | Specimen | + + | Urine - Urine | | (substance) | + + + + + + + | Performing | Address | City/State/Zipcode | Phone Number | | Organization | | | | + + + + + | [facility] | [address] | [place] [address] | | | SERVICES, CORE | [address] | | | + + + + + URINE, MICROSCOPIC EXAM (03/27/2015 12:51 AM PST) + +---------+ + + + | Component | Value | Ref Range | Performed | Pathologist | | | | | At | Signature | + +---------+ + + + | RED CELLS | 24 (H) | 0 - 3 /hpf | [facility] | | | | | | LABORATORY | | | | | | SERVICES, | | | | | | CORE | | + +---------+ + + + | WHITE CELLS | 8 (H) | 0 - 5 /hpf | [facility] | | | | | | LABORATORY | | | | | | SERVICES, | | | | | | CORE | | + +---------+ + + + | BACTERIA | None | None /hpf | [facility] | | | | | | LABORATORY | | | | | | SERVICES, | | | | | | CORE | | + +---------+ + + + | YEAST (LAB) | None | None /hpf | [facility] | | | | | | LABORATORY | | | | | | SERVICES, | | | | | | CORE | | + +---------+ + + + | SQUAMOUS | Yeni (A) | None /hpf | [facility] | | | EPITHELIAL | | | LABORATORY | | | | | | SERVICES, | | | | | | CORE | | + +---------+ + + + | MUCOUS | None | None /hpf | [facility] | | | | | | LABORATORY | | | | | | SERVICES, | | | | | | CORE | | + +---------+ + + + | TRICHOMONAS | None | None /hpf | [facility] | | | | | | LABORATORY | | | | | | SERVICES, | | | | | | CORE | | + +---------+ + + + | NON-SQUAMDONALD | Yeni (A) | None /hpf | [facility] | | | S EPITH | | | LABORATORY | | | | | | SERVICES, | | | | | | CORE | | + +---------+ + + + | HYALINE | 0 | 0 - 2 /lpf | [facility] | | | CASTS | | | LABORATORY | | | | | | SERVICES, | | | | | | CORE | | + +---------+ + + + | GRANULAR | 0 | 0 - 2 /lpf | [facility] | | | CASTS | | | LABORATORY | | | | | | SERVICES, | | | | | | CORE | | + +---------+ + + + | CELLULAR | 0 | <=0 /lpf | [facility] | | | CASTS | | | LABORATORY | | | | | | SERVICES, | | | | | | CORE | | + +---------+ + + + | TRIPLE P04 | None | None /hpf | [facility] | | | CRYSTALS | | | LABORATORY | | | | | | SERVICES, | | | | | | CORE | | + +---------+ + + + | CALCIUM | None | None /hpf | [facility] | | | OXALATE | | | LABORATORY | | | CIELO | | | SERVICES, | | | | | | CORE | | + +---------+ + + + | URIC ACID | None | None /hpf | [facility] | | | CRYSTALS | | | LABORATORY | | | | | | SERVICES, | | | | | | CORE | | + +---------+ + + + | AMORPHOUS | None | None /hpf | [facility] | | | CRYSTALS | | | LABORATORY | | | | | | SERVICES, | | | | | | CORE | | + +---------+ + + + + + | Specimen | + + | Urine - Urine | | (substance) | + + + + + + + | Performing | Address | City/State/Zipcode | Phone Number | | Organization | | | | + + + + + | [facility] | [address] | [place] [address] | | | SERVICES, CORE | [address] | | | + + + + + URINE SCREEN FOR CULTURE (03/27/2015 12:51 AM PST) + + + + + + | Component | Value | Ref Range | Performed | Pathologist | | | | | At | Signature | + + + + + + | URINE | Positive (A) | Negative | [facility] | | | SCREEN FOR | | | LABORATORY | | | CULTURE | | | SERVICES, | | | | | | CORE | | + + + + + + + + | Specimen | + + | Urine - Urine | | (substance) | + + + + + | Narrative | Performed At | + + + | Culture Screen Positive, specimen sent for culture. | [facility] | | | LABORATORY | | | SERVICES, CORE | + + + + + + + + | Performing | Address | City/State/Zipcode | Phone Number | | Organization | | | | + + + + + | [facility] | [address] | [place] [address] | | | BEULAH KINCAID | [address] | | | + + + + + CAPILLARY BLOOD GLUCOSE (NO CHG), POC (03/27/2015 12:42 AM PST) + +---------+ + + + | Component | Value | Ref Range | Performed | Pathologist | | | | | At | Signature | + +---------+ + + + | BLOOD | 164 (H) | 60 - 99 mg/dL | [facility] - | | | GLUCOSE, | | | [facility] | | | POC | | | [facility] | | | | | | OF CARE | | | | | | TESTS | | + +---------+ + + + + + | Specimen | + + | | + + + + + + + | Performing | Address | City/State/Zipcode | Phone Number | | Organization | | | | + + + + + | [facility] | [address] | [place], [place] | | | [facility] | [address] | [address] | | | TESTS | | | | + + + + + CT HEAD WO CONTRAST (03/27/2015 12:27 AM PST) + + + + + + | Component | Value | Ref Range | Performed | Pathologist | | | | | At | Signature | + + + + + + | CT HEAD WO | EXAM: CT head without | | | | | CONTRAST | contrast HISTORY: Status | | | | | | post right lj holes | | | | | | for subdural hematoma. | | | | | | COMPARISON: Outside | | | | | | hospital CT head without | | | | | | contrast 03/26/15 at | | | | | | 15:48. TECHNIQUE: CT of | | | | | | the head without | | | | | | contrast. FINDINGS: | | | | | | Brain: Post-surgical | | | | | | changes from lj hole | | | | | | placement and right | | | | | | subduralhematoma | | | | | | evacuation are noted. | | | | | | Bilateral pneumocephalus | | | | | | with overlyingsubgaleal | | | | | | swelling is present. A | | | | | | superficial surgical | | | | | | drain is present.Minimal | | | | | | residual right subdural | | | | | | blood products remain. | | | | | | Right to left | | | | | | midlineshift has | | | | | | decreased to 10 mm, from | | | | | | 17 mm previously. There | | | | | | is continuedcompression | | | | | | of the right lateral | | | | | | ventricle. The remaining | | | | | | ventricles are normalin | | | | | | size and morphology. No | | | | | | new hemorrhage, mass, | | | | | | or acute infarction. | | | | | | Skull and skull base: No | | | | | | fractures or | | | | | | destructive lesions. | | | | | | Mastoids and middleears | | | | | | are [...] Interval | | | | | | evacuation of right | | | | | | subdural hematoma with | | | | | | only minimal | | | | | | residualextra-axial | | | | | | fluid. Significant | | | | | | bilateral | | | | | | pneumocephalus, but | | | | | | overall decreased mass | | | | | | effect andmidline shift. | | | | | | Attending Radiologists: | | | | | | KAY COSTELLO, | | | | | | MDAuthor: SHARRI | | | | | | MD GUNNAR I personally | | | | | | reviewed the images and, | | | | | | if necessary, edited | | | | | | the report. I agreewith | | | | | | the report as now | | | | | | presented. | | | | | | Final/Electronically | | | | | | signed / KAY | | | | | | TRANG 03/27/2015 9:13 | | | | | | AM Pending final | | | | | | approval / SHARRI | | | | | | GUNNAR 03/27/2015 9:09 | | | | | | AM Preliminary / | | | | | | SHARRI BRIXLYN | | | | | | 03/27/2015 9:01 AM | | | | + + + + + + + + | Specimen | + + | | + + + +---------+ + + | Performing | Address | City/State/Zipcode | Phone Number | | Organization | | | | + +---------+ + + | [facility] DEPARTMENT OF | | | | | RADIOLOGY | | | | + +---------+ + + CARDIOLOGY (03/27/2015 12:00 AM PST) + + + | Narrative | Performed At | + + + | | | + + + CARDIOLOGY (03/27/2015 12:00 AM PST) + + + | Narrative | Performed At | + + + | | | + + + CARDIOLOGY (03/27/2015 12:00 AM PST) + + + | Narrative | Performed At | + + + | | | + + + CARDIOLOGY (03/27/2015 12:00 AM PST) + + + | Narrative | Performed At | + + + | | | + + + CARDIOLOGY (03/27/2015 12:00 AM PST) + + + | Narrative | Performed At | + + + | | | + + + CAPILLARY BLOOD GLUCOSE (NO CHG) POC (03/26/2015 11:41 PM PST) + +---------+ + + + | Component | Value | Ref Range | Performed | Pathologist | | | | | At | Signature | + +---------+ + + + | BLOOD | 190 (H) | 60 - 99 mg/dL | [facility] - | | | GLUCOSE, | | | [facility] | | | POC | | | [facility] | | | | | | OF CARE | | | | | | TESTS | | + +---------+ + + + + + | Specimen | + + | | + + + + + + + | Performing | Address | City/State/Zipcode | Phone Number | | Organization | | | | + + + + + | [facility] | [address] | [place], [place] | | | [facility] | [address] | [address] | | | TESTS | | | | + + + + + ABG-FULL ABL, POC (03/26/2015 10:12 PM PST) + + + + + + | Component | Value | Ref Range | Performed | Pathologist | | | | | At | Signature | + + + + + + | PH | 7.43 | 7.37 - 7.44 | [facility] - | | | ARTERIAL, | | | [facility] | | | POC | | | [facility] | | | | | | OF CARE | | | | | | TESTS | | + + + + + + | PO2 | 553 (H) | 72 - 104 mmHg | [facility] - | | | ARTERIAL, | | | [facility] | | | POC | | | [facility] | | | | | | OF CARE | | | | | | TESTS | | + + + + + + | PCO2 | 38 | 32 - 43 mmHg | [facility] - | | | ARTERIAL, | | | [facility] | | | POC | | | [facility] | | | | | | OF CARE | | | | | | TESTS | | + + + + + + | TOTAL | 10.0 (L) | 13.5 - 17.5 | [facility] - | | | HEMOGLOBIN, | | g/dL | [facility] | | | POC | | | [facility] | | | | | | OF CARE | | | | | | TESTS | | + + + + + + | O2 SAT | 100.9 (H) | 92.0 - 98.0 % | [facility] - | | | ARTERIAL, | | | [facility] | | | POC | | | [facility] | | | | | | OF CARE | | | | | | TESTS | | + + + + + + | OXYHEMOGLOB | 98.9 | 94.0 - 100 % | [facility] - | | | IN, POC | | | [facility] | | | | | | [facility] | | | | | | OF CARE | | | | | | TESTS | | + + + + + + | HEMATOCRIT, | 30.8 (L) | 41.0 - 53.0 % | [facility] - | | | POC | | | [facility] | | | | | | [facility] | | | | | | OF CARE | | | | | | TESTS | | + + + + + + | POTASSIUM, | 3.0 (L) | 3.4 - 5.0 | [facility] - | | | POC | | mmol/L | [facility] | | | | | | [facility] | | | | | | OF CARE | | | | | | TESTS | | + + + + + + | SODIUM, POC | 143 | 134 - 143 | [facility] - | | | | | mmol/L | [facility] | | | | | | [facility] | | | | | | OF CARE | | | | | | TESTS | | + + + + + + | MARY | 1.12 (L) | 1.14 - 1.32 | [facility] - | | | IONIZED CA, | | mmol/L | [facility] | | | POC | | | [facility] | | | | | | OF CARE | | | | | | TESTS | | + + + + + + | CHLORIDE, | 107 | 97 - 108 mmol/L | [facility] - | | | POC | | | [facility] | | | | | | [facility] | | | | | | OF CARE | | | | | | TESTS | | + + + + + + | GLUCOSE, | 268 (H) | 60 - 99 mg/dL | [facility] - | | | POC | | | [facility] | | | | | | [facility] | | | | | | OF CARE | | | | | | TESTS | | + + + + + + | HCO3 | 25.3 | 21 - 28 mmol/L | [facility] - | | | [facility], | | | [facility] | | | POC | | | [facility] | | | | | | OF CARE | | | | | | TESTS | | + + + + + + | BASE EXCESS | 1.0 | | [facility] - | | | [facility], | | | [facility] | | | POC | | | [place], [facility] | | | | | | OF CARE | | | | | | TESTS | | + + + + + + | LACTATE | 1.9 (H) | 0.5 - 1.6 | [facility] - | | | [facility], | | mmol/L | [facility] | | | POC | | | [facility] | | | | | | OF CARE | | | | | | TESTS | | + + + + + + + + | Specimen | + + | | + + + + + + + | Performing | Address | City/State/Zipcode | Phone Number | | Organization | | | | + + + + + | [facility] | [address] | [place], [place] | | | [facility] | [facility] | [address] | | | TESTS | | | | + + + + + CAPILLARY BLOOD GLUCOSE (NO CHG), POC (03/26/2015 8:58 PM PST) + +---------+ + + + | Component | Value | Ref Range | Performed | Pathologist | | | | | At | Signature | + +---------+ + + + | BLOOD | 341 (H) | 60 - 99 mg/dL | [facility] | | | GLU[facility], | | | [facility] | | | POC | | | [facility] | | | | | | OF CARE | | | | | | TESTS | | + +---------+ + + + + + | Specimen | + + | | + + + + + + + | Performing | Address | City/State/Zipcode | Phone Number | | Organization | | | | + + + + + | [facility] | [address] | [place], [place] | | | [facility] | [address] | [address] | | | TESTS | | | | + + + + + 12 LEAD ECG (03/26/2015 8:56 PM PST) + + + + + + | Component | Value | Ref Range | Performed | Pathologist | | | | | At | Signature | + + + + + + | VENTRICULAR | 75 | bpm | [facility] | | | RATE | | | OF | | | | | | CARDIOLOGY | | + + + + + + | ATRIAL RATE | 166 | bpm | [facility] | | | | | | OF | | | | | | CARDIOLOGY | | + + + + + + | P-R | 176 | ms | [facility] | | | INTERVAL | | | OF | | | | | | CARDIOLOGY | | + + + + + + | P AXIS | 56 | deg | [facility] | | | | | | OF | | | | | | CARDIOLOGY | | + + + + + + | QRS | 106 | ms | [facility] | | | DURATION | | | OF | | | | | | CARDIOLOGY | | + + + + + + | QT | 392 | ms | [facility] | | | | | | OF | | | | | | CARDIOLOGY | | + + + + + + | QTC-BAZETT | 438 | ms | [facility] | | | | | | OF | | | | | | CARDIOLOGY | | + + + + + + | R AXIS | -57 | deg | [facility] | | | | | | OF | | | | | | CARDIOLOGY | | + + + + + + | T AXIS | -55 | deg | [facility] | | | | | | OF | | | | | | CARDIOLOGY | | + + + + + + | ECG | SINUS RHYTHMLOW VOLTAGE | | [facility] | | | IMPRESSION | IN FRONTAL | | OF | | | | LEADSNONSPECIFIC T | | CARDIOLOGY | | | | ABNORMALITIES, INFERIOR | | | | | | AND LATERAL LEADS - | | | | | | ABNORMAL ECG | | | | | | -Electronically signed | | | | | | by: MARIN SEAY | | | | | | 03-28-2015 22:55:35 | | | | + + + + + + + + | Specimen | + + | | + + + + + | Narrative | Performed At | + + + | | | + + + + + + + + | Performing | Address | City/State/Zipcode | Phone Number | | Organization | | | | + + + + + | [facility] | [address] | [place], [place] | | | CARDIOLOGY | [address] | [address] | | + + + + + CBC (HEMOGRAM) ONLY (03/26/2015 8:33 PM PST) + + + + + + | Component | Value | Ref Range | Performed | Pathologist | | | | | At | Signature | + + + + + + | WHITE CELL | 10.48 | 4.40 - 11.00 | [facility] | | | COUNT | | K/cu mm | LABORATORY | | | | | | SERVICES, | | | | | | CORE | | + + + + + + | RED CELL | 3.47 (L) | 4.50 - 6.00 | [facility] | | | COUNT | | M/cu mm | LABORATORY | | | | | | SERVICES, | | | | | | CORE | | + + + + + + | HEMOGLOBIN | 10.5 (L) | 13.5 - 17.5 | [facility] | | | | | g/dL | LABORATORY | | | | | | SERVICES, | | | | | | CORE | | + + + + + + | HEMATOCRIT | 30.8 (L) | 41.0 - 53.0 % | [facility] | | | | | | LABORATORY | | | | | | SERVICES, | | | | | | CORE | | + + + + + + | MCV | 88.8 | 80.0 - 96.0 fL | [facility] | | | | | | LABORATORY | | | | | | SERVICES, | | | | | | CORE | | + + + + + + | MCHC | 34.1 | 33.0 - 35.5 | [facility] | | | | | g/dL | LABORATORY | | | | | | SERVICES, | | | | | | CORE | | + + + + + + | RDW SD | 40.5 | 35.1 - 46.3 fL | [facility] | | | | | | LABORATORY | | | | | | SERVICES, | | | | | | CORE | | + + + + + + | PLATELET | 248 | 150 - 400 K/cu | [facility] | | | COUNT | | mm | LABORATORY | | | | | | SERVICES, | | | | | | CORE | | + + + + + + | MPV | 10.3 | 9.7 - 12.3 fL | [facility] | | | | | | LABORATORY | | | | | | SERVICES, | | | | | | CORE | | + + + + + + | NRBC% | 0.0 | 0.0 - 0.3 % | [facility] | | | | | | LABORATORY | | | | | | SERVICES, | | | | | | CORE | | + + + + + + | NRBC# | 0.00 | 0.00 - 0.02 | [facility] | | | | | K/cu mm | LABORATORY | | | | | | SERVICES, | | | | | | CORE | | + + + + + + + + | Specimen | + + | Blood - Blood | | (substance) | + + + + + + + | Performing | Address | City/State/Zipcode | Phone Number | | Organization | | | | + + + + + | [facility] | [address] | [place] [address] | | | SERVICES, CORE | [address] | | | + + + + + ANTIBODY SCREEN (03/26/2015 8:33 PM PST) + + + + + + | Component | Value | Ref Range | Performed | Pathologist | | | | | At | Signature | + + + + + + | Antibody | Negative | | [facility] | | | Screen | | | LABORATORY | | | | | | SERVICES, | | | | | | TRANSFUSION | | | | | | MEDICINE | | + + + + + + + + | Specimen | + + | Blood - Blood | + + + + + + + | Performing | Address | City/State/Zipcode | Phone Number | | Organization | | | | + + + + + | [facility] | [address] | [place] [address] | | | SERVICES, | [address] | | | | TRANSFUSION MEDICINE | | | | + + + + + ABO & RH TYPE (03/26/2015 8:33 PM PST) + + + + + + | Component | Value | Ref Range | Performed | Pathologist | | | | | At | Signature | + + + + + + | ABO Group | O | | [facility] | | | | | | LABORATORY | | | | | | SERVICES, | | | | | | TRANSFUSION | | | | | | MEDICINE | | + + + + + + | Rh Type | Positive | | [facility] | | | | | | LABORATORY | | | | | | SERVICES, | | | | | | TRANSFUSION | | | | | | MEDICINE | | + + + + + + + + | Specimen | + + | Blood - Blood | + + + + + + + | Performing | Address | City/State/Zipcode | Phone Number | | Organization | | | | + + + + + | [facility] | [address] | [place] [address] | | | SERVICES, | [address] | | | | TRANSFUSION MEDICINE | | | | + + + + + INR (03/26/2015 8:33 PM PST) + +-------+ + + + | Component | Value | Ref Range | Performed | Pathologist | | | | | At | Signature | + +-------+ + + + | INR | 1.08 | 0.90 - 1.20 INR | [facility] | | | | | | LABORATORY | | | | | | SERVICES, | | | | | | CORE | | + +-------+ + + + + + | Specimen | + + | Blood - Blood | | (substance) | + + + + + | Narrative | Performed At | + + + | INR Therapeutic ranges for full anticoagulation: INR for | [facility] | | Venous Thromboembolism (2.0 - 3.0) INR INR for | LABORATORY | | most patients with mech. valves (2.5 - 3.5) INR | [facility] | + + + + + + + + | Performing | Address | City/State/Zipcode | Phone Number | | Organization | | | | + + + + + | [facility] | [address] | [place] [address] | | | CODI, BEULAH | [address] | | | + + + + + FIBRINOGEN (03/26/2015 8:33 PM PST) + +---------+ + + + | Component | Value | Ref Range | Performed | Pathologist | | | | | At | Signature | + +---------+ + + + | FIBRINOGEN | 571 (H) | 200 - 450 mg/dL | [facility] | | | LEVEL | | | LABORATORY | | | | | | SERVICES, | | | | | | CORE | | + +---------+ + + + + + | Specimen | + + | Blood - Blood | | (substance) | + + + + + + + | Performing | Address | City/State/Zipcode | Phone Number | | Organization | | | | + + + + + | [facility] | [address] | [place] [address] | | | SERVICES, CORE | [address] | | | + + + + + APTT (ACT. PART. THROMBO TIME) (03/26/2015 8:33 PM PST) + + + + + + | Component | Value | Ref Range | Performed | Pathologist | | | | | At | Signature | + + + + + + | APTT | 24.2 (L) | 26.0 - 36.0 | [facility] | | | | | seconds | LABORATORY | | | | | | SERVICES, | | | | | | CORE | | + + + + + + + + | Specimen | + + | Blood - Blood | | (substance) | + + + + + | Narrative | Performed At | + + + | APTT Therapeutic Range: (75 - | [facility] | | 120) sec Heparin levels of 0.35 - 0.7 U/mL | LABORATORY | | | [facility]INCA[facility] | + + + + + + + + | Performing | Address | City/State/Zipcode | Phone Number | | Organization | | | | + + + + + | [facility] | [address] | [place] [address] | | | SERVICES, CORE | [address] | | | + + + + + MAGNESIUM, PLASMA (03/26/2015 8:33 PM PST) + +-------+ + + + | Component | Value | Ref Range | Performed | Pathologist | | | | | At | Signature | + +-------+ + + + | MAGNESIUM,P | 2.0 | 1.8 - 2.5 mg/dL | [facility] | | | LASMA | | | LABORATORY | | | | | | SERVICES, | | | | | | CORE | | + +-------+ + + + + + | Specimen | + + | Blood - Blood | | (substance) | + + + + + + + | Performing | Address | City/State/Zipcode | Phone Number | | Organization | | | | + + + + + | [facility] | [address] | [place] [address] | | | SERVICES, [facility] | [address] | | | + + + + + COMPLETE METABOLIC SET (NA,K,CL,CO2,BUN,CREAT,GLUC,CA,AST,ALT,BILI TOTAL,ALK PHOS,ALB,PROT TOTAL) (03/26/2015 8:33 PM PST) + +---------+ + + + | Component | Value | Ref Range | Performed | Pathologist | | | | | At | Signature | + +---------+ + + + | GLUCOSE, | 305 (H) | 60 - 99 mg/dL | [facility] | | | PLASMA | | | LABORATORY | | | (LAB) | | | SERVICES, | | | | | | CORE | | + +---------+ + + + | BUN, PLASMA | 18 | 6 - 20 mg/dL | [facility] | | | (LAB) | | | LABORATORY | | | | | | SERVICES, | | | | | | CORE | | + +---------+ + + + | CREATININE | 0.81 | 0.70 - 1.30 | [facility] | | | PLASMA | | mg/dL | LABORATORY | | | (LAB) | | | SERVICES, | | | | | | CORE | | + +---------+ + + + | EGFR | >60 | >60 mL/min | [facility] | | | - | | | LABORATORY | | | PANAMANIAN | | | SERVICES, | | | | | | CORE | | + +---------+ + + + | EGFR NON | >60 | >60 mL/min | [facility] | | | -EN | | | LABORATORY | | | RICAN | | | SERVICES, | | | | | | CORE | | + +---------+ + + + | SODIUM, | 141 | 136 - 145 | [facility] | | | PLASMA | | mmol/L | LABORATORY | | | (LAB) | | | SERVICES, | | | | | | CORE | | + +---------+ + + + | POTASSIUM, | 4.0 | 3.4 - 5.0 | [facility] | | | PLASMA | | mmol/L | LABORATORY | | | (LAB) | | | SERVICES, | | | | | | CORE | | + +---------+ + + + | CHLORIDE, | 107 | 97 - 108 mmol/L | [facility] | | | PLASMA | | | LABORATORY | | | (LAB) | | | SERVICES, | | | | | | CORE | | + +---------+ + + + | TOTAL CO2, | 26 | 21 - 32 mmol/L | [facility] | | | PLASMA | | | LABORATORY | | | (LAB) | | | SERVICES, | | | | | | CORE | | + +---------+ + + + | CALCIUM, | 7.9 (L) | 8.6 - 10.2 | [facility] | | | PLASMA | | mg/dL | LABORATORY | | | (LAB) | | | SERVICES, | | | | | | CORE | | + +---------+ + + + | BILIRUBIN | 0.5 | 0.3 - 1.2 mg/dL | [facility] | | | TOTAL | | | LABORATORY | | | | | | SERVICES, | | | | | | CORE | | + +---------+ + + + | TOTAL | 6.2 (L) | 6.4 - 8.2 g/dL | [facility] | | | PROTEIN, | | | LABORATORY | | | PLASMA | | | SERVICES, | | | (LAB) | | | CORE | | + +---------+ + + + | ALBUMIN, | 2.8 (L) | 3.5 - 4.7 g/dL | [facility] | | | PLASMA | | | LABORATORY | | | (LAB) | | | SERVICES, | | | | | | CORE | | + +---------+ + + + | ALK PHOS | 140 (H) | 56 - 119 U/L | [facility] | | | | | | LABORATORY | | | | | | SERVICES, | | | | | | CORE | | + +---------+ + + + | AST(SGOT) | 16 | <=41 U/L | [facility] | | | | | | LABORATORY | | | | | | SERVICES, | | | | | | CORE | | + +---------+ + + + | ALT (SGPT) | 11 | <=60 U/L | [facility] | | | | | | LABORATORY | | | | | | SERVICES, | | | | | | CORE | | + +---------+ + + + | ANION | 11 | 4 - 11 mmol/L | [facility] | | | GAP(ALB | | | LABORATORY | | | CORRECTED) | | | SERVICES, | | | | | | CORE | | + +---------+ + + + | POTASSIUM | No Hemo | | [facility] | | | CMNT | | | LABORATORY | | | | | | SERVICES, | | | | | | CORE | | + +---------+ + + + | BILI T CMNT | No Hemo | | [facility] | | | | | | LABORATORY | | | | | | SERVICES, | | | | | | CORE | | + +---------+ + + + | AST CMNT | No Hemo | | [facility] | | | | | | LABORATORY | | | | | | SERVICES, | | | | | | CORE | | + +---------+ + + + | ANION GAP | 8 | mmol/L | [facility] | | | | | | LABORATORY | | | | | | SERVICES, | | | | | | CORE | | + +---------+ + + + + + | Specimen | + + | Blood - Blood | | (substance) | + + + + + | Narrative | Performed At | + + + | GFR is estimated using the MDRD equation recommended by the | [facility] | | National Kidney Disease Education Program. Estimated GFR | LABORATORY | | Interpretive Information: <60 mL/min/1.73 sq m | SERVICES, CORE | | Chronic Kidney Disease <15 mL/min/1.73 sq m | | | Kidney Failure Estimated GFR greater that 60 mL/min/1.73 sq m is of | | | limited clinical value. The MDRD equation is not valid in the | | | following situations: - Patients under 18 years of age - Severe | | | malnutrition or obesity - Vegetarian diet - Rapidly changing kidney | | | function | | + + + + + + + + | Performing | Address | City/State/Zipcode | Phone Number | | Organization | | | | + + + + + | [facility] | [address] | [place] [address] | | | SERVICES, CORE | [address] | | | + + + + + PRODUCT - PLATELET PHERESIS LEUKOREDUCED (03/26/2015 8:31 PM PST) + + + + + + | Component | Value | Ref Range | Performed | Pathologist | | | | | At | Signature | + + + + + + | PRODUCT | PLATELETS PHERESIS | | [facility] | | | DESCRIPTION | LEUKOCYTES REDUCED | | DEPARTMENT | | | | | | OF | | | | | | PATHOLOGY | | + + + + + + | PRODUCT | [id number] | | [facility] | | | UNIT # | | | DEPARTMENT | | | | | | OF | | | | | | PATHOLOGY | | + + + + + + | UNIT ABO | O | | [facility] | | | | | | DEPARTMENT | | | | | | OF | | | | | | PATHOLOGY | | + + + + + + | UNIT RH | POS | | [facility] | | | | | | DEPARTMENT | | | | | | OF | | | | | | PATHOLOGY | | + + + + + + | STATUS OF | Presumed Transfused | | [facility] | | | UNIT | | | DEPARTMENT | | | | | | OF | | | | | | PATHOLOGY | | + + + + + + | EXPIRATION | [id number] | | [facility] | | | DATE | | | DEPARTMENT | | | | | | OF | | | | | | PATHOLOGY | | + + + + + + | BLOOD TYPE | [id number] | | [facility] | | | BARCODE | | | DEPARTMENT | | | | | | OF | | | | | | PATHOLOGY | | + + + + + + | BLOOD | [id number] | | [facility] | | | PRODUCT | | | DEPARTMENT | | | CODE | | | OF | | | | | | PATHOLOGY | | + + + + + + + + | Specimen | + + | | + + + + + + + | Performing | Address | City/State/Zipcode | Phone Number | | Organization | | | | + + + + + | [facility] | [address] | [place] [address] | | | PATHOLOGY | [address] | | | + + + + + PRODUCT - PLATELET PHERESIS LEUKOREDUCED (03/26/2015 8:31 PM PST) + + + + + + | Component | Value | Ref Range | Performed | Pathologist | | | | | At | Signature | + + + + + + | PRODUCT | PLATELETS PHERESIS, | | [facility] | | | DESCRIPTION | LEUKOCYTE REDUCED, | | DEPARTMENT | | | | IRRADIATED | | OF | | | | | | PATHOLOGY | | + + + + + + | PRODUCT | [id number] | | [facility] | | | UNIT # | | | DEPARTMENT | | | | | | OF | | | | | | PATHOLOGY | | + + + + + + | UNIT ABO | B | | [facility] | | | | | | DEPARTMENT | | | | | | OF | | | | | | PATHOLOGY | | + + + + + + | UNIT RH | POS | | [facility] | | | | | | DEPARTMENT | | | | | | OF | | | | | | PATHOLOGY | | + + + + + + | STATUS OF | Presumed Transfused | | [facility] | | | UNIT | | | DEPARTMENT | | | | | | OF | | | | | | PATHOLOGY | | + + + + + + | EXPIRATION | [id number] | | [facility] | | | DATE | | | DEPARTMENT | | | | | | OF | | | | | | PATHOLOGY | | + + + + + + | BLOOD TYPE | 7300 | | [facility] | | | BARCODE | | | DEPARTMENT | | | | | | OF | | | | | | PATHOLOGY | | + + + + + + | BLOOD | [id number] | | [facility] | | | PRODUCT | | | DEPARTMENT | | | CODE | | | OF | | | | | | PATHOLOGY | | + + + + + + + + | Specimen | + + | | + + + + + + + | Performing | Address | City/State/Zipcode | Phone Number | | Organization | | | | + + + + + | [facility] | [address] | [place] [address] | | | PATHOLOGY | [address] | | | + + + + + ORDERS OTHER (03/26/2015 12:00 AM PST) + + + | Narrative | Performed At | + + + | | | + + + documented in this encounter Visit Diagnoses + + | Diagnosis | + + | Subdural hematoma (HCC) - Primary Subdural hemorrhage | + + documented in this encounter Administered Medications + +---------+ +------+------+------+ | Medication Order | MAR | Action | Dose | Rate | Site | | | Action | Date | | | | + +---------+ +------+------+------+ | ceFAZolin (ANCEF) 2 g in NaCl | New Bag | 03/27/20 | 2 g | | | | 0.9 % IV 2 g, intravenous, EVERY | | 15 9:54 | | | | | 8 HOURS, 3 doses, First dose on | | PM PST | | | | | Mon03/27/15 at 0600, Last dose | | | | | | | on Mon03/27/15 at 2200 | | | | | | + +---------+ +------+------+------+ +---------+ +-----+---+---+ | New Bag | 03/27/20 | 2 g | | | | | 15 2:43 | | | | | | PM PST | | | | +---------+ +-----+---+---+ | New Bag | 03/27/20 | 2 g | | | | | 15 6:10 | | | | | | AM PST | | | | +---------+ +-----+---+---+ +---+---+ | | | +---+---+ + +---------+ +------+---+---+ | dexamethasone (DECADRON) | New Bag | 03/27/20 | 2 mg | | | | injection 2 mg 2 mg, | | 15 12:38 | | | | | intravenous, EVERY 12 HOURS, | | AM PST | | | | | First dose on Mon03/27/15 at | | | | | | | 0030, Until Discontinued | | | | | | + +---------+ +------+---+---+ +---+---+ | | | +---+---+ + +-------+ +------+---+---+ | dexamethasone (DECADRON) tablet | Given | 03/29/20 | 2 mg | | | | 2 mg 2 mg, oral, EVERY 12 | | 15 9:53 | | | | | HOURS, First dose on Mon03/27/15 | | AM PST | | | | | at 1000, Until Discontinued | | | | | | + +-------+ +------+---+---+ +-------+ +------+---+---+ | Given | 03/28/20 | 2 mg | | | | | 15 9:10 | | | | | | PM PST | | | | +-------+ +------+---+---+ | Given | 03/28/20 | 2 mg | | | | | 15 9:46 | | | | | | AM PST | | | | +-------+ +------+---+---+ +---+---+ | | | +---+---+ + +-------+ + +---+---+ | insulin glargine (LANTUS) | Given | 03/28/20 | 20 Units | | | | injection 20 Units 20 Units, | | 15 9:10 | | | | | subcutaneous, AT BEDTIME, First | | PM PST | | | | | dose on Mon03/28/15 at 2200, | | | | | | | Until Discontinued | | | | | | + +-------+ + +---+---+ +---+---+ | | | +---+---+ + +-------+ +---------+---+---+ | insulin lispro (HUMALOG) | Given | 03/28/20 | 2 Units | | | | injection 2 Units 2 Units, | | 15 12:27 | | | | | subcutaneous, THREE TIMES DAILY | | PM PST | | | | | WITH MEALS, First dose on Sat | | | | | | | 03/28/15 at 1200, Until | | | | | | | Discontinued | | | | | | + +-------+ +---------+---+---+ +---+---+ | | | +---+---+ + +-------+ + +---+---+ | insulin lispro (HUMALOG) | Given | 03/29/20 | 10 Units | | | | injection subcutaneous, FOUR | | 15 1:07 | | | | | TIMES DAILY, First dose on Sat | | PM PST | | | | | 03/28/15 at 2200, Until | | | | | | | Discontinued | | | | | | + +-------+ + +---+---+ +-------+ +---------+---+---+ | Given | 03/29/20 | 4 Units | | | | | 15 9:53 | | | | | | AM PST | | | | +-------+ +---------+---+---+ +---+---+ | | | +---+---+ + +-------+ +---------+---+---+ | insulin NPH (HUMULIN N) | Given | 03/28/20 | 4 Units | | | | injection 4 Units 4 Units, | | 15 8:57 | | | | | subcutaneous, BEFORE BREAKFAST | | AM PST | | | | | AND BEDTIME, First dose on Sat | | | | | | | 03/28/15 at 0900, Until | | | | | | | Discontinued | | | | | | + +-------+ +---------+---+---+ +---+---+ | | | +---+---+ + + + +---------+---+---+ | insulin regular bolus from | Bolus | 03/27/20 | 5 Units | | | | continuous infusion 1-50 Units | from | 15 2:22 | | | | | 1-50 Units, intravenous, BOLUS | Same Bag | PM PST | | | | | PRN, Starting Mala 03/26/15 at | | | | | | | 2112, Until 03/28/15 at 0828, | | | | | | | Per [facility] Infusion Protocol | | | | | | + + + +---------+---+---+ + + + +---+---+ | Bolus from Same Bag | 03/26/20 | 14 Units | | | | | 15 9:29 | | | | | | PM PST | | | | + + + +---+---+ +---+---+ | | | +---+---+ + + + + +---+---+ | insulin regular bolus from | Bolus | 03/28/20 | 13 Units | | | | continuous infusion 1-50 Units | from | 15 3:10 | | | | | 1-50 Units, intravenous, BOLUS | Same Bag | PM PST | | | | | PRN, Starting 03/28/15 at | | | | | | | 1241, Until 03/28/15 at 1933, | | | | | | | Per [facility] Infusion Protocol | | | | | | + + + + +---+---+ +---+---+ | | | +---+---+ + + + + +-------+---+ | insulin regular in NaCl 0.9% IV | Rate/Dos | 03/28/20 | 1.1 | 1.1 | | | infusion 250 units/250 mL (1 | e Change | 15 8:17 | Units/hr | mL/hr | | | unit/mL) 0.1-50 Units/hr (0.1-50 | | AM PST | | | | | mL/hr), intravenous, CONTINUOUS, | | | | | | | Starting [facility] 03/26/15 at 2145, | | | | | | | Until 03/28/15 at 1241 | | | | | | + + + + +-------+---+ + + + +-------+---+ | Rate/Dose Verify | 03/28/20 | 1.3 | 1.3 | | | | 15 7:11 | Units/hr | mL/hr | | | | AM PST | | | | + + + +-------+---+ | Rate/Dose Change | 03/28/20 | 1.3 | 1.3 | | | | 15 6:15 | Units/hr | mL/hr | | | | AM PST | | | | + + + +-------+---+ +---+---+ | | | +---+---+ + + + + +-------+---+ | insulin regular in NaCl 0.9% IV | Rate/Dos | 03/28/20 | 1.3 | 1.3 | | | infusion 250 units/250 mL (1 | e Change | 15 10:41 | Units/hr | mL/hr | | | unit/mL) 0.1-50 Units/hr (0.1-50 | | PM PST | | | | | mL/hr), intravenous, CONTINUOUS, | | | | | | | Starting 03/28/15 at 1315, | | | | | | | Until 03/29/15 at 1320 | | | | | | + + + + +-------+---+ + + + +-------+---+ | Rate/Dose Change | 03/28/20 | 2.8 | 2.8 | | | | 15 9:45 | Units/hr | mL/hr | | | | PM PST | | | | + + + +-------+---+ | Rate/Dose Change | 03/28/20 | 3.6 | 3.6 | | | | 15 8:43 | Units/hr | mL/hr | | | | PM PST | | | | + + + +-------+---+ +---+---+ | | | +---+---+ + +-------+ +--------+---+---+ | levothyroxine tablet 50 mcg 50 | Given | 03/29/20 | 50 mcg | | | | mcg, oral, DAILY, First dose | | 15 6:39 | | | | | (after last modification) on Fri | | AM PST | | | | | 03/27/15 at 1000, Until | | | | | | | Discontinued | | | | | | + +-------+ +--------+---+---+ +-------+ +--------+---+---+ | Given | 03/28/20 | 50 mcg | | | | | 15 6:16 | | | | | | AM PST | | | | +-------+ +--------+---+---+ +---+---+ | | | +---+---+ + +-------+ +-------+---+---+ | lisinopril (PRINIVIL) tablet 10 | Given | 03/29/20 | 10 mg | | | | mg 10 mg, oral, DAILY, First | | 15 7:54 | | | | | dose on 03/27/15 at 1000, | | AM PST | | | | | Until Discontinued | | | | | | + +-------+ +-------+---+---+ +-------+ +-------+---+---+ | Given | 03/28/20 | 10 mg | | | | | 15 8:08 | | | | | | AM PST | | | | +-------+ +-------+---+---+ | Given | 03/27/20 | 10 mg | | | | | 15 10:12 | | | | | | AM PST | | | | +-------+ +-------+---+---+ +---+---+ | | | +---+---+ + +-------+ +---------+---+---+ | metoprolol tartrate (LOPRESSOR) | Given | 03/27/20 | 12.5 mg | | | | tablet 12.5 mg 12.5 mg, oral, | | 15 9:54 | | | | | TWICE DAILY, First dose on Fri | | PM PST | | | | | 03/27/15 at 1000, Until | | | | | | | Discontinued | | | | | | + +-------+ +---------+---+---+ +-------+ +---------+---+---+ | Given | 03/27/20 | 12.5 mg | | | | | 15 10:12 | | | | | | AM PST | | | | +-------+ +---------+---+---+ +---+---+ | | | +---+---+ + +---------+ +--------+---+---+ | NaCl 0.9 % solution 500 mL, | New Bag | 03/27/20 | 500 mL | | | | intravenous, ONCE, 1 dose, Fri | | 15 3:52 | | | | | 03/27/15 at 0430 | | AM PST | | | | + +---------+ +--------+---+---+ +---+---+ | | | +---+---+ + +---------+ + + +---+ | NaCl 0.9%-KCl 20 mEq/L IV | New Bag | 03/27/20 | 1,000 mL | 10 mL/hr | | | infusion intravenous, | | 15 10:08 | | | | | CONTINUOUS, Starting [facility] 03/26/15 | | PM PST | | | | | at 2045, Until 03/29/15 at | | | | | | | 2232, at 0-125 mL/hr | | | | | | + +---------+ + + +---+ + + +---+ +---+ | Rate/Dose Change | 03/27/20 | | 10 mL/hr | | | | 15 7:00 | | | | | | PM PST | | | | + + +---+ +---+ | Rate/Dose Change | 03/27/20 | | 75 mL/hr | | | | 15 2:43 | | | | | | AM PST | | | | + + +---+ +---+ +---+---+ | | | +---+---+ + + + +-------+-------+---+ | niCARdipine (CARDENE) IV | Rate/Dos | 03/27/20 | 2.5 | 12.5 | | | infusion (ICU, [facility]) 0.5-15 | e Change | 15 4:30 | mg/hr | mL/hr | | | mg/hr (2.5-75 mL/hr), | | AM PST | | | | | intravenous, CONTINUOUS, Starting | | | | | | | [facility] 03/26/15 at 2145, Until Fri | | | | | | | 03/27/15 at 1424 | | | | | | + + + +-------+-------+---+ + + + + +---+ | Restarted | 03/27/20 | 5 mg/hr | 25 mL/hr | | | | 15 3:35 | | | | | | AM PST | | | | + + + + +---+ | Restarted | 03/26/20 | 10 mg/hr | 50 mL/hr | | | | 15 11:10 | | | | | | PM PST | | | | + + + + +---+ + +---+ | | | + +---+ | niCARdipine in NS 1 dose, | | | Starting [facility] 03/26/15 at 2034, | | | Until [facility] 03/26/15 at 2034 | | + +---+ | | | + +---+ + +---------+ +------+---+---+ | ondansetron (ZOFRAN) injection | New Bag | 03/27/20 | 4 mg | | | | 4 mg 4 mg, intravenous, EVERY 8 | | 15 10:14 | | | | | HOURS, 3 doses, First dose on Mala | | AM PST | | | | | 03/26/15 at 2045, Last dose on | | | | | | | 03/27/15 at 1800 | | | | | | + +---------+ +------+---+---+ +---------+ +------+---+---+ | New Bag | 03/27/20 | 4 mg | | | | | 15 2:08 | | | | | | AM PST | | | | +---------+ +------+---+---+ +---+---+ | | | +---+---+ + +-------+ +------+---+---+ | oxyCODONE (immediate release) | Given | 03/28/20 | 5 mg | | | | (ROXICODONE) tablet 5-10 mg 5-10 | | 15 9:46 | | | | | mg, oral, EVERY 4 HOURS | | AM PST | | | | | NEEDED, Starting Mon03/27/15 at | | | | | | | 0554, Until 03/29/15 at 2232, | | | | | | | moderate pain, severe pain | | | | | | + +-------+ +------+---+---+ +---+---+ | | | +---+---+ + +---------+ +--------+---+---+ | potassium chloride IV 10 mEq | New Bag | 03/27/20 | 10 mEq | | | | 10 mEq, intravenous, NEEDED, | | 15 10:13 | | | | | Starting 03/27/15 at 0430, | | AM PST | | | | | Until 03/29/15 at 2232, | | | | | | | hypokalemia. (see administration | | | | | | | instructions) | | | | | | + +---------+ +--------+---+---+ +---------+ +--------+---+---+ | New Bag | 03/27/20 | 10 mEq | | | | | 15 6:09 | | | | | | AM PST | | | | +---------+ +--------+---+---+ | New Bag | 03/27/20 | 10 mEq | | | | | 15 4:49 | | | | | | AM PST | | | | +---------+ +--------+---+---+ +---+---+ | | | +---+---+ + +-------+ +--------+---+---+ | potassium chloride SR (K-DUR) | Given | 03/28/20 | 20 mEq | | | | tablet 20-40 mEq 20-40 mEq, | | 15 4:11 | | | | | oral, NEEDED, Starting Mala | | AM PST | | | | | 03/26/15 at 2030, Until Sun | | | | | | | 03/29/15 at 2231, hypokalemia per | | | | | | | protocol. (see administration | | | | | | | instructions) | | | | | | + +-------+ +--------+---+---+ +-------+ +--------+---+---+ | Given | 03/28/20 | 20 mEq | | | | | 15 2:03 | | | | | | AM PST | | | | +-------+ +--------+---+---+ +---+---+ | | | +---+---+ + + + + +--------+---+ | propofol (DIPRIVAN) injection | Rate/Dos | 03/27/20 | 40 | 15.74 | | | 0.5-50 mcg/kg/min | e Change | 15 12:32 | mcg/kg/m | mL/hr | | | 65.6 kg (0.1968-19.68 mL/hr, | | AM PST | in | | | | rounded to 0.2-19.68 mL/hr), | | | | | | | intravenous, CONTINUOUS, Starting | | | | | | | 03/27/15 at 0245, Until Fri | | | | | | | 03/27/15 at 0506 | | | | | | + + + + +--------+---+ + + + +--------+---+ | Rate/Dose Verify | 03/26/20 | 50 | 19.68 | | | | 15 11:41 | mcg/kg/m | mL/hr | | | | PM PST | in | | | + + + +--------+---+ +---+---+ | | | +---+---+ + +-------+ +---------+---+---+ | senna-docusate (SENOKOT S) | Given | 03/29/20 | 2 | | | | 8.6-50 mg 2 tablet 2 tablet, | | 15 7:54 | tablets | | | | oral, TWICE DAILY, First dose on | | AM PST | | | | | Mala 03/26/15 at 2100, Until | | | | | | | Discontinued | | | | | | + +-------+ +---------+---+---+ +-------+ +---------+---+---+ | Given | 03/28/20 | 2 | | | | | 15 9:10 | tablets | | | | | PM PST | | | | +-------+ +---------+---+---+ | Given | 03/28/20 | 2 | | | | | 15 8:08 | tablets | | | | | AM PST | | | | +-------+ +---------+---+---+ +---+---+ | | | +---+---+ + +-------+ +-------+---+---+ | simvastatin (ZOCOR) tablet 40 | Given | 03/28/20 | 40 mg | | | | mg 40 mg, oral, EVERY EVENING, | | 15 9:10 | | | | | First dose on Mon03/27/15 at | | PM PST | | | | | 2100, Until Discontinued | | | | | | + +-------+ +-------+---+---+ +-------+ +-------+---+---+ | Given | 11/20 | 40 mg | | | | | 15 9:55 | | | | | | PM PST | | | | +-------+ +-------+---+---+ +---+---+ | | | +---+---+ documented in this encounter
--- OUTSIDE RECORDS SUMMARY | ~2020-01-30 | XMS | Encounter Summary ---
Demographics + + + | Address | [address] | | | [place] [address] | + + + | Home Phone | | + + + | Preferred Language | Unknown | + + + | Marital Status | | + + + | Buddhism Affiliation | NRP | + + + | Race | or | + + + | Ethnic Group | Not or | + + + Author + + + | Author | [facility] | + + + | Organization | [facility] | + + + | Address [...] Team Providers + +------+ + | Care Help Desk Rep Name | Role | Phone | + [...] | | | | Subdural | Josselyn Case | | | | | | hematoma | [place] [address] | | | | | | ([facility]) | [address] | | | | | | Procedures | [place], [place] | | | | | | [place] | [address] | | | | | | CONTRAST | Phone: | | | | | | | [phone] | | | | | | | Fax: | | | | | | | [phone] | | +--------+--------+ + + + + Encounter Details +--------+ + + + + | Date | Type | Department | Care Team | Description | +--------+ + + + + | 03/30/ | Career 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 | Neurosurgery at | [place], | Subdural hematoma | | 2014 | | [facility] [address] | RAYA Kevin | ([place]) (Primary Dx) | | | | [facility] | [address] | | | | | [facility], | [place], [place] | | | | | Building | [address] | | | | | floor [facility] [place] | [phone] | | | | | [address] | | | | | | [phone] | | | +--------+ + + + [...] Not on filedocumented as of this encounter Results CT HEAD WO CONTRAST [...] subdural | | | | | | knazzvij93/19/2015 | | | | | | COMPARISON: [...] | | + +---------+ + + | [facility] DEPARTMENT OF | | | | | RADIOLOGY | | | | + +---------+ + + documented in this encounter Visit Diagnoses + + | Diagnosis | + + | Subdural hematoma (HCC) - Primary Subdural hemorrhage | + + documented in this encounter"
--- OUTSIDE RECORDS SUMMARY | ~2020-01-30 | XMS | Encounter Summary ---
Demographics + + + | Address | [address] | | | [place] [address] | + + + | Home Phone | | + + + | Preferred Language | Unknown | + + + | Marital Status | | + + + | Christian Affiliation | NRP | + + + | Race | or | + + + | Ethnic Group | Not or | + + + Author + + + | Author | [facility] | + + + | Organization [...] Team Providers + +------+ + | Care Barrel Raiser Helper Name | Role | Phone | [...] 03/26/ | Anesthesia | 6A Intra Op 3181 | Kay Tuttle, | | | 2014 | Event | [address] | [address] | | | | | [facility] | [address] | | | | | Hospital Admitting | [place], [place] | | | | | Desk Located on the | [address] | | | | | 9th floor | [phone] | | | | | [facility] [place] | | | | | | [address] | Vernon Dalton MD | | | | | | [address] | | | | | | [place], | | | | | | [place] [address] | | | | | | [phone] | | | | | | | | +--------+ + + + + Anesthesia Record + + + + + | Procedure Name | Responsible | Anesthesia Start | Anesthesia Stop Time | | | Anesthesiologist | Time | | + + + + + | RIGHT LJ HOLE VS | Kay Tuttle MD | 03/26/152128 | 03/26/15 8758 | | CRANIOTOMY FOR | | | [...] + | Wound | 03/26/15; 2099; Yes; Left; elbow; | 03/26/15 2100 by | 03/29/15 151 by Ismael | | | Abrasion; 03/29/15; 1514 | Stephanie Faria RN | Kendy Barraza RN | +--------+ + + + | Arteri | 03/26/15; 2144; Placed in OR; | 03/26/152144 by | 03/27/15 1600 by | | nikita | Standard; Right; Radial; | Stephanie Faria RN | Florence Gonzalez RN | | Line | 03/27/15; 1600 | | | +--------+ + + + | Urethcarito | 03/26/15; 2199; Aurora Leon | 03/26/152199 by | 03/28/15 1300 by Ismael | | nikita Menendez RN; Jose; 16 Fr.; 10 mL; | Delmis Correa RN | Kendy Barraza RN | | Cathet | 03/28/15; 1300; Per protocol | | | | er | | | | +--------+ + + + | Drain | 03/26/15; 2245; Denise Neville MD; | 03/26/152245 by | 03/28/15944 by | | | Other (Comment) (ALTAF dunn ); | Delmis Correa RN | Jenn Mejias RN | | | Right; head; 03/28/15 (by ); | | | | | 45 | | | +--------+ + + + [...] + + documented as of this encounter [place] Notes Anesthesia Preprocedure Evaluation - Kay Tuttle MD - 03/26/2015 10:25 PM PSTFormattin g of this note might be different from the original. Derick Pond [id number] No Known Allergies NPO:NPO Status: since this am Last Vitals: Temp: 36.9 C (98.5 F) Pulse: 69 Resp: 13 BP: 109/47 mmHg SpO2: 100 % O2 Delivery Device: None (room air) Preg Status/LMP: Patient Active Problem List Diagnosis Subdural hematoma (HCC) History reviewed. No pertinent past surgical history. Current Medication List Not on File Lab Results Component Value Date RATE 75 03/26/2015 ATRIALRATE 166 03/26/2015 DE 176 03/26/2015 QRS 106 03/26/2015 QT 392 03/26/2015 PAXIS 56 03/26/2015 RAXIS -57 03/26/2015 TAXIS -55 03/26/2015 Preoperative Adult Anesthesia Plan Last edited 03/26/152224 by Kay Tuttle MD ROS Pertinent HPI: Patient transferred from outside hospital for treatment of subdural hematoma (acute on chronic). Limited records from outside hospital. Patient is poor historian as is son and [id number] who I spoke to for PARQ and to learn more history, over the phone. Occasional smoker and drinker. Pulmonary: Within Defined Limits except as noted below no cough no shortness of breath no wheezing No dx of sleep apnea Risks factors for no sleep apnea: Cardiovascular: Functional Capacity: Moderate - dyspnea on exertion CAD Cad Sx: past OK no pacemaker GI/Hepatic: Within Defined Limits except as noted below no GERD No liver disease no hepatitis : Within Defined Limits except as noted below Endo: No apparent history of diabetes, but blood glucose in 300s no Diabetes: Neurological: Within Defined limits except as noted below Current Pain Level: Current pain level: 1 MS: Within Defined Limits except as noted below Heme/Onc: Pt. has: no active bleeding Skin: Comments: Elbow scab. open wounds or sores noted Physical Exam General: Patients general appearance: Healthy, Alert and Mild distress Head & Neck/Airway: TM Distance:> 6cm Dentition: dentures-lower and missing teeth Dental risk discussed with/pt : Yes Jiménez: No Mallampati: I Mouth Opening: > = 3 cm C-Spine: normal Neck Anatomy: Normal Jaw Protrusion: Normal, lower incisors can protrude past upper incisors Lung Exam: breath sounds normal Cardiac: Rhythm: regular Rate: normal Abdominal: Musculoskeletal: Neuro/Psych: alert Integument: + open wounds Implants: Comments: Patient arrived from outside hospital with C-collar, which was taken off but NS after their exam and reviewing CT Scan. 2833 Anesthesia Plan Comments ASA ASA 4 emergent NPO Status NPO Status: NPO by protocol Monitors/Lines to be used Art line Anesthetic Consideration Induction intravenous induction Anesthetic Technique General; Post-Op Pain Plan Orals; Blood Products Interpretive Services Informed Consent I also obtained PARQ and consent from son and daughter in law. PARQ discussed with: patient , Code status in [place] Patients Code Status in OR: FULL 03/26 10:25 PM documented in this en counter Miscellaneous Notes Arterial Line - Magali Casanova MD - 03/26/2015 10:37 PM PSTProcedure ART LINE Procedure Information Inserted: After Induction 4 minutes to perform. Type Catheter: Arrow kit Indications: Beat to beat blood pressure monitoring and Frequent lab draws Location Performed: [place] Informed Consent: Included in anesthesia consent Protective Barrier: Cap, Mask and Sterile Gloves Skin Prep: Chloraprep Draped: Partially draped Anesthesia Method: General anesthesia Insertion side: Right Insertion Site: Radial Access device: 20g Line secured by:Tape, Dressing Applied and StatLock Assessment Number of attempts: 1st Complications: None Assessment: Catheter connected to pressure line and flushed, catheter manually flushed, Brian erated procedure well and Perfusion checked distal to catheter Attending physically present Attending name: KAY TUTTLE Performed by Resident Name: MAGALI CASANOVA ne airway standard - Magali Casanova MD - 03/26/2015 10:36 PM PSTProcedure Reason for Intubation: For surgical procedure, Location Performed: [place] , Patient was preoxyg enated Mask Ventilation Grade 2 - Ventilated by mask with oral airway/adjuvant Rapid Sequence Induction: No Intubation Blade type: Krzysztof , Blade size: 3, Atraumatic laryngoscopy: Atraumatic Laryngoscopy, In tubation adjuncts: N/A , Laryngoscopic view: Grade I, Fiberoptics used: N/A , Number of Atte mpts: 1, Positive for EtCO2: Yes, Breath sounds: Bilateral and equal ETT Ett Adult: Single-lumen cuffed ETT Size: 8 ETT secured with: adhesive tape Depth at Lip: 23 cm Airway leak: No LMA Narrative Attending physically present Attending: KAY TUTTLE Performed by Resident MAGALI CASANOVA [facility] PreOp Note - Kay Tuttle MD - 03/26/2015 10:20 PM PST ROS Pertinent HPI: Patient transferred from outside hospital for treatment of subdural hematoma (acute on chronic). Limited records from outside hospital. Patient is poor historian as i s son and [id number] who I spoke to for PARQ and to learn more history, over the phone. Occasional smoker and drinker. Pulmonary: Within Defined Limits except as noted below no cough no shortness of breath no wheezing No dx of sleep apnea Risks factors for no sleep apnea: Cardiovascular: Functional Capacity: Moderate - dyspnea on exertion CAD Cad Sx: past OK no pacemaker GI/Hepatic: Within Defined Limits except as noted below no GERD No liver disease no hepat itis : Within Defined Limits except as noted below Endo: No apparent history of diabetes, but blood glucose in 300s no Diabetes: Neurological: Within Defined limits except as noted below Current Pain Level: Current pain level: 1 MS: Within Defined Limits except as noted below Heme/Onc: Pt. has: no active bleeding Skin: Comments: Elbow scab. open wounds or sores noted Physical Exam General: Patients general appearance: Healthy, Alert and Mild distress Head & Neck/Airway: TM Distance:> 6cm Dentition: dentures-lower and missing teeth Dental risk discussed with/pt : Yes Jiménez: No Mallampati: I Mouth Opening: > = 3 cm C-Spine: normal Neck Anatomy: Shivani l Jaw Protrusion: Normal, lower incisors can protrude past upper incisors Lung Exam: breath sounds normal Cardiac: Rhythm: regular Rate: normal Abdominal: Musculoskeletal: Neuro/Psych: alert Integument: + open wounds Implants: Comments: Patient arrived from outside hospital with C-collar, which was taken off but NS a fter their exam and reviewing CT Scan. documented in this en counter Plan of [...] | | | 03/26/15 at 2221, Until Amla | | | | | | | [...] | | | | | | Starting [facility] 03/26/15 at 2145, | | | | [...]
--- OUTSIDE RECORDS SUMMARY | ~2020-01-30 | XMS | Encounter Summary ---
Demographics + + + | Address | [address] | | | [place] [address] | + + + | Home Phone | | + + + | Preferred Language | Unknown | + + + | Marital Status | | + + + | Hindu Affiliation | NRP | + + + | Race | or | + + + | Ethnic Group | Not or | + + + Author + + + | Author | [facility] | + + + | Organization | [facility] | + + + | [...] Team Providers + +------+ + | Care Telegraph Inspector Name | Role | Phone | + [...] 2014 | | SW Drew Galaviz | [address] | CRANIOTOMY FOR | | | | Rd [facility] | [place], [place] | EVACUATION OF | | | | Hospital Admitting | [address] | SUBDURAL HEMATOMA | | | | Desk Located on the | [phone] | | | | | 9th floor | | | | | | [place], [place] | | | | | | [address] | | | +--------+---------+ + + + [...] Sykes MD PCP: Eli Baker MD Service: [facility] Neurosurgery Diagnoses Principal Final Diagnosis: 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 Additional Diagnoses: Type 1 DM Procedures Right-sided lj holes for evacuation of subdural hematoma. Brief Hospital Course Derick Franco is a 74-year-old male who was brought in transfer to [facility] for acute on chronic panhemispheric right-sided [...] right side. He was then brought to [facility] for higher level of care an [...] 3:14 PM Discharging Attending: Dixie Sykes MD [facility] [address] [address], [place] [address] documented in this en counter Discharge Instructions [...] your senior or day center, you r gnosticist community, or any other community in which [...] service which conn ects the people of [place] and [facility] with the community resources they need. 2 [employer] Home Instead ([phone]) This is a EXPO which can provide in home assistance at a cost to the family. [place] Project Eden OPI is a program which helps seniors 60 and over continue to live independently and safely living in their own home. OPI provides individualized personal care, housekeeping, and case management support. http://www.[place].gov/dhs/spwpd/pages/ltc/inhome.aspx#opi [place] Independent Living Resources: [place] Statement Of Independent Living Resources: Promote the philosophy of Independent L iving by creating opportunities, encouraging choices, advancing equal access, and furthering the level of independence for all people with disabilities. [phone] Meals on Wheels (www.mealsonwheelspeople.org) Meals on Wheels are hot, nutritious lunches that are delivered Monday through Monday betwee n 11 a.m. and 1 p.m. to homebound elderly age 60 and older. Seniors must live in [facility] in [place] or [facility] in [place] to be eligible to receive meal s. Call to request meals at [phone] in [facility] and [facility] and toll free in [facility] at . Most of the [facility] in [place] have a Meals on Wheels Program, and information on local [facility] rq-io-jyzion services can be obtained through local Area Agency on Aging Offices. [place] Vocational Rehabilitation Service (OVRS) ( ) http://www.[place].gov/DHS /vr/Pages/index.aspx [place] Area Agency on Aging http://www.[place].gov/dhs/spwpd/pages/offices.aspx There are 17 Area Agencies on Aging across [place] that administer and support community-bas ed care services. AAAs advocate for older adults living in their area, develop community-based long-term care services to meet the needs of those adults and administer funds to implement services. Most services coordinated by AAAs are provided through community service providers at the local level. This section contains program information designed for staff members of [place]'s AAAs . Aging and Disability Resource Connection of [place] https://adrcoforegon.org/ujlpsj-avssxhs-zqv-independent-living.php [facility] is a resource directory for [place] families, caregivers and consumers seekin g information about long-term supports and services. Here you will find quick and easy acces s to resources in your community. If you cannot find the information you are looking for or wish to talk to someone in person, please call us toll free at 4-538[facility] ([phone]) [place] Caregiver Support Line http://www.caregiver.va.gov/ Toll free : Also check with your private health insurance organization, as respite care may also be inc luded in the coverage. Support Groups for Families Living with Aphasia Individuals and families affected by aphasia face unique challenges. Support specifically d esigned for these people is limited. Three groups have formed in the [place], [place] area t hat provide both the individual experiencing aphasia and family members the opportunity to d evelop a sense of community with others impacted by aphasia. These groups are organized and run by participants. Faculty and students from [facility] s Department of S peech and Hearing [...] everyone. There are several groups in the [facility] for individuals and families living wit h aphasia: [facility] Continuous Improvement Group When: Each Monday 11:00 12:00 Where: [facility] [address] [place] [address]. Contact: Aidan Alaniz [email or web address] [facility] Speak EZ group When: Odd numbered Saturdays (i.e. May 12) 10:00 12:00 Where: [facility] [address] Contact: Mark Yanez [phone] [facility] Aphasia Group When: & Monday of each month 10:00 12:00 Where: [facility] Room varies watch for directional signs Contact: Kenya Cano [phone] [email or web address] [employer] A community music group for stroke survivors. Stroke survivors, spouses, partners, and care givers are invited to join for an hour of playing instruments and singing. Every Monday, 11:30-12:30 at the [facility], [address] [facility] / [place] [address]. Info rmation contact: Jen Banks, , Brain Injury Hunter of [place] http://www.biaoregon.org/ National Stroke Association http://www.stroke.org/ .STROKES (899.9802) National Center on Caregiving/ Family Caregiver Hunter www.caregiver.org Established in 2000 as a program of Family Caregiver Hunter, the National Center on Careg iving (NCC) works to advance the development of high-quality, cost-effective policies and pr ograms for caregivers in every state in the country. Uniting research, public policy and ser vices, the [facility] serves as a central source of information [...] their doctors about any personal medical concerns. [facility] Crisis Line Information: [facility] Health Access Crisis Number (24 hours) documented [...] relationship with his PCP and his diabetic police investigator whom he sees regularly. The patient and [...] approval / SHARRI MAHER 03/27/2015 9:09 AM Iris / SHARRI MAHER 03/27/2015 9:01 AM ASSESSMENT: [...] relationship with his PCP and his diabetic police investigator whom he sees regularl y. The patient [...] 1:38 PM PST NSICU Neuroscience ICU Attending Photo Producer Note Derick Franco is a 74 y.o. [...] the rest of his medications since his cxccmzcz-kk-fbr Dione is the one who manges all his medications. He was brought to [facility] in [facility] by EMS. On arrival his BP was 176/107 which was treated with labetalol. CT scan reviled a large acute on chroni c RIGHT subdural hematoma with right midline shift PMHx significant for DM, HTN, CAD s/p IA (on ASA and Plavix), TIA 24 Hour Events: ding well Neuro exam: non focal, AA and Ox4 Current problems include: right SDH acute on chronic, MLS, st/p lj hole evacuation , pneumocephalus postop,received platelets transfusion preop due to chronic antiplatelet t herapy ASA and Plavix (post IA), mild leucocytosis - reactive, normocytic anemia baseline an d periop BL, hyperchloremia Plan: hadley status, bronchial hygiene, SBP<160 mmHg, adat., OOB ambulate. Relevant Risks: This patient is currently at risk for the following: cerebral edema, sei zure and subdural hematoma; arrhythmia; edema, ICU delirium and UTI. I spent 22 minutes actively involved in the care and management of this patient Promise Valdez MD [facility] DEPARTMENT: [id number] ICU NEURO Place of Service:- Inpatient Date of Service: 03/28/15 CSN: [id number] Suggested Modifier: GC - Resident Involved Suggested CPT: TO CODER P M Ely Hernández MD - 03/28/2015 12:39 PM PST [facility] Progress Note Team Pager: [phone] Attendin Patient name: Derick Franco Author: Ely Oquendo MD Date of Service: 03/28/2015 Intensive Care Attending: Promise Valdez MD Attending Provider: Dixie Sykes MD ICU day # 3 POD # 2 s/p right lj holes for evacuation of subdural hematoma ID: Derick Franco is a 74 y.o. male with PMHx significant for DM, HTN, CAD s/p IA (on ASA an d Plavix), TIA, presenting [...] all his medications. He was brought to [facility] in [facility] by EMS. On arrival his BP was 176/107 which was treated with labe talol. CT scan revealed a large acute on chronic RIGHT subdural hematoma with right midline shift' - note adapted from Dr. Sahu HMyriamP note dated 03/26/15. 24 HOUR EVENTS: -low [...] PMHx significant for DM, HTN, CAD s/p IA (on ASA and Plavix), TIA, presen ting [...] transfer Cardiovascular # HTN # CAD # IA -sBP goal < 140mmHg -home metoprolol and [...] above assessment and plan. Ely Oquendo MD [facility] DEPARTMENT: [id number] ICU NEURO Place of Service:- Inpatient Date of Service: 03/28/2015 CSN: [id number] Suggested Modifier: None Salty Kulkarni MD - [...] weeks of dex 2BID Contact neurosurgery resident home service demonstrator with questions [place] pager [phone] [place] [address] PGY-4 Neurosurgery Promise Jaime MD - 03/27/2015 9:53 AM PST NSU Neuroscience ICU Attending Photo Producer Note Derick Franco is a 74 y.o. [...] the rest of his medications since his rafyhvbz-rf-qly Dione is the one who manges all his medications. He was brought to [facility] in [place], [place] by EMS. On arrival his BP was 176/107 which was treated with labetalol. CT scan reviled a large acute on chroni c RIGHT subdural hematoma with right midline shift PMHx significant for DM, HTN, CAD s/p IA (on ASA and Plavix), TIA Notable labs: [...] antiplatelet t herapy ASA and Plavix (post IA), mild leucocytosis - reactive, normocytic anemia baseline [...] is cri tically ill Promise Valdez MD [facility] DEPARTMENT: [id number] ICU NEURO Place of Service:- Inpatient Date of Service: 03/27/15 CSN: [id number] Suggested Modifier: GC - Resident Involved Suggested CPT: TO CODER P M [facility] HospitalLuis munoz MD - 03/27/2015 8:29 AM PST Date: [...] 7.43 PCO2 38 PO2 553* HCO3 25.3 A8GCVBRY 100.9* Assesment: Derick Franco is a 74 [...] total Luis Villafana MD Neurosurgery Resident Pager #[phone] Chet Alberto ACNP - 03/27/2015 5:29 AM [...] PMHx significant for DM, HTN, CAD s/p IA (on ASA an d Plavix), TIA, presenting [...] he has had increasing confusion since. H e reported at the time of his more recent fall he had a headache and neck pain that has now resolved. He has also had nausea and vomiting but cant remember the time course. He does end orse taking ASA and plavix but is unable to recall the rest of his medications since his anyi arjbd-cx-trb Dione is the one who manges all his medications. He was brought to [facility] in [place], [place] by EMS. On arrival his BP [...] PMHx significant for DM, HTN, CAD s/p IA (on ASA and Plavix), TIA, presen ting [...] transfer Cardiovascular # HTN # CAD # IA -sBP goal < 140mmHg -nicardipine gtt to [...] up pharmacy records and PCP records from [place], [place] - med rec confirmed, will restart [...] time is exclusive of procedures. CHAPO Dhillon [facility] DEPARTMENT: [id number] ICU NEURO Place of Service:- Inpatient Date of Service: 03/27/2015 CSN: [id number] Suggested Modifier: None Suggested CPT: TO EMT DRIVER Recent Labs 03/26/15203203/26/15221103/27/15 0326 NA 141 143 [...] tablet 40 mg 40 mg oral QPM [facility] - 03/27/2015 12:43 AM [facility] POST OPERATIVE CHECK Author: Luis [...] bed Luis Villafana MD Neurosurgery Resident Pager #[phone] documented in this en counter H&P Notes Carol Casiano MD - 03/26/2015 9:27 PM PSTNSICU ATTENDING Author: Carol Casiano MD Date of Service: 03/26/2015 I saw and evaluated the patient at the bedside with the house designer and agree with the as sessment and [...] proph with SCDs. 9. Lines: IV. No mosley. This patient is in the neuro ICU [...] PMHx significant for DM, HTN, CAD s/p IA (on ASA a nd Plavix), TIA, presenting [...] all his medications. He was brought to [facility] in [place], [place] by EMS. On arrival his BP [...] states that he is seen at the [facility] in [place], [place] IMAGING: CT head OSH PMH: IA TIA DM ? Thyroid disease Past Surgical History: History reviewed. No pertinent past surgical history. Home Meds: Old list from 2013 has not been verified - ASA 81mg [...] soft, NT/ND, normal active BS present /Renal: Mosley: no Musculoskeletal: - ext warm, well perfused, no edema, cyanosis, or clubbing Skin: - No rashes or significant breakdown; Lines/Tubes/Drains: - PIV Problem List Patient Active Problem List Diagnosis Subdural hematoma (HCC) Assessment and Plan: Derick Franco is a 74 y.o. male with PMHx significant for DM, HTN, CAD s/p IA (on ASA and Pl avix), TIA, presenting [...] No active issues. Cardiovascular: # CAD s/p IA # HTN - Goal SBP < 140 [...] # At risk for electrolyte deficiencies - Mosley: placed pre-op, plan to remove as able - UTI workup if admitted with Mosley present - Daily renal function sets - [...] of next of kin: : Gladis Franco/ [phone] Oixnwwqf-mj-pby Dione [phone] Disposition: NSICU Code: Full This patient has been staffed with Dr. Carol Casiano, attending physician, who agrees with the above assessment and plan. Lisa Sahu MD [facility] DEPARTMENT: [id number] ICU NEURO Place of Service:- Inpatient Date of Service: 03/26/2015 CSN: [id number] Lab Results Component Value Date WBC 10.48 [...] MRISPINE, MRIBRAIN No results found for: [facility], Luis Song MD - 03/26/2015 6:24 PM PST NEUROSURGERY ADMISSION HISTORY & PHYSICAL Author: Luis Villafana MD Date: 03/26/2015 Attending Physician: Dixie Sykes MD PCP: Eli Baker MD HPI: 74yo M with pmh of HTN, DM, IA, on ASA and plavix had a GLF two weeks ago with negative fin dings in the ED, fell again today with increasing confusion since the first fall, found to h ave a large right acute on chronic SDH with 1.4cm of MLS. He fell initially after Myron bolden g when putting his gun away, he [...] events of today. Allergies: levofloxacin PMHx: TIA ' DM OA CAD No past medical history [...] the assessment and plan as defined. Luis Villafana MD Neurological Surgery, #[id number] Patient Risk Modifiers - Including but not limited to. Age: 74 y.o. male DNR: No Order Transfer status/urgency : From Outside Hospital :Transfer Priority: Now (emergent) (03/26/15 9704) From [facility] ER : Paliative/end of Life Care :No [...] AM PSTAssociated Order(s): OPERATION RECORDDate of S ervice: 03/26/2015 Attending Surgeon: Dixie Sykes MD Utilities Ground Worker(s): Dave Neville MD Preoperative Diagnosis: 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 Postoperative Diagnosis: 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 Procedure Performed: Right-sided bur holes for evacuation of subdural hematoma. Estimated Blood Loss: 25 mL. Specimens: None. Complications: None. Drains: A ventriculostomy catheter was placed in the subgaleal space. Anesthesia: General endotracheal anesthesia. Indication For Procedure: Derick Pond is a 74-year-old male who was brought in transfer to [facility] for acute on chronic panhemispheric right-sided subdural hematoma. Per report from nd s family, he suffered a ground level fall [...] open. Bur holes were then created usin g a line assembler drill bit on the high-speed pneumatic drill [...] patient was carefully transferred back to the [facility]. He was left intubated. He was taken di rectly to the to the intensive care unit in stable condition. At the end of the case, all i nstrument, sponge, and needle counts were correct in [address] Sykes was present f or the critical portions of the case. MD Dixie Cedeño MD JJL/MODL /[id number] I was present for the critical portions of the procedure as described in the note for this encounter. MD Dixie Layne MD [facility] [address] [id number] [place] [address] eckau, Dave Song MD - 11:11 PM PSTAssociated [...] The patient was positioned appropriately. The following receiving team member s were present during the team pause: [...] dark blood evacuated. Irrigated until clear. Dictation: [id number] signed by Dixie Sykes MD at 04/03/2015 10:50 AM PST Associated attestation - Dixie Sykes MD - 04/03/2015 10:50 AM PSTI was present for the critical portions of the procedure as described in the note for this encounter. MD Dixie Layne MD [facility] [address] [address] [place] [address] documented in this encounter Miscellaneous Notes Evaluation - Jamila Barraza RN - 03/29/2015 4:26 PM PSTNursing Discharge Note Discharge Date: 02/18/2013 Additional Discharge Information: Reviewed Discharge summary/instructions and prescriptions w/ pt and pt's daughter (Delmis). Both verbalized and demonstrated understanding. Questions a nswered. PIV d/c'd. Belongs in pt's possession at time of d/c. Pt d/c'd home w/ family membe r, escorted by 10K implementation specialist Nurse: JAMILA BARRAZA RNElectronically signed by Jamila [...] the rest of his medications since his kiptmsin-es-kfp iDone is the one who manges all his medications. He was brought to [facility] in [place], [place] by EMS. On arrival his BP was 176/107 which was treated with labetalol. CT sc an reviled a large acute on chronic RIGHT subdural hematoma with right midline shift PMHx significant for DM, HTN, CAD s/p IA (on ASA and Plavix), TIA Pertinent physical findings: N: A&Ox4, doss, generalized weakness. 1 SBA with walker, gait slightly unsteady. fcx4, 5/5, perrl. Very AGUA CALIENTE CV: NSR, afebrile, ppx4 R: RA, lungs clear, dim in bases. GI: diabetic diet, 1 large BM : mosley d/c'd 03/28 @ 13:00. Voided x1 Low [...] the rest of his medications since his pmbkhfwx-wx-pfx Dione is the one who manges all his medications. He was brought to [facility] in [facility] by EMS. On arrival his BP was 176/107 which was treated with labetalol. CT sc an reviled a large acute on chronic RIGHT subdural hematoma with right midline shift PMHx significant for DM, HTN, CAD s/p IA (on ASA and Plavix), TIA Pertinent physical findings: N: A&Ox4, doss, generalized weakness. 1 SBA with walker, gait slightly unsteady. fcx4, 5/5, perrl. Very AGUA CALIENTE CV: NSR, afebrile, ppx4 R: RA, lungs clear, dim in bases. GI: diabetic diet, 1 large BM : mosley catheter d/c'd @ 13:00. Low urine out [...] pending procedure: lan of Care - Mame in, Anastasia Agosto, PT - 03/28/2015 3:47 PM PSTFormatting of this note might be different from kiera rosales. Physical Therapy Evaluation 03/28/2015 3:47 PM Admitted on 03/26/2015, hospital day 2 Patient seen on 10K Activity orders: up ad ayala; c spine cleared Brief Hospital Course: Derick Franco is a 74 y.o. male with PMHx significant for DM, HTN, C AD s/p IA (on ASA and Plavix), TIA, presenting with acute on chronic RIGHT SDH. Now s/p righ t-sided bur holes for evacuation of subdural hematoma on 03/26 Relevant Precautions: Fall; AGUA CALIENTE No past medical history on file. Living [...] / Family Goal: To go home Communication: Pakistani Barriers: none Pain: minimal posterior head; no [...] deviation, poor awareness of obstacles Outcome Measure: [facility] BASIC MOBILITY Difficulty turning over in [...] A Little - Minimal/Contact Guard Assist/Superv ision [facility] Basic Mobility Total Score 18 Interpretation of [facility] Short Form - Basic Mobility: CMS [...] developed and reviewed with the patient. Anastasia Murry, PT, DPT, CCS Physical Therapist Pager #[phone] valuation - Jenn Yates RN - 03/28/2015 11:23 AM PST Problem: General [...] the rest of his medications since his xppwcpmf-us-bwt Dione is the one who manges all his medications. He was brought to [facility] in [place], [place] by EMS. On arrival his BP was 176/107 which was treated with labetalol. CT sc an reviled a large acute on chronic RIGHT subdural hematoma with right midline shift PMHx significant for DM, HTN, CAD s/p IA (on ASA and Plavix), TIA Pertinent physical findings: N: A&Ox4, doss, fcx4, 5/5, perrl CV: NSR, afebrile, ppx4 R: RA, lungs clear, dim in bases. GI: BG checks, diabetic diet, 1 large BM : mosley catheter, low uo SKIN: bilat elbow abrasions upon admit, Incision intact Orders to follow up on: none Last pain assessment/reassessment: Denies Psych/social issues: Supportive family Last patient visit (i.e. Falls/Activity/Comfort/Environment/Toileting/Skin): Ongoing Anticipated or pending procedure: noneElectronically signed by Jenn Mejias RN at 03/09 11:22 AM Ewa Estes RN - 03/27/2015 8:23 PM PSTNursing Handoff [...] the rest of his medications since his idxkdlhh-xj-fcx Dione is the one who manges all his medications. He was brought to [facility] in [facility] by EMS. On arrival his BP was 176/107 which was treated with labetalol. CT sc an reviled a large acute on chronic RIGHT subdural hematoma with right midline shift PMHx significant for DM, HTN, CAD s/p IA (on ASA and Plavix), TIA Pertinent physical findings: N: A&Ox4, doss, fcx4, 5/5, perrl CV: NSR, afebrile, ppx4 R: RA, lungs clear, dim in bases. GI: Endotool, diabetic diet, passing flatus but no BM : mosley catheter, low uo SKIN: bilat elbow abrasions [...] and reason for referral: Received referral through [employer] for concerns for falls and caregiver concerns Interview participants: Met with patient and many family members, including patient's 2 adult daughters. Social history: Patient resides independently in an apartment on [address] near [facility]. Patient and family reports that patient fell on and was later seen by an MD but th munir expressed concern that he did not get [...] resources to d/c summary. Discussed that the [place] can be a resource while patient resides o n the [facility]. No other social work needs identified at this time. Social work refer ral completed. Please see medical and ancillary service notes for other needs and care sneha ns. Please re-refer to social work if additional social work needs are identified. Jayce Anton, WEBSPHERE MESSAGE BROKER DEVELOPER, pager #[phone] andoff - Florence Gonzalez RN - 03/27/2015 8:12 AM PSTNursing Handoff Report Primary focus of stay: Derick Franco is a 74 y.o. male with PMHx significant for DM, HTN, CAD s/p IA (on ASA and Plavix), TIA, presenting with [...] all his medications. He was [facility] [place] by EMS. On arrival his BP was [...] to follow up on: Endotool check at 194, transfer to the floor Last pain assessment/reassessment: Denies Psych/social issues: Supportive family Last patient visit (i.e. Falls/Activity/Comfort/Environment/Toileting/Skin): Ongoing Anticipated or pending procedures: none ignificant Event - Stephanie Traylor RN - 03/26/2015 9:34 PM PSTPt to [place] via BROOKE luciano 2 and Anestes. Corey otoole per . omm Marco Antonio arzate Nilo Rooney - 03/26/2015 7:42 PM PSTLF adv just landed at Laura, eta approx 2009Ele ctronically signed by Nilo Gerardo at 03/26/2015 7:43 PM [facility]Comm [facility] Nilo Gerardo - 03/26/2015 6:44 PM PSTLF adv ETA Laura 1934 then ETA to [facility] 2000 omm Jaspal Campuzano - 03/26/2015 5:19 [...] CHG), | e | 2:01 AM | ([facility]) | procedure are in the | | [...] CHG), | e | 1:16 PM | ([facility]) | procedure are in the | | POC | | PST | | results section. | + +--------+ + + + | CAPILLARY BLOOD | Routin | 03/27/2015 | Subdural hematoma | Results for this | | GLUCOSE (NO CHG), | e | 11:11 AM | ([facility]) | procedure are in the | | POC | | PST | | results section. | + +--------+ + + + | CAPILLARY BLOOD | Routin | 03/27/2015 | Subdural hematoma | Results for this | | GLUCOSE (NO CHG), | e | 9:57 AM | ([facility]) | procedure are in the | | [...] | | Attending Surgeon: Dixie Sykes MD Utilities Ground Worker(s): Dave Song | | MD Jamin Preoperative [...] | | was brought in transfer to [facility] for acute on chronic panhemispheric right-sided [...] right side. 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 He was left intubated. | [...] 03/26/2015 23:51:35DT: 03/27/2015 07:45:19Job #: | | [id number] was present for the critical portions of the procedure as described in | | the note for this encounter.Oneil Layne MDOH [id number] [facility] | | [id number]/[address] [phone] | | | |I was present for the critical portions of the procedure as described in the note for this encounter. | | | |Dixie Sykes MD | | | |Dixie Sykes MD | |[facility] 10K | |[address] | |[id number] | |[place] [address] | |[phone] | + + CAPILLARY BLOOD GLUCOSE (NO [...] [facility] | [address] | [place], [place] | | | LORRAINE CASTRO OF VICTOR MANUEL | [facility] | [address] | | | TESTS | | | [...] (H) | 60 - 99 mg/dL | [facility] - | | | GLUCOSE, | [...] [facility] | [address] | [place], [place] | | | MATTHEW POINT OF CARE | [address] | [address] | | | TESTS | | | [...] | + + + + + | [facility] | [address] | [place] [address] | | | SERVICES, CORE | PARK [...] | + + + + + | [facility] | [address] | [place] [address] | | | SERVICES, CORE | SHADIA [...] | | | LABORATORY | | | QATARI | | | SERVICES, | | | [...] the MDRD equation recommended by the | [facility] | | National Kidney Disease Education Program. [...] | + + + + + | [facility] | [address] | [place] [address] | | | BEULAH KINCAID | SHADIA [...] (H) | 60 - 99 mg/dL | [facility] - | | | GLUCOSE, | | [...] + | [facility] | [address] | [place], [place] | | | LORRAINE ACSTRO OF VICTOR MANUEL | [facility] | [address] | | | TESTS | | | [...] [facility] | [address] | [place], [place] | | | LORRAINE CASTRO OF CARE | [address] | [address] | | | TESTS | | | [...] [place] | [address] | [place], [place] | | | HILL, POINT OF CARE | [address] | [address] | | | TESTS | | | [...] [place] | [address] | [place], [place] | | | LORRAINE CASTRO OF VICTOR MANUEL | [address] | [address] | | | TESTS | | | [...] [facility] | [address] | [place], [place] | | | MATTHEW POINT OF CARE | [address] | [address] | | | TESTS | | | [...] [place] | [address] | [place], [place] | | | LORRAINE CASTRO OF CARE | [address] | [address] | | | TESTS | | | [...] [place] | [address] | [place] | | | MAT[place]W POINT OF CARE | [address] | [address] | | | TESTS | | | [...] [place] | [address] | [place] | | | MATTHEW POINT OF CARE | [address] | [address] | | | TESTS | | | [...] [facility] | [address] | [place], [place] | | | LORRAINE CASTRO OF CARE | [facility] | [address] | | | TESTS | | | [...] | [facility] | [address] | [place], [place] | | | MATTHEW POINT OF CARE | [address] | [address] | | | TESTS | | | [...] [place] | [address] | [place] | | | MATTHEW POINT OF CARE | [address] | [address] | | | TESTS | | | [...] [place] | [address] | [place] | | | LORRAINE CASTRO OF CARE | [address] | [address] | | | TESTS | | | [...] (H) | 60 - 99 mg/dL | [facility] - | | | GLUCOSE, | | [...] | [facility] | [address] | [place], [place] | | | MAT[facility]W POINT OF CARE | [address] | [address] | | | TESTS | | | [...] [place] | [address] | [place], [place] | | | MATTHEW POINT OF CARE | [address] | [address] | | | TESTS | | | [...] [place] | [address] | [place] | | | LORRAINE CASTRO OF CARE | [address] | [address] | | | TESTS | | | [...] (H) | 60 - 99 mg/dL | [facility] - | | | GLUCOSE, | | [...] | [facility] | [address] | [place], [place] | | | LORRAINE CASTRO OF CARE | [facility] | [address] | | | TESTS | | | [...] [place] | [address] | [place], [place] | | | MATTHEW POINT OF CARE | [address] | [address] | | | TESTS | | | [...] [place] | [address] | [place], [place] | | | MATTHEW POINT OF CARE | [address] | [address] | | | TESTS | | | [...] (H) | 60 - 99 mg/dL | [facility] - | | | GLUCOSE, | | [...] [facility] | [address] | [place], [place] | | | LORRAINE CASTRO OF CARE | [address] | [address] | | | TESTS | | | [...] | + + + + + | [facility] | [address] | [place] [address] | | | SERVICES, CORE | [address] | | | + + + + + MAGNESIUM, PLASMA (03/28/2015 12:07 AM PST) + +-------+ + + + | Component | Value | Ref Range | Performed | Pathologist | | | | | At | Signature | + +-------+ + + + | MAGNESIUM,P | 2.1 | 1.8 - 2.5 mg/dL | [facility] | | | [place] | | | [...] | + + + + + | [facility] | [address] | [place] [address] | | | SERVICES, CORE | SHADIA [...] | | | LABORATORY | | | QATARI | | | SERVICES, | | | [...] the MDRD equation recommended by the | [facility] | | National Kidney Disease Education Program. [...] | + + + + + | [facility] | [address] | [place] [address] | | | BEULAH KINCAID | SHADIA [...] [place] | [address] | [place], [place] | | | LORRAINE CASTRO OF VICTOR MANUEL | [facility] | [address] | | | TESTS | | | [...] [place] | [address] | [place], [place] | | | LORRAINE CASTRO OF VICTOR MANUEL | [address] | [address] | | | TESTS | | | [...] [facility] | [address] | [place], [place] | | | MATTHEW POINT OF CARE | [address] | [address] | | | TESTS | | | [...] [place] | [address] | [place], [place] | | | LORRAINE CASTRO OF CARE | [facility] | [address] | | | TESTS | | | [...] [facility] | [address] | [place], [place] | | | LORRAINE CASTRO OF VICTOR MANUEL | [address] | [address] | | | TESTS | | | [...] [facility] | [address] | [place], [place] | | | LORRAINE CASTRO OF CARE | [address] | [address] | | | TESTS | | | [...] + | [facility] | [address] | [place], [place] | | | LORRAINE CASTRO OF CARE | [address] | [address] | | | TESTS | | | [...] [place] | [address] | [place], [place] | | | LORRAINE CASTRO OF VICTOR MANUEL | [address] | [address] | | | TESTS | | | [...] [facility] | [address] | [place], [place] | | | LORRAINE CASTRO OF VICTOR MANUEL | [address] | [address] | | | TESTS | | | [...] + | [facility] | [address] | [place], [place] | | | LORRAINE CASTRO OF CARE | [address] | [address] | | | TESTS | | | [...] [place] | [address] | [place], [place] | | | LORRAINE CASTRO OF VICTOR MANUEL | [address] | [address] | | | TESTS | | | [...] [facility] | [address] | [place], [place] | | | LORRAINE CASTRO OF CARE | [address] | [address] | | | TESTS | | | [...] + | [facility] | [address] | [place], [place] | | | LORRAINE CASTRO OF CARE | [address] | [address] | | | TESTS | | | [...] [place] | [address] | [place], [place] | | | LORRAINE CASTRO OF VICTOR MANUEL | [address] | [address] | | | TESTS | | | [...] [place] | [address] | [place] | | | LORRAINE CASTRO OF CARE | [address] | [address] | | | TESTS | | | [...] + | [facility] | [address] | [place], [place] | | | LORRAINE CASTRO OF CARE | [address] | [address] | | | TESTS | | | [...] [facility] | [address] | [place], [place] | | | MATTHEW POINT OF CARE | [address] | [address] | | | TESTS | | | [...] + | [facility] | [address] | [place] [address] | | | SERVICES, BEULAH | [address] | | | [...] | + + + + + | [facility] | [address] [facility] [address] [facility] | [place] [address] | | | SERVICES, CORE | SHADIA [...] | | | LABORATORY | | | QATARI | | | SERVICES, | | | [...] the MDRD equation recommended by the | [facility] | | National Kidney Disease Education Program. [...] | + + + + + | [facility] | [address] | [place] [address] | | | SERVICES, CORE | SHADIA [...] 74 | 60 - 99 mg/dL | [facility] - | | | GLUCOSE, | [...] [facility] | [address] | [place], [place] | | | LORRAINE CASTRO OF CARE | [facility] | [address] | | | TESTS | | | [...] + | [facility] | [address] | [place], [place] | | | LORRAINE CASTRO OF VICTOR MANUEL | [address] | [address] | | | TESTS | | | | + + + + + CULTURE, URINE [facility] (03/27/2015 12:51 AM PST) + + [...] + + | [facility] | [address] | [place] [address] | | | SERVICES, CORE | [address] [...] + + | [facility] | [address] | [place] [address] | | | SERVICES, CORE | SHADIA [...] + + | [facility] | [address] | [place] [address] | | | SERVICES, CORE | [address] [...] | + + + + + | [facility] | [address] | [place] [address] | | | SERVICES, [facility] | [address] | | | + + + + + CAPILLARY BLOOD GLUCOSE (NO CHG), POC (03/27/2015 12:42 AM PST) + +---------+ + + + | Component | Value | Ref Range | Performed | Pathologist | | | | | At | Signature | + +---------+ + + + | BLOOD | 164 (H) | 60 - 99 mg/dL | [facility] - | | | GLUCOSE, | [...] [place] | [address] | [place], [place] | | | LORRAINE CASTRO OF VICTOR MANUEL | [facility] | [address] | | | TESTS | | | [...] | | + +---------+ + + | [facility] DEPARTMENT OF | | | [...] [facility] | [address] | [place], [place] | | | LORRAINE CASTRO OF CARE | [facility] | [address] | | | TESTS | | | [...] [facility] | [address] | [place], [place] | | | LORRAINE CASTRO OF VICTOR MANUEL | [facility] | [address] | | | TESTS | | | [...] (H) | 60 - 99 mg/dL | [facility] - | | | GLUCOSE, | [...] [facility] | [address] | [place], [place] | | | LORRAINE CASTRO OF [facility] | [address] | [address] | | | TESTS | | | [...] + | [facility] | [address] | [place], [place] | | | CARDIOLOGY | [address] | [address] | | + + + + + [...] + + | [facility] | [address] | [place] [address] | | | SERVICES, CORE | PARK [...] [facility] | [address] | [place] [address] | | | SERVICES, | [address] [...] [facility] | [address] | [place] [address] | | | SERVICES, | [address] [...] | + + + + + | [facility] | [address] | [place] [address] | | | BEULAH KINCAID | SHADIA [...] [facility] | [address] | [place] [address] | | | SERVICES, CORE | SHADIA [...] 24.2 (L) | 26.0 - 36.0 | [facility] | | | | | seconds | [...] | + + + + + | [facility] | [address] | [place] [address] | | | SERVICES, CORE | [address] | | | + + + + + MAGNESIUM, PLASMA (03/26/2015 8:33 PM PST) + +-------+ + + + | Component | Value | Ref Range | Performed | Pathologist | | | | | At | Signature | + +-------+ + + + | MAGNESIUM,P | 2.0 | 1.8 - 2.5 mg/dL | [facility] | | | LASMA | | | [...] | + + + + + | [facility] | [address] [facility] [address] | [place] [address] | | | SERVICES, CORE | SHADIA [...] | | | LABORATORY | | | QATARI | | | SERVICES, | | | [...] | + + + + + | [facility] | [address] | [place] [address] | | | SERVICES, CORE | SHADIA [...] + + + + | PRODUCT | [id number] | | [facility] | | | UNIT [...] + + + + | EXPIRATION | [id number] | | [facility] | | | DATE [...] + + + + | BLOOD | [id number] | | [facility] | | | PRODUCT [...] + + + + | [facility] | [address] | [place] [address] | | | PATHOLOGY | [address] [...] + + + + | PRODUCT | [id number] | | [facility] | | | UNIT [...] + + + + | EXPIRATION | [id number] | | [facility] | | | DATE [...] + + + + | BLOOD | [id number] | | [facility] | | | PRODUCT [...] | + + + + + | [facility] | [address] | [place] [address] | | | PATHOLOGY | [address] [...]
--- OUTSIDE RECORDS SUMMARY | ~2020-01-30 | XMS | Encounter Summary ---
Demographics + + + | Address | [address] | | | [place] [address] | + + + | Home Phone | | + + + | Preferred Language | Unknown | + + + | Marital Status | | + + + | Protestant Affiliation | NRP | + + + | Race | or | + + + | Ethnic Group | Not or | + + + Author + + + | Author | [facility] | + + + | Organization | [facility] | + + + | Address [...] Team Providers + +------+ + | Care Costume Specialist Name | Role | Phone | + [...] | | | | | Procedures | [place], [place] | | | | | | [place] | [address] | | | | | | CONTRAST | Phone: | | | | | | | [phone] | | | | | | | Fax: | | | | | | | [phone] | | +--------+--------+ + + + + [...] | | | | | Procedures | [place], [place] | | | | | | [place] | [address] | | | | | | CONTRAST | Phone: | | | | | | | [phone] | | | | | | | Fax: | | | | | | | [phone] | | +--------+--------+ + + + + Encounter Details +--------+ + + + + | Date | Type | Department | Care Team | Description | +--------+ + + + + | 04/23/ | Hospital | Radiology/Imaging | | | | 2014 | Encounter | Lab at [facility] [address] | | | | | [facility] | | | [facility], | | | | | | [address] | | | | | | [place], [place] | | | | | | [address] | | | | | | [phone] | | | +--------+ + + + [...] Units | 10 mL | 0 | 03/29/ | | | 100 unit/mL | under [...] subdural | | | | | | gbaazzzg24/19/2015 | | | | | | COMPARISON: [...] | | + +---------+ + + | [facility] DEPARTMENT OF | | | | | RADIOLOGY | | | | + +---------+ + + documented in this encounter Visit Diagnoses + + | Diagnosis | + + | Subdural hematoma (HCC) Subdural hemorrhage | + + documented in this encounter"
--- OUTSIDE RECORDS SUMMARY | ~2020-01-30 | XMS | Clinical Summary ---
Demographics + + + | Address | [address] | | | [place] [address] | + + + | Home Phone | | + + + | Preferred Language | Unknown | + + + | Marital Status | | + + + | Buddhist Affiliation | NRP | + + + [...] Team Providers + +------+ + | Care Supervisor Cd Area Name | Role | Phone | + +------+ + | Christa Caldera MD | PCP | | + +------+ + Source Comments SHERITA is fully live on both EpicCare Ambulatory and EpicCare InPatient.[facility] Allergies + + + + + + [...] + + Plan of Treatment + + +-------+ + | Health Maintenance | Due Date | Last | Comments | | | | Done | | + + +-------+ + | Pneumococcal | | | | | vaccination (1 of 1 | 4 | | | | - PPSV23) | | | | + + +-------+ + | Influenza (Flu) | | | | | vaccination (#1) | 0 | | | + + +-------+ + Implants + +------+--------+ +--------+--------+--------+ | Implanted [...] Hole .5mm 17mm | | Right: | [employer] | | | 421.52 | | Craniomaxillofacial Titanium | | Head | | | | 7 / / | | Low Profile Nonsterile - | | | | | | | | [id number]: Qty: 2 on | | | | | | | | 03/26/2015 by Dixie Sykes | | | | | | | | MD Janie at [facility] | | | | | | | | LOC | | | | | | | + +------+--------+ +--------+--------+--------+ | Screw Bone 4mm 1.55mm 2.55mm | | Right: | [employer] | | | 04.503 | | Matrixneuro | | Head | | | | .104.0 | | Craniomaxillofacial Titanium | | | | | | 1 / / | | Self Drill Nonsterile - | | | | | | | | [id number]: Qty: 4 on | | | | | | | | 03/26/2015 by Dixie Sykes | | | | | | | | MD Janie at [facility] | | | | | | [...] + +--------+ | MEDICARE | MEDICA | [id number] | 11/06/19 | [phone] | [address] | Medica | | | RE A & | | 14-Pre | 1 | [address] | re | | | [address] | | sent | | [place], [place] | | | | | | | | [address] | | + +--------+ +--------+ + +--------+ | [facility] | | [id number] | 03/26/ | | | Agency | | SERVICE | | | 2014-P | | | | | | HEALTH [...] | Self | [birth year] | [address] | | | al/Fam | | 1940 | [phone] | [address] [place] | | | nikole | | | [address] (Home) | [address] | + +--------+ +--------+ + + Advance [...]
--- OUTSIDE RECORDS SUMMARY | ~2020-01-30 | XMS | Encounter Summary ---
Demographics + + + | Address | [address] | | | [place] [address] | + + + | Home Phone | | + + + | Preferred Language | Unknown | + + + | Marital Status | | + + + | Anglican Affiliation | NRP | + + + | Race | or | + + + | Ethnic Group | Not or | + + + Author + + + | Author | [facility] | + + + | Organization | [facility] | + + + | Address | [...] Team Providers + +------+ + | Care Groutman Name | Role | Phone | + +------+ + | Christa Caldera MD | PCP | | + +------+ + Reason for Visit + +--------+ + | Reason | Onset | Comments | | | Date | | + +--------+ + | Refill Request | 03/31/ | s/p admission 03/26/15 - 03/29/15: Right-sided anurag | | | 2014 | holes for evacuation of subdural hematoma. (03/26/15) | + +--------+ + Encounter Details +--------+ + + + [...] | | | [facility] | [place] | 03/29/15: | | | | [facility], | [address] | Right-sided anurag | | | | Building | [phone] | holes for evacuation | | | | floor [facility] [place] | | of subdural | | | | [address] | | hematoma. (03/26/15) | | | | [phone] | | ) | +--------+ + + [...] + + documented as of this encounter Miscellaneous Notes Telephone Encounter - Anna Barlow LPN - 04/09/2015 9:21 AM PSTConcerns address, no a dditional action needed. I am closing this encounter. elephone Encounter - Josselyn Castellanos PA - 04/06/2015 11:22 AM PSTSpoke with patient's who states t hey did not receive Rx for oxycodone at discharge. Denies Headaches but has pain from ribs, contusions from fall. Agreed would ERx Rx for Oxycodone to pharmacy. Krysten Stephanie. Patient has FU in Neurosurgery clinic on 04/16/15. elephone Encounter - Wandy Mcclain LPN - 04/06/2015 8:58 AM P STPatient's spouse left a VM stating they never received a Rx for Oxycodone at the time of h ospital d/c. Pt's spouse reports pt is still painful around his chest and left buttocks from a recent fa ll. Pt's spouse states no Rx was included in any of the d/c paperwork. Attempted to contact [facility] on file to inquire about Rx. Pharmacy is closed a t the moment. Please advise if Rx can be refilled.Electronically signed by Wandy Mcclain LPN at 03/10 9:00 AM PSTTelephone Encounter - Anna Barlow LPN - 03/31/2015 3:33 PM PSTSumm katy: No action needed. CAROLEEI for Dr. Sykes & Team. Patient is s/p: Right-sided anurag holes for evacuation of subdural hematoma. (03/26/15) Discharge Nurse wellness call to Derick Franco. I spoke with Mr. Franco who reports he is doi ng well and has had an uncomplicated post operative experience. He has been to visit his P CP since discharge. His DM is doing well. His last blood sugar was 118. He reports he ti res easily but he will "rest and feel better". He is active and participating in his routin e ADL's. His pain is controlled with oxycodone 5mgs He left with all his Rx's. Understood the purpose of taking them and had no questions rega rding her post op instructions. We reviewed his upcoming appointment, including date, time and location as well a their tra nsportation needs, medication dosing and our departments 72 hours refill policy, S/S to sandra cutler and when to call the Surgeon, Primarily wound infection and BM concerns and FMLA paperw ork He feel his questions were answered prior to discharge and have no questions at this time. documented in this encounter Plan of Treatment Not on filedocumented as of this encounter Visit Diagnoses Not on filedocumented in this encounter
--- OUTSIDE RECORDS SUMMARY | ~2020-01-30 | XMS | Encounter Summary ---
Demographics + + + | Address | [address] | | | [place] [address] | + + + | Home Phone | | + + + | Preferred Language | Unknown | + + + | Marital Status | | + + + | Yarsani Affiliation | NRP | + + + | Race | or | + + + | Ethnic Group | Not or | + + + Author + + + | Author | [facility] | + + + | Organization | [facility] | + + + | Address | Unknown | + + + | Phone | Unavailable | + + + Support + + +---------+ + | Name | Relationship | Address | Phone | + + +---------+ + | Dione Franco | ECON | Unknown | | + + +---------+ + | Delmiskip Berkowitzlouisa | ECON | Unknown | | + + +---------+ + Care Team Providers + +------+ + | Care Body Engineer Name | Role | Phone | + +------+ + | Christa Caldera MD | PCP | | + +------+ + Reason for Visit + +--------+ + | Reason | Onset | Comments | | | Date | | + +--------+ + | Test Results | 04/24/ | | | | 2014 | | + +--------+ + Encounter Details +--------+ + + + + | Date | Type | Department | Care Team | Description | +--------+ + + + + | 04/24/ | Telephone | Neurosurgery at | [facility], | Test Results | | 2015 | | [facility] [id number] | ARYA Kevin | | | | | [facility] | [address] | | | | | [facility], | [place], [place] | | | | | [facility] | [address] | | | | | floor [place], [place] | [phone] | | | | | [address] | | | | | | [phone] | | | +--------+ + + + [...] this encounter Miscellaneous Notes Telephone Encounter - Josselyn Castellanos PA - 04/24/2015 5:20 PM PSTPt. 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 Right-georges ed bur holes for evacuation of subdural hematoma 03/26/15. Plavix held. Pt. Presented for FU visit after completing recommended Head CT but left without being seen. Head CT demonstrate d significant improvement. Per Dr. Sykes can now FU with us on PRN basis. Attempted to call patient x 2 with this info. Mailbox full. Called emergency contact and gave her this info, told her to have patient discuss whether resumption of Plavix was indicated with PCP and to call me if any questions. She told me she would pass info on to patient. Electronically sig eliazar by ARYA Alvarado at 04/24/2015 5:29 PM PSTdocumented in this encounter Plan of Treatment Not on filedocumented as of this encounter Visit Diagnoses Not on filedocumented in this encounter"
--- NOTE | 2020-01-30 13:45 | EKG ---
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
== END 2020-01-30 13:58 | disposition home or self-care (01) ==
LOC: ED 10:52
DX: E86.0 Dehydration (principal); I25.2 Old myocardial infarction; Z86.73 Personal history of transient ischemic attack (TIA), and cerebral infarction without residual deficits; E11.9 Type 2 diabetes mellitus without complications; I10 Essential (primary) hypertension; E78.5 Hyperlipidemia, unspecified; Z88.1 Allergy status to other antibiotic agents; Z79.899 Other long term (current) drug therapy; Z79.4 Long term (current) use of insulin; Z79.82 Long term (current) use of aspirin
CPT/HCPCS: 80053; 81001; 85025; 93005; 93010; 96360; 99284-25; J7030

== ENCOUNTER 2020-10-21 09:18 | Inpatient (IN) | payer MEDICARE, OTHER ==
[~2020-10-21] VITALS: Ht 170.2 cm; Wt 53.3 kg
[~2020-10-21 09:18] MED LIST changes: -ASPIR-LOW81 MG PO; +LO-DOSE ASPIRIN81 M1 PO; +ZESTRIL10 MG PO
[2020-10-21] MEDS ORDERED: VITAMIN B-121000 MCG PO (09:33)
[2020-10-21] MEDS ORDERED: MULTI VITAMIN1 EACH PO (10:36)
[2020-10-21] MEDS ORDERED: GLIPIZIDE XL5 MG PO (10:39)
[2020-10-21] MEDS ORDERED: LATANOPROST 0.7.5 ML OD (10:40)
[2020-10-21] MEDS ORDERED: CLOTRIMAZOLE TOP (10:41)
--- NOTE | 2020-10-21 12:18 | NUR ---
REPORT RECIEVED FROM ED. PATIENT HAS BEEN WITH INCREASED SHORTNESS OF BREATH, POOR APPETITE, SLEEPING MORE DURING THE DAY, SLEEPING LESS AT NIGHT, WITH OCC NAUSEA. MONITOR SHOWED AFIB WITH RVR. BNP-472. PATIENT RECIEVED CARDIZEM 10 MG IV IN ER FOR HR OF 140 THIS TOOK HR DOWN TO 90'S. UPON ADMIT TO CCU PATIENT IS DROWSY. IS ALTUR[place]. ADMISSION PROCESS STARTED.
--- NOTE | 2020-10-21 12:30 | NUR ---
LASIX 20 MG IV GIVEN PER ORDERS.
--- NOTE | 2020-10-21 12:40 | NUR ---
ACCUCHECK 164, ONE UNIT HUMALOG INSULIN SQ GIVEN. SITTING UP IN BED FOR LUNCH.
--- NOTE | 2020-10-21 13:31 | NUR ---
TOOK LUNCH WELL. CARDIZEM GTT AT 15 MG/HR. HR UP TO 139. WILL CONTINUE TO MONITOR.
--- NOTE | 2020-10-21 14:00 | NUR ---
guitar repair technician here to do echo on patient.
--- NOTE | 2020-10-21 14:10 | NUR ---
Attempted to see pt, he is having an echo at this time. Will see tomorrow.
--- NOTE | 2020-10-21 14:35 | EKG ---
[facility] [address] [place] [address] Signed Atrial fibrillation with rapid ventricular response with premature ventricular or aberrantly conducted complexes Low voltage QRS Septal infarct (cited on or before 30-JAN-2018) T wave abnormality, consider inferior ischemia Abnormal ECG When compared with ECG of 30-JAN-2020 11:18, Atrial fibrillation has replaced Sinus rhythm Vent. rate has increased BY 61 BPM QRS voltage has decreased T wave inversion more evident in Lateral leads Confirmed by RICKEY TOBIAS MD ([id number]) on 10/21/2020 2:35:46 PM Electronically Signed By: RICKEY TOBIAS MD 10/21/20 1435 PATIENT NAME: SKYLER PRITCHARD Electrocardiogram DATE OF : 38 PHYSICIAN: RICKEY TOBIAS MD REPORT #: [id number] REPORT IS CONFIDENTIAL AND NOT TO BE RELEASED WITHOUT AUTHORIZATION
--- NOTE | 2020-10-21 15:01 | NUR ---
JUST HERE TO VISIT PT IMAGING ARRIVES FOR ECHO. WILL CHECK BACK
--- NOTE | 2020-10-21 16:00 | NUR ---
ASSESSMENT DONE. PATIENT DENIES PAIN. CARDIZEM GTT AT 5 MG/HR.
--- NOTE | 2020-10-21 16:27 | NUR ---
TOLERATED ECHO WELL. PATIENT W/O C/O. RESTFUL.
--- NOTE | 2020-10-21 17:00 | NUR ---
ACCUCHECK-108. NO INSULIN GIVEN. GRANDSON IN ROOM.
--- NOTE | 2020-10-21 19:07 | NUR ---
DR. TOBIAS UPDATED ON PATIENT CONDITION, ORDERS RECIEVED FOR MELATONIN ORDERED. REPORT TO TO NEXT SHIFT. REMAINS ON CARDIZEM GTT AT 5 MG/HR.
--- NOTE | 2020-10-21 19:53 | NUR ---
SHIFT REPORT RECEIVED FROM BROOKE CRUZ. PT IS AWAKE/ALERT AT THIS TIME, WATCHING TV. DENIES PAIN. LUNGS CLEAR/DIM, RA, DENIES SOB AT REST. HR IRREGULAR, RATE 90-110, CARDIZEM DRIP INFUSING AT 5MG/HR, DENIES CHEST PAIN. BOWEL TONES ACTIVE, DENIES NAUSEA. URINAL EMPTIED. IV SITE INTACT AND INFUSING WNL. SKIN APPEARS GROSSLY INTACT WITHOUT EDEMA NOTED. WATER REFILLED. PLAN OF CARE DISCUSSED WITH PATIENT, QUESTIONS ANSWERED. NO FURTHER REQUESTS AT THIS TIME, CALL LIGHT WITHIN REACH.
--- NOTE | 2020-10-21 20:20 | NUR ---
CB AFTER DINNER, 4 UNITS HUMALOG ADMINISTERED. MELATONIN GIVEN AT THIS TIME PER PT REQUEST, STATES HE HASN'T BEEN SLEEPING WELL AND IS READY FOR BED. PT DENIES FURTHER NEEDS AT THIS TIME, CALL LIGHT WITHIN REACH.
--- NOTE | 2020-10-21 22:08 | NUR ---
PT LAYING ON LEFT SIDE IN BED, RESTING WITH EYES CLOSED. CARDIZEM DRIP CONTINUES TO INFUSE AT 5MG/HR. HR IN 90'S AT THIS TIME. PT DOES NOT APPEAR TO BE IN ANY DISTRESS, RESPIRATIONS ARE EVEN AND UNLABORED.
--- NOTE | 2020-10-21 23:37 | NUR ---
IV PUMP ALARMING DUE TO PT'S ARM BEING BENT, PT AWAKE WHEN I WENT IN TO CHECK. ASSESSMENT COMPLETED AND UNCHANGED. CARDIZEM DRIP CONTINUES AT 5MG/HR. PT DENIES REQUESTS OR COMPLAINTS AT THIS TIME. CALL LIGHT WITHIN REACH.
--- NOTE | 2020-10-22 00:35 | NUR ---
AT 0005 I COULD HEAR PT TALKING, IN TO CHECK ON HIM. PT STATES "I'M PERSPIRING, I THINK MY BLOOD SUGAR IS LOW." CB, PT PROVIDED WITH APPLE JUICE AND ELIZABETH CRACKERS. BLOOD SUGAR RE-CHECKED AT THIS TIME AND IS UP TO 130, PT REPORTS FEELING BETTER. PT DENIES FURTHER REQUESTS AT THIS TIME, WILL CONTINUE TO MONITOR.
--- NOTE | 2020-10-22 02:32 | NUR ---
PT APPEARS TO BE SLEEPING AT THIS TIME, NO APPARENT DISTRESS, RESPIRATIONS EVEN AND UNLABORED. VITAL SIGNS STABLE.
--- NOTE | 2020-10-22 02:54 | NUR ---
ROUNDED ON pt. RESTING ON LEFT SIDE. RESPIRATIONS REGULAR RATE 24. CPAP ON. O2 SAT MID 90'S. CALL LIGHT WITHIN REACH.
--- NOTE | 2020-10-22 04:07 | NUR ---
PT AWAKE, USING URINAL. ASSESSMENT COMPLETED AND UNCHANGED. PT CONTINUES TO DENY SOB AND CHEST PAIN. CARDIZEM DRIP CONTINUES AT 5MG/HR. PT DENIES REQUESTS AT THIS TIME, CALL LIGHT WITHIN REACH.
--- NOTE | 2020-10-22 07:15 | NUR ---
report recieved. PATIENT RESTING IN BED. DENIES PAIN. CARDIZEM GTT AT 5 MG/HR. DENEIS SHORTNESS OF BREATH.
--- NOTE | 2020-10-22 08:00 | NUR ---
OOB TO CHAIR WITH ASSIST. ASSESSMENT DONE. LUNGS DIM BUT CLEAR. DENIES SHORTNESS OF BREATH. PO MEDICATIONS GIVEN.
--- NOTE | 2020-10-22 09:10 | NUR ---
HR-69, CARDIZEM TO OFF. DENIES DIZZINESS. TOOK BREAKFAST WELL. DAUGHTER IS IN ROOM.
--- NOTE | 2020-10-22 09:40 | NUR ---
DR. TOBIAS HERE TO TALK WITH PATIENT AND PATIENT DAUGHTER. PATIENT CONTINUES TO SIT IN CHAIR. PATIENT DENIES PROBLEMS.
--- NOTE | 2020-10-22 10:10 | NUR ---
BACK TO BED WITH ASSIST.
--- NOTE | 2020-10-22 10:50 | NUR ---
Spoke with pt and daughter Delmis. Daughter lives with pt. Pt uses a walking stick(broom handle) and walks 2 miles per day. He has a ramp which was built for his . He denies use of other DME. He would like a cane, but cannot find one he likes or fits. Denies financial isssues, uses [facility] for [facility] and medications. Plans on dc to home wit daughter when discharged.
--- NOTE | 2020-10-22 10:59 | NUR ---
MONITOR SHOWS 5 BEATS OF V-TACH. PATIENT DENES PROBLES. AWARE.
--- NOTE | 2020-10-22 12:00 | NUR ---
assessment done. ACCUCHECK 334, ONE UNIT HUMALOG INSULIN GIVEN. THIS PER MODIFIED SS. READY FOR BREAKFAST.
--- NOTE | 2020-10-22 14:26 | NUR ---
PT IN ROOM WORKING WITH PT FOR USEING A CANE.
--- NOTE | 2020-10-22 16:00 | NUR ---
ASSESSMENT UNCHANGED. UP TO CHAIR FOR BED LINEN CHANGE. PATIENT IS W/O C/O. DENIES PAIN.
--- NOTE | 2020-10-22 16:43 | NUR ---
ACCUCHECK-141. NO INSULIN GIVEN. RESTING IN BED, WATCHING TV.
--- NOTE | 2020-10-22 17:35 | NUR ---
MONITOR SHOWS SVT VS AFLUTTER 1:1. PATIENT DENIES W/O S/S. HR DOWN TO APPROX 100 AFFER APPROX ONE MIN. NO TREATMENT GIVEN.
--- NOTE | 2020-10-22 17:54 | NUR ---
MONITOR SHOWS SVT HR 136. PATIENT ONEC AGAINS IS W/O S/S. BP-141/99. DR TOBIAS NOTIFIED. CARDIZEM GTT HUNG AT 5 MG/HR. PATIENT IS SITTING UP IN BED WATCHING TV.
--- NOTE | 2020-10-22 18:43 | NUR ---
NO FUTHER CHANGES, RESTING WITH HOB ELEVATED. CARDIZEM GTT AT 5 MG/HR
--- NOTE | 2020-10-22 19:23 | NUR ---
SHIFT REPORT RECEIVED FROM BROOKE CRUZ. PT TRYING TO GET OUT OF BED AT THIS TIME STATING HE WANTED TO STAND TO URINATE. ASSISTED PT TO USE URINAL IN BED, VOIDED 225ML YELLOW URINE. BED ALARM SET FOR SAFETY. PT DENIES PAIN AT THIS TIME. NO FURTHER REQUESTS AT THIS TIME.
--- NOTE | 2020-10-22 20:26 | NUR ---
PT CALLED TO REQUEST EVENING MEDICATIONS. ASSESSMENT COMPLETED. PT DENIES PAIN, SOB, AND NAUSEA. LUNGS SOUND CLEAR, RA, DENIES SOB. HR IRREGULAR, RATE 80-90'S, CARDIZEM DRIP AT 5MG/HR. REMAINDER OF ASSESSMENT BENIGN. IV SITE INTACT AND PATENT. CB, 1 UNIT HUMALOG GIVEN. LIGHTS DIMMED PER REQUEST, PT DENIES FURTHER NEEDS AT THIS TIME. BED ALARM REMAINS ON FOR SAFETY.
--- NOTE | 2020-10-22 21:49 | NUR ---
PT APPEARS TO BE SLEEPING AT THIS TIME, NO APPARENT DISTRESS, RESPIRATIONS EVEN AND UNLABORED. BED ALARM REMAINS ON. CARDIZEM INFUSION CONTINUES TO INFUSE AT 5MG/HR. VITAL SIGNS STABLE.
--- NOTE | 2020-10-23 00:11 | NUR ---
PT CONTINUES TO SLEEP AT THIS TIME, NO APPARENT DISTRESS, RESPIRATIONS EVEN AND UNLABORED. VITAL SIGNS STABLE. CARDIZEM DRIP CONTINUES TO INFUSE AT 5MG/HR. BED ALARM REMAINS ON FOR SAFETY. WILL ALLOW FOR REST AND NOT WAKE PT UP AT THIS TIME.
--- NOTE | 2020-10-23 01:56 | NUR ---
PT CONTINUES TO SLEEP, NO CHANGES TO CARDIZEM DRIP. VITAL SIGNS STABLE.
--- NOTE | 2020-10-23 02:33 | NUR ---
PT AWAKE AT THIS TIME TO USE URINAL, VOIDED 400ML YELLOW URINE. PT DENIES PAIN, SOB, AND NAUSEA. NO FURTHER REQUESTS AT THIS TIME.
--- NOTE | 2020-10-23 03:50 | NUR ---
PT'S HR MAINTAINING RATE 100-115, INCREASED CARDIZEM DRIP TO 7.5MG/HR.
--- NOTE | 2020-10-23 04:30 | NUR ---
HR WAS MAINTAINING 100-115, WENT IN AT 0405 TO INCREASE CARDIZEM DRIP AND NOTICED THAT IV APPEARED INFILTRATED; DRIP STOPPED. NEW IV PLACED IN LEFT UPPER ARM BY BROOKE KOVACS. RESUMED CARDIZEM DRIP AT 7.5MG/HR. ASSESSMENT REMAINS UNCHANGED OTHERWISE.
--- NOTE | 2020-10-23 06:00 | NUR ---
PT CALLED TO REQUEST WARM BLANKET, PROVIDED AT THIS TIME. PT DENIES FURTHER NEEDS.
--- NOTE | 2020-10-23 07:22 | NUR ---
TOOK REPORT FROM MESFIN COX. PT IN ROOM WATCHING TV. CALL LIGHT IN REACH. BED ALARM ACTIVATED.
--- NOTE | 2020-10-23 07:42 | NUR ---
DILTIAZEN INFILTRATION REPORTED BY MESFIN COX LAST NIGHT. PT PRESENTS WITH SWELLING MEDIAL TO L AC.
--- NOTE | 2020-10-23 08:56 | NUR ---
vs done, bath given, gown changed, room picked up, linens changed. breakfast eaten, no other needs at this time
--- NOTE | 2020-10-23 09:19 | NUR ---
PER AM MEETING AND MD UPDATE PATIENT TO REMAIN IN CCU AT THIS TIME. NO CHANGE IN DISCHARGE PLAN AT THIS TIME. WILL CONTINUE TO FOLLOW UP WITH PATIENT.
--- NOTE | 2020-10-23 10:58 | NUR ---
PT IN ROOM SITTING ON SIDE OF BED WATCHING TV. PTS FAMILY IN ROOM. CALL LIGHT IN REACH.
--- NOTE | 2020-10-23 11:11 | NUR ---
OT/PT HERE TO WORK WITH PT.
--- NOTE | 2020-10-23 11:45 | NUR ---
PER PATIENT DAUGHTER [facility] APPROVED REFERRAL TO CARDIOLOGY YESTERDAY 10/22/20. DR. TOBIAS TO SEND REFERRAL. PER STEPH RN WILL HAVE [employer]OD FORM BUILDER CALL TO SCHEDULE AN APPOINTMENT FOR PATIENT.
--- NOTE | 2020-10-23 12:00 | NUR ---
PATIENT RESTING IN BED. PATIENT LUNCH ARRIVED. NO OTHER NEEDS AT THIS TIME. PATIENT HAS CALLED APPROPRIATELY TODAY. PATIENT REMAINS OFF OF THE CARDIZE GTT AT THIS TIME. WILL CONTINUE TO CLOSELY MONITOR.
--- NOTE | 2020-10-23 15:30 | NUR ---
PT SITTING IN CHAIR TALKING WITH FAMILY. DENIES NEEDS AT THIS TIME.
--- NOTE | 2020-10-23 15:50 | NUR ---
CHART NOTES AND FACESHEET FAXED TO [facility] FOR REFERRAL. [facility] OFFICE CLOSED AT THIS TIME, WILL CALL TO SCHEDULE PATIENT APPOINTMENT ON MONDAY.
--- NOTE | 2020-10-23 18:42 | NUR ---
PT RETURNED TO BIPAP BY KB RT. 22/02 60%.
--- NOTE | 2020-10-23 20:15 | NUR ---
SHIFT REPORT RECEIVED FROM BROOKE HAWK. PT IS SLEEPING AT THIS TIME, RESPIRATIONS EVEN AND UNLABORED. HR:95-102 PER MONITOR.
--- NOTE | 2020-10-23 20:30 | NUR ---
ASSESSMENT COMPLETED. PT IS ALERT/ORIENTED, DENIES PAIN. LUNGS CLEAR, RA, REPORTS MILD SOB AT REST. HR IRREGULAR, DENIES CHEST PAIN. BOWEL TONES ACTIVE, DENIES NAUSEA. SKIN INTACT, NO EDEMA NOTED. IV SITE INTACT, PATENT, SALINE LOCKED. CB, NO SLIDING SCALE COVERAGE REQUIRED. PT DENIES FURTHER REQUESTS AT THIS TIME, CALL LIGHT WITHIN REACH.
--- NOTE | 2020-10-23 21:26 | NUR ---
SPOKE WITH DR. TOBIAS FOR PT GOALS REGARDING CARDIZEM DRIP. PT'S HR CURRENTLY 95-115. PLAN TO ONLY RE-START DRIP IF PT STARTS SUSTAINING HR>120 OR IF PT BECOMES SYMPTOMATIC WITH INCREASED HR.
--- NOTE | 2020-10-23 22:45 | NUR ---
PT RESTING IN BED WITH EYES CLOSED. NO APPARENT DISTRESS, RESPIRATIONS EVEN AND UNLABORED. HR:100-110, RR:19, SPO2:94% ON RA.
--- NOTE | 2020-10-24 00:14 | NUR ---
PT SLEEPING AT THIS TIME, NO APPARENT DISTRESS, RESPIRATIONS EVEN AND UNLABORED. VITAL SIGNS STABLE. HR REMAINS IN A.FLUTTER RATE IN 90'S. WILL ALLOW FOR REST AND CONTINUE TO MONITOR.
--- NOTE | 2020-10-24 02:36 | NUR ---
PT APPEARS TO BE SLEEPING AT THIS TIME. VITAL SIGNS STABLE. HR:100-105.
--- NOTE | 2020-10-24 04:55 | NUR ---
IN TO CHECK ON PT WHO WOKE EASILY WHILE I WAS IN ROOM. DENIES PAIN. STATES THAT HE FEELS LIKE THE MELATONIN WORKED WELL FOR HIM AND HE WAS ABLE TO GET SOME GOOD SLEEP. REMAINDER OF ASSESSMENT UNCHANGED. PT STATES HE IS GOING TO USE THE URINAL AND THEN TRY TO REST MORE. CALL LIGHT WITHIN REACH.
--- NOTE | 2020-10-24 05:39 | NUR ---
URINAL EMPTIED OF 650ML YELLOW URINE. PT DENIES FURTHER NEEDS.
--- NOTE | 2020-10-24 07:30 | NUR ---
TOOK REPORT ON PT. PT IN ROOM WATCHING TV IN BED.
--- NOTE | 2020-10-24 10:30 | NUR ---
OT/PT IN ROOM TO WORK WITH PT.
--- NOTE | 2020-10-24 11:13 | NUR ---
PT'S DAUGHTER IN ROOM TO VISIT PT. PT IN CHAIR. CALL LIGHT IN REACH.
--- NOTE | 2020-10-24 11:50 | NUR ---
PATIENT'S DAUGHTER IN ROOM AND ASKING QUESTIONS TO NURSING STAFF REGARDING PATIENT'S LIVING WILL, AND IF WE HAVE THE AVAILABILITY TO PROVIDE A NOTARY. DISCUSSED THIS WITH HER, AND RECOMMENDED THAT SHE WAIT UNTIL MONDAY TO DISCUSS THIS FURTHER, WHEN THE HOSPITAL WOULD POTENTIALLY HAVE A NOTARY AVAILABLE. PATIENT THEN EXPRESSES DESIRE TO GO BACK TO BED. PATIENT HELPED WITH 1 PERSON SBA. PT GIVEN WARM BLANKET. PT NOW WAITING ON HIS LUNCH. DAUGHTER PATRICIA REMAINS IN THE ROOM WITH PATIENT. HR INT HE 70-80s, AFLUTTER. SP02 IS 97% ON ROOM AIR AND PATIENT APPEARS COMFORTABLE, AND DOES NOT APPEAR TO BE IN ANY DISTRESS AT ALL. PT ALSO WORKED WITH PHYS THERAPY THIS AM AND TOLERATED AMBULATION IN THE HALLWAY WELL.
--- NOTE | 2020-10-24 13:18 | NUR ---
REPORT GIVEN TO JAJA COX. PT WAITING TRANSPORT.
--- NOTE | 2020-10-24 13:30 | NUR ---
REPORT RECIEVED FROM BROOKE HAWK, PT WILL BE TRANSFERING FROM CCU TO [facility] SHORTLY.
--- NOTE | 2020-10-24 13:35 | NUR ---
PT TAKEN TO MS RM 122 IN BED ON TELEMETRY.
--- NOTE | 2020-10-24 13:37 | NUR ---
PATIENT ARRIVES IN BED WITH Nathaniel OWENS RN, FROM CCU TO ROOM 122. VITALS OBTAINED. PATIENT CURRENTLY ALERT AND ORIENTED.
--- NOTE | 2020-10-24 16:03 | NUR ---
Lying in bed, assist to bathroom, standby asist with cane. Continent of urine. Assist to recliner. Call light in reach, denies other needs at this time.
--- NOTE | 2020-10-24 18:40 | NUR ---
PT TRANSFERED TO [facility] FROM CCU [id number]. PT UP IN CHAIR FOR DINNER, NOW BACK IN BED RESTING SAFELY W/ CALL LIGHT IN REACH. DENIES CP OR SOB.
--- NOTE | 2020-10-24 19:20 | NUR ---
BEDSIDE REPORT RECEIVED FROM OFFGOING RNS ABDOUL AND JAJA. PT RESTING IN BED. CALL LIGHT IN REACH.
[2020-10-24] MEDS ORDERED: BISOPROLOL FUMAR5 MG PO (20:29)
[2020-10-24] MEDS ORDERED: DILTIAZEM 24HR120 MG PO (20:29)
[2020-10-24] MEDS ORDERED: LISINOPRIL5 MG PO (20:29)
[2020-10-24] MEDS ORDERED: KLOR-CON 1010 MEQ PO (20:30)
[2020-10-24] MEDS ORDERED: FUROSEMIDE20 MG PO (20:30)
--- NOTE | 2020-10-24 21:42 | NUR ---
PT ASSESSMENT COMPLETE. PT DENIES PAIN, NAUSEA, OR SOB. TELE #2, HR IRREGULAR. HR OCCASIONALLY UP TO 130'S, NONSUSTAINED. PT DENIES S/SX OF TACHYCARDIA. PT REPORTS OCCASIONAL NERVE PAIN TO BLE. STATES THAT WHN THIS OCCURS HE WEARS COMPRESSION SOCKS AND THIS HELPS. DENIES NEED FOR COMPRSSION SOCKS AT THIS TIME. IV FLUSHED. WNL. PT DENIES FURTHER NEEDS AT THIS TIME. CALL LIGHT IN REACH.
--- NOTE | 2020-10-24 23:53 | NUR ---
PT RESTING IN BED ON L SIDE, EYES CLOSED. RESPIRATIONS EVEN AND UNLABORED. PT APPEARS TO BE SLEEPING. CALL LIGHT IN REACH.
--- NOTE | 2020-10-25 03:27 | NUR ---
PT RESTING IN BED ON HIS BACK, EYES CLOSED. RESPIRATIONS EVEN AND UNLABORED. CALL LIGHT IN REACH.
--- NOTE | 2020-10-25 05:48 | NUR ---
PT ASSESSMENT COMPLETE. PT RESTING IN BED, WAKES EASILY. DENIES PAIN, NAUSEA, OR SOB. PT REPORTS THAT OVERNIGHT HE GOT UP TO BATHROOM UNASSISTED, REMINDED PT TO ALWAYS USE CALL LIGHT. PT UP TO BATHROOM WITH SBA, DECLINES TO USE CANE. BED ALARM PLACED AFTER PT BACK TO BED. CRACKLES NOTED TO LLL, PT WITH DRY COUGH NOTED DURING ASSESSMENT. PT DENIES FURTHER NEEDS AT THIS TIME. CALL LIGHT IN REACH.
--- NOTE | 2020-10-25 07:17 | NUR ---
REPORT RECEIVED FROM BROOKE RIVER. THIS RN AND BROOKE WILKINSON, ASSUMING CARE OF PT. PT RESTING IN BED. PT DENIES PAIN AND NAUSEA AND STATES HE IS ANTICIPATING DISCHRAGE HOME TODAY. COFFEE PROVIDED PER PT REQUEST. NO ADDITIONAL REQUESTS OR COMPLAINTS. CALL LIGHT WITHIN REACH. BED RAILS UP.
--- NOTE | 2020-10-25 08:03 | NUR ---
THIS RN TO ROOM TO CHECK ON PT. STAND BY ASSIST WITH CANE UP TO CHAIR. PTS HEART RATE ELEVATES TO 130'S WITH ACTIVITY. PT DENIES DIZZINESS AND CHEST PAIN. LUNG SOUNDS CLEAR. HEART RATE CONTINUS TO BE IRREGULAR. BLOOD SUGAR 147, NO INSULIN NEEDED. PT EATING BREAKFAST UP IN CHAIR. NO ADDITIONAL REQUESTS OR COMPLAINTS. CALL LIGHT WITHIN REACH.
--- NOTE | 2020-10-25 11:02 | NUR ---
PT READY FOR DISCHARGE. FAMILY ARRIVED. PT DRESSED WITH ASSISTANCE FROM BERNARDO ROSARIO. IV DC'D BY BERNARDO ROSARIO, WNL. DISCHARGE INSTRUCTIONS REVIEWED WITH PT AND PTS FAMILY. MEDICATIONS, FOLLOW UP AND WHEN TO CALL THE DOCTOR REVIEWD IN DETAIL. HE SALAZAR, TO BEDSIDE TO REVIEW MEDCIATIONS AND THEIR SIDE EFFECTS WITH PT AND FAMILY. PT AND FAMILY VERBALIZE UNDERSTANDING OF INSTRUCTIONS, MEDICATIONS AND FOLLOW UP AND STATE THEIR QUESTIONS HAVE BEEN ANSWERED. NO ADDITIONAL REQUESTS OR CONCERNS. PT TRANSFERS SELF TO WHEELCHAIR WITH USE OF CANE. WHEELED FORM MED/SURG. NO ADDITIONAL REQUESTS OR CONCERNS.
--- NOTE | 2020-10-25 11:25 | NUR ---
TOOK PATIENT OUT IN WHEELCHAIR. HIS DAUGHTER DROVE HIM HOME. IN VERY GOOD SPIRITS.
== END 2020-10-25 11:10 | disposition home or self-care (01) | DRG 308 ==
LOC: ED 09:18 → CCU 11:13 → MS 10-24 13:35
PROVIDERS: ADMIT Internal Medicine; ATTEND Internal Medicine
DX: I48.91 Unspecified atrial fibrillation (principal); I50.21 Acute systolic (congestive) heart failure; Z20.822 Contact with and (suspected) exposure to COVID-19; I11.0 Hypertensive heart disease with heart failure; H91.90 Unspecified hearing loss, unspecified ear; I48.92 Unspecified atrial flutter; I42.9 Cardiomyopathy, unspecified; G89.29 Other chronic pain; I25.10 Atherosclerotic heart disease of native coronary artery without angina pectoris; E11.9 Type 2 diabetes mellitus without complications; M19.90 Unspecified osteoarthritis, unspecified site; E78.5 Hyperlipidemia, unspecified; F03.90 Unspecified dementia, unspecified severity, without behavioral disturbance, psychotic disturbance, mood disturbance, and anxiety; I25.2 Old myocardial infarction; Z95.5 Presence of coronary angioplasty implant and graft; Z88.1 Allergy status to other antibiotic agents; Z79.899 Other long term (current) drug therapy; Z79.84 Long term (current) use of oral hypoglycemic drugs; Z79.82 Long term (current) use of aspirin; Z87.820 Personal history of traumatic brain injury
CPT/HCPCS: 36415; 71045; 80048; 80053; 83735; 83880; 84484; 85025; 93005; 93010; 93306; 96374; 97110; 97116; 97162; 99285-25; C9803; J1815; J1940; U0003

== ENCOUNTER 2021-02-11 10:47 | Emergency (ER) | payer MEDICARE, OTHER ==
[~2021-02-11] VITALS: Ht 170.2 cm; Wt 54.4 kg
[~2021-02-11 10:47] MED LIST changes: +BISOPROLOL FUMAR5 MG PO; +CLOTRIMAZOLE TOP; +DILTIAZEM 24HR120 MG PO; +FUROSEMIDE20 MG PO; +GLIPIZIDE XL5 MG PO; +KLOR-CON 1010 MEQ PO; +LATANOPROST 0.7.5 ML OD; +LISINOPRIL5 MG PO; +MULTI VITAMIN1 EACH PO; +VITAMIN B-121000 MCG PO
[2021-02-11] MEDS ORDERED: METOPROLOL SUC200 MG PO (15:10)
--- NOTE | 2021-02-12 21:32 | EKG ---
[facility] [address] [place] [address] Signed Wide QRS tachycardia Nonspecific intraventricular block Cannot rule out Anterior infarct , age undetermined T wave abnormality, consider lateral ischemia Abnormal ECG When compared with ECG of 21-OCT-2020 09:21, Wide QRS tachycardia has replaced Atrial fibrillation Confirmed by PROMISE SOLIMAN DO ([id number]) on 02/12/2021 9:32:26 PM Electronically Signed By: PROMISE SOLIMAN DO 02/12/21 2132 PATIENT NAME: MACHOSKYLERBRIANNA WOLFF Electrocardiogram DATE OF : 38 PHYSICIAN: PROMISE SOLIMAN DO REPORT #: [id number] REPORT IS CONFIDENTIAL AND NOT TO BE RELEASED WITHOUT AUTHORIZATION
--- NOTE | 2021-02-12 21:33 | EKG ---
[facility] [address] [place] [address] Signed Atrial flutter with variable AV block Nonspecific intraventricular block Cannot rule out Anterior infarct , age undetermined T wave abnormality, consider lateral ischemia Abnormal ECG When compared with ECG of 11-FEB-2021 11:12, (Unconfirmed) Atrial flutter has replaced Wide QRS tachycardia Vent. rate has decreased BY 69 BPM Confirmed by PROMISE SOLIMAN DO ([id number]) on 02/12/2021 9:32:57 PM Electronically Signed By: PROMISE SOLIMAN DO 02/12/21 2133 PATIENT NAME: SKYLER PRITCHARD Electrocardiogram DATE OF : 38 PHYSICIAN: PROMISE SOLIMAN DO REPORT #: [id number] REPORT IS CONFIDENTIAL AND NOT TO BE RELEASED WITHOUT AUTHORIZATION
== END 2021-02-11 15:30 | disposition home or self-care (01) ==
LOC: ED 10:47
DX: I48.92 Unspecified atrial flutter (principal); I25.2 Old myocardial infarction; E11.9 Type 2 diabetes mellitus without complications; M19.90 Unspecified osteoarthritis, unspecified site; I11.0 Hypertensive heart disease with heart failure; I25.10 Atherosclerotic heart disease of native coronary artery without angina pectoris; E78.5 Hyperlipidemia, unspecified; I50.9 Heart failure, unspecified; Z88.1 Allergy status to other antibiotic agents; Z79.899 Other long term (current) drug therapy; Z79.82 Long term (current) use of aspirin; Z79.84 Long term (current) use of oral hypoglycemic drugs
CPT/HCPCS: 80053; 84484; 85025; 93005; 93010; 96374; 99285-25

== ENCOUNTER 2021-11-29 14:12 | Emergency (ER) | payer MEDICARE, OTHER ==
[~2021-11-29] VITALS: Ht 170.2 cm; Wt 56.3 kg
[~2021-11-29 14:12] MED LIST changes: +METOPROLOL SUC200 MG PO
--- NOTE | 2021-11-30 07:38 | EKG ---
[facility] [address] [place] [address] Signed Atrial flutter with variable AV block Minimal voltage criteria for LVH, may be normal variant ( Velasquez product ) Anteroseptal infarct (cited on or before 30-JAN-2018) ST \T\ T wave abnormality, consider lateral ischemia Abnormal ECG When compared with ECG of 11-FEB-2021 11:29, No significant change was found Confirmed by RICKEY TOBIAS MD ([id number]) on 11/30/2021 7:38:04 AM Electronically Signed By: RICKEY TOBIAS MD 11/30/21 0738 PATIENT NAME: SKYLER PRITCHARD Electrocardiogram DATE OF : 38 PHYSICIAN: RICKEY TOBIAS MD REPORT #: [id number] REPORT IS CONFIDENTIAL AND NOT TO BE RELEASED WITHOUT AUTHORIZATION
== END 2021-11-29 17:01 | disposition home or self-care (01) ==
LOC: ED 14:12
DX: S90.821A Blister (nonthermal), right foot, initial encounter (principal); X58.XXXA Exposure to other specified factors, initial encounter; Y93.01 Activity, walking, marching and hiking; I25.2 Old myocardial infarction; E11.9 Type 2 diabetes mellitus without complications; I25.10 Atherosclerotic heart disease of native coronary artery without angina pectoris; I10 Essential (primary) hypertension; E78.5 Hyperlipidemia, unspecified; Z88.1 Allergy status to other antibiotic agents; Z79.899 Other long term (current) drug therapy
CPT/HCPCS: 93005; 93010